=== PATIENT | male | born 1950 | race Caucasian/White ===

== ENCOUNTER → 2021-01-28 15:47 | Outpatient (CLI) | payer MEDICARE, SELFPAY ==
[2021-01-28 17:56] LABS: Absolute Lymphocyte Count 1.71 X10^3/uL (0.83-4.51); Absolute Neutrophil Count 3.9 X10^3/uL (2.0-7.7); Basophil# 0.07 X10^3/uL; Basophil% 1.1 % (0-1); Eosinophil# 0.09 X10^3/uL; Eosinophils% 1.4 % (0-5); Hematocrit 43.6 % (40-54); Hemoglobin 14.6 g/dL (13.0-16.5); Lymphocyte # 1.71 X10^3/ul (0.83-4.51); Lymphocyte % 27.1 % (19-41); Mean Corp Hgb Conc 33.5 g/dL (32-36); Mean Corpuscular Hgb 32.8 pg (27.0-32.0); Mean Platelet Vol. 10.3 fl (6.2-12.0); Monocyte% 7.9 % (0-10); NRBC Flagged by Analyzer 0 % (0-5); Neutrophil # 3.91 X10^3/uL (2.7-7.7); Neutrophil % 62.2 % (47-70); Platelet Count 226 K/mm3 (150-450); RBC Distribution Width CV 12.1 % (11.6-14.6); RBC Distribution Width SD 43.6 fl (35.1-43.9); Red Blood Count 4.45 M/mm3 (4.6-6.2); White Blood Count 6.3 K/mm3 (4.4-11.0)
[2021-01-28 18:35] LABS: ALB/GLOB Ratio 0.9 RATIO (0.9-2.4); AST(SGOT) 13 U/L (15-37); Alanine Aminotransfer ALT/SGPT 32 U/L (16-61); Albumin, Serum 3.6 g/dL (3.2-5.0); Alkaline Phosphatase 69 U/L (45-117); Anion Gap 8 (5-15); BUN 17 mg/dL (7-18); BUN/Creat Ratio 11.3 RATIO (10-20); Chloride 103 mmol/L (98-107); Creatinine, Serum 1.51 mg/dL (0.70-1.30); EST Glomerular Filtration Rate 48 mL/min (>60); Est Glom Filt Rate - Afr Amer 59 mL/min (>60); Globulin 3.9 g/dL (2.2-4.2); Glucose 118 mg/dL (74-106); Potassium 4.7 mmol/L (3.5-5.1); Protein, Total 7.5 g/dL (6.4-8.2); Sodium Level 138 mmol/L (136-145)
== END ==
PROVIDERS: PCP Family Medicine; Referring Provider Family Medicine; Visit Provider Family Medicine
DX: M79.2 Neuralgia and neuritis, unspecified (principal)
CPT/HCPCS: 36415; 80053; 82746; 84443; 85025

== ENCOUNTER 2021-06-14 15:54 | Outpatient (CLI) | payer MEDICARE, SELFPAY ==
[2021-06-14 18:23] LABS: Anion Gap 4 (5-15); BUN 15 mg/dL (7-18); BUN/Creat Ratio 11.2 RATIO (10-20); Calcium,Total 9.6 mg/dL (8.5-10.1); Chloride 106 mmol/L (98-107); Cholesterol 202 mg/dL (200); Creatinine, Serum 1.34 mg/dL (0.70-1.30); EST Glomerular Filtration Rate 56 mL/min (>60); Est Glom Filt Rate - Afr Amer 67 mL/min (>60); Glucose 113 mg/dL (74-106); High Density Lipoprotein 35 mg/dL; PSA,Total - Annual Screen 1.27 ng/mL (0.00-4.00); Potassium 4.3 mmol/L (3.5-5.1); Sodium Level 139 mmol/L (136-145); Triglycerides 254 mg/dL; Very Low Density Lipoprotein 51 mg/dL (5-40)
== END 2021-06-14 23:59 | disposition home or self-care (01) ==
LOC: MFPLAB 15:57
PROVIDERS: PCP Family Medicine; Referring Provider Family Medicine; Visit Provider Family Medicine
DX: Z12.5 Encounter for screening for malignant neoplasm of prostate (principal); Z00.00 Encounter for general adult medical examination without abnormal findings
CPT/HCPCS: 80048; 80061; 84153; G0103

== ENCOUNTER 2021-07-14 08:20 | Outpatient (CLI) | payer MEDICARE, SELFPAY ==
--- NOTE | 2021-07-14 08:27 | CT_ITS ---
STUDY: CT ABDOMEN AND PELVIS WITH CONTRAST REASON FOR EXAM: Male, 71 years old. Multiple hernias RADIATION DOSAGE (If Supplied By Facility): CTDIvol = ( 15.02 ) mGy, DLP = ( 813.74 ) mGycm TECHNIQUE: Transaxial images were obtained from the dome of the diaphragm to the symphysis pubis with oral contrast. Oral and amp;amp; IV Readi-CAT and amp;amp; 100mL Isovue-300 was administered. Sagittal and coronal images were reconstructed. Individualized dose optimization techniques were used for this CT. COMPARISON: None. FINDINGS: The visualized lung bases are unremarkable. The visualized portions of the heart are within normal limits. There is decreased attenuation of the liver consistent with steatosis. The patient is status post cholecystectomy. Normal spleen. Normal pancreas. Normal bilateral adrenal glands. There is a 1.3 cm cyst in the lower pole of the right kidney. Normal left kidney. Incidental note is made of a left retroaortic renal vein. There is a small hiatal hernia. Normal small intestine. Findings suggestive of an apple core lesion in the cecum. Correlation with endoscopy is recommended. There are multiple colonic diverticula consistent with diverticulosis. The appendix is visualized and appears normal. There is scattered atherosclerotic calcification of the abdominal aorta, without a demonstrated aneurysm. Normal inferior vena cava. Normal retroperitoneum. Normal urinary bladder. There are prostatic calcifications. Small bilateral inguinal hernias containing fat more prominent on the left side. Small inguinal hernia containing fat. There are degenerative changes of the visualized lumbar spine. Minimal loss of height of the superior endplate of the L1 vertebrae. CT/Abdomen/Pelvis WITH Contrast IMPRESSION: Fatty infiltration of the liver. Findings suggestive of an apple core lesion of the cecum. Endoscopic correlation recommended. Bilateral inguinal hernias containing fat slightly more prominent on the left side. Electronically Signed: Gagan Terry MD at 13:24 EDT ,
[2021-07-14 08:51] LABS: CREATININE FINGERSTICK 1.6 mg/dL (0.70-1.30)
== END 2021-07-14 23:59 | disposition home or self-care (01) ==
LOC: CT 08:25
PROVIDERS: PCP Family Medicine; Referring Provider Family Medicine; Visit Provider Family Medicine
DX: K43.9 Ventral hernia without obstruction or gangrene (principal); R19.09 Other intra-abdominal and pelvic swelling, mass and lump
CPT/HCPCS: 74177; Q9967

== ENCOUNTER 2021-08-08 05:23 | Day surgery (SDC) | payer BC, SELFPAY ==
[2021-08-08] VITALS (7 sets, daily range): BP systolic 119–166; BP diastolic 62–86; PULSE 73–97; RESP 14–18; TEMP 36.1–36.3; O2SAT 96–100; BMI 27.7
--- NOTE | 2021-08-08 | COLBX_PTH ---
PATIENT: PETER STEVENS LOC: EN U#:[id number] AGE/SX: 71/M ROOM: RE08/08/[address]: Dr. Mateo Steinberg MD : 1950 BED: DIS: 08/08/2021 SPEC #: [id number] RECD: 08/08/21 13:04 STATUS: ELAN CHANG #: [id number] HALI: 08/08/21 00:[address]: Mateo Steinberg DEPT: SURGICAL PATHOLOGY RECD BY: Ventura Peterson ENTERED: 08/08/21 13:05 SP TYPE: COLON BX OTHR DR: Dr. Eliza Jacobs MD Tissues: A - Ascending colon B - COLON BIOPSY C - Transverse colon D - Transverse colon E - Transverse colon F - Transverse colon Procedures: Surgery Specimen Level IV HEADER OPERATION: Colonoscopy with hot snare and cold snare polypectomy PRE-OP DIAGNOSIS: Abnormal CT of abdomen TISSUE SUBMITTED: A - Biopsy polyp proximal ascending colon, B - Biopsy polyp hepatic flexure colon, C - Biopsy polyp proximal transverse colon #1, D - Biopsy polyp proximal transverse colon #2, E - Biopsy mid transverse colon, F - Biopsy polyp mid transverse colon MICROSCOPIC DIAGNOSIS A. Polyp proximal ascending colon, biopsy: Fragments of hyperplastic polyp. B. Polyp hepatic flexure colon, biopsy: Fragments of tubular adenoma. C. Polyp, proximal transverse colon #1, biopsy: Fragments of tubular adenoma. D. Polyp, proximal transverse colon #2, biopsy: Fragments of tubular adenoma. Fragments of fecal material. E. Mid transverse colon polyp, biopsy: Fragments of tubular adenoma. F. Polyp mid transverse colon, biopsy: Fragments of tubular adenoma. SJ:rg 08/09/2021 COMMENT Case has been reviewed in consultation with Dr. Toledo who concurs with the above diagnosis. IDC:AM MICROSCOPIC DESCRIPTION Slides are reviewed. GROSS DESCRIPTION A - Received in fixative is one container labeled with the patient's name and designated biopsy polyp proximal ascending colon. The specimen consists of multiple irregular fragments of light kinney soft tissue that in aggregate measure 0.5 x 0.5 x 0.1 cm. The specimen is totally submitted in one cassette. B - Received in fixative is one container labeled with the patient's name and designated biopsy polyp hepatic flexure. The specimen consists of multiple irregular fragments of light kinney soft tissue that in aggregate measure 1 x 0.8 x 0.1 cm. The specimen is totally submitted in one cassette. C - Received in fixative is one container labeled with the patient's name and designated proximal transverse polyp #1. The specimen consists of multiple irregular fragments of kinney soft tissue mixed with fragments of fecal material that in aggregate measure 1 x 1 x 0.3 cm. The specimen is totally submitted in one cassette. D - Received in fixative is one container labeled with the patient's name and designated proximal transverse polyp #2. The specimen consists of multiple irregular fragments of light kinney soft tissue predominantly consisting of fecal material that in aggregate measure 2 x 0.5 x 0.1 cm. The specimen is totally submitted in one cassette. E - Received in fixative is one container labeled with the patient's name and designated mid transverse colon. The specimen consists of two irregular fragments of light kinney soft tissue that in aggregate measure 0.5 x 0.3 x 0.1 cm. The specimen is totally submitted in one cassette. F - Received in fixative is one container labeled with the patient's name and designated polyp mid transverse colon. The specimen consists of two pieces of kinney-pink polyp each measuring 0.5 x 0.4 x 0.3 The specimen is totally submitted in one cassette. / SJ:rg 08/08/2021 TC:1 CPT: 81344 x6
[2021-08-08] MEDS: Lactated Ringers 1,000 ML 15 ML IV (05:45)
--- NOTE | 2021-08-08 06:09 | PCM.HP.BLA ---
History and Physical Date of Admission: 08/08/21 Intake Visit Reasons: COLONOSCOPY Chief Complaint: abn CT colon, BIH Inclusion [employer] Required: No Is patient in pain?: No Allergies Penicillins Allergy (Mild, Verified 08/02/21 15:16) rash Medications NK 08/02/21 [History Confirmed 08/02/21] [facility] Medical History (Updated 08/02/21 @ 15:[address] Mateo Steinberg MD) Back pain Bilateral inguinal hernia (BIH) GERD (gastroesophageal reflux disease) Hemorrhoid Surgical History (Updated 08/02/21 @ 15:14 by Judy Anderson) History of colonoscopy History of hemorrhoidectomy History of laparoscopic cholecystectomy Family History (Updated 08/02/21 @ 15:14 by Judy Anderson) Father Heart disease Myocardial infarction Mother Heart disease Myocardial infarction Social History Smoking Status: Current every day smoker HPI HPI HPI: PETER STEVENS, is a 71 M who presents to the office today for surgical consultation regarding a colonoscopy. The patient's been having problems with abdominal pain and a suspected hernia. 15 years ago at [facility] he had a previous colonoscopy and had a benign polyps removed.'s been complaining of abdominal pain and blood per rectum. At the [facility] on July 14, [address] of the abdomen pelvis. Liver steatosis noted. Evidence of previous cholecystectomy. 1.3 cm cyst lower pole right kidney. Small hiatal hernia. Possibly an apple core lesion in the cecum. Multiple diverticula consistent with diverticulosis. Scattered calcifications of the abdominal aorta. Small bilateral inguinal hernias. Slightly more prominent on the left. It is of note that he is a chronic lifelong smoker and he continues to smoke at least a half a pack per day. The patient was referred by Dr Eliza Jacobs and a written copy of my surgical consult recommendations will return to her As of January 28, 2021 white blood cell count 6.3 with hemoglobin 14.6 and a hematocrit of 43.6 and platelet count 226,000. As of June 14, 2021 BUN was 15 and creatinine 1.34. Triglycerides were 254 and cholesterol 202 with an LDL of 116 and VLDL 51 with an HDL 35 The patient notes that he has a left greater than right inguinal hernia but he has had this for many years. He was not aware of any bowel habit change. Occasionally he has gas or inconsistent stools but there is been nothing acute. He states that his mom always had multiple polyps but they always were benign. I have evidence of a colonoscopy done by Dr. Harley Jaramillo November 21, 2002. In the ascending colon there was a tubular adenoma in the sigmoid colon a tubular adenoma. The patient describes that he may have had a more recent colonoscopy done by Dr. Donny Greenwood. We will try to obtain records. He denies myocardial infarction CVA diabetes sleep apnea or DVT. He did experience Covid-11 May 2021. Claims he had a cough for approximately a week and a half but symptoms were very mild. He has had a previous laparoscopic cholecystectomy. This was done for gallstones. He does state that he ceased his tobacco for 3 weeks prior to that procedure ROS General General: Yes fatigue; No weight change, appetite, colon cancer, breast cancer or weakness HEENT HEENT: No difficulty swallowing, eye injury, eye surgery, swollen glands or hoarseness Endo Endocrine: No thyroid disease, diabetes mellitus, thyroid cancer, Hair loss, heat intolerance or cold intolerance Musc Musculoskeletal: Yes back problems and arthritis; No rheumatoid arthritis, gout or joint pain Cardio Cardiovascular: No murmur, pacemaker, heart disease, atrial fibrillation, high blood pressure, heart attack, heart stent, palpitations, shortness of breat with exertion or chest pain Psych Psychiatric: No depression, anxiety or hearing voices Resp Respiratory: Yes shortness of breath, No sleep apnea, Yes cough, No COPD, No asthma, No emphysema and No wheezing Gastro Gastrointestinal: No abdominal pain, No nausea or vomiting, No diarrhea, No constipation, No blood in stool, Yes acid reflux, Yes hemorrhoids, Yes ulcers, No gallbladder problem and No black,tarry stools Santi Hematologic: No blood thinners, No blood disorders, No bleeding, No anemia and No blood clots Neuro Neurologic: No weakness Exam Const General: cooperative, comfortable and no acute distress Nutritional Appearance: average body habitus Orientation: alert, awake and oriented x3 HENMT Head: normal to inspection Eyes Other: Slightly erythematous periorbital Neck Neck: normal visual inspection Carotids: normal carotid upstroke Chest Other: Increased anterior posterior diameter Resp Other: Diminished respiratory excursion, clear throughout Nonproductive cough noted Cardio Rate: regular rate Rhythm: regular rhythm GI Other: Soft, nontender, well-healed laparoscopic cholecystectomy incisions, normal bowel sounds, Other: Testicles are descended, atrophic, left greater than right inguinal hernia, varicoceles on the left Musc Cervical Spine: normal cervical lordosis Skin General: no rashes or lesions noted Neuro General: patient alert, patient awake and patient oriented x3 Extrem General: no calf tenderness Psych Appearance: grossly normal Assessment and Plan Assessment and Plan (1) Abnormal CT of the abdomen: Status: Acute (2) Bilateral inguinal hernia (BIH): Status: Acute Qualifiers: Obstruction and gangrene presence: without obstruction or gangrene Recurrence: non-recurrent Qualified Code(s): K40.20 - Bilateral inguinal hernia, without obstruction or gangrene, not specified as recurrent (3) Tobacco dependence: Status: Acute Plan - Dr. Mateo Steinberg MD: I recommended the patient a colonoscopy with possible biopsy or polypectomy as indicated. He is aware of the technique, benefit, risk and alternatives. Because of his chronic tobacco use and likely component of COPD I recommend monitored anesthesia care. He is aware that the CT scan is demonstrating a finding in the ascending colon. He has a small hiatal hernia He has a left greater than right inguinal hernia with varicoceles on the left. He might be a candidate for future laparoscopic bilateral inguinal herniorrhaphy. I have asked him to try to help himself by ceasing his tobacco use now in preparation for potential surgical intervention He has had an opportunity to ask and have questions answered. We will schedule procedure at his discretion. I appreciate the opportunity of assisting with the surgical care. Copy: Dr Eliza Steinberg M.D., F.A.C.S. Coding Level of Care Code [address] of the abdomen R93.5 Bilateral inguinal hernia (BIH) K40.20 Obstruction and gangrene presence: without obstruction or gangrene Recurrence: non-recurrent Tobacco dependence F17.200 08/02/21 1532<Electronically signed by Mateo Steinberg MD>Date Mateo Steinberg MD I have re-examined the patient. There are no clinical changes since date of exam. Mateo Steinberg M.D., F.A.C.S.
--- NOTE | 2021-08-08 07:24 | OP.COLON_ITS ---
Patient Name: Monroe Orr Procedure Date: 08/08/2021 6:23 AM Date of : 1950 Age: 71 Procedure: Colonoscopy Indications: Abnormal CT of the GI tract Providers: Mateo Steinberg MD Referring MD: Eliza Jacobs Medicines: See the Anesthesia note for documentation of the administered medications Patient Profile: Last Colonoscopy: none. The patient's first colonoscopy is today. Complications: No immediate complications. Procedure: Pre-Anesthesia Assessment: - Prior to the procedure, a History and Physical was performed, and patient medications and allergies were reviewed. The patient's tolerance of previous anesthesia was also reviewed. The risks and benefits of the procedure and the sedation options and risks were discussed with the patient. All questions were answered, and informed consent was obtained. Prior Anticoagulants: The patient has taken no previous anticoagulant or antiplatelet agents. ASA Grade Assessment: III - A patient with severe systemic disease. After reviewing the risks and benefits, the patient was deemed in satisfactory condition to undergo the procedure. After I obtained informed consent, the scope was passed under direct vision. Throughout the procedure, the patient's blood pressure, pulse, and oxygen saturations were monitored continuously. The colonoscope was introduced through the anus and advanced to the cecum, identified by appendiceal orifice and ileocecal valve. The colonoscopy was performed with moderate difficulty due to multiple polyps. The patient tolerated the procedure well. The quality of the bowel preparation was good. The ileocecal valve and the appendiceal orifice were photographed. Scope In: 6:36:20 AM Scope Withdrawal Time 0 hours 34 minutes 18 seconds Scope Out: 7:13:12 AM Total Procedure Duration Time 0 hours 36 minutes 52 seconds Findings: The digital rectal exam findings include non-thrombosed internal hemorrhoids and internal hemorrhoids that prolapse with straining, but require manual replacement into the anal canal (Grade III). A 5 mm polyp was found in the proximal ascending colon. The polyp was sessile. The polyp was removed with a cold biopsy forceps. Resection and retrieval were complete. A 25 mm polyp was found in the hepatic flexure. The polyp was sessile. The polyp was removed with a saline injection-lift technique using a hot snare. The polyp was removed with a cold snare. The polyp was removed with a saline injection-lift technique using a cold snare. The polyp was removed with a piecemeal technique using a cold snare. Polyp resection was incomplete, and the resected tissue was partially retrieved. A 5 mm polyp was found in the proximal transverse colon. The polyp was sessile. The polyp was removed with a hot snare. Resection and retrieval were complete. A 4 mm polyp was found in the proximal transverse colon. The polyp was sessile. The polyp was removed with a hot snare. Resection and retrieval were complete. A 5 mm polyp was found in the mid transverse colon. The polyp was sessile. The polyp was removed with a cold biopsy forceps. Resection and retrieval were complete. A 5 mm polyp was found in the proximal descending colon. The polyp was sessile. The polyp was removed with a hot snare. Resection and retrieval were complete. Multiple diverticula were found in the sigmoid colon and descending colon. Impression: - Non-thrombosed internal hemorrhoids and internal hemorrhoids that prolapse with straining, but require manual replacement into the anal canal (Grade III) found on digital rectal exam. - One 5 mm polyp in the proximal ascending colon, removed with a cold biopsy forceps. Resected and retrieved. - One 25 mm polyp at the hepatic flexure, removed using injection-lift and a hot snare, removed with a cold snare, removed using injection-lift and a cold snare and removed piecemeal using a cold snare. Polyp resection was incomplete, and the resected tissue was partially retrieved. No heather ink was available to cris this lesion! Incompletely removed. - One 5 mm polyp in the proximal transverse colon, removed with a hot snare. Resected and retrieved. - One 4 mm polyp in the proximal transverse colon, removed with a hot snare. Resected and retrieved. - One 5 mm polyp in the mid transverse colon, removed with a cold biopsy forceps. Resected and retrieved. - One 5 mm polyp in the proximal descending colon, removed with a hot snare. Resected and retrieved. - Diverticulosis in the sigmoid colon and in the descending colon. Recommendation: - Discharge patient to home. - Resume previous diet. - Continue present medications. - Repeat colonoscopy in 3 months for surveillance based on pathology results. - Telephone my office for pathology results in 1 week. Procedure Code(s): --- Professional --- 26261, Colonoscopy, flexible; with removal of tumor(s), polyp(s), or other lesion(s) by snare technique 71935, 59, Colonoscopy, flexible; with biopsy, single or multiple 74690, Colonoscopy, flexible; with directed submucosal injection(s), any substance Diagnosis Code(s): --- Professional --- K64.2, Third degree hemorrhoids D12.2, Benign neoplasm of ascending colon D12.3, Benign neoplasm of transverse colon (hepatic flexure or splenic flexure) D12.4, Benign neoplasm of descending colon K57.30, Diverticulosis of large intestine without perforation or abscess without bleeding R93.3, Abnormal findings on diagnostic imaging of other parts of digestive tract CPT copyright 2017 [employer]. All rights reserved. The codes documented in this report are preliminary and upon pst specialist review may be revised to meet current compliance requirements. Mateo Steinberg MD 08/08/2021 7:24:20 AM This report has been signed electronically. Number of Addenda: 0 Note Initiated On: 08/08/2021 6:23 AM
--- NOTE | 2021-08-08 07:25 | OP.CCLET_ITS ---
08/08/2021 Eliza Jacobs [address] [place] [address] Re : Colonoscopy procedure for [facility] Dear Dr. Jacobs This procedure was performed on Sunday, August 08, 2021. My impressions and recommendations are as follows: Impressions : - Non-thrombosed internal hemorrhoids and internal hemorrhoids that prolapse with straining, but require manual replacement into the anal canal (Grade III) found on digital rectal exam. - One 5 mm polyp in the proximal ascending colon, removed with a cold biopsy forceps. Resected and retrieved. - One 25 mm polyp at the hepatic flexure, removed using injection-lift and a hot snare, removed with a cold snare, removed using injection-lift and a cold snare and removed piecemeal using a cold snare. Polyp resection was incomplete, and the resected tissue was partially retrieved. No heather ink was available to cris this lesion! Incompletely removed. - One 5 mm polyp in the proximal transverse colon, removed with a hot snare. Resected and retrieved. - One 4 mm polyp in the proximal transverse colon, removed with a hot snare. Resected and retrieved. - One 5 mm polyp in the mid transverse colon, removed with a cold biopsy forceps. Resected and retrieved. - One 5 mm polyp in the proximal descending colon, removed with a hot snare. Resected and retrieved. - Diverticulosis in the sigmoid colon and in the descending colon. Recommendations : - Discharge patient to home. - Resume previous diet. - Continue present medications. - Repeat colonoscopy in 3 months for surveillance based on pathology results. - Telephone my office for pathology results in 1 week. My findings are described in the full procedure note, which is enclosed. If I can be of further assistance, please feel free to contact me at Doctor phone number(s): Work: . Sincerely, Mateo Steinberg MD 08/08/2021 7:24:20 AM This report has been signed electronically.
== END 2021-08-08 23:59 | disposition home or self-care (01) ==
LOC: EN 05:31 → AC 05:32
PROVIDERS: PCP Family Medicine; Referring Provider Family Medicine; Visit Provider Surgery
PROC: 0DJD8ZZ Inspection of Lower Intestinal Tract, Via Natural or Artificial Opening Endoscopic (ICD-10-PCS; CPT 45378; principal; 2021-08-08 06:25)
DX: D12.5 Benign neoplasm of sigmoid colon (principal); D12.2 Benign neoplasm of ascending colon; K57.90 Diverticulosis of intestine, part unspecified, without perforation or abscess without bleeding; K44.9 Diaphragmatic hernia without obstruction or gangrene; K76.0 Fatty (change of) liver, not elsewhere classified; K64.2 Third degree hemorrhoids; K21.9 Gastro-esophageal reflux disease without esophagitis; M19.90 Unspecified osteoarthritis, unspecified site; F17.210 Nicotine dependence, cigarettes, uncomplicated; Z86.16 Personal history of COVID-19
CPT/HCPCS: 45385; 45380; 45381; 88305; J7120; J2405

== ENCOUNTER 2022-04-26 19:11 | Inpatient (IN) | payer BC, SELFPAY ==
[2022-04-26 19:12] VITALS: BP 142/87; PULSE 112; RESP 15; TEMP 36.5; O2SAT 100; BMI 27.1
[2022-04-26 22:09] VITALS: BP 142/89; PULSE 150; RESP 27; O2SAT 99
--- NOTE | 2022-04-26 22:25 | EX.ED.DYSGE1 ---
HPI History of Present Illness Chief Complaint: Abn Labs Narrative Narrative: 71-year-old male presenting with shortness of breath which is been present for about a month. Patient denies any chest pain. He states he had COVID at the beginning of the month and has been significantly short of breath since that time. He states that he has had issues with a bleeding hemorrhoid up until about a week ago. He states that when he would bear down to defecate it would squirt like a syringe. He is not on any blood thinners. He states it is not currently doing so when he defecates. He is not complaining of any abdominal pain. He is not had any fever, chills. The patient states that he went to see his primary care physician today in follow-up for shortness of breath and had lab work drawn and his hemoglobin is 5.9 from 18.6 in January. PFSH PFSH Medical History Arthritis Back pain Bilateral inguinal hernia (BIH) COVID GERD (gastroesophageal reflux disease) Heartburn Hemorrhoid History of stress test History of ulceration Injury of back Loss of hearing Shortness of breath on exertion Smoker Wears dentures Wears glasses Home Medications NK 08/02/21 [History Last Taken Unknown] Allergy/AdvReac Type Severity Reaction Status Date / Time Penicillins Allergy Mild rash Verified 04/26/22 19:15 Family History Father Heart disease Myocardial infarction Mother Heart disease Myocardial infarction Surgical History History of colonoscopy History of hemorrhoidectomy History of laparoscopic cholecystectomy Social History Smoking Status: Current every day smoker tobacco type: cigarettes EXAM Physical Exam Const Vital Signs: 04/26/22 19:12 04/26/22 22:09 04/26/22 22:10 Temperature 97.7 F L Temperature Source Temporal Pulse Rate 112 H 150 H Respiratory Rate 15 27 H Respiratory Effort Normal Non-Labored Respiratory Pattern Normal Blood Pressure 142/87 H 142/89 H Blood Pressure Mean 105 106 Pulse Ox 100 99 Oxygen Delivery Method Room Air Room Air MDM MDM MDM Narrative Medical decision making narrative: Patient presenting with shortness of breath. He states been ongoing for about a month. He had COVID earlier this month and is no longer having fevers or chills but he states that he is significantly short of breath over this timeframe and it seems to be worsening. He had blood work drawn today which showed he had a hemoglobin of 5.9. In January this was over 14. His LFTs are normal. Creatinine is elevated from 1.34-1.54. Given his significant tachycardia he was given 2 L of IV fluids. He was typed and crossed for 2 units. Apparently the patient had a surgery in November for a polyp removal which was essentially partial colectomy with anastomosis. He is not having abdominal pain. He does say that he had a bleeding hemorrhoid up until about a week ago. He reports that when he would defecate this would squirt blood like a syringe. This has resolved. On examination I do not see any external hemorrhoids. Does have a history of internal bleeding hemorrhoids. I spoke with Dr. Hernadez who recommended the patient be prepped overnight with GoLytely. He plans to scope him in the morning. We are going to give him a couple of doses of Protonix as a concern that this could possibly be upper GI bleed. I obtained an EKG which on my interpretation shows atrial fibrillation at 170 bpm. I spoke with Dr. Garcia regarding the patient and he recommended some volume repletion with blood and IV fluids prior to try to sort out his heart rate with medication. If after he is fluid resuscitated and received blood he still tachycardic it can be addressed with medication at that point. This is likely demand from his volume loss. I did obtain a chest x-ray and on my interpretation is no acute cardiopulmonary process. Radiology interpreted this and agrees. BNP slightly elevated at 397. High-sensitivity troponin is 7. Patient discussed with hospitalist for admission. Impression: 1 Acute blood loss anemia 2. A. fib with RVR 3. Dyspnea Lab Data Labs: Laboratory Results - last 24 hr 04/26/22 04/26/22 04/26/22 22:15 22:15 23:05 PT 17.9 H INR 1.5 Troponin I High Sens 7 B-Natriuretic Peptide Blood Type A POSITIVE Antibody Screen NEGATIVE Crossmatch See Detail 04/26/22 23:05 PT INR Troponin I High Sens B-Natriuretic Peptide 397.0 H Blood Type Antibody Screen Crossmatch Radiography Diagnostic Testing: Clinical Impression(s) from Imaging Studies Chest X-Ray 04/26/22 22:50 IMPRESSION: No acute disease. Electronically Signed: Fili Garduno MD at 23:30 EST , Discharge Plan Triage Chief Complaint: Abn Labs ED Provider: Denis Cavazos Dx/Rx/DC Orders Primary Care Provider: Eliza Jacobs
--- NOTE | 2022-04-26 22:35 | EKG12_ITS ---
Test Reason : DYSRHYTHMIA Blood Pressure : / mmHG Vent. Rate : 170 BPM Atrial Rate : 159 BPM P-R Int : 000 ms QRS Dur : 076 ms QT Int : 268 ms P-R-T Axes : 000 030 -82 degrees QTc Int : 450 ms Atrial fibrillation Low voltage QRS Nonspecific ST and T wave abnormality Abnormal ECG Confirmed by JANET CONNELL, VON ([id number]), dictionary editor DEWAYNE COSME ([id number]) on 04/28/2022 6:34:17 AM Referred By: INDRA Confirmed By:LEROY GONZALES MD
--- NOTE | 2022-04-26 22:50 | RAD_ITS ---
EXAM: XR CHEST, 1 VIEW CLINICAL INDICATION: dypsnea TECHNIQUE: Frontal view of the chest. This report was created using Graffiti report generation technology. COMPARISON: April 26, 2022 FINDINGS: LUNGS AND PLEURAL SPACES: Unremarkable. No consolidation or edema. No pneumothorax. No effusion. HEART: Unremarkable. Cardiac silhouette not enlarged. MEDIASTINUM: Central airways and mediastinal contour are unremarkable. BONES/JOINTS: Degenerative changes of the spine and acromioclavicular joints. Diffuse osteopenia. SOFT TISSUES: Unremarkable. RAD/Chest 1 View (Portable) IMPRESSION: No acute disease. Electronically Signed: Fili Garduno MD at 23:30 EST ,
[2022-04-26 23:00] LABS: International Normalized Ratio 1.5; Prothrombin Time (Protime)PT. 17.9 SECONDS (11.7-14.9)
[2022-04-26] MEDS: 0.9% Normal Saline 1,000 ML 999 ML IV (23:10)
--- NOTE | 2022-04-26 23:18 | PCM.HP.STD ---
HPI - General General Date of Admission: 04/26/22 Date of Service: 04/26/22 Chief Complaint: Dyspnea on exertion HPI Narrative PETER STEVENS, is a 71 M with a significant history of colonic polyps status post partial colectomy with anastomosis in November 2021; and hemorrhoidal bleed who presents to the emergency department with anemia. Recent reportedly outpatient labs showed hemoglobin of 5.9. Patient went to see his PCP on the same day of presentation because of dyspnea with exertion. And a blood count was ordered at presentation at PCPs office. He reported he had a COVID-19 infection in March 2022. He improved but then he began to have shortness of breath again. He reports that in March 2022 he had about 2 weeks of bleeding that he attributed to hemorrhoids. At that time of presentation he was not bleeding. [facility] Medical History Arthritis Back pain Bilateral inguinal hernia (BIH) COVID GERD (gastroesophageal reflux disease) Heartburn Hemorrhoid History of stress test History of ulceration Injury of back Loss of hearing Shortness of breath on exertion Smoker Wears dentures Wears glasses Home Medications NK 08/02/21 [History Last Taken Unknown] Allergy/AdvReac Type Severity Reaction Status Date / Time Penicillins Allergy Mild rash Verified 04/26/22 19:15 Family History Father Heart disease Myocardial infarction Mother Heart disease Myocardial infarction Surgical History History of colonoscopy History of hemorrhoidectomy History of laparoscopic cholecystectomy Social History household members: spouse number of children: 5 current occupational status: retired pets and animals: No Smoking Status: Current every day smoker tobacco type: cigarettes Tobacco: How many years used: 60 ROS ROS Narrative Pertinent positives and pertinent negatives as noted in HPI. All other systems were reviewed and are negative Vital Signs Vital Signs Vital Signs: 04/26/22 19:12 04/26/22 22:09 04/26/22 22:10 Temperature 97.7 F L Temperature Source Temporal Pulse Rate 112 H 150 H Respiratory Rate 15 27 H Respiratory Effort Normal Non-Labored Respiratory Pattern Normal Blood Pressure 142/87 H 142/89 H Blood Pressure Mean 105 106 Pulse Ox 100 99 Oxygen Delivery Method Room Air Room Air Weight Weight: 78.471 kg Body Mass Index (BMI) 27.1 Physical Exam Narrative Physical exam: General: Well-nourished, well-developed. Head: Normocephalic, atraumatic, no tenderness Eyes: Vision is grossly intact. EOMI ENT, no trauma, moist mucous membranes, no rhinorrhea Neck: Nontender, No thyromegaly. CVS: Regular rate and rhythm. S1-S2 present. No murmur, gallop or rub. Respiratory : clear to auscultation bilaterally, chest wall nontender, no wheezing Abdomen: Soft, nontender, nondistended, normal bowel sounds, no masses : Deferred Back: Nontender, no CVA tenderness, no midline spinal tenderness, deformities, step-offs Extremities: Nontender full range of motion, no trauma Skin: Normal color, no trauma, abrasions. Pale Neuro: Alert, oriented, cranial nerves II through XII grossly intact. Psychiatry: Normal mood. Normal affect. Not depressed. Not anxious. Results Lab / Micro Data Labs: Laboratory Results - last 24 hr 04/26/22 22:15: PT 17.9 H, INR 1.5 04/26/22 22:15: Blood Type A POSITIVE, Antibody Screen NEGATIVE, Crossmatch See Detail Assessment & Plan Assessment/Plan (1) ABLA (acute blood loss anemia): (2) CHF (congestive heart failure): (3) COPD with exacerbation: PLAN: Plan Acute blood loss anemia likely secondary to lower GI bleed Hemoglobin on presentation was 5.9. Review of records show that his hemoglobin on 01/28/2021 was 14.6 Admit to monitored bed on progressive care IV fluids bolus received in the emergency department; 2 units of packed red blood ordered. Trend H&H. Emergency plan doctor discussed the case with gastroenterology who stated that although it could be likely lower GI bleed Protonix should be ordered. Protonix ordered Dulcolax and GoLytely ordered. Gastroenterology consult Mili mao with R Emergency department doctor discussed case with cardiology and the consensus was that patient is probably fluid depleted from GI loss so patient should be resuscitated with fluids and blood. Patient received 2 L IV fluids at the emergency department. Intravenous of blood ordered emergency department. After volume replacement if patient is still in A. fib we will consider medication to reduce rate. Patient is not a candidate of anticoagulation at this time secondary to GI bleed. Patient converted to sinus tachycardia with amiodarone. We will start patient on Cardizem p.o. Acute CHF Unclear when reduced ejection fraction of preserved ejection fraction Upon completion of 2 L of IV fluids and 1 unit of packed red blood cells patient was reportedly in respiratory distress. BiPAP ordered. Chest x-ray was visualized and independently interpreted. I agree with radiologist interpretation of signs consistent with heart failure. Echocardiogram ordered. COPD excerbation Started on steroid outpatient. Patient wheezing. Steroids continued. DVT prophylaxis SCDs ordered. Charges/Coding Visit Charges Inpatient E&M: 48547 Init Hosp L3
[2022-04-26 23:41] LABS: Troponin-I HS 7 pg/mL (3.0-78.0)
[2022-04-26 23:44] VITALS: BP 139/100; PULSE 158; RESP 23; TEMP 36.9; O2SAT 98
[2022-04-26 23:45] VITALS: BP 162/97; PULSE 152; RESP 28; TEMP 36.9; O2SAT 98
[2022-04-26] MEDS: Bisacodyl 5 MG Tablet 20 MG PO (23:47)
[2022-04-26 23:59] VITALS: BP 131/66; PULSE 146; RESP 27; TEMP 36.9; O2SAT 99
[2022-04-27] VITALS (51 sets, daily range): BP systolic 99–178; BP diastolic 58–143; PULSE 71–163; RESP 12–41; TEMP 35.6–37.1; O2SAT 60–100; BMI 26.1
[2022-04-27] MEDS: 0.9% Normal Saline 1,000 ML 999 ML IV (00:28)
--- NOTE | 2022-04-27 01:11 | ECHOD_ITS ---
Reason For Study: AFIB Procedure This was a 2D Doppler, Color Flow transthoracic echocardiogram. Technically difficult study due to patient breathing. The study was technically difficult. Exam performed portable in ICU/CCU. Left Ventricle Normal LV size. Apical false tendon noted. Severe segmental systolic dysfunction (see wall motion). The estimated ejection fraction is 25 %. Unable to assess diastolic dysfunction. Anterio-Basal: Hypokinetic. Lateral-Basal: Hypokinetic. Basal inferoseptal: Hypokinetic. Basal anteroseptal: Hypokinetic. Mid-Anterior : Hypokinetic. Mid-Lateral : Hypokinetic. Mid-Posterior: Hypokinetic. Mid- Inferior: Hypokinetic. Mid-inferoseptal : Hypokinetic. Mid-anteroseptal : Hypokinetic. [place] : Hypokinetic. Right Ventricle Normal RV size. Normal systolic function. Atria The left atrium is mildly enlarged. Normal right atrium. No doppler evidence for ASD. Mitral Valve There is no mitral annular calcification. Normal mitral valve. Moderate (2+) eccentric mitral valve insufficiency. Tricuspid Valve Normal tricuspid valve. Mild to moderate (1-2+) eccentric tricuspid valve insufficiency. Unable to estimate RV systolic pressure due to insufficient tricuspid regurgitant envelope. Aortic Valve Trisinus/trileaflet aortic valve. Normal aortic valve. Pulmonic Valve The pulmonic valve is not well visualized. Great Vessels Normal sized aortic root. Pericardium/Pleural No pericardial effusion. MMode/2D Measurements & Calculations LVIDd: 4.7 cm IVSd: 1.2 cm Ao root diam: 3.7 cm LVIDs: 4.2 cm LVPWd: 1.3 cm FS: 10.4 % LAV(MOD-bp): 40.2 ml LVAd ap4: 21.3 cm2 SV(MOD-sp4): 10.8 ml LAV(MOD-bp) Indexed: 21.4 ml/m2 LVLd ap4: 6.4 cm LAV(MOD-sp2): 39.3 ml EDV(MOD-sp4): 58.0 ml LAV(MOD-sp4): 39.5 ml EDV(sp4-el): 59.8 ml LVAs ap4: 17.8 cm2 LVLs ap4: 5.6 cm ESV(MOD-sp4): 47.2 ml ESV(sp4-el): 48.5 ml EF(MOD-sp4): 18.6 % EF(sp4-el): 19.0 % SV(sp4-el): 11.4 ml LA A4 area: 15.6 cm2 LA dimension(2D): 3.5 cm RA A4 area: 14.5 cm2 Doppler Measurements & Calculations MV E max gabi: 132.8 cm/sec Ao V2 max: 101.7 cm/sec LV V1 max: 89.0 cm/sec Ao max P.1 mmHg LV V1 max P.2 mmHg Ao V2 mean: 72.8 cm/sec LV V1 mean P.7 mmHg Ao mean P.4 mmHg LV V1 mean: 61.8 cm/sec Ao V2 VTI: 16.4 cm LV V1 VTI: 14.7 cm AV (velocity ratio): 0.90 MR max gabi: 498.1 cm/sec PA V2 max: 68.8 cm/sec MR max P.3 mmHg PA V2 mean: 49.1 cm/sec ECHO/Echo Complete Interpretation Summary The study was technically difficult. Severe segmental systolic dysfunction (see wall motion). The estimated ejection fraction is 25 %. Apical false tendon noted. The left atrium is mildly enlarged. Moderate (2+) eccentric mitral valve insufficiency. Mild to moderate (1-2+) eccentric tricuspid valve insufficiency. Unable to estimate RV systolic pressure due to insufficient tricuspid regurgita nt envelope. Unable to assess diastolic dysfunction. Ordering Physician: Vicente Marquez Referring Physician: Eliza Jacobs M.D. Performed By: Cheryle Dickerson RCS
--- NOTE | 2022-04-27 02:15 | NURSING ---
Texted Dr Marquez regarding concerns with patients heart rate remaining elevated afib in 130's to 170's. Pt is also having rhonchi in addition to the wheezes noted on admission. Asked Dr Marquez to come assess the patient due to our concerns. Received call back stating to have respiratory place pt on bipap at setting 12/6 and he would be up to see him as soon as possible.
--- NOTE | 2022-04-27 02:30 | NURSING ---
Dr Marquez came to room to see patient. gave verbal order for amiodarone bolus and drip to start.
--- NOTE | 2022-04-27 02:32 | NURSING ---
Asked Dr Marquez if lasix would be appropriate for this patient given that he had 2 liter fluid bolus in ER and he is receiving blood. Physician states he doesn't hear any rhonchi so he will not give any lasix at this time however he will give verbal order for portable chest xray stat and solumedrol since he has a hx of copd.
--- NOTE | 2022-04-27 02:35 | NURSING ---
Pt is changed to step down status due to need for bipap and amiodarone drip to start. Charge nurse notified.
--- NOTE | 2022-04-27 02:35 | RAD_ITS ---
STUDY: X-RAY CHEST REASON FOR EXAM: Male, 71 years old. shortness of breath TECHNIQUE: Single AP portable view of the chest. COMPARISON: None. FINDINGS: The lungs are clear and expanded. There is no demonstrated pleural abnormality. Normal size heart. Normal mediastinum and brianda. There is prominence of the pulmonary hilar arteries and peripheral pulmonary arteries, consistent with congestive heart failure (CHF). Normal visualized aortic arch and descending thoracic aorta. Normal visualized thoracic spine. Normal visualized ribs, clavicles, and shoulders. There is no demonstrated abnormality of the visualized soft tissue structures of the upper abdomen. RAD/Chest 1 View (Portable) IMPRESSION: There is prominence of the pulmonary hilar arteries and peripheral pulmonary arteries, consistent with congestive heart failure (CHF). Electronically Signed: Jason London MD at 3:29 EST ,
[2022-04-27] MEDS: MethylPREDNISolone 125 MG/2 ML Vial IV (02:56)
--- NOTE | 2022-04-27 03:17 | CPS ---
pt stated he could not breathe with bipap no longer. Bipap off 3 L nasal o2 applied
[2022-04-27] MEDS: Amiodarone 360 MG in Dextrose 5% Viaflo Bag 192.8 ML 33.3 MG CONT INF (03:18)
[2022-04-27] MEDS: Furosemide 20 MG/2 ML VIAL IV ×2 (03:50→05:24)
--- NOTE | 2022-04-27 04:06 | NURSING ---
Pt converted to Sinus tachycardia. Charge nurse entered order for ekg to confirm.
--- NOTE | 2022-04-27 04:28 | EKG12_ITS ---
Test Reason : RHYTHM CHANGE Blood Pressure : / mmHG Vent. Rate : 110 BPM Atrial Rate : 110 BPM P-R Int : 140 ms QRS Dur : 092 ms QT Int : 366 ms P-R-T Axes : 067 -19 095 degrees QTc Int : 495 ms Sinus tachycardia Low voltage QRS Nonspecific ST and T wave abnormality Abnormal ECG When compared with ECG of 26-APR-2022 22:44, MANUAL COMPARISON REQUIRED, DATA IS UNCONFIRMED Confirmed by JANET CONNELL, VON ([id number]), supervising editor news reel DEWAYNE COSME ([id number]) on 04/28/2022 6:39:41 AM Referred By: DR MOONEY Confirmed By:LEROY GONZALES MD
--- NOTE | 2022-04-27 05:15 | NURSING ---
Second unit of blood completed at this time.
[2022-04-27] MEDS: 0.9% Saline Lock 10 ML Syringe IV ×2 (05:24→20:37)
--- NOTE | 2022-04-27 05:55 | NURSING ---
Dr Marquez called expressing his frustration that this patient did not receive the golytely overnight. He discussed this at length with the charge nurse and states that he has no contraindications for the prep. This nurse took prep back to room and respiratory therapy is in room at this time stating they feel he needs to go back on the bipap and that he needs abg's drawn. Sent text to Dr Marquez to have him call the floor. Returned call. Informed physician the patient is having increased trouble breathing and that he will be going back on the bipap that he had previously been refusing. Also informed he will be unable to take bowel prep at this time. Physician gave order for abg's.
--- NOTE | 2022-04-27 06:05 | NURSING ---
Rapid response called at this time due to patient having increased work of breathing. See form for information.
[2022-04-27] MEDS: LORazepam 2 MG/ML Syringe 1 MG IV (06:14)
[2022-04-27] MEDS: Furosemide 40 MG/4 ML Vial IV (06:18)
[2022-04-27 06:21] LABS: Allen Test Positive; Base Excess -13 mmol/L (-2 to +2); Bicarbonate 13.5 mmol/L (22-26); Blood Gas Specimen Type ART; FI02 35; O2 Delivery Device BiPAP; PO2 96 mmHG (75-100); SITE R Radial; SO2 97 % (95-99); Total Carbon Dioxide 15 mmol/L; pCO2 29.8 mmHg (35-45); pH 7.27 (7.35-7.45)
[2022-04-27 06:24] LABS: Hematocrit 32.5 % (40-54); Hemoglobin 9.6 g/dL (13.0-16.5)
[2022-04-27] MEDS: Morphine 2 MG/ML Syringe IV (06:29)
[2022-04-27 06:47] LABS: Magnesium 2.2 mg/dL (1.6-2.6)
--- NOTE | 2022-04-27 06:49 | NURSING ---
notified of transfer to ICU for flash pulmonary edema, medications administered and potential intubation if he does not improve. in agreement with plan
[2022-04-27] MEDS: Furosemide 500 MG in Empty Viaflex 50 mL 1 EACH CONT INF (06:52)
--- NOTE | 2022-04-27 06:53 | CPS ---
0550 RT entered pt room, pt was struggling to breathe, diaphoretic and in respiratory distress. RT called to ask for a blood gas. Ordered obtained. ABG drawn. At which time i felt pt was in need of more intense medical attention. A Rapid Response was called.
--- NOTE | 2022-04-27 06:55 | RAD_ITS ---
STUDY: X-RAY CHEST REASON FOR EXAM: Male, 71 years old. dyspnea -- portable TECHNIQUE: Single AP portable view of the chest. COMPARISON: 04/27/2019 06/23/1935 FINDINGS: Increase in the alveolar opacity in the lower right lung consistent with worsening right middle lobe pneumonia. There is no demonstrated pleural abnormality. Normal size heart. Normal mediastinum and brianda. Normal visualized pulmonary arteries. Normal visualized aortic arch and descending thoracic aorta. Normal visualized thoracic spine. Normal visualized ribs, clavicles, and shoulders. There is no demonstrated abnormality of the visualized soft tissue structures of the upper abdomen. RAD/Chest 1 View (Portable) IMPRESSION: Worsening right middle lobe pneumonia. Electronically Signed: Jose Mccauley MD at 8:41 EST ,
--- NOTE | 2022-04-27 07:09 | CPS ---
Started pt on airvo per Dr. tsai's. Expressed concern over taking pt off bipap and switching to airvo due to pt high work of breathing, and fluid overload.
[2022-04-27] MEDS: Haloperidol Lactate 5 MG/ML Vial 3 MG IV (08:31)
--- NOTE | 2022-04-27 10:19 | CASEMGMT ---
KOKI ESPOSITO DC Planning Assessment: KOKI ESPOSITO met with pt face to face at bedside for assessment. Pt resting with eyes closed with Airvo intact. Family at bedside including pt's Eliza and daughters Alice and Phuong. Pt unable to participate in assessment due to dyspnea. Family agreeable to participate. KOKI ESPOSITO introduced self, role explained and family expressed understanding. Care providers, insurance benefit, and demographics verified. Admission Dx: ABLA, CHF, Afib PCP: Dr. Jacobs Specialists: None Preferred Pharmacy: [facility] Insurance: [employer] with a prescription benefit Living Will/HPOA: None LNOK: , Eliza Living Arrangements: Pt lives in a mobile home with his and their 9yo granddaughter. Pt has been independent with all ADLs including household tasks. Transportation: Pt drives, pt's is able to drive pt if needed DME/HHC/SNF: None Plan: Per pt's , goal is to return home. Explained we would monitor pt's medical progress and therapy needs. Pt's stated if pt needed a SNF she would prefer [facility] as she works there. Will continue to monitor and assist with DC planning needs as identified. Yassine Vega RN CM
--- NOTE | 2022-04-27 11:47 | PCM.PN.HOSP ---
Subjective Subjective Follow-up on acute respiratory failure/acute COPD exacerbation/CHF exacerbation/severe anemia: Patient was seen and examined. He remains on Airvo. Heart rate is slightly improved. Denies any bleeding per rectum or melena stools, abdominal pain or chest pain or progressive shortness of breath. Objective Data Objective Data Vital Signs: Vital Signs Temp Pulse Resp BP Pulse Ox O2 Del Method O2 Flow Rate 96.3 F L 110 H 30 H 168/71 H 100 Airvo 60 04/27/22 06:45 04/27/22 11:15 04/27/22 11:15 04/27/22 07:15 04/27/22 11:15 04/27/22 08:00 04/27/22 08:00 FiO2 35 04/27/22 11:15 Oxygen Flow Rate (L/min) 60 Oxygen Delivery Method Airvo Weight: 78.9 kg Body Mass Index (BMI) 26.1 Intake & Output: Intake and Output for Last 24 Hours 04/25/22 04/26/22 04/27/22 23:59 23:59 23:59 Intake Total 110 / 110 3136.78 / 3136.78 Output Total 600 / 600 Balance 110 / 110 2536.78 / 2536.78 Lab / Micro Data Result Diagrams: 04/27/22 06:18 Labs: Laboratory Results - last 24 hr 04/26/22 22:15: PT 17.9 H, INR 1.5 04/26/22 22:15: Blood Type A POSITIVE, Antibody Screen NEGATIVE, Crossmatch See Detail 04/26/22 23:05: Troponin I High Sens 7 04/26/22 23:05: B-Natriuretic Peptide 397.0 H 04/27/22 06:18: Magnesium 2.2, TSH 1.90 04/27/22 06:18: Hgb 9.6 L, Hct 32.5 L ABG Data ABG results: ABG 04/27/22 06:15 Specimen Type ART Sample Site R Radial pH 7.27 L Bicarbonate Actual 13.5 L Total CO2 15 Base Excess -13 L O2 Saturation 97 O2 % 35 ABG pCO2 29.8 L ABG pO2 96 Jeff Test Positive O2 Delivery Device BiPAP Clinical Comments 16*8 Radiography Diagnostic Testing: Radiology Impression Chest X-Ray 04/26/22 22:50 IMPRESSION: No acute disease. Electronically Signed: Fili Garduno MD at 23:30 EST , Chest X-Ray 04/27/22 02:35 IMPRESSION: There is prominence of the pulmonary hilar arteries and peripheral pulmonary arteries, consistent with congestive heart failure (CHF). Electronically Signed: Jason London MD at 3:29 EST , Chest X-Ray 04/27/22 06:55 IMPRESSION: Worsening right middle lobe pneumonia. Electronically Signed: Jose Mccauley MD at 8:41 EST , Physical Exam Narrative Physical exam: General: Alert, oriented x3, cooperative HEENT: Atraumatic Oral: Moist Mucosa Neck: Supple Lungs: Diminished to auscultation, generalized wheezes++ Cardiovascular: HS I+II, regular, no murmurs Abdomen: Bowel Sounds Present, Soft, Non Tender Extremities: Bilateral leg edema, +1 Skin: No rashes, No breakdown Neurological: Grossly intact Psych/Mental Status: Appropriate Assessment & Plan Assessment/Plan (1) COPD with exacerbation: (2) ABLA (acute blood loss anemia): PLAN: Plan 1. Acute hypoxic respiratory failure secondary to acute COPD exacerbation/acute CHF exacerbation/probable anemia Patient remains on air Vo, Chest x-ray had shown fluid overload, probable pneumonia Continue with breathing treatments, IV steroids, encourage use of incentive spirometer. Wean off oxygen for SPO2 more than 94% Check urine Legionella and streptococcal antigen Pulmonology consult 2. Acute COPD exacerbation, patient denies any history of COPD but is a chronic smoker We will continue IV Solu-Medrol, azithromycin 3. A. fib with RVR/Hypertension, unknown EF, 2D echo is pending Continue on Cardizem, Lasix drip, cardiology consulted We will continue to monitor 4. Acute severe anemia, hemoglobin of 5.9, status post 2 units of packed RBCs, Repeat hemoglobin is 9.6, will continue to trend 5. Probable acute GI bleed, history of hemorrhoids, Continue on IV PPI twice daily 6. Nicotine dependence, advised to quit, continue on replacement 7. DVT prophylaxis SCDs on account of GI bleed Charges/Coding Visit Charges Inpatient E&M: 55917 Subs Hosp L2
--- NOTE | 2022-04-27 11:56 | CHAPLAIN ---
Type of Pastoral Visit _x__ Initial Visit ___ Follow-up Visit ___ On-call Visit ___ General Patient Visit ___ Spiritual Assessment ___ Family Conference ___ Bereavement ___ Rapid Response ___ Code Blue ___ Other (describe below) Pastoral Care Referral From _x__ Patient ___ Family ___ Nurse ___ Physician ___ Cabinet Abrasive Sandblaster ___ Cat Cracker Operator ___ Other (describe below) Sacrament/Intervention ___ Active listening ___ Anointing ___ Nondenominational ___ Bereavement ___ Communion ___ Mouna exploration ___ ___ Life review _x__ Prayer ___ Reconciliation ___ Sacrament of Sick _x__ Supportive presence ___ Wedding ___ Other (describe below) Pastoral Comments patient was sleeping with spouse and several daughters in the room with him; pt awoke by call of his name by spouse; pt welcomed presence and the prayer; pt claims he is well supported by family; offer of ongoing support given as desired
[2022-04-27] MEDS: dilTIAZem 60 MG Tablet PO ×3 (12:34→23:38)
[2022-04-27 12:39] LABS: Hematocrit 31.2 % (40-54)
--- NOTE | 2022-04-27 12:56 | EX.PCM.CONCC ---
Assessment & Plan Assessment/Plan (1) Acute respiratory failure with hypoxia: (2) ABLA (acute blood loss anemia): (3) Tobacco dependence: PLAN: Plan RECOMMENDATIONS: 1. Continue diuresis 2. Repeat chemistries to evaluate for electrolyte supplementation 3. Wean supplemental oxygen as tolerated 4. Agree with empiric steroids and bronchodilators 5. Aggressive rate control per cardiology. Consider echocardiogram IMPRESSIONS: 1. Acute hypoxic respiratory failure Exact etiology is unclear at this time. Differential diagnosis would include acute on chronic CHF, COPD exacerbation, TRALI, pneumonia and aspiration. Patient did receive 2 L of IV fluids in addition to the 2 units of blood. Patient appears to be responding to diuretic therapy and was significantly tachycardic at the onset. Patient does have a long smoking history, so presumptive diagnosis of COPD is not unreasonable. Given clinical status, reasonable to initiate Solu-Medrol, azithromycin and bronchodilators. COPD would be exacerbated by anemia. Patient's refusal to cooperate with supplemental oxygen does increase the risk of need for intubation. 2. A. fib with RVR/hypertension/reported CHF No echocardiogram is available for review. Patient is significantly tachycardic and has relatively advanced age. Clinical suspicion for an element of diastolic dysfunction. Cardiology has been consulted. Defer to them on rate control. Patient was transiently on amiodarone, but this has not been continued. Patient appears to be in sinus rhythm at this time and may have increased heart rate secondary to anxiety. Patient has been given Haldol with some improvement. Patient is on a Lasix drip. Would recheck electrolytes and renal function. 3. Acute blood loss anemia Patient is reporting acute hemorrhoidal bleeding. However, incrementation is suggesting that the initial labs may be aberrant. GI has been consulted. Likely hold off on colonoscopy given respiratory status. 4. Advanced age/nicotine dependence/anxiety/failure to comply with supportive devices Complicates care, management, recovery and prognosis. Smoking cessation would be recommended. As needed Haldol would be preferred to benzodiazepines if possible. HPI Consult Data Date of Consult: 04/27/22 HPI Narrative Reason for Consultation: Respiratory failure HPI Narrative: PETER STEVENS is a 71 M, with past medical history listed below, who presents to [facility] on 04/26/2022 secondary to progressive shortness of breath over the previous month. Patient had denied any chest pain. Patient had reported some hemorrhoidal type bleeding of approximately a week ago. Patient states that the bleeding could be arterial in nature. Patient not reported any bleeding when not defecating. Patient had not reported any abdominal pain, fever or chills. Patient gone to his PCP to follow-up for shortness of breath and lab work had shown a change from 18.6-5.9 of hemoglobin. In the ER, patient was afebrile, normotensive and saturating well on room air. Patient was significantly tachycardic at 112 bpm. Laboratory data showed an INR of 1.5 with a negative troponin and a BNP of 397. Chest x-ray was within normal limits. Outside labs must of been reviewed showing increased creatinine, so patient was given 2 L of IV fluids and typed and crossed for 2 units of blood. GI was contacted and had suggested overnight prep with GoLytely with a colonoscopy in the morning. Patient also received IV Protonix and an EKG showed A. fib with RVR with a heart rate in the 170s. Cardiology was contacted and given some recommendations. Patient was admitted to PCU for further evaluation. At approximately 6 AM this morning, patient was a subject of a rapid response. There was discussion about possible intubation secondary to hypoxia. BiPAP was initially tried and the patient refused saying that he could not be tolerated. Patient was subsequently placed on Airvo and then transferred to the intensive care unit for further evaluation. Patient had a Lasix drip placed shortly thereafter. On my initial evaluation, patient was tripoding and pulling at his Airvo. Patient had paroxysmal type coughing leading to a dusky appearance in his face. Patient did not report any production with these coughs. Patient was not able to answer many questions initially. Over the course of patient's ICU stay, respiratory status has improved. FiO2 is much improved. Patient is currently able to report that he does have a long history of tobacco abuse. Patient has not been seen by slate handler or had PFTs previously. Patient does carry diagnosis of CHF, but is unclear of the type of CHF. Patient does not use supplemental oxygen at baseline. Review of systems otherwise negative from a constitutional, HEENT, respiratory, cardiovascular, GI, genitourinary, musculoskeletal, skin, neurologic, psychiatric and hematologic system unless stated above. [facility] Medical History Arthritis Back pain Bilateral inguinal hernia (BIH) COVID GERD (gastroesophageal reflux disease) Heartburn Hemorrhoid History of stress test History of ulceration Injury of back Loss of hearing Shortness of breath on exertion Smoker Wears dentures Wears glasses Home Medications NK 08/02/21 [History Last Taken Unknown] Allergy/AdvReac Type Severity Reaction Status Date / Time Penicillins Allergy Mild rash Verified 04/26/22 19:15 Family History Father Heart disease Myocardial infarction Mother Heart disease Myocardial infarction Surgical History History of colonoscopy History of hemorrhoidectomy History of laparoscopic cholecystectomy Social History household members: spouse number of children: 5 current occupational status: retired pets and animals: No Smoking Status: Current every day smoker tobacco type: cigarettes Tobacco: How many years used: 60 ROS ROS Narrative See HPI Physical Exam Const alert Constitutional Narrative: Pulling at Airvo frequently. Paroxysmal type cough General Appearance: cooperative, well developed and in distress Positive for severe HEENT normocephalic, head/scalp atraumatic and moist oral mucous membranes Eyes PERRL and EOMs intact bilaterally Neck full ROM and no lymphadenopathy Resp normal respiratory effort and no use of accessory muscles Effort and Inspection: tachypneic, labored and actively coughing Auscultation: rales; Negative for rhonchi or wheezes Percussion: Negative for dullness Cardio regular rhythm, S1 normal heart sound, S2 normal heart sound, no murmurs, no rub and no gallops Rate: tachycardic GI normal to inspection, nondistended, normoactive bowel sounds no CVA tenderness Extremity no clubbing, cyanosis or edema Skin no rashes or lesions noted Neuro oriented x3, CN's II-XII intact bilaterally, moves all extremities and no focal motor deficits Psych Activity / Motor Behavior: restless Mood & Affect: anxious Lab / Micro Data Attestation: I reviewed the patient's lab results. Result Diagrams: 04/27/22 12:25 04/27/22 12:25 Labs: Laboratory Results - last 24 hr 04/26/22 22:15: PT 17.9 H, INR 1.5 04/26/22 22:15: Blood Type A POSITIVE, Antibody Screen NEGATIVE, Crossmatch See Detail 04/26/22 23:05: Troponin I High Sens 7 04/26/22 23:05: B-Natriuretic Peptide 397.0 H 04/27/22 06:18: Magnesium 2.2, TSH 1.90 04/27/22 06:18: Hgb 9.6 L, Hct 32.5 L 04/27/22 12:25: Hgb 10.0 L, Hct 31.2 L ABG Data ABG results: ABG 04/27/22 06:15 Specimen Type ART Sample Site R Radial pH 7.27 L Bicarbonate Actual 13.5 L Total CO2 15 Base Excess -13 L O2 Saturation 97 O2 % 35 ABG pCO2 29.8 L ABG pO2 96 Jeff Test Positive O2 Delivery Device BiPAP Clinical Comments 16*8 Attestation: I personally reviewed and interpreted this ABG as follows: (Acute metabolic acidosis with partial respiratory compensation and increased AA gradient) Radiology Impression Chest X-Ray 04/26/22 22:50 IMPRESSION: No acute disease. Electronically Signed: Fili Garduno MD at 23:30 EST , Chest X-Ray 04/27/22 02:35 IMPRESSION: There is prominence of the pulmonary hilar arteries and peripheral pulmonary arteries, consistent with congestive heart failure (CHF). Electronically Signed: Jason London MD at 3:29 EST , Chest X-Ray 04/27/22 06:55 IMPRESSION: Worsening right middle lobe pneumonia. Electronically Signed: Jose Mccauley MD at 8:41 EST ,
[2022-04-27 13:04] LABS: ALB/GLOB Ratio 1.1 RATIO (0.9-2.4); AST(SGOT) 60 U/L (15-37); Alanine Aminotransfer ALT/SGPT 70 U/L (16-61); Albumin, Serum 3.6 g/dL (3.2-5.0); Alkaline Phosphatase 80 U/L (45-117); Anion Gap 10 (5-15); BUN 25 mg/dL (7-18); BUN/Creat Ratio 13.4 RATIO (10-20); Calcium,Total 8.4 mg/dL (8.5-10.1); Chloride 112 mmol/L (98-107); Creatinine, Serum 1.86 mg/dL (0.70-1.30); EST Glomerular Filtration Rate 38 mL/min (>60); Est Glom Filt Rate - Afr Amer 46 mL/min (>60); Estimated Creatinine Clearance 33.07 ml/min; Globulin 3.4 g/dL (2.2-4.2); Glucose 214 mg/dL (74-106); Sodium Level 140 mmol/L (136-145)
--- NOTE | 2022-04-27 14:12 | PCM.CONS.C ---
Assessment & Plan Assessment/Plan (1) Atrial fibrillation: PLAN: The patient did have atrial fibrillation. Its unclear as to whether or not this is new for the patient or whether or not he has had atrial fibrillation in the past. He appeared to return to sinus rhythm/sinus tachycardia. This may be related to a combination of factors including his age, findings of underlying cardiovascular disease, his findings of acute volume overload, etc. At the moment his cardiac rhythm will be followed. He can be treated medically with respect to rate control therapy as deemed appropriate with agents such as beta-blockers and/or calcium channel antagonist taking into consideration his other cardiovascular findings and comorbidities and vital signs, etc. He is not a candidate for anticoagulation at this time secondary to concerns of gastrointestinal bleeding and acute blood loss. (2) CHF (congestive heart failure): PLAN: The patient did appear to have acute CHF/flash pulmonary edema. This may have been brought out by his volume load superimposed upon what appears to be an underlying diminished LV systolic function. At the moment he is in the ICU. He has been receiving IV diuretic therapy. Hopefully this will improve his pulmonary status. Hopefully he will not require mechanical intubation/ventilation. (3) Acute respiratory failure with hypoxia: PLAN: The patient did have acute respiratory failure with hypoxemia requiring ICU care. Again this appears to be brought out by his acute volume overload. At the present time he will continue diuretic therapy and O2 support as deemed appropriate. He is being followed by pulmonology and critical care medicine. (4) Cardiomyopathy: PLAN: The patient does have an underlying cardiomyopathy. Its unclear whether this may be tachycardic induced versus related to other underlying undiagnosed cardiovascular conditions either CAD related or non-CAD related. At the present time he will need to be considered for medical management. Ideally this would include beta-[place] therapy, afterload reducing therapy, etc. His medications may have to be altered based upon his noncardiac conditions with his acute respiratory failure and his gastrointestinal bleeding process/anemia. At the moment he may need to be stabilized with diuretic therapy from a respiratory standpoint before he is able to proceed with other medications. (5) GI bleed: PLAN: The patient appears to have a gastrointestinal bleeding as described. He does need further GI evaluation and care once stabilized. (6) ABLA (acute blood loss anemia): PLAN: The patient did receive PRBCs. His hemoglobin will need to be followed. He may need future PRBCs as well. However if he does these may need to be accompanied by diuretic therapy to avoid additional volume overload. Addt'l Comments The patient's case was discussed and reviewed with the patient. The patient's case was discussed and reviewed with the patient as well as with [facility] emergency department staff cough the [facility] staff, and Dr. Gannon of the pulmonology/critical care staff. Comment: Time spent in the patient's overall evaluation, examination, care, documentation, etc.,: 60 minutes HPI Consult Data Date of Consult: 04/27/22 HPI Narrative HPI Narrative: PETER STEVENS, is a 71 year old white male who presents for cardiovascular consultation based upon concerns of tachycardia/atrial fibrillation with rapid ventricular response and flash pulmonary edema in the setting of marked anemia thought secondary to gastrointestinal bleeding possibly secondary to hemorrhoidal bleeding. The patient was evaluated earlier this day in the ICU. At that time he was sitting up and was markedly short of breath/dyspneic wearing an O2 supplement device. From a cardiovascular standpoint he did not recall ever being diagnosed with any cardiovascular condition or undergoing any cardiovascular studies in the past. He stated to the best of his knowledge he had no medical condition other than reportedly having COVID-19 in March 2022 and had been on no medications at home. He noted that he had been experiencing for approximately 3 weeks hemorrhoidal bleeding. He stated at times it appeared that the bleeding was squirting blood from his rectum. He had been complaining of shortness of breath and dyspnea. He presented to his PCP for further evaluation. Laboratory studies were reportedly obtained. He had a hemoglobin level of 5.9. He was referred to [facility] emergency department for further evaluation. In the emergency department he was noted to have an ECG that demonstrated atrial fibrillation with RVR with low voltage QRS in limb leads with nonspecific ST and T wave changes. He was reported as being hemodynamically stable at the time. A recommendation was made that the patient be brought into the hospital, monitored, received PRBCs to assist with his oxygen carrying capacity and cardiovascular status, and undergo further GI evaluation and care. It appears he had been placed on IV amiodarone therapy for his atrial dysrhythmia. He reportedly converted to sinus rhythm. The IV amiodarone was discontinued. He was not placed on anticoagulant therapy secondary to the anemia thought secondary to gastrointestinal bleeding process. It appears in the emergency department he received 2 L of IV fluids-bolus. He was then requested to have PRBCs. After receiving the PRBCs he was reported as demonstrating acute CHF/flash pulmonary edema. He was subsequently placed in the ICU for additional evaluation and care. He was then being treated with IV diuretic therapy and O2 support. At home he states he does not recall having any chest discomfort. His main concern was shortness of breath and dyspnea. He does not recall any ongoing lower extremity peripheral pitting edema. There is no report of any near-syncope or syncope. He has been monitored. This has included cardiac enzyme. His initial cardiac enzyme was negative. His cardiac rhythm demonstrated sinus rhythm. A follow-up ECG demonstrated sinus rhythm with low voltage QRS in the limb leads and poor R wave progression and nonspecific ST and T wave changes. X-ray was performed. Upon review of the initial chest x-ray it appeared to be no acute cardiopulmonary process. Another chest x-ray was performed based upon the patient's change in clinical status. This appeared to demonstrate increased pulmonary vascularity compatible with acute CHF/pulmonary edema. [facility] Medical History Arthritis Back pain Bilateral inguinal hernia (BIH) COVID GERD (gastroesophageal reflux disease) Heartburn Hemorrhoid History of stress test History of ulceration Injury of back Loss of hearing Shortness of breath on exertion Smoker Wears dentures Wears glasses Home Medications NK 08/02/21 [History Last Taken Unknown] Allergy/AdvReac Type Severity Reaction Status Date / Time Penicillins Allergy Mild rash Verified 04/26/22 19:15 Family History Father Heart disease Myocardial infarction Mother Heart disease Myocardial infarction Surgical History History of colonoscopy History of hemorrhoidectomy History of laparoscopic cholecystectomy Social History household members: spouse number of children: 5 current occupational status: retired pets and animals: No Smoking Status: Current every day smoker tobacco type: cigarettes Tobacco: How many years used: 60 Physical Exam Const alert and oriented x3 General Appearance: other Orientation / Consciousness: awake HEENT normocephalic and head/scalp atraumatic Eyes PERRL, EOMs intact bilaterally and conjunctivae normal Neck full ROM and supple Carotids: normal carotid upstroke Resp Auscultation: rales diffuse Cardio Rate: tachycardic Rhythm: regular rhythm Heart Sounds: S1 normal and S2 normal GI normal to inspection, nondistended, normoactive bowel sounds Extremity no pedal edema Skin no rashes or lesions noted Psych mental status grossly normal Risk Stratification Risk Stratification Applicable: Yes Age >/= 65: Yes >/= 3 CAD Risk Factors (HTN, HLD, DM, family hx of CAD, or current smoker): No Aspirin Use in the Past 7 Days: No Severe Angina (>/= episodes in 24 hours): No EKG ST Changes >/= 0.5mm: No Positive Cardiac Marker: No LOLA Risk Stratification Score: 1 LOLA % Risk: 5% Risk Procedure Criteria Type of Procedure Procedure Type: Elective Elective Risks - COVID COVID Risk Discussion: The surgeon/proceduralist and patient have discussed in detail the risk of exposure to and/or potential harm posed by the COVID-19 virus with having a surgery/procedure at this time versus the risk of delaying the surgery/procedure. It is not possible to know either the risk of delaying the surgery or procedure or chance of getting an infection with perfect accuracy, but a joint decision was made between the patient and the surgeon/proceduralist to proceed at this time with the scheduled surgery/procedure as indicated on the consent form. Objective Data Vital Signs: Vital Signs Temp Pulse Resp BP Pulse Ox O2 Del Method O2 Flow Rate 96.1 F L 96 24 H 123/72 H 95 Airvo 60 04/27/22 09:00 04/27/22 14:00 04/27/22 14:00 04/27/22 14:00 04/27/22 14:00 04/27/22 14:00 04/27/22 14:00 FiO2 34 04/27/22 14:00 Oxygen Flow Rate (L/min) 60 Oxygen Delivery Method Airvo Weight: 173 lb 15.115 oz Body Mass Index (BMI) 26.1 Intake & Output: Intake and Output for Last 24 Hours 04/25/22 04/26/22 04/27/22 23:59 23:59 23:59 Intake Total 110 / 110 3136.78 / 3136.78 Output Total 2400 / 2400 Balance 110 / 110 736.78 / 736.78 Lab / Micro Data Result Diagrams: 04/27/22 12:25 04/27/22 12:25 Labs: Laboratory Results - last 24 hr 04/26/22 22:15: PT 17.9 H, INR 1.5 04/26/22 22:15: Blood Type A POSITIVE, Antibody Screen NEGATIVE, Crossmatch See Detail 04/26/22 23:05: Troponin I High Sens 7 04/26/22 23:05: B-Natriuretic Peptide 397.0 H 04/27/22 06:18: Magnesium 2.2, TSH 1.90 04/27/22 06:18: Hgb 9.6 L, Hct 32.5 L 04/27/22 12:25: Hgb 10.0 L, Hct 31.2 L 04/27/22 12:25: Sodium 140, Potassium 4.0, Chloride 112 H, Carbon Dioxide 18.0 L, Anion Gap 10, BUN 25 H, Creatinine 1.86 H, Estim Creat Clear Calc 33.07, Est GFR (MDRD) Af Amer 46 L, Est GFR (MDRD) Non-Af 38 L, BUN/Creatinine Ratio 13.4, Glucose 214 H, Calcium 8.4 L, Total Bilirubin 2.10 H, AST 60 H, ALT 70 H, Alkaline Phosphatase 80, Total Protein 7.0, Albumin 3.6, Globulin 3.4, Albumin/Globulin Ratio 1.1 Micro: Microbiology 04/27/22 12:11 Urine Catheter - [place] Streptococcus pneumoniae Antigen (M - Final 04/27/22 12:30 Nasal Secretion SARS-CoV-2 Antigen (Rapid) - Final ABG Data ABG results: ABG 04/27/22 06:15 Specimen Type ART Sample Site R Radial pH 7.27 L Bicarbonate Actual 13.5 L Total CO2 15 Base Excess -13 L O2 Saturation 97 O2 % 35 ABG pCO2 29.8 L ABG pO2 96 Jeff Test Positive O2 Delivery Device BiPAP Clinical Comments 16*8 Cardiology Labs/Tests 04/26/22 22:15: PT 17.9 H, INR 1.5 04/26/22 23:05: B-Natriuretic Peptide 397.0 H 04/27/22 06:15: pH 7.27 L, Bicarbonate Actual 13.5 L, Base Excess -13 L, O2 Saturation 97, ABG pCO2 29.8 L, ABG pO2 96, Jeff Test Positive 04/27/22 06:18: Magnesium 2.2 04/27/22 06:18: Hgb 9.6 L, Hct 32.5 L 04/27/22 12:25: Hgb 10.0 L, Hct 31.2 L 04/27/22 12:25: Sodium 140, Potassium 4.0, Chloride 112 H, Carbon Dioxide 18.0 L, Anion Gap 10, BUN 25 H, Creatinine 1.86 H, Est GFR (MDRD) Af Amer 46 L, Est GFR (MDRD) Non-Af 38 L, BUN/Creatinine Ratio 13.4, Glucose 214 H, Calcium 8.4 L, Total Bilirubin 2.10 H Rhythm: Sinus rhythm/sinus EKG: As noted above ECHO: As noted below Radiography Diagnostic Testing: Radiology Impression Chest X-Ray 04/26/22 22:50 IMPRESSION: No acute disease. Electronically Signed: Fili Garduno MD at 23:30 EST Reading Location ID and State: [address] [place] [address] Tel , Service support , Echocardiogram 04/27/22 01:11 Interpretation Summary The study was technically difficult. Severe segmental systolic dysfunction (see wall motion). The estimated ejection fraction is 25 %. Apical false tendon noted. The left atrium is mildly enlarged. Moderate (2+) eccentric mitral valve insufficiency. Mild to moderate (1-2+) eccentric tricuspid valve insufficiency. Unable to estimate RV systolic pressure due to insufficient tricuspid regurgitant envelope. Unable to assess diastolic dysfunction. Ordering Physician: Vicente Marquez Referring Physician: Eliza Jacobs M.D. Performed By: Cheryle Dickerson RCS Chest X-Ray 04/27/22 02:35 IMPRESSION: There is prominence of the pulmonary hilar arteries and peripheral pulmonary arteries, consistent with congestive heart failure (CHF). Electronically Signed: Jason London MD at 3:29 EST , Chest X-Ray 04/27/22 06:55 IMPRESSION: Worsening right middle lobe pneumonia. Electronically Signed: Jose Mccauley MD at 8:41 EST ,
[2022-04-27] MEDS: Ipratropium/Albuterol Sulfate 3 ML AMPUL.NEB INHALATION ×2 (15:52→19:10)
[2022-04-28] VITALS (28 sets, daily range): BP systolic 101–126; BP diastolic 57–88; PULSE 75–142; RESP 16–25; TEMP 36.4–36.9; O2SAT 90–100
[2022-04-28 04:28] LABS: Absolute Lymphocyte Count 0.43 X10^3/uL (0.83-4.51); Absolute Neutrophil Count 16.6 X10^3/uL (2.0-7.7); Basophil# 0.01 X10^3/uL; Basophil% 0.1 % (0-1); Eosinophil# 0.01 X10^3/uL; Eosinophils% 0.1 % (0-5); Hemoglobin 9.9 g/dL (13.0-16.5); Lymphocyte # 0.43 X10^3/ul (0.83-4.51); Lymphocyte % 2.5 % (19-41); Mean Corpuscular Hgb 29.6 pg (27.0-32.0); Mean Corpuscular Volume 89.8 fL (80-94); Mean Platelet Vol. 11.7 fl (6.2-12.0); Monocyte# 0.31 X10^3/uL; Monocyte% 1.8 % (0-10); NRBC Flagged by Analyzer 0.1 % (0-5); Neutrophil # 16.63 X10^3/uL (2.7-7.7); Neutrophil % 94.9 % (47-70); POSITIVE DIFFERENTIAL YES; Platelet Count 229 K/mm3 (150-450); RBC Distribution Width CV 14.5 % (11.6-14.6); RBC Distribution Width SD 47.7 fl (35.1-43.9); Red Blood Count 3.34 M/mm3 (4.6-6.2); White Blood Count 17.5 K/mm3 (4.4-11.0)
[2022-04-28 04:35] LABS: Differential Indicated SCAN CRITERIA MET
[2022-04-28 04:48] LABS: AST(SGOT) 49 U/L (15-37); Alanine Aminotransfer ALT/SGPT 69 U/L (16-61); Albumin, Serum 3.4 g/dL (3.2-5.0); Alkaline Phosphatase 74 U/L (45-117); Anion Gap 12 (5-15); BUN 31 mg/dL (7-18); Calcium,Total 8.3 mg/dL (8.5-10.1); Chloride 105 mmol/L (98-107); Cholesterol 111 mg/dL (200); Creatinine, Serum 1.94 mg/dL (0.70-1.30); EST Glomerular Filtration Rate 36 mL/min (>60); Est Glom Filt Rate - Afr Amer 44 mL/min (>60); Estimated Creatinine Clearance 31.71 ml/min; Globulin 3.5 g/dL (2.2-4.2); Glucose 172 mg/dL (74-106); High Density Lipoprotein 34 mg/dL; Potassium 3.2 mmol/L (3.5-5.1); Protein, Total 6.9 g/dL (6.4-8.2); Sodium Level 140 mmol/L (136-145); Triglycerides 92 mg/dL; Very Low Density Lipoprotein 18 mg/dL (5-40)
[2022-04-28] MEDS: dilTIAZem 60 MG Tablet PO (05:24)
[2022-04-28 05:54] LABS: Differential Comment SCANNED
[2022-04-28] MEDS: Ipratropium/Albuterol Sulfate 3 ML AMPUL.NEB INHALATION ×4 (06:51→19:25)
--- NOTE | 2022-04-28 07:32 | PN.CC_ITS ---
Assessment & Plan Assessment/Plan (1) Acute respiratory failure with hypoxia: (2) ABLA (acute blood loss anemia): (3) Tobacco dependence: PLAN: Plan RECOMMENDATIONS: 1. Discontinue Lasix drip. 2. Potassium supplementation as ordered 3. Transition to nasal cannula oxygen. Wean supplemental oxygen as tolerated. Encourage incentive spirometer 4. Transition to 5-day burst of steroids and continue with bronchodilators 5. Likely okay to leave the intensive care unit IMPRESSIONS: 1. Acute hypoxic respiratory failure Exact etiology is unclear at this time. Differential diagnosis would include acute on chronic CHF, COPD exacerbation, TRALI, pneumonia and aspiration. Patient did receive 2 L of IV fluids in addition to the 2 units of blood. Patient appears to be responding to diuretic therapy and was significa ntly tachycardic at the onset. Patient does have a long smoking history, so presumptive diagnosis of COPD is not unreasonable. Patient with rapid resolution following Lasix therapy. EF also found to be 25%. We will transition to a 5-day burst of steroids. Patient would benefit from an outpatient pulmonary function test for quantification clarification of lung function. Likely okay to leave the intensive care unit from my perspective 2. A. fib with RVR/hypertension/acute systolic CHF exacerbation No echocardiogram is available for review. Patient is significantly tachycardic and has relatively advanced age. Clinical suspicion for an element of diastolic dysfunction. Cardiology has been consulted. Defer to them on rate control. Patient was transiently on amiodarone, but this has not been continued. Patient appears to be in sinus rhythm at this time and heart rate appears controlled with Cardizem. 3. Acute blood loss anemia Patient is reporting acute hemorrhoidal bleeding. However, incrementation is suggesting that the initial labs may be aberrant. GI has been consulted. No further bleeding has been reported. H&H remained stable. Outpatient work-up for GI bleed likely appropriate. 4. Advanced age/nicotine dependence/anxiety/failure to comply with supportive devices Complicates care, management, recovery and prognosis. Smoking cessation would be recommended. 5. Acute kidney injury Patient has significant elevation in creatinine compared to reported baseline. We will hold Lasix drip. Defer to cardiology on initiation of p.o. Lasix. No indication for renal replacement therapy at this time. Subjective Subjective Patient did okay overnight. Patient on minimal Airvo this morning and feels subjectively much improved. Patient did have a bowel movement overnight with no bleeding reported. Patient still has a mild rattle in his chest. Objective Data Objective Data Vital Signs: Vital Signs Temp Pulse Resp BP Pulse Ox O2 Del Method O2 Flow Rate 36.6 C 80 25 H 124/60 H 90 Airvo 40 04/28/22 04:00 04/28/22 07:00 04/28/22 07:00 04/28/22 07:00 04/28/22 07:00 04/28/22 07:00 04/28/22 07:00 FiO2 38 04/28/22 07:00 Oxygen Flow Rate (L/min) 40 Oxygen Delivery Method Airvo Weight: 73.4 kg Body Mass Index (BMI) 26.1 Intake & Output: Intake and Output for Last 24 Hours 04/26/22 04/27/22 04/28/22 23:59 23:59 23:59 Intake Total 110 / 110 3246.78 / 3246.78 150 / 150 Output Total 3400 / 3800 800 / 800 Balance 110 / 110 -153.22 / -553.22 -650 / -650 Lab / Micro Data Attestation: I reviewed the patient's lab results. Result Diagrams: 04/28/22 04:10 04/28/22 04:10 Labs: Laboratory Results - last 24 hr 04/27/22 12:25: Hgb 10.0 L, Hct 31.2 L 04/27/22 12:25: Sodium 140, Potassium 4.0, Chloride 112 H, Carbon Dioxide 18.0 L , Anion Gap 10, BUN 25 H, Creatinine 1.86 H, Estim Creat Clear Calc 33.07, Est GFR (MDRD) Af Amer 46 L, Est GFR (MDRD) Non-Af 38 L, BUN/Creatinine Ratio 13.4, Glucose 214 H, Calcium 8.4 L, Total Bilirubin 2.10 H, AST 60 H, ALT 70 H, Alkaline Phosphatase 80, Total Protein 7.0, Albumin 3.6, Globulin 3.4, Albumin/Globulin Ratio 1.1 04/28/22 04:10: WBC 17.5 H, RBC 3.34 L, Hgb 9.9 L, Hct 30.0 L, MCV 89.8 D, MCH 29.6, MCHC 33.0 D, RDW Std Deviation 47.7 H, RDW Coeff of Jose 14.5, Plt Count 229, MPV 11.7, Immature Gran % (Auto) 0.600, Neut % (Auto) 94.9 H, Lymph % (Auto) 2.5 L, Archer % (Auto) 1.8, Eos % (Auto) 0.1, Baso % (Auto) 0.1, Absolute Neuts (auto) 16.6 H, Absolute Lymphs (auto) 0.43 L, Nucleated RBC % 0.1, Differential Comment SCANNED 04/28/22 04:10: Sodium 140, Potassium 3.2 L, Chloride 105, Carbon Dioxide 23.0, Anion Gap 12, BUN 31 H, Creatinine 1.94 H, Estim Creat Clear Calc 31.71, Est GFR (MDRD) Af Amer 44 L, Est GFR (MDRD) Non-Af 36 L, BUN/Creatinine Ratio 16.0, Glucose 172 H, Calcium 8.3 L, Total Bilirubin 1.60 H, AST 49 H, ALT 69 H, Alkaline Phosphatase 74, Total Protein 6.9, Albumin 3.4, Globulin 3.5, Albumin/Globulin Ratio 1.0, Triglycerides 92, Cholesterol 111, LDL Cholesterol 59, VLDL Cholesterol 18, HDL Cholesterol 34 L Micro: Microbiology 04/26/22 11:54 Mucosa - Nose Respiratory Panel (PCR) - Final 04/27/22 12:11 Urine Catheter - [place] Legionella Antigen - Final 04/27/22 12:11 Urine Catheter - [place] Streptococcus pneumoniae Antigen (M - Final 04/27/22 12:30 Nasal Secretion SARS-CoV-2 Antigen (Rapid) - Final Radiography Diagnostic Testing: Radiology Impression Echocardiogram 04/27/22 01:11 Interpretation Summary The study was technically difficult. Severe segmental systolic dysfunction (see wall motion). The estimated ejection fraction is 25 %. Apical false tendon noted. The left atrium is mildly enlarged. Moderate (2+) eccentric mitral valve insufficiency. Mild to moderate (1-2+) eccentric tricuspid valve insufficiency. Unable to estimate RV systolic pressure due to insufficient tricuspid regurgitant envelope. Unable to assess diastolic dysfunction. Ordering Physician: Vicente Marquez Referring Physician: Eliza Jacobs M.D. Performed By: Cheryle Dickerson RCS Chest X-Ray 04/27/22 06:55 IMPRESSION: Worsening right middle lobe pneumonia. Electronically Signed: Jose Mccauley MD at 8:41 EST , Physical Exam Const alert, oriented x3 and no apparent distress General Appearance: cooperative and well developed HEENT normocephalic, head/scalp atraumatic and moist oral mucous membranes Eyes PERRL and EOMs intact bilaterally Neck full ROM and no lymphadenopathy Resp normal respiratory effort and no use of accessory muscles Resp Narrative: Rales much improved compared to yesterday Auscultation: rales bilateral; Negative for rhonchi or wheezes Percussion: Negative for dullness Cardio regular rate, regular rhythm, S1 normal heart sound, S2 normal heart sound, no murmurs, no rub and no gallops GI normal to inspection, nondistended, normoactive bowel sounds no CVA tenderness Extremity no clubbing, cyanosis or edema Skin no rashes or lesions noted Neuro oriented x3, CN's II-XII intact bilaterally, moves all extremities and no focal motor deficits Psych cooperative and affect normal Charges/Coding Visit Charges Inpatient E&M: 21366 Subs Hosp L3
[2022-04-28] MEDS: Potassium Chloride Oral Tablet 20 MEQ 40 MEQ PO ×2 (07:58→17:30)
--- NOTE | 2022-04-28 09:24 | PN.CARD_ITS ---
Subjective Subjective The patient is awake and alert this morning. Since diuresis he has had significant improvement in his respiratory status. He states he feels his breathing is markedly improved. He is on O2 nasal cannula at this time. He denies any ongoing chest discomfort. He denies any history of palpitations or rapid heart rates that he is aware of. He believes he underwent some form of cardiovascular evaluation at [facility] prior to his abdominal surgery. He believes this may have included a pharmacologic stress test. Objective Data Vital Signs: Vital Signs Temp Pulse Resp BP Pulse Ox O2 Del Method O2 Flow Rate 97.9 F 94 25 H 115/62 94 Nasal Cannula 4 04/28/22 09:00 04/28/22 09:00 04/28/22 09:00 04/28/22 09:00 04/28/22 09:00 04/28/22 09:00 04/28/22 09:00 FiO2 38 04/28/22 07:00 Oxygen Flow Rate (L/min) 4 Oxygen Delivery Method Nasal Cannula Weight: 161 lb 13.109 oz Body Mass Index (BMI) 26.1 Intake & Output: Intake and Output for Last 24 Hours 04/26/22 04/27/22 04/28/22 23:59 23:59 23:59 Intake Total 110 / 110 3246.78 / 3246.78 175.32 / 175.32 Output Total 3400 / 3800 800 / 800 Balance 110 / 110 -153.22 / -553.22 -624.68 / -624.68 Lab / Micro Data Result Diagrams: 04/28/22 04:10 04/28/22 04:10 Labs: Laboratory Results - last 24 hr 04/27/22 12:25: Hgb 10.0 L, Hct 31.2 L 04/27/22 12:25: Sodium 140, Potassium 4.0, Chloride 112 H, Carbon Dioxide 18.0 L , Anion Gap 10, BUN 25 H, Creatinine 1.86 H, Estim Creat Clear Calc 33.07, Est GFR (MDRD) Af Amer 46 L, Est GFR (MDRD) Non-Af 38 L, BUN/Creatinine Ratio 13.4, Glucose 214 H, Calcium 8.4 L, Total Bilirubin 2.10 H, AST 60 H, ALT 70 H, Alkaline Phosphatase 80, Total Protein 7.0, Albumin 3.6, Globulin 3.4, Al bumin/Globulin Ratio 1.1 04/28/22 04:10: WBC 17.5 H, RBC 3.34 L, Hgb 9.9 L, Hct 30.0 L, MCV 89.8 D, MCH 29.6, MCHC 33.0 D, RDW Std Deviation 47.7 H, RDW Coeff of Jose 14.5, Plt Count 229, MPV 11.7, Immature Gran % (Auto) 0.600, Neut % (Auto) 94.9 H, Lymph % (Auto) 2.5 L, [place] % (Auto) 1.8, Eos % (Auto) 0.1, Baso % (Auto) 0.1, Absolute Neuts (auto) 16.6 H, Absolute Lymphs (auto) 0.43 L, Nucleated RBC % 0.1, Differential Comment SCANNED 04/28/22 04:10: Sodium 140, Potassium 3.2 L, Chloride 105, Carbon Dioxide 23.0, Anion Gap 12, BUN 31 H, Creatinine 1.94 H, Estim Creat Clear Calc 31.71, Est GFR (MDRD) Af Amer 44 L, Est GFR (MDRD) Non-Af 36 L, BUN/Creatinine Ratio 16.0, Glucose 172 H, Calcium 8.3 L, Total Bilirubin 1.60 H, AST 49 H, ALT 69 H, Alkaline Phosphatase 74, Total Protein 6.9, Albumin 3.4, Globulin 3.5, Albumin/Globulin Ratio 1.0, Triglycerides 92, Cholesterol 111, LDL Cholesterol 59, VLDL Cholesterol 18, HDL Cholesterol 34 L Micro: Microbiology 04/26/22 11:54 Mucosa - Nose Respiratory Panel (PCR) - Final 04/27/22 12:11 Urine Catheter - [place] Legionella Antigen - Final 04/27/22 12:11 Urine Catheter - [place] Streptococcus pneumoniae Antigen (M - Final 04/27/22 12:30 Nasal Secretion SARS-CoV-2 Antigen (Rapid) - Final Cardiology Labs/Tests 04/27/22 12:25: Hgb 10.0 L, Hct 31.2 L 04/27/22 12:25: Sodium 140, Potassium 4.0, Chloride 112 H, Carbon Dioxide 18.0 L , Anion Gap 10, BUN 25 H, Creatinine 1.86 H, Est GFR (MDRD) Af Amer 46 L, Est GFR (MDRD) Non-Af 38 L, BUN/Creatinine Ratio 13.4, Glucose 214 H, Calcium 8.4 L, Total Bilirubin 2.10 H 04/28/22 04:10: WBC 17.5 H, RBC 3.34 L, Hgb 9.9 L, Hct 30.0 L, MCV 89.8 D, MCH 29.6, MCHC 33.0 D, Plt Count 229, MPV 11.7, Immature Gran % (Auto) 0.600, Neut % (Auto) 94.9 H, Lymph % (Auto) 2.5 L, [place] % (Auto) 1.8, Eos % (Auto) 0.1, Baso % (Auto) 0.1, Absolute Neuts (auto) 16.6 H, Nucleated RBC % 0.1 04/28/22 04:10: Sodium 140, Potassium 3.2 L, Chloride 105, Carbon Dioxide 23.0, Anion Gap 12, BUN 31 H, Creatinine 1.94 H, Est GFR (MDRD) Af Amer 44 L, Est GFR (MDRD) Non-Af 36 L, BUN/Creatinine Ratio 16.0, Glucose 172 H, Calcium 8.3 L, Total Bilirubin 1.60 H, Triglycerides 92, Cholesterol 111, LDL Cholesterol 59, VLDL Cholesterol 18, HDL Cholesterol 34 L Rhythm: Sinus rhythm Radiography Diagnostic Testing: Radiology Impression Echocardiogram 04/27/22 01:11 Interpretation Summary The study was technically difficult. Severe segmental systolic dysfunction (see wall motion). The estimated ejection fraction is 25 %. Apical false tendon noted. The left atrium is mildly enlarged. Moderate (2+) eccentric mitral valve insufficiency. Mild to moderate (1-2+) eccentric tricuspid valve insufficiency. Unable to estimate RV systolic pressure due to insufficient tricuspid regurgitant envelope. Unable to assess diastolic dysfunction. Ordering Physician: Vicente Marquez Referring Physician: Eliza Jacobs M.D. Performed By: Cheryle Dickerson RCS Physical Exam Const alert, oriented x3 and no apparent distress General Appearance: other Orientation / Consciousness: awake HEENT normocephalic and head/scalp atraumatic Eyes PERRL, EOMs intact bilaterally and conjunctivae normal Neck full ROM, supple and no JVD Carotids: normal carotid upstroke Resp Auscultation: diminished lung sounds bilateral lower Cardio regular rate, regular rhythm, S1 normal heart sound and S2 normal heart sound Cardio Narrative: Somewhat distant heart tones GI normal to inspection, nondistended, normoactive bowel sounds GI Narrative: Positive midline surgical scar Extremity no pedal edema Skin no rashes or lesions noted Psych mental status grossly normal Assessment & Plan Assessment/Plan (1) Atrial fibrillation: PLAN: The patient did have atrial fibrillation. Its unclear as to whether or not this is new for the patient or whether or not he has had atrial fibrillation in the past. He appeared to return to sinus rhythm/sinus tachycardia. This may be related to a combination of factors including his age, findings of underlying cardiovascular disease, his findings of acute volume overload, etc. At the moment his cardiac rhythm will be followed. He has also undergone additional evaluation with a transthoracic echocardiogram. The results are as noted. At the present time an attempt will be made to initiate rate control therapy such as beta-[place] therapy which may benefit his cardiac rate/rhythm as well as his underlying cardiomyopathy. He is not a patient for anticoagulant therapy at this time secondary to his recent GI bleed and acute blood loss. (2) CHF (congestive heart failure): PLAN: The patient did appear to have acute CHF/flash pulmonary edema. This may have been brought out by his volume load superimposed upon what appears to be an underlying diminished LV systolic function. He has responded to diuretic therapy and has had significant improvement in his respiratory status. He appears to be breathing comfortably at this time on O2 nasal cannula. His diuretics are being placed on hold at this time. (3) Acute respiratory failure with hypoxia: PLAN: The patient did have acute respiratory failure with hypoxemia requiring ICU care. Again this appears to be brought out by his acute volume overload. He appears to improved since diuresis. He is now only on O2 nasal cannula. He is being followed by pulmonology and critical care medicine. (4) Cardiomyopathy: PLAN: The patient does have an underlying cardiomyopathy. Its unclear whether this may be tachycardic induced versus related to other underlying undiagnosed cardiovascular conditions either CAD related or non-CAD related. At the present time he will need to be considered for medical management. Ideally this would include beta-[place] therapy, afterload reducing therapy, etc. His medications may have to be altered based upon his noncardiac conditions with his acute respiratory failure and his gastrointestinal bleeding process/anemia and his renal insufficiency, etc. An attempt was made to retrieve [facility] records for any cardiovascular information may be helpful in his ongoing evaluation and care. (5) GI bleed: PLAN: The patient appears to have a gastrointestinal bleeding as described. 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 (6) ABLA (acute blood loss anemia): PLAN: The patient did receive PRBCs. His hemoglobin will need to be followed. Addt'l Comments The patient's case was discussed and reviewed with the patient and Dr. Heredia. This note was generated using a voice recognition system and there may be incorrect words, spelling or punctuation that were not noted when reviewing the office note prior to saving. Procedure Criteria Type of Procedure Procedure Type: Elective Elective Risks - COVID COVID Risk Discussion: The surgeon/proceduralist and patient have discussed in detail the risk of e xposure to and/or potential harm posed by the COVID-19 virus with having a surgery/procedure at this time versus the risk of delaying the surgery/procedure. It is not possible to know either the risk of delaying the surgery or procedure or chance of getting an infection with perfect accuracy, but a joint decision was made between the patient and the surgeon/proceduralist to proceed at this time with the scheduled surgery/procedure as indicated on the consent form.
[2022-04-28] MEDS: Carvedilol 3.125 MG TABLET PO ×2 (09:47→20:12)
[2022-04-28] MEDS: predniSONE 20 MG Tablet 40 MG PO (09:47)
[2022-04-28] MEDS: 0.9% Saline Lock 10 ML Syringe IV ×2 (09:47→23:00)
--- NOTE | 2022-04-28 11:30 | PCM.PN.HOSP ---
Subjective Subjective Follow-up on acute respiratory failure/acute COPD exacerbation/CHF exacerbation/severe anemia: Patient was seen and examined.? He is much improved, currently on 3 L of oxygen. Denies any bleeding per rectum, chest pain or dizziness. Objective Data Objective Data Vital Signs: Vital Signs Temp Pulse Resp BP Pulse Ox O2 Del Method O2 Flow Rate 97.5 F L 97 25 H 124/62 H 97 Nasal Cannula 3 04/28/22 11:09 04/28/22 11:09 04/28/22 11:09 04/28/22 11:09 04/28/22 11:09 04/28/22 11:09 04/28/22 11:09 FiO2 38 04/28/22 07:00 Oxygen Flow Rate (L/min) 3 Oxygen Delivery Method Nasal Cannula Weight: 73.4 kg Body Mass Index (BMI) 26.1 Intake & Output: Intake and Output for Last 24 Hours 04/26/22 04/27/22 04/28/22 23:59 23:59 23:59 Intake Total 110 / 110 3246.78 / 3246.78 285.32 / 285.32 Output Total 3400 / 3800 800 / 800 Balance 110 / 110 -153.22 / -553.22 -514.68 / -514.68 Lab / Micro Data Result Diagrams: 04/28/22 04:10 04/28/22 04:10 Labs: Laboratory Results - last 24 hr 04/27/22 12:25: Hgb 10.0 L, Hct 31.2 L 04/27/22 12:25: Sodium 140, Potassium 4.0, Chloride 112 H, Carbon Dioxide 18.0 L, Anion Gap 10, BUN 25 H, Creatinine 1.86 H, Estim Creat Clear Calc 33.07, Est GFR (MDRD) Af Amer 46 L, Est GFR (MDRD) Non-Af 38 L, BUN/Creatinine Ratio 13.4, Glucose 214 H, Calcium 8.4 L, Total Bilirubin 2.10 H, AST 60 H, ALT 70 H, Alkaline Phosphatase 80, Total Protein 7.0, Albumin 3.6, Globulin 3.4, Albumin/Globulin Ratio 1.1 04/28/22 04:10: WBC 17.5 H, RBC 3.34 L, Hgb 9.9 L, Hct 30.0 L, MCV 89.8 D, MCH 29.6, MCHC 33.0 D, RDW Std Deviation 47.7 H, RDW Coeff of Jose 14.5, Plt Count 229, MPV 11.7, Immature Gran % (Auto) 0.600, Neut % (Auto) 94.9 H, Lymph % (Auto) 2.5 L, [place] % (Auto) 1.8, Eos % (Auto) 0.1, Baso % (Auto) 0.1, Absolute Neuts (auto) 16.6 H, Absolute Lymphs (auto) 0.43 L, Nucleated RBC % 0.1, Differential Comment SCANNED 04/28/22 04:10: Sodium 140, Potassium 3.2 L, Chloride 105, Carbon Dioxide 23.0, Anion Gap 12, BUN 31 H, Creatinine 1.94 H, Estim Creat Clear Calc 31.71, Est GFR (MDRD) Af Amer 44 L, Est GFR (MDRD) Non-Af 36 L, BUN/Creatinine Ratio 16.0, Glucose 172 H, Calcium 8.3 L, Total Bilirubin 1.60 H, AST 49 H, ALT 69 H, Alkaline Phosphatase 74, Total Protein 6.9, Albumin 3.4, Globulin 3.5, Albumin/Globulin Ratio 1.0, Triglycerides 92, Cholesterol 111, LDL Cholesterol 59, VLDL Cholesterol 18, HDL Cholesterol 34 L Micro: Microbiology 04/26/22 11:54 Mucosa - Nose Respiratory Panel (PCR) - Final 04/27/22 12:11 Urine Catheter - [place] Legionella Antigen - Final 04/27/22 12:11 Urine Catheter - [place] Streptococcus pneumoniae Antigen (M - Final 04/27/22 12:30 Nasal Secretion SARS-CoV-2 Antigen (Rapid) - Final Radiography Diagnostic Testing: Radiology Impression Echocardiogram 04/27/22 01:11 Interpretation Summary The study was technically difficult. Severe segmental systolic dysfunction (see wall motion). The estimated ejection fraction is 25 %. Apical false tendon noted. The left atrium is mildly enlarged. Moderate (2+) eccentric mitral valve insufficiency. Mild to moderate (1-2+) eccentric tricuspid valve insufficiency. Unable to estimate RV systolic pressure due to insufficient tricuspid regurgitant envelope. Unable to assess diastolic dysfunction. Ordering Physician: Vicente Marquez Referring Physician: Eliza Jacobs M.D. Performed By: Cheryle Dickerson RCS Physical Exam Narrative Physical exam: General: Alert, oriented x3, cooperative HEENT: Atraumatic Oral: Moist Mucosa Neck: Supple Lungs: Diminished to auscultation Cardiovascular: HS I+II, regular, no murmurs Abdomen: Bowel Sounds Present, Soft, Non Tender Extremities: Bilateral leg edema, +1 Skin: No rashes, No breakdown Neurological: Grossly intact Psych/Mental Status: Appropriate Assessment & Plan Assessment/Plan (1) COPD with exacerbation: (2) ABLA (acute blood loss anemia): PLAN: Plan 1. Acute hypoxic respiratory failure secondary to acute COPD exacerbation/acute CHF exacerbation/probable anemia Patient has improved a lot and is currently on 3 L of oxygen Chest x-ray shows acute fluid overload Continue with breathing treatments, Encourage use of incentive spirometer. Wean off oxygen for SPO2 more than 94% Urine Legionella antigen is negative Pulmonology consult 2. Acute COPD exacerbation, patient denies any history of COPD but is a chronic smoker Continue on prednisone taper 3. Hypokalemia, potassium was 3.2, replace, recheck in a.m. 4. A. fib with RVR/Hypertension/severe cardiomyopathy Unclear if patient has underlining ischemic heart disease; records being requested from [facility] Cardiology following, continue cardiac 5. Acute severe anemia, remained stable, With a hemoglobin was 5.9, status post 2 units of packed RBCs, Repeat hemoglobin is 9.6, will continue to trend 6. Probable acute GI bleed, history of hemorrhoids, GI consulted, probable sigmoidoscopy tomorrow Continue on PO PPI twice daily 7. Nicotine dependence, advised to quit, continue on replacement 8. DVT prophylaxis SCDs on account of GI bleed Charges/Coding Visit Charges Inpatient E&M: 50574 [facility] Hosp L1
--- NOTE | 2022-04-28 19:13 | CON.PCM.GI_ITS ---
HPI Consult Data Date of Consult: 04/28/22 HPI Narrative Reason for Consultation: Anemia and GI bleed HPI Narrative: PETER STEVENS, is a 71-year-old male presenting with shortness of breath which is been present for about a month.? Patient denies any chest pain.? He states he had COVID at the beginning of the month and has been significantly short of breath since that time.? He states that he has had issues with a bleeding hemorrhoid up until about a week ago.? He states that when he would bear down to defecate it would squirt like a syringe.? He is not on any blood thinners.? He states it is not currently doing so when he defecates.? He is not complaining of any abdominal pain.? He is not had any fever, chills.? The patient states that he went to see his primary care physician today in follow-up for shortness of breath and had lab work drawn and his hemoglobin is 5.9 from 18.6 in January. In the ER, patient was afebrile, normotensive and saturating well on room air.? Patient was significantly tachycardic at 112 bpm.? Laboratory data showed an INR of 1.5 with a negative troponin and a BNP of 397.? Chest x-ray was within normal limits.? Outside labs must of been reviewed showing increased creatinine, so patient was given 2 L of IV fluids and typed and crossed for 2 units of blood.?? Patient also received IV Protonix and an EKG showed A. fib with RVR with a heart rate in the 170s.? Cardiology was contacted and given some recommendations.? Patient was admitted to PCU for further evaluation. At approximately 6 AM this morning, patient was a subject of a rapid response.? There was discussion about possible intubation secondary to hypoxia.? He went into flash pulmonary edema secondary to atrial fibrillation with RVR. He was treated with rate control and is currently being seen by handling tech. Over the course of patient's ICU stay, respiratory status has improved.? FiO2 is much improved.? Patient is currently able to report that he does have a long history of tobacco abuse.? Patient has not been seen by bag filler or had PFTs previously.? Patient does carry diagnosis of CHF, but is unclear of the t ype of CHF.? Patient does not use supplemental oxygen at baseline. [facility] Medical History Arthritis Back pain Bilateral inguinal hernia (BIH) COVID GERD (gastroesophageal reflux disease) Heartburn Hemorrhoid History of stress test History of ulceration Injury of back Loss of hearing Shortness of breath on exertion Smoker Wears dentures Wears glasses Home Medications NK 08/02/21 [History Last Taken Unknown] Allergy/AdvReac Type Severity Reaction Status Date / Time Penicillins Allergy Mild rash Verified 04/26/22 19:15 Family History Father Heart disease Myocardial infarction Mother Heart disease Myocardial infarction Surgical History History of colonoscopy History of hemorrhoidectomy History of laparoscopic cholecystectomy Social History household members: spouse number of children: 5 current occupational status: retired pets and animals: No Smoking Status: Current every day smoker tobacco type: cigarettes Tobacco: How many years used: 60 ROS ROS Narrative See HPI Review of Systems ROS Unobtainable: other Constitutional Constitutional: Denies fatigue, fever(s), poor appetite, weight gain or weight loss ENT HEENT: Denies mouth lesions Cardiovascular Cardiovascular: Denies abdominal bloating, abdominal edema or abdominal pain Respiratory/Chest Respiratory/Chest: Denies change in mental status, change in phlegm color, chest congestion or chest tightness Gastrointestinal Gastrointestinal: Denies belching, bloating, change in bowel habits, change in stool character, chewing difficulty, coffee ground emesis, constipation, cramping, diarrhea, dyspepsia, dysphagia, early satiety, excessive flatus, fecal incontinence, heartburn, hematemesis, hematochezia, hemorrhoids, loose stools, melena, nausea, odynophagia, rectal bleeding, tenesmus, vomiting or weight changes Genitourinary Genitourinary: Denies abdominal discomfort, burning urination or itching Musculoskeletal Musculoskeletal: Reports as per HPI; Denies muscle weakness or myalgias Integumentary Integumentary: Denies jaundice Neurologic Neurologic: Denies lack of coordination or weakness Psychiatric Psychiatric: Denies confusion, depression, memory loss, mood swings, paranoia or suicidal ideation Endocrine Endocrinology: Denies systems reviewed and no addt'l complaints, except as documented Hematologic/Lymphatic Hematologic/Lymphatic: Denies anemia, easy bleeding, easy bruising or lymphadenopathy Allergic/Immunologic Allergic/Immunologic: Denies systems reviewed and no addt'l complaints, except as documented Physical Exam Narrative Physical exam: General: Alert, oriented x3, cooperative HEENT: Atraumatic Oral: Moist Mucosa Neck: Supple Lungs: Diminished to auscultation Cardiovascular: HS I+II, regular, no murmurs Abdomen: Bowel Sounds Present, Soft, Non Tender Extremities: Bilateral leg edema, +1 Skin: No rashes, No breakdown Neurological: Grossly intact Psych/Mental Status: Appropriate Lab / Micro Data Result Diagrams: 04/28/22 04:10 04/28/22 04:10 Labs: Laboratory Results - last 24 hr 04/28/22 04:10: WBC 17.5 H, RBC 3.34 L, Hgb 9.9 L, Hct 30.0 L, MCV 89.8 D, MCH 29.6, MCHC 33.0 D, RDW Std Deviation 47.7 H, RDW Coeff of Jose 14.5, Plt Count 229, MPV 11.7, Immature Gran % (Auto) 0.600, Neut % (Auto) 94.9 H, Lymph % (Auto) 2.5 L, [place] % (Auto) 1.8, Eos % (Auto) 0.1, Baso % (Auto) 0.1, Absolute Neuts (auto) 16.6 H, Absolute Lymphs (auto) 0.43 L, Nucleated RBC % 0.1, Differential Comment SCANNED 04/28/22 04:10: Sodium 140, Potassium 3.2 L, Chloride 105, Carbon Dioxide 23.0, Anion Gap 12, BUN 31 H, Creatinine 1.94 H, Estim Creat Clear Calc 31.71, Est GFR (MDRD) Af Amer 44 L, Est GFR (MDRD) Non-Af 36 L, BUN/Creatinine Ratio 16.0, Glucose 172 H, Calcium 8.3 L, Total Bilirubin 1.60 H, AST 49 H, ALT 69 H, Alkaline Phosphatase 74, Total Protein 6.9, Albumin 3.4, Globulin 3.5, Albumin/Globulin Ratio 1.0, Triglycerides 92, Cholesterol 111, LDL Cholesterol 59, VLDL Cholesterol 18, HDL Cholesterol 34 L Micro: Microbiology 04/26/22 11:54 Mucosa - Nose Respiratory Panel (PCR) - Final Assessment & Plan Assessment/Plan (1) Anemia: PLAN: Anemia thought to be secondary to GI blood loss. Patient undergo celiac disease testing and had upper and lower endoscopy when cleared by cardiology. (2) GI bleed: PLAN: GI bleed possibly secondary to prolapsed rectum in the setting of internal hemorrhoids. He is not having any signs of bleeding at this time. I think he needs to be optimized from a cardiology standpoint prior to undergoing EGD and colonoscopy. He does concern me that he has a mild cholestatic hepatitis in the setting of GI bleed. He does have a history of steatosis. He should have an upper endoscopy to see if he needs for hypertension, gastroesophageal reflux disease, gastric antral vascular ectasia any other reason for upper GI bleed. Charges/Coding Visit Charges Inpatient E&M: 37989 Init Hosp L3
[2022-04-28] MEDS: Pantoprazole Sodium 40 MG Tablet PO (20:13)
[2022-04-28] MEDS: Metoprolol Tartrate 5 MG/5 ML Vial IV (23:01)
[2022-04-29] VITALS (25 sets, daily range): BP systolic 91–127; BP diastolic 48–97; PULSE 99–170; RESP 18–32; TEMP 36.1–37.1; O2SAT 91–100
[2022-04-29] MEDS: 0.9% Saline Lock 10 ML Syringe IV (02:24)
[2022-04-29] MEDS: Metoprolol Tartrate 5 MG/5 ML Vial IV (02:24)
[2022-04-29] MEDS: Ipratropium 0.5 MG/2.5 ML SOLUTION INHALATION ×5 (02:56→19:35)
[2022-04-29 06:11] LABS: Absolute Lymphocyte Count 0.63 X10^3/uL (0.83-4.51); Absolute Neutrophil Count 13.7 X10^3/uL (2.0-7.7); Basophil# 0.01 X10^3/uL; Basophil% 0.1 % (0-1); Hematocrit 30.5 % (40-54); Hemoglobin 9.7 g/dL (13.0-16.5); Lymphocyte # 0.63 X10^3/ul (0.83-4.51); Lymphocyte % 4.2 % (19-41); Mean Corp Hgb Conc 31.8 g/dL (32-36); Mean Corpuscular Hgb 28.9 pg (27.0-32.0); Mean Corpuscular Volume 90.8 fL (80-94); Mean Platelet Vol. 11.8 fl (6.2-12.0); Monocyte% 4.6 % (0-10); NRBC Flagged by Analyzer 0.2 % (0-5); Neutrophil # 13.71 X10^3/uL (2.7-7.7); Neutrophil % 90.6 % (47-70); Platelet Count 243 K/mm3 (150-450); RBC Distribution Width CV 14.5 % (11.6-14.6); RBC Distribution Width SD 47.2 fl (35.1-43.9); Red Blood Count 3.36 M/mm3 (4.6-6.2); White Blood Count 15.1 K/mm3 (4.4-11.0)
[2022-04-29 06:33] LABS: ALB/GLOB Ratio 1.1 RATIO (0.9-2.4); AST(SGOT) 26 U/L (15-37); Alanine Aminotransfer ALT/SGPT 61 U/L (16-61); Albumin, Serum 3.5 g/dL (3.2-5.0); Alkaline Phosphatase 67 U/L (45-117); Anion Gap 5 (5-15); BUN 49 mg/dL (7-18); BUN/Creat Ratio 26.1 RATIO (10-20); Calcium,Total 8.6 mg/dL (8.5-10.1); Chloride 107 mmol/L (98-107); Creatinine, Serum 1.88 mg/dL (0.70-1.30); EST Glomerular Filtration Rate 38 mL/min (>60); Est Glom Filt Rate - Afr Amer 45 mL/min (>60); Estimated Creatinine Clearance 32.72 ml/min; Globulin 3.3 g/dL (2.2-4.2); Glucose 180 mg/dL (74-106); Protein, Total 6.8 g/dL (6.4-8.2); Sodium Level 138 mmol/L (136-145)
--- NOTE | 2022-04-29 07:13 | PN.CC_ITS ---
Assessment & Plan Assessment/Plan (1) Acute respiratory failure with hypoxia: (2) ABLA (acute blood loss anemia): (3) Tobacco dependence: PLAN: Plan RECOMMENDATIONS: 1. Defer to cardiology on rate control 2. Await GI work-up 3. Continue to encourage incentive spirometer and ambulation as tolerated 4. Transition to 5-day burst of steroids and continue with bronchodilators 5. Outpatient work-up of COPD following discharge 6. Hemodynamically stable on room air. Will sign off from a pulmonary/critical care perspective. IMPRESSIONS: 1. Acute hypoxic respiratory failure Exact etiology is unclear at this time. Differential diagnosis would include acute on chronic CHF, COPD exacerbation, TRALI, pneumonia and a spiration. Patient did receive 2 L of IV fluids in addition to the 2 units of blood. Patient appears to be responding to diuretic therapy and was significantly tachycardic at the onset. Patient does have a long smoking history, so presumptive diagnosis of COPD is not unreasonable. Patient with r apid resolution following Lasix therapy. EF also found to be 25%. We will transition to a 5-day burst of steroids. Given current respiratory status, will sign off from a pulmonary/critical care perspective. Patient would benefit from an outpatient evaluation of COPD if agreeable. 2. A. fib with RVR/hypertension/acute systolic CHF exacerbation No echocardiogram is available for review. Patient is significantly tachycardic and has relatively advanced age. Clinical suspicion for an element of diastolic dysfunction. Cardiology has been consulted. Defer to them on rate control. Patient was transiently on amiodarone, but this has not been continued. Patient appears to be in sinus rhythm at this time and heart rate appears controlled with Cardizem. 3. Acute blood loss anemia Stable. Patient is reporting acute hemorrhoidal bleeding. However, incrementation is suggesting that the initial labs may be aberrant. GI has been consulted. No further bleeding has been reported. H&H remained stable. GI following 4. Advanced age/nicotine dependence/anxiety/failure to comply with supportive devices Complicates care, management, recovery and prognosis. Smoking cessation would be recommended. 5. Acute kidney injury Stable. Patient has significant elevation in creatinine compared to reported baseline. Defer to cardiology on initiation of p.o. Lasix. No indication for renal replacement therapy at this time. Subjective Subjective Patient has done well overnight from a respiratory standpoint. Unfortunately, patient has had recurrence of his A. fib with RVR. Patient is reporting some palpitations, but no chest pain. Patient has not had any significant cough. Patient is not reporting any obvious bleeding. Objective Data Objective Data Vital Signs: Vital Signs Temp Pulse Resp BP Pulse Ox O2 Del Method O2 Flow Rate 37.0 C 143 H 20 H 117/80 91 Room Air 2 04/29/22 06:00 04/29/22 06:00 04/29/22 06:00 04/29/22 06:00 04/29/22 06:00 04/29/22 06:00 04/28/22 14:18 FiO2 38 04/28/22 07:00 Oxygen Flow Rate (L/min) 2 Oxygen Delivery Method Room Air Weight: 72.6 kg Body Mass Index (BMI) 26.1 Intake & Output: Intake and Output for Last 24 Hours 04/27/22 04/28/22 04/29/22 23:59 23:59 23:59 Intake Total 3246.78 / 3246.78 1225.32 / 1325.32 100 / 100 Output Total 3400 / 3800 2000 / 2150 350 / 350 Balance -153.22 / -553.22 -774.68 / -824.68 -250 / -250 Lab / Micro Data Attestation: I reviewed the patient's lab results. Result Diagrams: 04/29/22 05:50 04/29/22 05:50 Labs: Laboratory Results - last 24 hr 04/29/22 05:50: WBC 15.1 H, RBC 3.36 L, Hgb 9.7 L, Hct 30.5 L, MCV 90.8, MCH 28.9, MCHC 31.8 L, RDW Std Deviation 47.2 H, RDW Coeff of Jose 14.5, Plt Count 243, MPV 11.8, Immature Gran % (Auto) 0.500, Neut % (Auto) 90.6 H, Lymph % (Auto) 4.2 L, [place] % (Auto) 4.6, Eos % (Auto) 0.0, Baso % (Auto) 0.1, Absolute Neuts (auto) 13.7 H, Absolute Lymphs (auto) 0.63 L, Nucleated RBC % 0.2 04/29/22 05:50: Sodium 138, Potassium 4.0, Chloride 107, Carbon Dioxide 26.0, Anion Gap 5, BUN 49 H, Creatinine 1.88 H, Estim Creat Clear Calc 32.72, Est GFR (MDRD) Af Amer 45 L, Est GFR (MDRD) Non-Af 38 L, BUN/Creatinine Ratio 26.1 H, Glucose 180 H, Calcium 8.6, Total Bilirubin 1.20 H, AST 26, ALT 61, Alkaline Phosphatase 67, Total Protein 6.8, Albumin 3.5, Globulin 3.3, Albumin/Globulin R atio 1.1 Micro: Microbiology 04/26/22 11:54 Mucosa - Nose Respiratory Panel (PCR) - Final 04/27/22 12:11 Urine Catheter - [place] Legionella Antigen - Final 04/27/22 12:11 Urine Catheter - [place] Streptococcus pneumoniae Antigen (M - Final 04/27/22 12:30 Nasal Secretion SARS-CoV-2 Antigen (Rapid) - Final Physical Exam Const alert, oriented x3 and no apparent distress General Appearance: cooperative and well developed HEENT normocephalic, head/scalp atraumatic and moist oral mucous membranes Eyes PERRL and EOMs intact bilaterally Neck full ROM and no lymphadenopathy Resp normal respiratory effort and no use of accessory muscles Resp Narrative: Rales much improved compared to yesterday Auscultation: Negative for rales, rhonchi or wheezes Percussion: Negative for dullness Cardio S1 normal heart sound, S2 normal heart sound, no murmurs, no rub and no gallops Rate: tachycardic Rhythm: abnormal rhythm irregularly irregular GI normal to inspection, nondistended, normoactive bowel sounds no CVA tenderness Extremity no clubbing, cyanosis or edema Skin no rashes or lesions noted Neuro oriented x3, CN's II-XII intact bilaterally, moves all extremities and no focal motor deficits Psych cooperative and affect normal Charges/Coding Visit Charges Inpatient E&M: 92879 Subs Hosp L2
[2022-04-29] MEDS: predniSONE 20 MG Tablet 40 MG PO (09:19)
[2022-04-29] MEDS: Carvedilol 3.125 MG TABLET PO ×2 (09:19→19:54)
[2022-04-29] MEDS: Pantoprazole Sodium 40 MG Tablet PO ×2 (09:19→19:54)
--- NOTE | 2022-04-29 11:41 | PN.CARD_ITS ---
Subjective Subjective Cardiac complaints. However patient has gone into A. fib with RVR. He apparently did well with IV Cardizem. He was switched to Coreg due to severe LV dysfunction. Objective Data Vital Signs: Vital Signs Temp Pulse Resp BP Pulse Ox O2 Del Method O2 Flow Rate 98.4 F 155 H 25 H 114/71 94 Room Air 2 04/29/22 09:15 04/29/22 09:15 04/29/22 09:15 04/29/22 09:15 04/29/22 09:15 04/29/22 09:28 04/28/22 14:18 FiO2 38 04/28/22 07:00 Oxygen Flow Rate (L/min) 2 Oxygen Delivery Method Room Air Weight: 160 lb 0.889 oz Body Mass Index (BMI) 26.1 Intake & Output: Intake and Output for Last 24 Hours 04/27/22 04/28/22 04/29/22 23:59 23:59 23:59 Intake Total 3246.78 / 3246.78 1225.32 / 1325.32 100 / 100 Output Total 3400 / 3800 2000 / 2150 350 / 350 Balance -153.22 / -553.22 -774.68 / -824.68 -250 / -250 Lab / Micro Data Result Diagrams: 04/29/22 05:50 04/29/22 05:50 Labs: Laboratory Results - last 24 hr 04/29/22 05:50: WBC 15.1 H, RBC 3.36 L, Hgb 9.7 L, Hct 30.5 L, MCV 90.8, MCH 28.9, MCHC 31.8 L, RDW Std Deviation 47.2 H, RDW Coeff of Jose 14.5, Plt Count 243, MPV 11.8, Immature Gran % (Auto) 0.500, Neut % (Auto) 90.6 H, Lymph % (Auto) 4.2 L, [place] % (Auto) 4.6, Eos % (Auto) 0.0, Baso % (Auto) 0.1, Absolute Neuts (auto) 13.7 H, Absolute Lymphs (auto) 0.63 L, Nucleated RBC % 0.2 04/29/22 05:50: Sodium 138, Potassium 4.0, Chloride 107, Carbon Dioxide 26.0, Anion Gap 5, BUN 49 H, Creatinine 1.88 H, Estim Creat Clear Calc 32.72, Est GFR (MDRD) Af Amer 45 L, Est GFR (MDRD) Non-Af 38 L, BUN/Creatinine Ratio 26.1 H, Glucose 180 H, Calcium 8.6, Total Bilirubin 1.20 H, AST 26, ALT 61, Alkaline Phosphatase 67, Total Protein 6.8, Albumin 3.5, Globulin 3.3, Albumin/Globulin Ratio 1.1 Cardiology Labs/Tests 04/29/22 05:50: WBC 15.1 H, RBC 3.36 L, Hgb 9.7 L, Hct 30.5 L, MCV 90.8, MCH 28.9, MCHC 31.8 L, Plt Count 243, MPV 11.8, Immature Gran % (Auto) 0.500, Neut % (Auto) 90.6 H, Lymph % (Auto) 4.2 L, [place] % (Auto) 4.6, Eos % (Auto) 0.0, Baso % (Auto) 0.1, Absolute Neuts (auto) 13.7 H, Nucleated RBC % 0.2 04/29/22 05:50: Sodium 138, Potassium 4.0, Chloride 107, Carbon Dioxide 26.0, Anion Gap 5, BUN 49 H, Creatinine 1.88 H, Est GFR (MDRD) Af Amer 45 L, Est GFR (MDRD) Non-Af 38 L, BUN/Creatinine Ratio 26.1 H, Glucose 180 H, Calcium 8.6, T otal Bilirubin 1.20 H Rhythm: EKG: ECHO: Stress Test: Cardiac Cath: PCI: CT Surgery: Holter monitor: EPS: PPM: CXR: Chest CT Scan: Physical Exam Const alert and oriented x3 HEENT normocephalic Eyes no scleral icterus Resp normal respiratory effort Cardio Cardio Narrative: Irregular rhythm Extremity no pedal edema Skin no rashes or lesions noted Psych mental status grossly normal Assessment & Plan Assessment/Plan (1) Atrial fibrillation: PLAN: Patient is currently in A. fib with RVR. We will start him on an a miodarone drip. Continue beta-[place]. If amiodarone is not enough we will switch from Coreg to metoprolol. He is not a patient for anticoagulant therapy at this time secondary to his recent GI bleed and acute blood loss. (2) CHF (congestive heart failure): PLAN: The patient did appear to have acute CHF/flash pulmonary edema. This may have been brought out by his volume load superimposed upon what appears to be an underlying diminished LV systolic function. He has responded to diuretic therapy and has had significant improvement in his respiratory status. Continue present management (3) Cardiomyopathy: PLAN: The patient does have an underlying cardiomyopathy. Its unclear whether this may be tachycardic induced versus related to other underlying undiagnosed cardiovascular conditions either CAD related or non-CAD related. At the present time he will need to be considered for medical management. Ideally this would include beta-[place] therapy, afterload reducing therapy, etc. His medications may have to be altered based upon his noncardiac conditions with his acute respiratory failure and his gastrointestinal bleeding process/anemia and his renal insufficiency, etc. An attempt was made to retrieve [facility] records for any cardiovascular information may be helpful in his ongoing evaluation and care. (4) GI bleed: PLAN: The patient appears to have a gastrointestinal bleeding as described. GI service following (5) ABLA (acute blood loss anemia): PLAN: The patient did receive PRBCs. His hemoglobin will need to be followed. Charges/Coding Visit Charges Inpatient E&M: 86980 Subs Hosp L2
[2022-04-29] MEDS: Amiodarone 360 MG in Dextrose 5% Viaflo Bag 192.8 ML 33.3 MG CONT INF (11:44)
--- NOTE | 2022-04-29 13:29 | PCM.PN.HOSP ---
Subjective Subjective Follow-up on acute respiratory failure/acute COPD exacerbation/CHF exacerbation/severe anemia: Patient was seen and examined.?Denies any chest pain or dizziness. He is off oxygen and on room air. His heart rate however has been elevated at 145. Objective Data Objective Data Vital Signs: Vital Signs Temp Pulse Resp BP Pulse Ox O2 Del Method O2 Flow Rate 98.4 F 145 H 20 H 102/67 93 Room Air 2 04/29/22 09:15 04/29/22 13:00 04/29/22 13:00 04/29/22 13:00 04/29/22 13:00 04/29/22 13:04 04/28/22 14:18 FiO2 38 04/28/22 07:00 Oxygen Flow Rate (L/min) 2 Oxygen Delivery Method Room Air Weight: 72.6 kg Body Mass Index (BMI) 26.1 Intake & Output: Intake and Output for Last 24 Hours 04/27/22 04/28/22 04/29/22 23:59 23:59 23:59 Intake Total 3246.78 / 3246.78 1225.32 / 1325.32 142.18 / 142.18 Output Total 3400 / 3800 2000 / 2150 800 / 800 Balance -153.22 / -553.22 -774.68 / -824.68 -657.82 / -657.82 Lab / Micro Data Result Diagrams: 04/29/22 05:50 04/29/22 05:50 Labs: Laboratory Results - last 24 hr 04/29/22 05:50: WBC 15.1 H, RBC 3.36 L, Hgb 9.7 L, Hct 30.5 L, MCV 90.8, MCH 28.9, MCHC 31.8 L, RDW Std Deviation 47.2 H, RDW Coeff of Jose 14.5, Plt Count 243, MPV 11.8, Immature Gran % (Auto) 0.500, Neut % (Auto) 90.6 H, Lymph % (Auto) 4.2 L, [place] % (Auto) 4.6, Eos % (Auto) 0.0, Baso % (Auto) 0.1, Absolute Neuts (auto) 13.7 H, Absolute Lymphs (auto) 0.63 L, Nucleated RBC % 0.2 04/29/22 05:50: Sodium 138, Potassium 4.0, Chloride 107, Carbon Dioxide 26.0, Anion Gap 5, BUN 49 H, Creatinine 1.88 H, Estim Creat Clear Calc 32.72, Est GFR (MDRD) Af Amer 45 L, Est GFR (MDRD) Non-Af 38 L, BUN/Creatinine Ratio 26.1 H, Glucose 180 H, Calcium 8.6, Total Bilirubin 1.20 H, AST 26, ALT 61, Alkaline Phosphatase 67, Total Protein 6.8, Albumin 3.5, Globulin 3.3, Albumin/Globulin Ratio 1.1 Micro: Microbiology 04/26/22 11:54 Mucosa - Nose Respiratory Panel (PCR) - Final 04/27/22 12:11 Urine Catheter - [place] Legionella Antigen - Final 04/27/22 12:11 Urine Catheter - [place] Streptococcus pneumoniae Antigen (M - Final 04/27/22 12:30 Nasal Secretion SARS-CoV-2 Antigen (Rapid) - Final Physical Exam Narrative Physical exam: General: Alert, oriented x3, cooperative HEENT: Atraumatic Oral: Moist Mucosa Neck: Supple Lungs: Diminished to auscultation Cardiovascular: HS I+II, regular, no murmurs Abdomen: Bowel Sounds Present, Soft, Non Tender Extremities: No Bilateral leg edema Skin: No rashes, No breakdown Neurological: Grossly intact Psych/Mental Status: Appropriate Assessment & Plan Assessment/Plan (1) COPD with exacerbation: (2) ABLA (acute blood loss anemia): PLAN: Plan 1. A. fib with RVR, heart rate is elevated, cardiology following Patient started on amiodarone drip, continue on Coreg 2. Acute hypoxic respiratory failure secondary to acute COPD exacerbation/acute CHF exacerbation/probable anemia Appears resolved, on room air Admitting chest x-ray shows acute fluid overload Urine Legionella antigen is negative Continue with breathing treatments, encourage use of incentive spirometer. Wean off oxygen for SPO2 more than 94% Pulmonology formula 3. Acute COPD exacerbation, resolved Patient is a chronic smoker Continue on prednisone taper 4. Hypokalemia, resolved 5. Hypertension/cardiomyopathy, EF 25%, patient is euvolemic Continue to monitor off Lasix 6. Acute severe anemia secondary to acute GI bleed, Admitted with hemoglobin of 5.9, status post 2 units of packed RBCs, Repeat hemoglobin is 9.7, will continue to trend 7. Probable acute GI bleed, history of hemorrhoids, GI following Continue on PO PPI twice daily 8. Nicotine dependence, advised to quit, continue on replacement 8. DVT prophylaxis SCDs on account of GI bleed Charges/Coding Multi Select Codes Visit Charges Visit Charges: 31685 Subs Hosp L1
[2022-04-29] MEDS: Amiodarone 360 MG in Dextrose 5% Viaflo Bag 192.8 ML 16.7 MG CONT INF (17:24)
[2022-04-30] VITALS (24 sets, daily range): BP systolic 91–125; BP diastolic 58–104; PULSE 112–134; RESP 16–214; TEMP 36–37.2; O2SAT 93–100
[2022-04-30 04:39] LABS: Absolute Lymphocyte Count 1.06 X10^3/uL (0.83-4.51); Absolute Neutrophil Count 6.7 X10^3/uL (2.0-7.7); Basophil# 0.01 X10^3/uL; Basophil% 0.1 % (0-1); Eosinophil# 0.01 X10^3/uL; Eosinophils% 0.1 % (0-5); Hemoglobin 9.4 g/dL (13.0-16.5); Lymphocyte # 1.06 X10^3/ul (0.83-4.51); Lymphocyte % 12.3 % (19-41); Mean Corp Hgb Conc 31.3 g/dL (32-36); Mean Corpuscular Hgb 28.7 pg (27.0-32.0); Mean Corpuscular Volume 91.5 fL (80-94); Monocyte# 0.82 X10^3/uL; Monocyte% 9.5 % (0-10); NRBC Flagged by Analyzer 0 % (0-5); Neutrophil # 6.66 X10^3/uL (2.7-7.7); Neutrophil % 77.4 % (47-70); Platelet Count 204 K/mm3 (150-450); RBC Distribution Width CV 14.2 % (11.6-14.6); RBC Distribution Width SD 46.4 fl (35.1-43.9); Red Blood Count 3.28 M/mm3 (4.6-6.2); White Blood Count 8.6 K/mm3 (4.4-11.0)
[2022-04-30 04:59] LABS: AST(SGOT) 19 U/L (15-37); Alanine Aminotransfer ALT/SGPT 52 U/L (16-61); Albumin, Serum 2.9 g/dL (3.2-5.0); Alkaline Phosphatase 58 U/L (45-117); Anion Gap 7 (5-15); BUN 48 mg/dL (7-18); BUN/Creat Ratio 29.8 RATIO (10-20); Calcium,Total 7.9 mg/dL (8.5-10.1); Chloride 108 mmol/L (98-107); Creatinine, Serum 1.61 mg/dL (0.70-1.30); EST Glomerular Filtration Rate 45 mL/min (>60); Est Glom Filt Rate - Afr Amer 54 mL/min (>60); Globulin 2.8 g/dL (2.2-4.2); Glucose 179 mg/dL (74-106); Protein, Total 5.7 g/dL (6.4-8.2); Sodium Level 138 mmol/L (136-145)
[2022-04-30] MEDS: Ipratropium 0.5 MG/2.5 ML SOLUTION INHALATION ×3 (07:03→18:56)
[2022-04-30] MEDS: Amiodarone 360 MG in Dextrose 5% Viaflo Bag 192.8 ML 16.7 MG CONT INF (07:44)
[2022-04-30] MEDS: predniSONE 20 MG Tablet 40 MG PO (07:44)
[2022-04-30] MEDS: Carvedilol 3.125 MG TABLET PO (07:45)
[2022-04-30] MEDS: Pantoprazole Sodium 40 MG Tablet PO ×2 (07:45→21:55)
--- NOTE | 2022-04-30 09:47 | PN.HOSP_ITS ---
Subjective Subjective Follow-up on acute respiratory failure/acute COPD exacerbation/CHF exacerbation/severe anemia: Patient was seen and examined.? Remains elevated. Denied fever or chills. He has able to void after [place] catheter was removed. Objective Data Objective Data Vital Signs: Vital Signs Temp Pulse Resp BP Pulse Ox O2 Del Method O2 Flow Rate 96.8 F L 130 H 24 H 118/75 98 Room Air 2 04/30/22 07:45 04/30/22 07:45 04/30/22 07:45 04/30/22 07:45 04/30/22 07:45 04/30/22 09:00 04/28/22 14:18 FiO2 38 04/28/22 07:00 Oxygen Flow Rate (L/min) 2 Oxygen Delivery Method Room Air Weight: 74.5 kg Body Mass Index (BMI) 26.1 Intake & Output: Intake and Output for Last 24 Hours 04/28/22 04/29/22 04/30/22 23:59 23:59 23:59 Intake Total 1225.32 / 1325.32 393.52 / 493.52 206.48 / 206.48 Output Total 2000 / 2150 800 / 1200 400 / 400 Balance -774.68 / -824.68 -406.48 / -706.48 -193.52 / -193.52 Lab / Micro Data Result Diagrams: 04/30/22 04:30 04/30/22 04:30 Labs: Laboratory Results - last 24 hr 04/30/22 04:30: WBC 8.6, RBC 3.28 L, Hgb 9.4 L, Hct 30.0 L, MCV 91.5, MCH 28.7, MCHC 31.3 L, RDW Std Deviation 46.4 H, RDW Coeff of Jose 14.2, Plt Count 204, MPV 12.0, Immature Gran % (Auto) 0.600, Neut % (Auto) 77.4 H, Lymph % (Auto) 12.3 L, [place] % (Auto) 9.5, Eos % (Auto) 0.1, Baso % (Auto) 0.1, Absolute Neuts (auto) 6.7, Absolute Lymphs (auto) 1.06, Nucleated RBC % 0 04/30/22 04:30: Sodium 138, Potassium 4.0, Chloride 108 H, Carbon Dioxide 23.0, Anion Gap 7, BUN 48 H, Creatinine 1.61 H, Estim Creat Clear Calc 38.20, Est GFR (MDRD) Af Amer 54 L, Est GFR (MDRD) Non-Af 45 L, BUN/Creatinine Ratio 29.8 H, Glucose 179 H, Calcium 7.9 L, Total Bilirubin 0.80, AST 19, ALT 52, Alkaline Phosphatase 58, Total Protein 5.7 L, Albumin 2.9 L, Globulin 2.8, Albumin/Glob ulin Ratio 1.0 Micro: Microbiology 04/26/22 11:54 Mucosa - Nose Respiratory Panel (PCR) - Final 04/27/22 12:11 Urine Catheter - [place] Legionella Antigen - Final 04/27/22 12:11 Urine Catheter - [place] Streptococcus pneumoniae Antigen (M - Final 04/27/22 12:30 Nasal Secretion SARS-CoV-2 Antigen (Rapid) - Final Physical Exam Narrative Physical exam: General: Alert, oriented x3, cooperative HEENT: Atraumatic Oral: Moist Mucosa Neck: Supple Lungs: Diminished to auscultation Cardiovascular: HS I+II, irregular, no murmurs Abdomen: Bowel Sounds Present, Soft, Non Tender Extremities: Bilateral leg edema, +1 Skin: No rashes, No breakdown Neurological: Grossly intact Psych/Mental Status: Appropriate Assessment & Plan Assessment/Plan (1) COPD with exacerbation: (2) ABLA (acute blood loss anemia): PLAN: Plan 71-year-old male who was referred from his primary care doctor's office with hemoglobin of 5.9. 1. A. fib with RVR, HR remains uncontrolled, patient completed amiodarone drip Discussed with cardiology, will start patient on oral amiodarone 200 mg twice daily, metoprolol 50 mg twice daily Continue to monitor heart rate 2. Acute hypoxic respiratory failure secondary to acute COPD exacerbation/acute CHF exacerbation/probable anemia Appears resolved, on room air Admitting chest x-ray shows acute fluid overload Urine Legionella antigen is negative Continue with breathing treatments, encourage use of incentive spirometer. Wean off oxygen for SPO2 more than 94% Pulmonology formula 3. Acute COPD exacerbation, resolved Patient is a chronic smoker Continue on prednisone taper 4. Hypokalemia, resolved 5. Hypertension/cardiomyopathy, EF 25%, unclear if patient has underlying ischemic cardiomyopathy, Patient is euvolemic, blood pressures have been fairly controlled Continue to monitor off Lasix 6. Acute severe anemia secondary to acute GI bleed, Admitted with hemoglobin of 5.9, status post 2 units of packed RBCs, Repeat hemoglobin is 9.4, will continue to trend 7. Probable acute GI bleed, history of hemorrhoids, GI following Continue on PO PPI twice daily 8. Nicotine dependence, advised to quit, continue on replacement 8. DVT prophylaxis SCDs on account of GI bleed Charges/Coding Visit Charges Inpatient E&M: 24535 Subs Hosp L2
[2022-04-30] MEDS: Amiodarone 200 MG Tablet PO ×2 (12:51→21:52)
[2022-04-30 13:20] LABS: Bedside Glucose 304 mg/dL (74-106)
[2022-04-30] MEDS: Metoprolol Tartrate 50 MG Tablet PO ×2 (14:20→21:54)
--- NOTE | 2022-04-30 16:33 | PN.CARD_ITS ---
Subjective Subjective Denies cardiac complaints. Heart rate is better but still in the 120s. He is off IV amiodarone and has been switched to p.o. Coreg was also switched to metoprolol tartrate 50 mg p.o. twice daily which will be switched to metoprolol succinate after dose titration. Objective Data Vital Signs: Vital Signs Temp Pulse Resp BP Pulse Ox O2 Del Method O2 Flow Rate 97.8 F 134 H 27 H 107/81 H 96 Room Air 2 04/30/22 14:00 04/30/22 14:20 04/30/22 14:00 04/30/22 14:20 04/30/22 14:00 04/30/22 14:02 04/28/22 14:18 FiO2 38 04/28/22 07:00 Oxygen Flow Rate (L/min) 2 Oxygen Delivery Method Room Air Weight: 164 lb 3.91 oz Body Mass Index (BMI) 26.1 Intake & Output: Intake and Output for Last 24 Hours 04/28/22 04/29/22 04/30/22 23:59 23:59 23:59 Intake Total 1225.32 / 1325.32 393.52 / 493.52 531.93 / 531.93 Output Total 2000 / 2150 800 / 1200 400 / 400 Balance -774.68 / -824.68 -406.48 / -706.48 131.93 / 131.93 Lab / Micro Data Result Diagrams: 04/30/22 04:30 04/30/22 04:30 Labs: Laboratory Results - last 24 hr 04/27/22 06:06: POC Glucose 304 H 04/30/22 04:30: WBC 8.6, RBC 3.28 L, Hgb 9.4 L, Hct 30.0 L, MCV 91.5, MCH 28.7, MCHC 31.3 L, RDW Std Deviation 46.4 H, RDW Coeff of Jose 14.2, Plt Count 204, MPV 12.0, Immature Gran % (Auto) 0.600, Neut % (Auto) 77.4 H, Lymph % (Auto) 12.3 L, [place] % (Auto) 9.5, Eos % (Auto) 0.1, Baso % (Auto) 0.1, Absolute Neuts (auto) 6.7, Absolute Lymphs (auto) 1.06, Nucleated RBC % 0 04/30/22 04:30: Sodium 138, Potassium 4.0, Chloride 108 H, Carbon Dioxide 23.0, Anion Gap 7, BUN 48 H, Creatinine 1.61 H, Estim Creat Clear Calc 38.20, Est GFR (MDRD) Af Amer 54 L, Est GFR (MDRD) Non-Af 45 L, BUN/Creatinine Ratio 29.8 H, Glucose 179 H, Calcium 7.9 L, Total Bilirubin 0.80, AST 19, ALT 52, Alkaline Phosphatase 58, Total Protein 5.7 L, Albumin 2.9 L, Globulin 2.8, Albumin/Globulin Ratio 1.0 Cardiology Labs/Tests 04/30/22 04:30: WBC 8.6, RBC 3.28 L, Hgb 9.4 L, Hct 30.0 L, MCV 91.5, MCH 28.7, MCHC 31.3 L, Plt Count 204, MPV 12.0, Immature Gran % (Auto) 0.600, Neut % (Auto) 77.4 H, Lymph % (Auto) 12.3 L, [place] % (Auto) 9.5, Eos % (Auto) 0.1, Baso % (Auto) 0.1, Absolute Neuts (auto) 6.7, Nucleated RBC % 0 04/30/22 04:30: Sodium 138, Potassium 4.0, Chloride 108 H, Carbon Dioxide 23.0, Anion Gap 7, BUN 48 H, Creatinine 1.61 H, Est GFR (MDRD) Af Amer 54 L, Est GFR (MDRD) Non-Af 45 L, BUN/Creatinine Ratio 29.8 H, Glucose 179 H, Calcium 7.9 L, Total Bilirubin 0.80 Rhythm: EKG: ECHO: Stress Test: Cardiac Cath: PCI: CT Surgery: Holter monitor: EPS: PPM: CXR: Chest CT Scan: Physical Exam Const alert and oriented x3 Resp normal respiratory effort Cardio Cardio Narrative: Irregular rhythm Assessment & Plan Assessment/Plan (1) Atrial fibrillation: PLAN: Patient is currently in A. fib with RVR. Agree with switching from IV amiodarone to p.o. amiodarone. Agree with metoprolol tartrate instead of Coreg and switching to metoprolol succinate after dose titration. He is not a patient for anticoagulant therapy at this time secondary to his recent GI bleed and acute blood loss. (2) CHF (congestive heart failure): PLAN: The patient did appear to have acute CHF/flash pulmonary edema. This may have been brought out by his volume load superimposed upon what appears to be an underlying diminished LV systolic function. He has responded to diuretic therapy and has had significant improvement in his respiratory status. Continue present management (3) Cardiomyopathy: PLAN: The patient does have an underlying cardiomyopathy. Its unclear whether this may be tachycardic induced versus related to other underlying undiagnosed cardiovascular conditions either CAD related or non-CAD related. At the present time he will need to be considered for medical management. Ousmane ally this would include beta-[place] therapy, afterload reducing therapy, etc. His medications may have to be altered based upon his noncardiac conditions with his acute respiratory failure and his gastrointestinal bleeding process/anemia and his renal insufficiency, etc. An attempt was made to retrieve [facility] records for any cardiovascular information may be helpful in his ongoing evaluation and care. (4) GI bleed: PLAN: The patient appears to have a gastrointestinal bleeding as described. GI service following (5) ABLA (acute blood loss anemia): PLAN: The patient did receive PRBCs. His hemoglobin will need to be followed. Charges/Coding Visit Charges Inpatient E&M: 07605 Subs Hosp L2
[2022-05-01] VITALS (22 sets, daily range): BP systolic 76–136; BP diastolic 58–85; PULSE 108–145; RESP 10–24; TEMP 36.6–37.2; O2SAT 94–98
--- NOTE | 2022-05-01 05:00 | EKG12_ITS ---
Test Reason : AM EKG Blood Pressure : / mmHG Vent. Rate : 123 BPM Atrial Rate : 119 BPM P-R Int : 000 ms QRS Dur : 082 ms QT Int : 358 ms P-R-T Axes : 000 006 -81 degrees QTc Int : 512 ms Atrial fibrillation Low voltage QRS (Limb Leads) ST & T wave abnormality, consider anterolateral ischemia Abnormal ECG Confirmed by LOVE CONNELL, RAFFY ([id number]), non linear editor DEWAYNE COSME ([id number]) on 05/03/2022 10:47:52 AM Referred By: JANET Confirmed By:RAFFY ALEMAN MD
[2022-05-01] MEDS: 0.9% Saline Lock 10 ML Syringe IV (05:32)
[2022-05-01 05:54] LABS: Absolute Lymphocyte Count 1.12 X10^3/uL (0.83-4.51); Basophil# 0.01 X10^3/uL; Basophil% 0.1 % (0-1); Eosinophil# 0.01 X10^3/uL; Eosinophils% 0.1 % (0-5); Hematocrit 30.7 % (40-54); Hemoglobin 9.4 g/dL (13.0-16.5); Lymphocyte # 1.12 X10^3/ul (0.83-4.51); Lymphocyte % 14.1 % (19-41); Mean Corp Hgb Conc 30.6 g/dL (32-36); Mean Corpuscular Hgb 28.4 pg (27.0-32.0); Mean Corpuscular Volume 92.7 fL (80-94); Mean Platelet Vol. 12.2 fl (6.2-12.0); Monocyte# 0.77 X10^3/uL; Monocyte% 9.7 % (0-10); NRBC Flagged by Analyzer 0.4 % (0-5); Neutrophil # 6.03 X10^3/uL (2.7-7.7); Neutrophil % 75.6 % (47-70); Platelet Count 189 K/mm3 (150-450); RBC Distribution Width CV 14.1 % (11.6-14.6); RBC Distribution Width SD 47.7 fl (35.1-43.9); Red Blood Count 3.31 M/mm3 (4.6-6.2)
[2022-05-01 06:17] LABS: AST(SGOT) 19 U/L (15-37); Alanine Aminotransfer ALT/SGPT 60 U/L (16-61); Alkaline Phosphatase 59 U/L (45-117); Anion Gap 6 (5-15); BUN 39 mg/dL (7-18); Calcium,Total 8.2 mg/dL (8.5-10.1); Chloride 111 mmol/L (98-107); Creatinine, Serum 1.56 mg/dL (0.70-1.30); EST Glomerular Filtration Rate 47 mL/min (>60); Est Glom Filt Rate - Afr Amer 56 mL/min (>60); Estimated Creatinine Clearance 39.43 ml/min; Glucose 150 mg/dL (74-106); Sodium Level 141 mmol/L (136-145)
[2022-05-01] MEDS: Ipratropium 0.5 MG/2.5 ML SOLUTION INHALATION ×4 (06:59→19:11)
--- NOTE | 2022-05-01 07:24 | PCM.PN.HOSP ---
Subjective Subjective Patient is a 71-year-old gentleman admitted with low hemoglobin. Hospital stay complicated by A. fib with RVR as well as congestive heart failure admitted to monitored bed where patient has since been managed Objective Data Objective Data Vital Signs: Vital Signs Temp Pulse Resp BP Pulse Ox O2 Del Method O2 Flow Rate 99.0 F 119 H 24 H 122/79 H 97 Room Air 2 05/01/22 02:00 05/01/22 07:00 05/01/22 07:00 05/01/22 07:00 05/01/22 07:00 05/01/22 07:00 04/28/22 14:18 FiO2 38 04/28/22 07:00 Oxygen Flow Rate (L/min) 2 Oxygen Delivery Method Room Air Weight: 73.8 kg Body Mass Index (BMI) 26.1 Intake & Output: Intake and Output for Last 24 Hours 04/29/22 04/30/22 05/01/22 23:59 23:59 23:59 Intake Total 393.52 / 493.52 531.93 / 531.93 Output Total 800 / 1200 400 / 400 Balance -406.48 / -706.48 131.93 / 131.93 Lab / Micro Data Result Diagrams: 05/01/22 05:40 05/01/22 05:40 Labs: Laboratory Results - last 24 hr 04/27/22 06:06: POC Glucose 304 H 05/01/22 05:40: WBC 8.0, RBC 3.31 L, Hgb 9.4 L, Hct 30.7 L, MCV 92.7, MCH 28.4, MCHC 30.6 L, RDW Std Deviation 47.7 H, RDW Coeff of Jose 14.1, Plt Count 189, MPV 12.2 H, Immature Gran % (Auto) 0.400, Neut % (Auto) 75.6 H, Lymph % (Auto) 14.1 L, [place] % (Auto) 9.7, Eos % (Auto) 0.1, Baso % (Auto) 0.1, Absolute Neuts (auto) 6.0, Absolute Lymphs (auto) 1.12, Nucleated RBC % 0.4 05/01/22 05:40: Sodium 141, Potassium 4.0, Chloride 111 H, Carbon Dioxide 24.0, Anion Gap 6, BUN 39 H, Creatinine 1.56 H, Estim Creat Clear Calc 39.43, Est GFR (MDRD) Af Amer 56 L, Est GFR (MDRD) Non-Af 47 L, BUN/Creatinine Ratio 25.0 H, Glucose 150 H, Calcium 8.2 L, Total Bilirubin 1.00, AST 19, ALT 60, Alkaline Phosphatase 59, Total Protein 6.0 L, Albumin 3.0 L, Globulin 3.0, Albumin/Globulin Ratio 1.0 Micro: Microbiology 04/26/22 11:54 Mucosa - Nose Respiratory Panel (PCR) - Final 04/27/22 12:11 Urine Catheter - [place] Legionella Antigen - Final 04/27/22 12:11 Urine Catheter - [place] Streptococcus pneumoniae Antigen (M - Final 04/27/22 12:30 Nasal Secretion SARS-CoV-2 Antigen (Rapid) - Final Physical Exam Narrative GENERAL: cooperative HEENT: Atraumatic; normocephalic EYES; Anicteric, Normal Conjunctiva NECK; supple, normal thyroid, RESPIRATORY: Diminished to auscultation CARDIOVASCULAR: Irregularly irregular tachycardic GI: soft, normoactive bowel sounds, : No Renal angle tenderness; EXTREMITIES: No edema, no clubbing, MUSCULOSKELETAL: no muscle wasting NEURO: Awake; no lateralizing signs. SKIN: No Rash PSYCH; Flat affect Assessment & Plan Assessment/Plan (1) COPD with exacerbation: (2) ABLA (acute blood loss anemia): PLAN: Plan Patient is a 71-year-old gentleman admitted with low hemoglobin. Hospital stay complicated by A. fib with RVR as well as congestive heart failure admitted to monitored bed where patient has since been managed 1. A. fib with RVR ? Patient heart rate not controlled well controlled patient was on amiodarone drip this has been switched to oral amiodarone 200 mg p.o. twice daily as well as metoprolol succinate 50 mg daily. Plan is to discuss with cardiology regarding patient uncontrolled heart rate 2. Acute hypoxia ? Secondary to combination of CHF COPD exacerbation underlying conditions treated per protocol 3. COPD with acute exacerbation ? Patient was managed with systemic steroid currently on prednisone taper, bronchodilator treatment with albuterol and DuoNeb and supplemental oxygen 4. Acute congestive heart failure with reduced ejection fraction ? Echo demonstrated EF of 25%. Patient managed with Lasix. Progress being monitored with strict input and output as well as daily weight 5. Hypokalemia ? Secondary to administration of diuretics repeat potassium ordered for a.m. 6. Severe anemia secondary to acute GI bleed possibly from hemorrhoids ? Hemoglobin on admission was 5.9 patient was transfused with 2 unit PRBC. Plans for patient to complete work-up as outpatient with colonoscopy 7. Tobacco dependence - Counseled on cessation, offered nicotine patch for tobacco cravings 8. DVT prophylaxis ? Bilateral SCDs Total time spent evaluating patient, review of diagnostic data as well as discussion with other providers involved with patient's care; 35 minutes Charges/Coding Visit Charges Inpatient E&M: 80227 Subs Hosp L2
--- NOTE | 2022-05-01 09:07 | PN.CARD_ITS ---
Subjective Subjective The patient is aware he can alert. He denies any ongoing chest discomfort or difficulty breathing. He does not seem to sense his rapid heart rate at this time. Objective Data Vital Signs: Vital Signs Temp Pulse Resp BP Pulse Ox O2 Del Method O2 Flow Rate 98 F 122 H 20 H 122/79 H 97 Room Air 2 05/01/22 07:00 05/01/22 07:00 05/01/22 07:00 05/01/22 07:00 05/01/22 07:00 05/01/22 08:00 04/28/22 14:18 FiO2 38 04/28/22 07:00 Oxygen Flow Rate (L/min) 2 Oxygen Delivery Method Room Air Weight: 162 lb 11.218 oz Body Mass Index (BMI) 26.1 Intake & Output: Intake and Output for Last 24 Hours 04/29/22 04/30/22 05/01/22 23:59 23:59 23:59 Intake Total 393.52 / 493.52 531.93 / 531.93 Output Total 800 / 1200 400 / 400 Balance -406.48 / -706.48 131.93 / 131.93 Lab / Micro Data Result Diagrams: 05/01/22 05:40 05/01/22 05:40 Labs: Laboratory Results - last 24 hr 04/27/22 06:06: POC Glucose 304 H 05/01/22 05:40: WBC 8.0, RBC 3.31 L, Hgb 9.4 L, Hct 30.7 L, MCV 92.7, MCH 28.4, MCHC 30.6 L, RDW Std Deviation 47.7 H, RDW Coeff of Jose 14.1, Plt Count 189, MPV 12.2 H, Immature Gran % (Auto) 0.400, Neut % (Auto) 75.6 H, Lymph % (Auto) 14.1 L, Iron % (Auto) 9.7, Eos % (Auto) 0.1, Baso % (Auto) 0.1, Absolute Neuts (auto) 6.0, Absolute Lymphs (auto) 1.12, Nucleated RBC % 0.4 05/01/22 05:40: Sodium 141, Potassium 4.0, Chloride 111 H, Carbon Dioxide 24.0, Anion Gap 6, BUN 39 H, Creatinine 1.56 H, Estim Creat Clear Calc 39.43, Est GFR (MDRD) Af Amer 56 L, Est GFR (MDRD) Non-Af 47 L, BUN/Creatinine Ratio 25.0 H, Glucose 150 H, Calcium 8.2 L, Total Bilirubin 1.00, AST 19, ALT 60, Alkaline Phosphatase 59, Total Protein 6.0 L, Albumin 3.0 L, Globulin 3.0, Albumin/Globulin Ratio 1.0 Cardiology Labs/Tests 05/01/22 05:40: WBC 8.0, RBC 3.31 L, Hgb 9.4 L, Hct 30.7 L, MCV 92.7, MCH 28.4, MCHC 30.6 L, Plt Count 189, MPV 12.2 H, Immature Gran % (Auto) 0.400, Neut % (Auto) 75.6 H, Lymph % (Auto) 14.1 L, Iron % (Auto) 9.7, Eos % (Auto) 0.1, Baso % (Auto) 0.1, Absolute Neuts (auto) 6.0, Nucleated RBC % 0.4 05/01/22 05:40: Sodium 141, Potassium 4.0, Chloride 111 H, Carbon Dioxide 24.0, Anion Gap 6, BUN 39 H, Creatinine 1.56 H, Est GFR (MDRD) Af Amer 56 L, Est GFR (MDRD) Non-Af 47 L, BUN/Creatinine Ratio 25.0 H, Glucose 150 H, Calcium 8.2 L, Total Bilirubin 1.00 Rhythm: Atrial fibrillation with RVR Physical Exam Const alert, oriented x3 and no apparent distress General Appearance: other Orientation / Consciousness: awake HEENT normocephalic and head/scalp atraumatic Eyes PERRL, EOMs intact bilaterally and conjunctivae normal Neck full ROM, supple and no JVD Carotids: normal carotid upstroke Resp normal respiratory effort and clear to auscultation bilaterally Cardio S1 normal heart sound and S2 normal heart sound Cardio Narrative: Somewhat distant heart tones Rhythm: abnormal rhythm irregularly irregular GI normal to inspection, nondistended, normoactive bowel sounds GI Narrative: Positive midline surgical scar Extremity no pedal edema Skin no rashes or lesions noted Psych mental status grossly normal Assessment & Plan Assessment/Plan (1) Atrial fibrillation: PLAN: The patient did have atrial fibrillation. Its unclear as to whether or not this is new for the patient or whether or not he has had atrial fibrillation in the past. He appeared to return to sinus rhythm/sinus tachycardia. He is now returned to atrial fibrillation with RVR. He believes contributing components to his rapid heart rate include potentially not having caffeine, not having nicotine, etc. He has also undergone additional evaluation with a transthoracic echocardiogram. The results are as noted. He is on rate control therapy with metoprolol tartrate at this time. His dose will be increased. Ideally, based upon concerns of an underlying cardiomyopathy, be reasonable to alter him at some point time to a succinate formulation or potentially back to carvedilol/Coreg. He is also on amiodarone at this time. This dose can be adjusted as well. In the interim it may be reasonable to attempt a dose of IV digitalis to try and assist with bringing his heart rate down while his other medication doses are adjusted. He is not a patient for anticoagulant therapy at this time secondary to his recent GI bleed and acute blood loss. (2) CHF (congestive heart failure): PLAN: The patient did appear to have acute CHF/flash pulmonary edema. This may have been brought out by his volume load superimposed upon what appears to be an underlying diminished LV systolic function. His respiratory status appears to have improved and stabilized at this time. (3) Acute respiratory failure with hypoxia: PLAN: The patient did have acute respiratory failure with hypoxemia requiring ICU care. Again this appears to be brought out by his acute volume overload. He appears to improved since diuresis. He is being followed by pulmonology and critical care medicine. (4) Cardiomyopathy: PLAN: The patient does have an underlying cardiomyopathy. Its unclear whether this may be tachycardic induced versus related to other underlying undiagnosed cardiovascular conditions either CAD related or non-CAD related. He will continue medical therapy. This does include beta-blockers. His beta- blockers may currency exchange specialist time taking into consideration his cardiac rate and rhythm. Ideally he would also be on afterload reducing agents such as KELECHI inhibitor's or ARB's or Entresto if his vital signs/blood pressure allow. He may need other agents as well such as Aldactone/spironolactone and SGLT2 inhibitors. An attempt was made to retrieve [facility] hospital records for any cardiovascular information may be helpful in his ongoing evaluation and care. The patient may eventually need additional evaluation of his underlying cardi omyopathy with respect to whether or not he has any underlying CAD contributing to this finding with either noninvasive or invasive studies as his clinical course progresses. (5) GI bleed: PLAN: The patient appears to have a gastrointestinal bleeding as described. He states he has had no further bleeding since he has been hospitalized. He states there is no immediate plans for additional evaluation at this time. (6) ABLA (acute blood loss anemia): PLAN: The patient did receive PRBCs. His hemoglobin appears to be holding at this time. Again there is concern about starting anticoagulant therapy based upon his recent GI bleed, acute blood loss, and the need for PRBCs. Addt'l Comments The patient's case was discussed and reviewed with the patient. Comment: Time spent in the patient's overall evaluation, care, documentation, decision-making process, etc.: 52 minutes. Procedure Criteria Type of Procedure Procedure Type: Elective Elective Risks - COVID COVID Risk Discussion: The surgeon/proceduralist and patient have discussed in detail the risk of exposure to and/or potential harm posed by the COVID-19 virus with having a surgery/procedure at this time versus the risk of delaying the surgery/procedure. It is not possible to know either the risk of delaying the surgery or procedure or chance of getting an infection with perfect accuracy, but a joint decision was made between the patient and the surgeon/proceduralist to proceed at this time with the scheduled surgery/procedure as indicated on the consent form.
[2022-05-01] MEDS: predniSONE 20 MG Tablet 40 MG PO (09:40)
[2022-05-01] MEDS: Amiodarone 200 MG Tablet PO ×3 (09:40→22:42)
[2022-05-01] MEDS: Pantoprazole Sodium 40 MG Tablet PO ×2 (09:41→22:42)
[2022-05-01] MEDS: Digoxin 250 MCG/ML Ampul 500 MCG IV (09:41)
[2022-05-01] MEDS: Metoprolol Tartrate 25 MG Tablet 75 MG PO (09:41)
[2022-05-01] MEDS: Metoprolol Tartrate 100 MG Tablet PO (22:47)
[2022-05-02] VITALS (11 sets, daily range): BP systolic 109–153; BP diastolic 72–90; PULSE 96–124; RESP 13–24; TEMP 36.2–37; O2SAT 97–100
[2022-05-02 03:34] LABS: Absolute Lymphocyte Count 0.81 X10^3/uL (0.83-4.51); Basophil# 0.01 X10^3/uL; Basophil% 0.1 % (0-1); Eosinophil# 0.01 X10^3/uL; Eosinophils% 0.1 % (0-5); Hematocrit 30.2 % (40-54); Hemoglobin 9.2 g/dL (13.0-16.5); Lymphocyte # 0.81 X10^3/ul (0.83-4.51); Lymphocyte % 7.5 % (19-41); Mean Corp Hgb Conc 30.5 g/dL (32-36); Mean Corpuscular Hgb 28.2 pg (27.0-32.0); Mean Corpuscular Volume 92.6 fL (80-94); Mean Platelet Vol. 11.7 fl (6.2-12.0); Monocyte# 0.98 X10^3/uL; NRBC Flagged by Analyzer 0.2 % (0-5); Neutrophil % 82.9 % (47-70); Platelet Count 184 K/mm3 (150-450); RBC Distribution Width CV 13.6 % (11.6-14.6); RBC Distribution Width SD 46.5 fl (35.1-43.9); Red Blood Count 3.26 M/mm3 (4.6-6.2); White Blood Count 10.9 K/mm3 (4.4-11.0)
[2022-05-02 03:49] LABS: Anion Gap 9 (5-15); BUN 30 mg/dL (7-18); BUN/Creat Ratio 22.9 RATIO (10-20); Chloride 111 mmol/L (98-107); Creatinine, Serum 1.31 mg/dL (0.70-1.30); EST Glomerular Filtration Rate 57 mL/min (>60); Est Glom Filt Rate - Afr Amer 69 mL/min (>60); Estimated Creatinine Clearance 46.95 ml/min; Glucose 124 mg/dL (74-106); Magnesium 2.4 mg/dL (1.6-2.6); Phosphorus 2.8 mg/dL (2.5-4.9); Sodium Level 141 mmol/L (136-145)
[2022-05-02] MEDS: Amiodarone 200 MG Tablet PO ×3 (05:53→22:10)
[2022-05-02] MEDS: Ipratropium 0.5 MG/2.5 ML SOLUTION INHALATION ×4 (07:02→19:22)
--- NOTE | 2022-05-02 07:14 | PN.HOSP_ITS ---
Subjective Subjective Patient seen overall heart rate control improving. Heart rate currently ranging between 90-1 20. Patient also admits to improvement in his shortness of breath. Patient did receive 1 dose of digoxin the day prior. Objective Data Objective Data Vital Signs: Vital Signs Temp Pulse Resp BP Pulse Ox O2 Del Method O2 Flow Rate 98.2 F 110 H 16 114/72 97 Room Air 2 05/02/22 03:09 05/02/22 07:02 05/02/22 07:02 05/02/22 03:09 05/02/22 07:02 05/02/22 07:02 04/28/22 14:18 FiO2 38 04/28/22 07:00 Oxygen Flow Rate (L/min) 2 Oxygen Delivery Method Room Air Weight: 74.8 kg Body Mass Index (BMI) 26.1 Intake & Output: Intake and Output for Last 24 Hours 04/30/22 05/01/22 05/02/22 23:59 23:59 23:59 Intake Total 531.93 / 531.93 480 / 480 Output Total 400 / 400 Balance 131.93 / 131.93 480 / 480 Lab / Micro Data Result Diagrams: 05/02/22 03:25 05/02/22 03:25 Labs: Laboratory Results - last 24 hr 05/02/22 03:25: WBC 10.9, RBC 3.26 L, Hgb 9.2 L, Hct 30.2 L, MCV 92.6, MCH 28.2, MCHC 30.5 L, RDW Std Deviation 46.5 H, RDW Coeff of Jose 13.6, Plt Count 184, MPV 11.7, Immature Gran % (Auto) 0.400, Neut % (Auto) 82.9 H, Lymph % (Auto) 7.5 L, [place] % (Auto) 9.0, Eos % (Auto) 0.1, Baso % (Auto) 0.1, Absolute Neuts (auto) 9.0 H, Absolute Lymphs (auto) 0.81 L, Nucleated RBC % 0.2 05/02/22 03:25: Sodium 141, Potassium 4.0, Chloride 111 H, Carbon Dioxide 21.0, Anion Gap 9, BUN 30 H, Creatinine 1.31 H, Estim Creat Clear Calc 46.95, Est GFR (MDRD) Af Amer 69, Est GFR (MDRD) Non-Af 57 L, BUN/Creatinine Ratio 22.9 H, Glucose 124 H, Calcium 8.0 L, Phosphorus 2.8, Magnesium 2.4 Micro: Microbiology 04/26/22 11:54 Mucosa - Nose Respiratory Panel (PCR) - Final 04/27/22 12:11 Urine Catheter - [place] Legionella Antigen - Final 04/27/22 12:11 Urine Catheter - [place] Streptococcus pneumoniae Antigen (M - Final 04/27/22 12:30 Nasal Secretion SARS-CoV-2 Antigen (Rapid) - Final Physical Exam Narrative GENERAL: cooperative HEENT: Atraumatic; normocephalic EYES; Anicteric, Normal Conjunctiva NECK; supple, normal thyroid, RESPIRATORY: Diminished to auscultation CARDIOVASCULAR: Irregularly irregular tachycardic GI: soft, normoactive bowel sounds, : No Renal angle tenderness; EXTREMITIES: No edema, no clubbing, MUSCULOSKELETAL: no muscle wasting NEURO: Awake; no lateralizing signs. SKIN: No Rash PSYCH; Flat affect Assessment & Plan Assessment/Plan (1) COPD with exacerbation: (2) ABLA (acute blood loss anemia): PLAN: Plan Patient is a 71-year-old gentleman admitted with low hemoglobin. Hospital stay complicated by A. fib with RVR as well as congestive heart failure admitted to monitored bed where patient has since been managed 1. A. fib with RVR ? Patient heart rate not controlled well controlled patient was on amiodarone drip this has been switched to oral amiodarone 200 mg p.o. twice daily as well as metoprolol succinate 50 mg daily. Plan is to discuss with cardiology regarding patient uncontrolled heart rate -05/02/2022;Patient seen overall heart rate control improving. Heart rate cu rrently ranging between 90-1 20. Patient also admits to improvement in his shortness of breath. Patient did receive 1 dose of digoxin the day prior. 2. Acute hypoxia ? Secondary to combination of CHF COPD exacerbation underlying conditions treated per protocol 3. COPD with acute exacerbation ? Patient was managed with systemic steroid currently on prednisone taper, bronchodilator treatment with albuterol and DuoNeb and supplemental oxygen 4. Acute congestive heart failure with reduced ejection fraction ? Echo demonstrated EF of 25%. Patient managed with Lasix. Progress being monitored with strict input and output as well as daily weight 5. Hypokalemia ? Secondary to administration of diuretics repeat potassium ordered for a.m. 6. Severe anemia secondary to acute GI bleed possibly from hemorrhoids ? Hemoglobin on admission was 5.9 patient was transfused with [address] for patient to complete work-up as outpatient with colonoscopy 7. Tobacco dependence - Counseled on cessation, offered nicotine patch for tobacco cravings 8. DVT prophylaxis ? Bilateral SCDs Time spent in the patient's overall evaluation,decision-making process, review of diagnostic data, adjustment of management, discussion with other providers and nursing staff involved in patient's care documentation 38min Charges/Coding Visit Charges Inpatient E&M: 97502 Subs Hosp L2
[2022-05-02] MEDS: Pantoprazole Sodium 40 MG Tablet PO ×2 (08:15→22:11)
[2022-05-02] MEDS: Metoprolol Tartrate 100 MG Tablet PO ×2 (08:16→22:11)
--- NOTE | 2022-05-02 08:43 | PN.CARD_ITS ---
Subjective Subjective The patient is awake and alert. He denies any chest discomfort, difficulty breathing, or palpitations. He states he feels good . He wants to go home. Objective Data Vital Signs: Vital Signs Temp Pulse Resp BP Pulse Ox O2 Del Method O2 Flow Rate 97.1 F L 118 H 13 141/89 H 100 Room Air 2 05/02/22 08:15 05/02/22 08:16 05/02/22 08:15 05/02/22 08:15 05/02/22 08:15 05/02/22 08:15 04/28/22 14:18 FiO2 38 04/28/22 07:00 Oxygen Flow Rate (L/min) 2 Oxygen Delivery Method Room Air Weight: 164 lb 14.492 oz Body Mass Index (BMI) 26.1 Intake & Output: Intake and Output for Last 24 Hours 04/30/22 05/01/22 05/02/22 23:59 23:59 23:59 Intake Total 531.93 / 531.93 480 / 480 Output Total 400 / 400 Balance 131.93 / 131.93 480 / 480 Lab / Micro Data Result Diagrams: 05/02/22 03:25 05/02/22 03:25 Labs: Laboratory Results - last 24 hr 05/02/22 03:25: WBC 10.9, RBC 3.26 L, Hgb 9.2 L, Hct 30.2 L, MCV 92.6, MCH 28.2, MCHC 30.5 L, RDW Std Deviation 46.5 H, RDW Coeff of Jose 13.6, Plt Count 184, MPV 11.7, Immature Gran % (Auto) 0.400, Neut % (Auto) 82.9 H, Lymph % (Auto) 7.5 L, [place] % (Auto) 9.0, Eos % (Auto) 0.1, Baso % (Auto) 0.1, Absolute Neuts (auto) 9.0 H, Absolute Lymphs (auto) 0.81 L, Nucleated RBC % 0.2 05/02/22 03:25: Sodium 141, Potassium 4.0, Chloride 111 H, Carbon Dioxide 21.0, Anion Gap 9, BUN 30 H, Creatinine 1.31 H, Estim Creat Clear Calc 46.95, Est GFR (MDRD) Af Amer 69, Est GFR (MDRD) Non-Af 57 L, BUN/Creatinine Ratio 22.9 H, Glucose 124 H, Calcium 8.0 L, Phosphorus 2.8, Magnesium 2.4 Cardiology Labs/Tests 05/02/22 03:25: WBC 10.9, RBC 3.26 L, Hgb 9.2 L, Hct 30.2 L, MCV 92.6, MCH 28.2, MCHC 30.5 L, Plt Count 184, MPV 11.7, Immature Gran % (Auto) 0.400, Neut % (Auto) 82.9 H, Lymph % (Auto) 7.5 L, [place] % (Auto) 9.0, Eos % (Auto) 0.1, Baso % (Auto) 0.1, Absolute Neuts (auto) 9.0 H, Nucleated RBC % 0.2 05/02/22 03:25: Sodium 141, Potassium 4.0, Chloride 111 H, Carbon Dioxide 21.0, Anion Gap 9, BUN 30 H, Creatinine 1.31 H, Est GFR (MDRD) Af Amer 69, Est GFR (MDRD) Non-Af 57 L, BUN/Creatinine Ratio 22.9 H, Glucose 124 H, Calcium 8.0 L, Phosphorus 2.8, Magnesium 2.4 Rhythm: Atrial fibrillation with variable ventricular response Physical Exam Const alert, oriented x3 and no apparent distress General Appearance: other Orientation / Consciousness: awake HEENT normocephalic and head/scalp atraumatic Eyes PERRL, EOMs intact bilaterally and conjunctivae normal Neck full ROM, supple and no JVD Carotids: normal carotid upstroke Resp normal respiratory effort and clear to auscultation bilaterally Cardio S1 normal heart sound and S2 normal heart sound Cardio Narrative: Somewhat distant heart tones Rhythm: abnormal rhythm irregularly irregular GI normal to inspection, nondistended, normoactive bowel sounds GI Narrative: Positive midline surgical scar Extremity no pedal edema Skin no rashes or lesions noted Psych mental status grossly normal Assessment & Plan Assessment/Plan (1) Atrial fibrillation: PLAN: The patient did have atrial fibrillation. Its unclear as to whether or not this is new for the patient or whether or not he has had atrial fibrillation in the past. He appeared to return to sinus rhythm/sinus tachycardia. He is now returned to atrial fibrillation. He has also undergone additional evaluation with a transthoracic echocardiogram. The results are as noted. His beta-[place] dose was increased. His heart rate does appear to be somewhat better controlled as he is now having ventricular rates under 100 bpm and still going at times over 100 bpm but not as fast as he was previously. He is also on amiodarone at this time. This dose will be tapered over time. He is not a patient for anticoagulant therapy at this time secondary to his rece nt GI bleed and acute blood loss. (2) CHF (congestive heart failure): PLAN: The patient did appear to have acute CHF/flash pulmonary edema. This may have been brought out by his volume load superimposed upon what appears to be an underlying diminished LV systolic function. His respiratory status appears to have improved and stabilized at this time. He has not required ongoing diuretic therapy. (3) Acute respiratory failure with hypoxia: PLAN: The patient did have acute respiratory failure with hypoxemia requiring ICU care. Again this appears to be brought out by his acute volume overload. He appears to improved since diuresis. (4) Cardiomyopathy: PLAN: The patient does have an underlying cardiomyopathy. Its unclear whether this may be tachycardic induced versus related to other underlying undiagnosed cardiovascular conditions either CAD related or non-CAD related. He will continue medical therapy. This does include beta-blockers. His beta- blockers may change management director time taking into consideration his cardiac rate and rhythm. Ideally he would also be on afterload reducing agents such as KELECHI inhibitor's or ARB's or Entresto if his vital signs/blood pressure allow. He may need other agents as well such as Aldactone/spironolactone and SGLT2 inhibitors. There are no records available under his name at [facility]. He states his spouse will be bringing information in this day regarding medical evaluation and care at a [facility]. Records can be requested from [facility] ever hospital that is an attempt to assist with continuity of care. The patient may eventually need additional evaluation of his underlying cardiomyopathy with respect to whether or not he has any underlying CAD contributing to this finding with either noninvasive or invasive studies as his clinical course progresses. (5) GI bleed: PLAN: The patient appears to have a gastrointestinal bleeding as described. He states he has had no further bleeding since he has been hospitalized. He states there is no immediate plans for additional evaluation at this time. Over time consideration will be given as to when he can initiate anticoagulant therapy. (6) ABLA (acute blood loss anemia): PLAN: The patient did receive PRBCs. His hemoglobin appears to be holding at this time. Again there is concern about starting anticoagulant therapy based upon his recent GI bleed, acute blood loss, and the need for PRBCs. Addt'l Comments The patient's case was discussed and reviewed with the patient and Dr. Warner. This note was generated using a voice recognition system and there may be incorrect words, spelling or punctuation that were not noted when reviewing the office note prior to saving. Comment: Time spent the patient's overall evaluation/care/documentation/decision-making process, etc.: 52 minutes Procedure Criteria Type of Procedure Procedure Type: Elective Elective Risks - COVID COVID Risk Discussion: The surgeon/proceduralist and patient have discussed in detail the risk of exposure to and/or potential harm posed by the COVID-19 virus with having a surgery/procedure at this time versus the risk of delaying the surgery/procedure. It is not possible to know either the risk of delaying the surgery or procedure or chance of getting an infection with perfect accuracy, but a joint decision was made between the patient and the surgeon/proceduralist to proceed at this time with the scheduled surgery/procedure as indicated on the consent form.
[2022-05-02] MEDS: Lisinopril 5 MG Tablet PO ×2 (09:56→22:11)
--- NOTE | 2022-05-02 12:42 | VDUE_ITS ---
Reason For Study: Swelling Right Proximal Left Proximal Right jugular vein is spontaneous, widely Left subclavian vein is spontaneous, widely patent, phasic, with no intraluminal patent, phasic, with no intraluminal echogenicity noted. echogenicity noted. Right subclavian vein is spontaneous, widely patent, phasic, with no intraluminal echogenicity noted. Right Lower Arm Right radial vein is compressible. Right ulnar vein is compressible. Right Arm Right axillary vein is spontaneous, patent, phasic, competent, compressible and demonstrates augmentation. Right brachial vein is compressible. Acute superficial vein thrombosis is noted in the right cephalic vein from antecube to mid forearm, basilic vein from mid bicep to prox forearm, and median cubital vein. VL/Venous Duplex US, Unilateral Interpretation Summary Acute superficial vein thrombosis identified in the right cephalic vein, basili c vein, and median cubital vein. Deep veins of the right upper extremity are patent and compressible segmentally . There is no evidence of deep vein thrombosis Ordering Physician: Jaron Warner Referring Physician: Eliza Jacobs M.D. Performed By: Sharon Singh RVT ???
[2022-05-02] MEDS: dilTIAZem CD 120 MG Capsule PO (22:17)
[2022-05-03 02:54] VITALS: BP 110/63; PULSE 63; RESP 18; TEMP 36.5; O2SAT 96
[2022-05-03] MEDS: Amiodarone 200 MG Tablet PO (06:40)
[2022-05-03 07:12] VITALS: PULSE 64; RESP 18; O2SAT 92
[2022-05-03] MEDS: Ipratropium 0.5 MG/2.5 ML SOLUTION INHALATION (07:12)
--- NOTE | 2022-05-03 07:50 | DS.PCM_ITS ---
Providers Date of Admission: 04/26/22 Date of Discharge: 05/03/22 Primary Care Physician: Dr. Eliza Jacobs MD Consultations 04/27/22 01:11 Consult: Gastroenterology Routine Consulting Provider: SatyaKerwinn Reason for Consult: hgb on admission 5.9 EMERGENT Consult: No Notified: Yes Date Notified: 04/26/22 Time Notified: 23:16 Method of Notification: Text Method of Consult:: In-Person 04/27/22 06:58 Consult: Cardiology Routine Consulting Provider: Bismark Garcia Reason for Consult: Falsh pulmonary edema EMERGENT Consult: No Notified: Yes Date Notified: 04/27/22 Time Notified: 06:59 Method of Notification: Text Method of Consult:: In-Person 04/27/22 08:58 Consult: Field Services Manager / Pulmonary Medicine Routine Consulting Provider: Pulmonary Medicine [facility] Reason for Consult: Respiratory Failure EMERGENT Consult: No Notified: Yes Date Notified: 04/27/22 Time Notified: 08:59 Method of Notification: Physician Initiated Reason For Visit: ACUTE BLOOD LOSS ANEMIA Diagnosis Discharge Diagnosis (1) Atrial fibrillation: Status: Acute Code(s): I48.91 - Unspecified atrial fibrillation (2) CHF (congestive heart failure): Status: Acute Code(s): I50.9 - Heart failure, unspecified (3) Acute respiratory failure with hypoxia: Status: Acute Code(s): J96.01 - Acute respiratory failure with hypoxia (4) Cardiomyopathy: Status: Acute Code(s): I42.9 - Cardiomyopathy, unspecified (5) GI bleed: Status: Acute Code(s): K92.2 - Gastrointestinal hemorrhage, unspecified (6) ABLA (acute blood loss anemia): Status: Acute Code(s): D62 - Acute posthemorrhagic anemia Plan Patient is a 71-year-old gentleman admitted with low hemoglobin. Hospital stay complicated by A. fib with RVR as well as congestive heart failure admitted to monitored bed where patient has since been managed 1. A. fib with RVR ? Patient heart rate not controlled well controlled patient was on amiodarone drip this has been switched to oral amiodarone 200 mg p.o. twice daily as well as metoprolol succinate 50 mg daily. Plan is to discuss with cardiology regarding patient uncontrolled heart rate -05/02/2022;Patient seen overall heart rate control improving. Heart rate currently ranging between 90-1 20. Patient also admits to improvement in his shortness of breath. Patient did receive 1 dose of digoxin the day prior. 05/03/2022; patient heart rate controlled prescription written for amiodarone Cardizem and metoprolol on discharge. Patient was not discharged on systemic anticoagulation given recent severe anemia with GI bleed 2. Acute hypoxia ? Secondary to combination of CHF COPD exacerbation underlying conditions treated per protocol 3. COPD with acute exacerbation ? Patient was managed with systemic steroid currently on prednisone taper, bronchodilator treatment with albuterol and DuoNeb and supplemental oxygen 4. Acute congestive heart failure with reduced ejection fraction ? Echo demonstrated EF of 25%. Patient managed with Lasix. Progress being monitored with strict input and output as well as daily weight 5. Hypokalemia ? Secondary to administration of diuretics repeat potassium ordered for a.m. 6. Severe anemia secondary to acute GI bleed possibly from hemorrhoids ? Hemoglobin on admission was 5.9 patient was transfused with 2 unit PRBC. Plans for patient to complete work-up as outpatient with colonoscopy 7. Tobacco dependence - Counseled on cessation, offered nicotine patch for tobacco cravings 8. DVT prophylaxis ? Bilateral SCDs 9. Acute superficial vein thrombosis identified in the right cephalic vein, basilic vein, and median cubital vein. Found on right upper venous duplex obtained as a result of swelling of the right arm. There was no evidence of DVT. Patient was therefore treated conservatively with warm compresses. Did not start patient on KELECHI no aspirin gi deshawn his anemia Time spent in the patient's overall evaluation,decision-making process, review of diagnostic data, adjustment of management, discussion with other providers and nursing staff involved in patient's care documentation 38min Medications at Discharge Home Medications amiodarone 200 mg tablet 200 mg PO UD #180 tabs 05/03/22 diltiazem HCl 120 mg capsule,extended release 24 hr 120 mg PO Q12 #60 caps 05/03/22 lisinopril 5 mg tablet 5 mg PO BID #120 tabs 05/03/22 metoprolol tartrate 100 mg tablet 100 mg PO BID #120 tabs 05/03/22 pantoprazole 40 mg tablet,delayed release 40 mg PO BID #120 tabs 05/03/22 Hospital Course Summary of Care Provided Minutes Spent on Discharge: 38 Physical Exam Narrative GENERAL: cooperative HEENT: Atraumatic; normocephalic EYES; Anicteric, Normal Conjunctiva NECK; supple, normal thyroid, RESPIRATORY: Diminished to auscultation CARDIOVASCULAR: Irregularly irregular tachycardic GI: soft, normoactive bowel sounds, : No Renal angle tenderness; EXTREMITIES: No edema, no clubbing, MUSCULOSKELETAL: no muscle wasting NEURO: Awake; no lateralizing signs. SKIN: No Rash PSYCH; Flat affect Weight / BMI Weight Weight: 74.8 kg Body Mass Index (BMI) 26.1 ABG / Lab / Microbiology Data Result Diagrams: 05/02/22 03:25 05/02/22 03:25 Microbiology: Microbiology 04/26/22 11:54 Mucosa - Nose Respiratory Panel (PCR) - Final 04/27/22 12:11 Urine Catheter - [place] Legionella Antigen - Final 04/27/22 12:11 Urine Catheter - [place] Streptococcus pneumoniae Antigen (M - Final 04/27/22 12:30 Nasal Secretion SARS-CoV-2 Antigen (Rapid) - Final Radiography Diagnostic Testing: Radiology Impression Venous Doppler Study 05/02/22 12:42 Interpretation Summary Acute superficial vein thrombosis identified in the right cephalic vein, basilic vein, and median cubital vein. Deep veins of the right upper extremity are patent and compressible segmentally. There is no evidence of deep vein thrombosis Ordering Physician: Jaron Warner Referring Physician: Eliza Jacobs M.D. Performed By: Sharon Singh RVT ??? D/C Instructions Discharge Diet: 8 Cup Fluid Restriction Discharge Activity: Return to Normal Activity Call your doctor if you observe: Fever of 101 or Higher, Shortness of breath, Fainting spells and Chest pain Meaningful Use Info Meaningful Use Diagnoses (Choose all that apply): CHF CHF KELECHI/ARB ordered at discharge?: Yes Documented LVEF (%): 25 Discharge Plan Admission Admit Date/Time: 04/26/22 23:06 Attending Provider: Jaron Warner Primary Care Provider: Eliza Jacobs Consulting Providers: Vicente Marquez ; Bismark Garcia ; Blair Hernadez ; Hugh Gannon ; Nas Saenz ; Anthony Yanes ; Edgar Hale ; Leidy Ravi SILK EXAMINER ; Connie Heredia Discharge Orders/Prescriptions Prescriptions: New metoprolol tartrate 100 mg Tablet 100 mg PO BID Qty: 120 0RF amiodarone 200 mg Tablet 200 mg PO UD Qty: 180 0RF Rx Instructions: 200 mg p.o. 3 times daily x7 days 200 mg p.o. twice daily x7 days then 200 mg daily pantoprazole 40 mg Tablet,Delayed Release (Dr/Ec) 40 mg PO BID Qty: 120 0RF lisinopril 5 mg Tablet 5 mg PO BID Qty: 120 0RF diltiazem HCl 120 mg Capsule,Extended Release 24hr 120 mg PO Q12 Qty: 60 0RF Referrals / Follow Up: Eliza Jacobs MD [Primary Care Provider] - Within 1 Week Bismark Garcia MD [Med Staff - Active Staff] - Within 2 Weeks Disposition Disposition (needs filled in before D/C Order can be placed): Home, Self Care Charges/Coding Visit Charges Inpatient E&M: 14051 Disch Hosp >30min
[2022-05-03 09:00] VITALS: BP 112/61; PULSE 65; RESP 16; TEMP 36.4; O2SAT 95
--- NOTE | 2022-05-03 09:08 | PN.CARD_ITS ---
Subjective Subjective The patient is awake and alert. He denies any ongoing chest pain, shortness of breath/dyspnea, or palpitations. He states he has had no recurrent lower GI bleeding issues Objective Data Vital Signs: Vital Signs Temp Pulse Resp BP Pulse Ox O2 Del Method O2 Flow Rate 97.7 F L 64 18 110/63 92 Room Air 2 05/03/22 02:54 05/03/22 07:12 05/03/22 07:12 05/03/22 02:54 05/03/22 07:12 05/03/22 07:12 04/28/22 14:18 FiO2 38 04/28/22 07:00 Oxygen Flow Rate (L/min) 2 Oxygen Delivery Method Room Air Weight: 164 lb 14.492 oz Body Mass Index (BMI) 26.1 Intake & Output: Intake and Output for Last 24 Hours 05/01/22 05/02/22 05/03/22 23:59 23:59 23:59 Intake Total 480 / 480 800 / 800 Balance 480 / 480 800 / 800 Lab / Micro Data Result Diagrams: 05/02/22 03:25 05/02/22 03:25 Cardiology Labs/Tests Rhythm: Sinus rhythm Radiography Diagnostic Testing: Radiology Impression Venous Doppler Study 05/02/22 12:42 Interpretation Summary Acute superficial vein thrombosis identified in the right cephalic vein, basilic vein, and median cubital vein. Deep veins of the right upper extremity are patent and compressible segmentally. There is no evidence of deep vein thrombosis Ordering Physician: Jaron Warner Referring Physician: Eliza Jacobs M.D. Performed By: Sharon Singh RVT ??? Physical Exam Const alert, oriented x3 and no apparent distress General Appearance: other Orientation / Consciousness: awake HEENT normocephalic and head/scalp atraumatic Eyes PERRL, EOMs intact bilaterally and conjunctivae normal Neck full ROM, supple and no JVD Carotids: normal carotid upstroke Resp normal respiratory effort and clear to auscultation bilaterally Cardio regular rate, regular rhythm, S1 normal heart sound and S2 normal heart sound Cardio Narrative: Somewhat distant heart tones Palpation: normal PMI GI normal to inspection, nondistended, normoactive bowel sounds GI Narrative: Positive midline surgical scar Extremity no pedal edema Skin no rashes or lesions noted Psych mental status grossly normal Assessment & Plan Assessment/Plan (1) Atrial fibrillation: PLAN: The patient did have atrial fibrillation. Its unclear as to whether or not this is new for the patient or whether or not he has had atrial fibrillation in the past. He appeared to return to sinus rhythm/sinus tachycardia. He is now returned to atrial fibrillation. He has now returned to sinus rhythm. He has also undergone additional evaluation with a transthoracic echocardiogram. The results are as noted. At the present time he will continue medical management with his beta-modesto. He will continue his amiodarone taper. He was treated transiently with oral diltiazem therapy. As he is now back in sinus rhythm this will be discontinued. He is not a patient for anticoagulant therapy at this time secondary to his recent GI bleed and acute blood loss. (2) CHF (congestive heart failure): PLAN: The patient did appear to have acute CHF/flash pulmonary edema. This may have been brought out by his volume load superimposed upon what appears to be an underlying diminished LV systolic function. His respiratory status appears to have improved and stabilized at this time. He has not required ongoing diuretic therapy. (3) Acute respiratory failure with hypoxia: PLAN: The patient did have acute respiratory failure with hypoxemia requiring ICU care. Again this appears to be brought out by his acute volume overload. He appears to improved since diuresis. (4) Cardiomyopathy: PLAN: The patient does have an underlying cardiomyopathy. Its unclear whether this may be tachycardic induced versus related to other underlying undiagnosed cardiovascular conditions either CAD related or non-CAD related. He will continue medical management. At the moment this includes his beta- modesto therapy which over time potentially can be altered to a long-acting form as well as the addition of KELECHI inhibitor therapy. [facility] records were received. Thus far it appears the only cardiology records are ECGs that demonstrated sinus rhythm. As his clinical course stabilizes his medications can be readjusted and his LV function can be reassessed with a transthoracic echocardiogram to help guide additional evaluation and care. (5) GI bleed: PLAN: The patient appears to have a gastrointestinal bleeding as described. He states he has had no further bleeding since he has been hospitalized. He states there is no immediate plans for additional evaluation at this time. Over time consideration will be given as to when he can initiate anticoagulant therapy. (6) ABLA (acute blood loss anemia): PLAN: The patient did receive PRBCs. His hemoglobin appears to be holding at this time. Again there is concern about starting anticoagulant therapy based upon his recent GI bleed, acute blood loss, and the need for PRBCs. Addt'l Comments The patient's case has been discussed and reviewed with the patient and Dr. Warner. Mind: Time spent the patient's overall evaluation, examination, review of outside medical records, documentation, and discussion with the patient and the [facility] staff: 37 minutes. Procedure Criteria Type of Procedure Procedure Type: Elective Elective Risks - COVID COVID Risk Discussion: The surgeon/proceduralist and patient have discussed in detail the risk of exposure to and/or potential harm posed by the COVID-19 virus with having a surgery/procedure at this time versus the risk of delaying the surgery/procedure. It is not possible to know either the risk of delaying the surgery or procedure or chance of getting an infection with perfect accuracy, but a joint decision was made between the patient and the surgeon/proceduralist to proceed at this time with the scheduled surgery/procedure as indicated on the consent form.
[2022-05-03 09:31] VITALS: PULSE 65
[2022-05-03] MEDS: Lisinopril 5 MG Tablet PO (09:31)
[2022-05-03] MEDS: dilTIAZem CD 120 MG Capsule PO (09:31)
[2022-05-03] MEDS: Metoprolol Tartrate 100 MG Tablet PO (09:31)
[2022-05-03] MEDS: Pantoprazole Sodium 40 MG Tablet PO (09:31)
== END 2022-05-03 10:57 | disposition home or self-care (01) | DRG 811 ==
LOC: ED 22:53 → PCU 23:20 → ICU 04-27 07:12
PROVIDERS: Internal Medicine; Admitting Provider Hospitalist; Emergency Provider Student in an Organized Health Care Education/Training Program; PCP Family Medicine; Visit Provider Internal Medicine
DX: D62 Acute posthemorrhagic anemia (principal); J96.01 Acute respiratory failure with hypoxia; I50.23 Acute on chronic systolic (congestive) heart failure; N17.9 Acute kidney failure, unspecified; I42.9 Cardiomyopathy, unspecified; I82.611 Acute embolism and thrombosis of superficial veins of right upper extremity; J44.1 Chronic obstructive pulmonary disease with (acute) exacerbation; K92.2 Gastrointestinal hemorrhage, unspecified; I48.91 Unspecified atrial fibrillation; E86.9 Volume depletion, unspecified; I11.0 Hypertensive heart disease with heart failure; K64.8 Other hemorrhoids; E87.6 Hypokalemia; K62.3 Rectal prolapse; F41.9 Anxiety disorder, unspecified; F17.210 Nicotine dependence, cigarettes, uncomplicated; Z20.822 Contact with and (suspected) exposure to COVID-19; Z86.16 Personal history of COVID-19
CPT/HCPCS: 36600; 71045; 80048; 80053; 80061; 82803; 82962; 83735; 83880; 84100; 84443; 84484; 85014; 85018; 85025; 85610; 86850; 86900; 86901; 86920; 86922; 87426; 87449; 87633; 93005; 93306; 93971; 94002; 94640; 94660; 94762; 97165; 99284; 99406; J7030; P9016; A4216; J1940

== ENCOUNTER → 2022-04-26 | Outpatient (CLI) | payer BC, SELFPAY ==
--- NOTE | 2022-04-26 15:10 | RAD_ITS ---
STUDY: X-RAY CHEST REASON FOR EXAM: Male, 71 years old. DYSPNEA ON EXERTION TECHNIQUE: XR Chest 2 Views COMPARISON: None FINDINGS: There is atherosclerotic calcification of the aortic arch with tortuosity. There are diffuse degenerative changes of the visualized thoracic spine. There is degenerative osteoarthritis of the bilateral shoulders. There is no demonstrated pleural abnormality. Normal size heart. Normal mediastinum and brianda. Normal visualized pulmonary arteries. There is no demonstrated abnormality of the visualized soft tissue structures of the upper abdomen. RAD/Chest PA and Lateral IMPRESSION: There are no acute findings. Electronically Signed: Louis Santos MD at 15:28 EST ,
[2022-04-26 17:44] LABS: Absolute Lymphocyte Count 1.26 X10^3/uL (0.83-4.51); Absolute Neutrophil Count 3.9 X10^3/uL (2.0-7.7); Basophil# 0.05 X10^3/uL; Basophil% 0.9 % (0-1); Eosinophil# 0.07 X10^3/uL; Eosinophils% 1.2 % (0-5); Hematocrit 19.3 % (40-54); Lymphocyte # 1.26 X10^3/ul (0.83-4.51); Lymphocyte % 21.8 % (19-41); Mean Corp Hgb Conc 30.6 g/dL (32-36); Mean Corpuscular Hgb 29.9 pg (27.0-32.0); Mean Platelet Vol. 11.4 fl (6.2-12.0); Monocyte% 8.6 % (0-10); NRBC Flagged by Analyzer 0.3 % (0-5); Neutrophil # 3.89 X10^3/uL (2.7-7.7); Neutrophil % 67.2 % (47-70); POSITIVE COUNT YES; Platelet Count 274 K/mm3 (150-450); RBC Distribution Width CV 13.8 % (11.6-14.6); RBC Distribution Width SD 49.1 fl (35.1-43.9); Red Blood Count 1.97 M/mm3 (4.6-6.2); White Blood Count 5.8 K/mm3 (4.4-11.0)
[2022-04-26 18:26] LABS: Differential Indicated SCAN CRITERIA MET; Hemoglobin 5.9 g/dL (13.0-16.5)
[2022-04-26 18:29] LABS: Platelet Estimate ADEQUATE (ADEQ)
[2022-04-26 18:30] LABS: Anisocytosis RARE; Hypochromasia 1+; Macrocytosis RARE; Polychromasia RARE; Red Cell Morphology N CHROM NORMAL (NORM C&C)
[2022-04-26 18:52] LABS: ALB/GLOB Ratio 1.2 RATIO (0.9-2.4); AST(SGOT) 11 U/L (15-37); Alanine Aminotransfer ALT/SGPT 25 U/L (16-61); Albumin, Serum 3.6 g/dL (3.2-5.0); Alkaline Phosphatase 68 U/L (45-117); Anion Gap 7 (5-15); BUN 20 mg/dL (7-18); Chloride 110 mmol/L (98-107); Creatinine, Serum 1.54 mg/dL (0.70-1.30); EST Glomerular Filtration Rate 47 mL/min (>60); Est Glom Filt Rate - Afr Amer 57 mL/min (>60); Globulin 2.9 g/dL (2.2-4.2); Glucose 139 mg/dL (74-106); Potassium 4.3 mmol/L (3.5-5.1); Protein, Total 6.5 g/dL (6.4-8.2); Sodium Level 140 mmol/L (136-145)
[2022-04-28 09:48] LABS: Pathologist Review Reviewed
== END | disposition home or self-care (01) ==
LOC: MTLAB 15:08
PROVIDERS: PCP Family Medicine; Referring Provider Family Medicine; Visit Provider Family Medicine
DX: R06.09 Other forms of dyspnea (principal)
CPT/HCPCS: 36415; 71046; 80053; 85025

== ENCOUNTER → 2022-05-05 | Outpatient (CLI) | payer BC, SELFPAY ==
[2022-05-05 15:19] LABS: Absolute Lymphocyte Count 0.82 X10^3/uL (0.83-4.51); Absolute Neutrophil Count 6.3 X10^3/uL (2.0-7.7); Basophil# 0.01 X10^3/uL; Basophil% 0.1 % (0-1); Eosinophil# 0.05 X10^3/uL; Eosinophils% 0.6 % (0-5); Hematocrit 29.7 % (40-54); Hemoglobin 8.7 g/dL (13.0-16.5); Lymphocyte # 0.82 X10^3/ul (0.83-4.51); Lymphocyte % 10.2 % (19-41); Mean Corp Hgb Conc 29.3 g/dL (32-36); Mean Corpuscular Volume 95.5 fL (80-94); Monocyte# 0.79 X10^3/uL; Monocyte% 9.8 % (0-10); NRBC Flagged by Analyzer 0.2 % (0-5); Neutrophil % 78.6 % (47-70); Platelet Count 220 K/mm3 (150-450); RBC Distribution Width CV 14.2 % (11.6-14.6); RBC Distribution Width SD 49.4 fl (35.1-43.9); Red Blood Count 3.11 M/mm3 (4.6-6.2)
[2022-05-05 15:39] LABS: Anion Gap 8 (5-15); BUN 27 mg/dL (7-18); BUN/Creat Ratio 17.6 RATIO (10-20); Calcium,Total 8.5 mg/dL (8.5-10.1); Chloride 111 mmol/L (98-107); Creatinine, Serum 1.53 mg/dL (0.70-1.30); EST Glomerular Filtration Rate 48 mL/min (>60); Est Glom Filt Rate - Afr Amer 58 mL/min (>60); Glucose 149 mg/dL (74-106); Potassium 4.7 mmol/L (3.5-5.1); Sodium Level 141 mmol/L (136-145)
== END | disposition home or self-care (01) ==
LOC: MTLAB 12:35
PROVIDERS: PCP Family Medicine; Referring Provider Family Medicine; Visit Provider Family Medicine
DX: D62 Acute posthemorrhagic anemia (principal)
CPT/HCPCS: 36415; 80048; 85025

== ENCOUNTER → 2022-05-09 | Outpatient (CLI) | payer BC, SELFPAY ==
[2022-05-09 10:01] LABS: Absolute Lymphocyte Count 1.25 X10^3/uL (0.83-4.51); Absolute Neutrophil Count 4.4 X10^3/uL (2.0-7.7); Basophil# 0.02 X10^3/uL; Basophil% 0.3 % (0-1); Eosinophil# 0.04 X10^3/uL; Eosinophils% 0.7 % (0-5); Hematocrit 24.8 % (40-54); Hemoglobin 7.4 g/dL (13.0-16.5); Lymphocyte # 1.25 X10^3/ul (0.83-4.51); Lymphocyte % 20.6 % (19-41); Mean Corp Hgb Conc 29.8 g/dL (32-36); Mean Corpuscular Hgb 28.1 pg (27.0-32.0); Mean Corpuscular Volume 94.3 fL (80-94); Mean Platelet Vol. 12.1 fl (6.2-12.0); Monocyte# 0.37 X10^3/uL; Monocyte% 6.1 % (0-10); NRBC Flagged by Analyzer 0 % (0-5); Neutrophil # 4.37 X10^3/uL (2.7-7.7); Neutrophil % 71.8 % (47-70); Platelet Count 253 K/mm3 (150-450); RBC Distribution Width CV 14.6 % (11.6-14.6); RBC Distribution Width SD 50.6 fl (35.1-43.9); Red Blood Count 2.63 M/mm3 (4.6-6.2); White Blood Count 6.1 K/mm3 (4.4-11.0)
== END | disposition home or self-care (01) ==
LOC: MFPLAB 08:52
PROVIDERS: PCP Family Medicine; Visit Provider Family Medicine
DX: D62 Acute posthemorrhagic anemia (principal)
CPT/HCPCS: 36415; 85025

== ENCOUNTER → 2022-05-10 | Outpatient (CLI) | payer BC, SELFPAY ==
[2022-05-10] VITALS (7 sets, daily range): BP systolic 127–151; BP diastolic 55–78; PULSE 43–54; RESP 16; TEMP 36–36.7; O2SAT 98–100; BMI 26.9
[2022-05-10] MEDS: Furosemide 20 MG/2 ML VIAL IV (11:12)
== END | disposition home or self-care (01) ==
LOC: MEDOUTP 08:18
PROVIDERS: PCP Family Medicine; Referring Provider Family Medicine; Visit Provider Family Medicine
DX: D62 Acute posthemorrhagic anemia (principal); I48.91 Unspecified atrial fibrillation; K92.2 Gastrointestinal hemorrhage, unspecified; R06.00 Dyspnea, unspecified
CPT/HCPCS: 36415; 36430; 86850; 86900; 86901; 86920; 86922; J7040; J7050; P9016; A4216; J1940

== ENCOUNTER → 2022-05-16 | Outpatient (CLI) | payer BC, SELFPAY ==
[2022-05-16 10:09] LABS: Absolute Lymphocyte Count 0.94 X10^3/uL (0.83-4.51); Absolute Neutrophil Count 3.7 X10^3/uL (2.0-7.7); Basophil# 0.07 X10^3/uL; Basophil% 1.3 % (0-1); Eosinophils% 1.9 % (0-5); Hematocrit 34.7 % (40-54); Hemoglobin 10.7 g/dL (13.0-16.5); Lymphocyte # 0.94 X10^3/ul (0.83-4.51); Lymphocyte % 17.7 % (19-41); Mean Corp Hgb Conc 30.8 g/dL (32-36); Mean Corpuscular Hgb 28.5 pg (27.0-32.0); Mean Corpuscular Volume 92.5 fL (80-94); Mean Platelet Vol. 11.1 fl (6.2-12.0); Monocyte# 0.54 X10^3/uL; Monocyte% 10.2 % (0-10); NRBC Flagged by Analyzer 0 % (0-5); Neutrophil # 3.65 X10^3/uL (2.7-7.7); Neutrophil % 68.5 % (47-70); Platelet Count 290 K/mm3 (150-450); RBC Distribution Width CV 14.2 % (11.6-14.6); RBC Distribution Width SD 47.8 fl (35.1-43.9); Red Blood Count 3.75 M/mm3 (4.6-6.2); White Blood Count 5.3 K/mm3 (4.4-11.0)
== END | disposition home or self-care (01) ==
LOC: MFPLAB 09:11
PROVIDERS: PCP Family Medicine; Referring Provider Family Medicine; Visit Provider Family Medicine
DX: D62 Acute posthemorrhagic anemia (principal)
CPT/HCPCS: 36415; 85025; 86850; 86900; 86901

== ENCOUNTER → 2022-05-23 | Outpatient (CLI) | payer BC, SELFPAY ==
[2022-05-23 18:19] LABS: Absolute Neutrophil Count 2.8 X10^3/uL (2.0-7.7); Basophil# 0.07 X10^3/uL; Basophil% 1.5 % (0-1); Eosinophil# 0.17 X10^3/uL; Eosinophils% 3.8 % (0-5); Hematocrit 40.6 % (40-54); Hemoglobin 12.1 g/dL (13.0-16.5); Lymphocyte % 22.1 % (19-41); Mean Corp Hgb Conc 29.8 g/dL (32-36); Mean Platelet Vol. 11.4 fl (6.2-12.0); Monocyte# 0.51 X10^3/uL; Monocyte% 11.3 % (0-10); NRBC Flagged by Analyzer 0 % (0-5); Neutrophil # 2.75 X10^3/uL (2.7-7.7); Neutrophil % 60.9 % (47-70); Platelet Count 329 K/mm3 (150-450); RBC Distribution Width CV 13.8 % (11.6-14.6); Red Blood Count 4.32 M/mm3 (4.6-6.2); White Blood Count 4.5 K/mm3 (4.4-11.0)
== END | disposition home or self-care (01) ==
LOC: MFPLAB 14:11
PROVIDERS: PCP Family Medicine; Referring Provider Family Medicine; Visit Provider Family Medicine
DX: D62 Acute posthemorrhagic anemia (principal)
CPT/HCPCS: 36415; 85025

== ENCOUNTER → 2022-06-13 | Outpatient (CLI) | payer BC, SELFPAY ==
[2022-06-13 10:26] LABS: Anion Gap 6 (5-15); BUN 30 mg/dL (7-18); Calcium,Total 9.7 mg/dL (8.5-10.1); Chloride 109 mmol/L (98-107); Creatinine, Serum 1.87 mg/dL (0.70-1.30); EST Glomerular Filtration Rate 38 mL/min (>60); Est Glom Filt Rate - Afr Amer 46 mL/min (>60); Glucose 138 mg/dL (74-106); Sodium Level 142 mmol/L (136-145)
== END | disposition home or self-care (01) ==
PROVIDERS: PCP Family Medicine; Referring Provider Nurse Practitioner Family; Visit Provider Nurse Practitioner Family
DX: I48.91 Unspecified atrial fibrillation (principal); I42.9 Cardiomyopathy, unspecified; R94.31 Abnormal electrocardiogram [ECG] [EKG]
CPT/HCPCS: 36415; 78452; 80048; 93017; A9500; A4216; J2785

== ENCOUNTER → 2022-07-26 | Outpatient (CLI) | payer BC, SELFPAY ==
[2022-07-26 17:53] LABS: Absolute Lymphocyte Count 2.02 X10^3/uL (0.83-4.51); Absolute Neutrophil Count 4.1 X10^3/uL (2.0-7.7); Basophil# 0.08 X10^3/uL; Basophil% 1.1 % (0-1); Eosinophil# 0.24 X10^3/uL; Eosinophils% 3.3 % (0-5); Hematocrit 40.3 % (40-54); Hemoglobin 13.3 g/dL (13.0-16.5); Lymphocyte # 2.02 X10^3/ul (0.83-4.51); Lymphocyte % 28.1 % (19-41); Mean Corpuscular Hgb 30.9 pg (27.0-32.0); Mean Corpuscular Volume 93.7 fL (80-94); Mean Platelet Vol. 11.4 fl (6.2-12.0); Monocyte# 0.75 X10^3/uL; Monocyte% 10.4 % (0-10); NRBC Flagged by Analyzer 0 % (0-5); Neutrophil # 4.07 X10^3/uL (2.7-7.7); Neutrophil % 56.7 % (47-70); Platelet Count 251 K/mm3 (150-450); RBC Distribution Width CV 17.9 % (11.6-14.6); RBC Distribution Width SD 61.7 fl (35.1-43.9); White Blood Count 7.2 K/mm3 (4.4-11.0)
== END | disposition home or self-care (01) ==
LOC: MFPLAB 15:00
PROVIDERS: PCP Family Medicine; Referring Provider Family Medicine; Visit Provider Family Medicine
DX: K62.5 Hemorrhage of anus and rectum (principal)
CPT/HCPCS: 36415; 85025

== ENCOUNTER 2022-08-14 10:27 | Day surgery (SDC) | payer BC, SELFPAY ==
[2022-08-14] VITALS (7 sets, daily range): BP systolic 105–136; BP diastolic 45–65; PULSE 48–60; RESP 16–100; TEMP 36.1–36.2; O2SAT 16–100; BMI 27.6
--- NOTE | 2022-08-14 | HEM_PTH ---
PATIENT: PETER STEVENS [place] [facility] [id number] AGE/SX: 72/M ROOM: RE08/14/[address]: Dr. Hipolito Murphy MD : 1950 BED: DIS: 08/14/2022 SPEC #: [id number] RECD: 08/14/22 13:35 STATUS: ELAN REKeith #: [id number] HALI: 08/14/22 00:[address]: Hipolito Murphy DEPT: SURGICAL PATHOLOGY RECD BY: Ventura Peterson ENTERED: 08/15/22 09:28 SP TYPE: HEMORRHOID OTHR DR: Dr. Eliza Jacobs MD Tissues: A - HEMORRHOIDS B - HEMORRHOIDS Procedures: Surgery Specimen Level III HEADER OPERATION: Hemorrhoidectomy x2 PRE-OP DIAGNOSIS: Hemorrhoids TISSUE SUBMITTED: A ? Hemorrhoid left, B ? Hemorrhoid right MICROSCOPIC DIAGNOSIS A. Left hemorrhoid, hemorrhoidectomy: Submucosal vascular ectasia and thrombosis consistent with hemorrhoid. B. Right hemorrhoid, hemorrhoidectomy: Submucosal vascular ectasia and thrombosis consistent with hemorrhoid. AM:oscar 08/16/2022 MICROSCOPIC DESCRIPTION Slides are reviewed. GROSS DESCRIPTION A - Received in fixative is one container labeled with the patient's name and designated hemorrhoid left. The specimen consists of a glistening fragment of kinney mucosa with hemorrhagic submucosal tissue measuring 2.5 x 1.0 x 0.8 cm. The specimen is bisected and totally submitted in one cassette. B - Received in fixative is one container labeled with the patient's name and designated hemorrhoid right. The specimen consists of a glistening fragment of kinney mucosa with hemorrhagic submucosal tissue measuring 2.0 x 1.1 x 1.0 cm. The specimen is bisected and totally submitted in one cassette. / AM:oscar 08/15/2022 TC:5 CPT: 81967 x2
[2022-08-14] MEDS: Lactated Ringers 1,000 ML 15 ML IV (11:02)
--- NOTE | 2022-08-14 11:38 | HP.PCM_ITS ---
History and Physical Date of Admission: 08/14/22 Intake Vital Signs ? 07/31/2308:07 Height 5 ft 7 in Weight: 177 lb 0.4 oz BMI 27.7 BP 112/68 Blood Pressure Location Lt brachial Position Sitting Respiration 18 Pulse 59 L Pulse Source Monitor Temp 97.1 F L Temp Source Temporal Pulse Oximetry (%) 99 Oxygen Delivery Method room air Intake Visit Reasons:?Hemorrhoids Chief Complaint: hemorrhoids Is patient in pain?: No Allergies Penicillins Allergy (Mild, Verified 07/31/22 09:08) rash Medications melatonin 10 mg tablet 10 mg PO QHS 05/10/22 [History Confirmed 07/31/22] metoprolol tartrate 100 mg tablet 50 mg PO BID #120 tabs 05/16/22 [Rx Confirmed 07/31/22] furosemide 40 mg tablet 40 mg PO QAM #30 tabs 05/22/22 [Rx Confirmed 07/18/22] ferrous sulfate 325 mg (65 mg iron) tablet (Feosol) 325 mg PO DAILY 05/30/22 [History Confirmed 07/31/22] nicotine 21 mg/24 hr daily transdermal patch (Nicoderm CQ) 1 patch transdermal DAILY #28 ea 05/30/22 [Rx Confirmed 07/31/22] amiodarone 200 mg tablet 200 mg PO DAILY 07/18/22 [History Confirmed 07/31/22] lisinopril 20 mg tablet See Rx Instructions PO .COMPLEX 07/31/22 [History] pantoprazole 40 mg tablet,delayed release 40 mg PO DAILY 07/31/22 [History] PFSH Medical History? Arthritis Back pain Bilateral inguinal hernia (BIH) COVID GERD (gastroesophageal reflux disease) Heartburn Hemorrhoid History of stress test History of ulceration Injury of back Loss of hearing Shortness of breath on exertion Smoker Wears dentures Wears glasses Surgical History? History of colonoscopy History of hemorrhoidectomy History of laparoscopic cholecystectomy Family History? Father Heart disease Myocardial infarctionMother Heart disease Myocardial infarction Social History?(Updated 07/31/22 @ 09:10 by Alexander Roman) household members:? spouse number of children:? 5 current occupational status:? retired pets and animals:? No Smoking Status:? Former smoker Tobacco: How many years used:? 60 how long ago did patient quit smoking:? Apr 26 [facility] HPI HPI: Patient is here due to rectal bleeding.? He is a 72-year-old male who was recent ly admitted due to the GI bleeding.? He had a colonoscopy in April and another one in June by Dr. Greenwood and the only finding was a large internal hemorrhoid.? Patient reports he has had on and off bleeding for years.? He has had a hemorrhoidectomy in his 30s.? Patient reports that the bleeding is bright red and painless. ROS General General: No weight change or fatigue HEENT HEENT: No difficulty swallowing Endo Endocrine: No thyroid disease Musc Musculoskeletal: Yes back problems and arthritis Cardio Cardiovascular: Yes heart disease, atrial fibrillation and high blood pressure Psych Psychiatric: No depression or anxiety Resp Respiratory: Yes cough Gastro Gastrointestinal: No abdominal pain, No nausea or vomiting, No constipation, Yes blood in stool, Yes acid reflux, Yes hemorrhoids, Yes ulcers, No gallbladder problem and No black,tarry stools Santi Hematologic: Yes bleeding Neuro Neurologic: Yes as per HPI Assessment and Plan Assessment and Plan (1) Hemorrhoids: ?Qualifiers: ?Hemorrhoid type:?unspecified? Qualified Code(s):?K64.9 - Unspecified hemorrhoids ?Plan: Patient has rectal bleeding of bright red blood with bowel movements.? Patient had colonoscopy this spring which revealed large internal hemorrhoids that may be the cause of the bleeding.? I discussed hemorrhoidectomy in detail with the patient.? I discussed the procedure as well as the risks including but limited to bleeding, infection, injury to sphincter, need for further surgery.? Patient understands the risks and is willing to proceed. Hipolito Murphy MD Pager: [facility] [address] [place] [address], [address] [place] [address] Office: I have examined the patient and the H&P has been reviewed. There are no clinical changes since date of exam.
[2022-08-14] MEDS: Clindamycin 900 MG/50 ML BAG 75 MG IV (11:54)
[2022-08-14] MEDS: Lubricating Jelly 60 GM Tube 30 GM (12:20)
[2022-08-14] MEDS: Dibucaine 30 GM Tube 1 APPLIC (12:38)
[2022-08-14] MEDS: Bupivacaine 0.25% 30 ML Vial (12:38)
--- NOTE | 2022-08-14 13:02 | PCM.OPRPT ---
Report of Operation Date of Procedure: 08/14/22 Pre-Operative Diagnosis: Bleeding hemorrhoids Post-Operative Diagnosis: Same Surgery/Procedure Performed:: Hemorrhoidectomy x2 internal and external Specimen's removed: Left and right hemorrhoid Description of Procedure: Patient was brought back to the op room and general anesthesia was induced. The patient was placed in prone jackknife position and the perineal area was prepped and draped in usual sterile fashion. A well-lubricated speculum was placed in the rectum and it was inspected. There appeared to be a large hemorrhoid on the left and right anterior. Each of these were excised using harmonic handpiece. The mucosa was reapproximated in each column using a running 3-0 Vicryl suture. There was good hemostasis. A Gelfoam was rolled and coated with Dibucaine cream and placed into the rectum. Next a pudendal nerve block was performed in 4 quadrants using local anesthetic. Patient was then awoken and taken to PACU in stable condition.
--- NOTE | 2022-08-14 13:05 | DCINST_ITS ---
Discharge Instructions Procedure Rectal Surgery Diet Discharge Diet: Light diet - advance as tolerated (Pain medication may cause nausea. You should typically eat light foods as you take your pain medication.) Activity Discharge Activity: Return to Normal Activity and May Not Drive (while you are taking narcotic pain medications. Do not drive, work with heavy equipment or sign legal documents for 24 hours after your surgery.) May resume sexual activity in: No Restrictions Additional Activity Instructions:: Be aware that pain medications may cause nausea. You should typically eat light foods as you take your pain medications. Pain medications may also cause constipation, if you have difficulty with this please discuss with your doctor. Dressing / Incision Call your doctor if your incision/area has: Continuous Slow Oozing, Sudden Increased Bleeding, Increased Pain/ Swelling and Increased Redness Call your doctor if you observe: Fever of 101 or Higher, Inability to urinate, Inability to have a bowel movement and Uncontrolled pain Additional Dressing/Incision Instructions:: A local anesthetic plug was placed in the anal area, try not to expel for [address] dibucaine ointment on the perianal area twice a day and as needed. Sitz baths twice daily and after bowel movements. Follow Up Care Please Follow Up With: Hipolito Murphy MD When: Please call to schedule 2 week follow up appointment. [phone] Test Results: Test results from this visit will be discussed in further detail at your follow- up appointment, if applicable. Discharge Plan Admission Attending Provider: Hipolito Murphy Primary Care Provider: Eliza Jacobs Discharge Orders/Prescriptions Prescriptions: New oxycodone 5 mg tablet 5 - 10 mg PO Q6H PRN (Reason: pain) 7 Days Qty: 40 0RF No Action ferrous sulfate [Feosol] 325 mg (65 mg iron) tablet 325 mg PO DAILY nicotine [Nicoderm CQ] 21 mg/24 hr patch 24 hour 1 patch transdermal DAILY Qty: 28 12RF amiodarone 200 mg tablet 200 mg PO DAILY lisinopril 20 mg tablet 10 mg PO QHS pantoprazole 40 mg tablet,delayed release (DR/EC) 40 mg PO DAILY melatonin 10 mg Tablet 10 mg PO QHS metoprolol tartrate 100 mg tablet 50 mg PO BID Qty: 120 0RF furosemide 40 mg tablet 40 mg PO QAM Qty: 30 12RF Referrals / Follow Up: Eliza Jacobs MD [Primary Care Provider] - Disposition Disposition (needs filled in before D/C Order can be placed): Home, Self Care
[2022-08-14] MEDS: oxyCODONE 5 MG Tablet 10 MG PO (13:57)
== END 2022-08-14 14:14 | disposition home or self-care (01) ==
LOC: SDC 10:28 → AC 10:30
PROVIDERS: PCP Family Medicine; Referring Provider Surgery; Visit Provider Surgery
PROC: (CPT 46260; principal; 2022-08-14 11:45)
DX: K64.8 Other hemorrhoids (principal); K64.4 Residual hemorrhoidal skin tags; K62.5 Hemorrhage of anus and rectum; J44.9 Chronic obstructive pulmonary disease, unspecified; I48.91 Unspecified atrial fibrillation; K21.9 Gastro-esophageal reflux disease without esophagitis; Z79.899 Other long term (current) drug therapy; Z87.891 Personal history of nicotine dependence
CPT/HCPCS: 46260; 00902; 88304; J7120; J2405

== ENCOUNTER → 2022-09-19 | Outpatient (CLI) | payer BC, SELFPAY ==
--- NOTE | 2022-06-13 08:42 | STRESSREP ---
Stress Test Report Date: 06-13-2022 Procedure: Pharmacologic stress nuclear imaging study Indications: Atrial fibrillation; cardiomyopathy Consent: Per the patient Procedure: The patient underwent pharmacologic (Regadenoson 0.4mg ) evaluation with a peak heart rate of 86 beats per minute (58%predicted maximal heart rate) and a resting blood pressure of 162/78 mmHg and a peak blood pressure of 168/74 mmHg. The baseline ECG demonstrated sinus bradycardia; poor R wave progression. The peak pharmacologic ECG demonstrated no obvious ECG changes. There were no cardiac dysrhythmias pretest, during pharmacologic infusion, or recovery. There was no complaint of chest discomfort during pharmacologic infusion or recovery. The examination was discontinued secondary to completion of protocol. Impression: 1. Pharmacologic (Regadenoson) evaluation 2. Peak pharmacologic ECG with no obvious ECG change. 3. There were no cardiac dysrhythmias pretest, during pharmacologic infusion, or recovery. 4. Nuclear images pending Myocardial perfusion imaging study: Technique: The patient was injected with 11.6 millicuries of technetium 99m Cardiolite and subsequently rest SPECT Cardiolite nuclear imaging was obtained in the horizontal long, vertical long, and short axis views. The patient underwent pharmacologic (Regadenoson) evaluation with a peak heart rate of 86 beats per minute (58% percent predicted maximal heart rate) and a resting blood pressure of 162/78 mmHg and a peak blood pressure of 168/74 mmHg. The patient was injected with 33.7 millicuries of technetium 99m Cardiolite and subsequently stress SPECT Cardiolite nuclear imaging was obtained in the horizontal long, vertical long, and short axis views. A gated Cardiolite study at peak stress was obtained. Interpretation: Rest and stress SPECT Cardiolite nuclear imaging status post realignment, normalization, and attenuation correction demonstrate a small area of diminished myocardial perfusion/tracer uptake near the apical segments without significant change between rest and stress. There is end systolic thickening and brightening. The gated Cardiolite study demonstrates myocardial thickening and inward wall motion. The reported LVEF is 65%. Impression: 1. Rest and stress SPECT Cardiolite nuclear imaging demonstrate a small area of diminished myocardial perfusion/tracer uptake near the apical segments without significant change between rest and stress appearing compatible with physiologic apical thinning with no myocardial perfusion changes considered diagnostic for associated stress-induced myocardial ischemia. 2. The gated Cardiolite study reports an LVEF of 65%. This note was generated with Dragon dictation software. It may contain incorrect words, spelling, and punctuation that were not noted in checking the note before signing.
--- NOTE | 2022-09-19 07:58 | ECHOL_ITS ---
Reason For Study: CARDIOMYOPATHY Procedure This was a limited 2D transthoracic echocardiogram. Exam performed in department. Left Ventricle Normal size and thickness. The left ventricular ejection fraction is 65 %. Right Ventricle Normal right ventricle. Atria The left and right atria are normal. Mitral Valve The mitral valve is structurally normal. No prolapse or stenosis seen. Tricuspid Valve Normal tricuspid valve. Aortic Valve Trisinus/trileaflet aortic valve. Pulmonic Valve The pulmonic valve is not well visualized. Great Vessels Normal sized aortic root. Pericardium/Pleural No pericardial effusion. MMode/2D Measurements & Calculations LVIDd: 5.1 cm IVSd: 0.93 cm Ao root diam: 3.2 cm LVIDs: 3.3 cm LVPWd: 0.93 cm RVDd: 3.1 cm FS: 36.3 % LAV(MOD-bp): 65.6 ml LVAd ap4: 31.5 cm2 LVAd ap2: 24.9 cm2 LAV(MOD-bp) Indexed: 34.6 ml/m2 LVLd ap4: 7.7 cm LVLd ap2: 7.2 cm LAV(MOD-sp2): 66.2 ml EDV(MOD-sp4): 109.6 ml EDV(MOD-sp2): 74.9 ml LAV(MOD-sp4): 66.1 ml EDV(sp4-el): 109.4 ml EDV(sp2-el): 72.9 ml LVAs ap4: 15.5 cm2 LVAs ap2: 12.7 cm2 LVLs ap4: 6.6 cm LVLs ap2: 5.6 cm ESV(MOD-sp4): 33.4 ml ESV(MOD-sp2): 26.1 ml ESV(sp4-el): 30.9 ml ESV(sp2-el): 24.2 ml EF(MOD-sp4): 69.5 % EF(MOD-sp2): 65.1 % EF(sp4-el): 71.7 % SV(MOD-sp4): 76.2 ml SV(MOD-sp2): 48.8 ml SV(sp4-el): 78.5 ml LA dimension(2D): 3.8 cm LA A4 area: 20.2 cm2 RA A4 area: 15.5 cm2 ECHO/Echo, Limited Study Interpretation Summary The left ventricular ejection fraction is 65 %. This was a limited 2D echo. No Doppler examination performed. Ordering Physician: Trever Landaverde Referring Physician: Eliza Jacobs Performed By: Shadia Ba RDCS, RVT
== END | disposition home or self-care (01) ==
PROVIDERS: PCP Family Medicine; Referring Provider Nurse Practitioner Family; Visit Provider Nurse Practitioner Family
DX: I42.9 Cardiomyopathy, unspecified (principal); I50.9 Heart failure, unspecified; I48.91 Unspecified atrial fibrillation
CPT/HCPCS: 93308

== ENCOUNTER → 2022-12-14 | Outpatient (CLI) | payer OTHER, SELFPAY ==
--- NOTE | 2022-12-14 15:32 | RAD_ITS ---
STUDY: X-RAY CHEST REASON FOR EXAM: Male, 72 years old. Productive cough. TECHNIQUE: Frontal and lateral views of the chest on 3 images. COMPARISON: Chest dated April 27, 2022. FINDINGS: Hyperinflation. Patchy opacity in the right lower lobe present on the prior study has resolved. No opacities in the lung polanco. There is no demonstrated pleural abnormality. Stable borderline cardiomegaly. Normal mediastinum and brianda. Normal visualized pulmonary arteries. Stable aortic tortuosity. Normal visualized thoracic spine. Normal visualized ribs, clavicles, and shoulders. No abnormality of the visualized soft tissue structures of the upper abdomen. RAD/Chest PA and Lateral IMPRESSION: Cardiomegaly with mild hyperinflation. Resolution of right lower lobe opacity noted on prior study. No active or acute cardiopulmonary disease. Electronically Signed: Monroe Concepcion MD at 10:23 EDT ,
== END | disposition home or self-care (01) ==
PROVIDERS: PCP Family Medicine; Referring Provider Family Medicine; Visit Provider Family Medicine
DX: R06.02 Shortness of breath (principal); R05.9 Cough, unspecified
CPT/HCPCS: 71046

== ENCOUNTER → 2022-12-22 | Outpatient (CLI) | payer OTHER, SELFPAY ==
--- NOTE | 2022-12-23 06:03 | PFT ---
INTRODUCTION: The patient is a 72-year-old male who presents for pulmonary function studies secondary to a diagnosis of shortness of breath. Respiratory therapy reported good patient effort. Bronchodilators were used during testing. INTERPRETATION: Forced expiration spirometry demonstrates the presence of a mild large airways obstructive ventilatory defect. There was no significant response to aerosolized bronchodilators. Spirograms are of good quality and plateau normally. Body plethysmography was performed and revealed lung volumes to be within normal limits. Diffusing capacity by single breath CO was reduced at 60% of predicted. IMPRESSION: Irreversible mild large airways obstructive ventilatory defect with symmetric reduction in diffusing capacity.
== END | disposition home or self-care (01) ==
PROVIDERS: PCP Family Medicine; Referring Provider Family Medicine; Visit Provider Family Medicine
DX: R06.02 Shortness of breath (principal)
CPT/HCPCS: 94060; 94726; 94729

== ENCOUNTER → 2023-01-01 | Outpatient (CLI) | payer OTHER, SELFPAY ==
[2023-01-01 15:24] LABS: ALB/GLOB Ratio 0.9 RATIO (0.9-2.4); AST(SGOT) 16 U/L (15-37); Alanine Aminotransfer ALT/SGPT 32 U/L (16-61); Albumin, Serum 3.7 g/dL (3.2-5.0); Alkaline Phosphatase 59 U/L (45-117); Anion Gap 5 (5-15); BUN 31 mg/dL (7-18); BUN/Creat Ratio 12.2 RATIO (10-20); Calcium,Total 9.3 mg/dL (8.5-10.1); Chloride 104 mmol/L (98-107); Creatinine, Serum 2.54 mg/dL (0.70-1.30); EST Glomerular Filtration Rate 26 mL/min (>60); Est Glom Filt Rate - Afr Amer 32 mL/min (>60); Globulin 3.9 g/dL (2.2-4.2); Glucose 150 mg/dL (74-106); Protein, Total 7.6 g/dL (6.4-8.2); Sodium Level 137 mmol/L (136-145); Thyroid Stim Hormone (TSH) 4.83 uIU/mL (0.358-3.74)
== END | disposition home or self-care (01) ==
LOC: LAB 14:11
PROVIDERS: PCP Family Medicine; Referring Provider Internal Medicine Cardiovascular Disease; Visit Provider Internal Medicine Cardiovascular Disease
DX: I11.0 Hypertensive heart disease with heart failure (principal); I50.9 Heart failure, unspecified; I42.9 Cardiomyopathy, unspecified; I48.0 Paroxysmal atrial fibrillation; Z86.79 Personal history of other diseases of the circulatory system
CPT/HCPCS: 36415; 80053; 84443

== ENCOUNTER → 2023-01-08 | Outpatient (CLI) | payer OTHER, SELFPAY ==
[2023-01-08 12:54] LABS: Anion Gap 9 (5-15); BUN 30 mg/dL (7-18); BUN/Creat Ratio 13.7 RATIO (10-20); Calcium,Total 9.4 mg/dL (8.5-10.1); Chloride 106 mmol/L (98-107); Creatinine, Serum 2.19 mg/dL (0.70-1.30); EST Glomerular Filtration Rate 31 mL/min (>60); Est Glom Filt Rate - Afr Amer 38 mL/min (>60); Glucose 123 mg/dL (74-106); Potassium 4.9 mmol/L (3.5-5.1); Sodium Level 139 mmol/L (136-145)
== END | disposition home or self-care (01) ==
LOC: MFPLAB 10:33
PROVIDERS: PCP Family Medicine; Visit Provider Family Medicine
DX: N18.9 Chronic kidney disease, unspecified (principal)
CPT/HCPCS: 36415; 80048

== ENCOUNTER → 2023-01-22 | Outpatient (CLI) | payer OTHER, SELFPAY ==
[2023-01-22 10:13] LABS: Anion Gap 5 (5-15); BUN 32 mg/dL (7-18); BUN/Creat Ratio 13.2 RATIO (10-20); Calcium,Total 8.8 mg/dL (8.5-10.1); Chloride 109 mmol/L (98-107); Creatinine, Serum 2.43 mg/dL (0.70-1.30); EST Glomerular Filtration Rate 28 mL/min (>60); Est Glom Filt Rate - Afr Amer 34 mL/min (>60); Glucose 181 mg/dL (74-106); Potassium 4.3 mmol/L (3.5-5.1); Sodium Level 139 mmol/L (136-145)
== END | disposition home or self-care (01) ==
LOC: MFPLAB 08:58
PROVIDERS: PCP Family Medicine; Visit Provider Family Medicine
DX: N18.9 Chronic kidney disease, unspecified (principal)
CPT/HCPCS: 36415; 80048

== ENCOUNTER → 2023-03-27 | Outpatient (CLI) | payer OTHER, SELFPAY ==
[2023-03-27 17:33] LABS: Absolute Lymphocyte Count 1.87 X10^3/uL (0.83-4.51); Absolute Neutrophil Count 2.5 X10^3/uL (2.0-7.7); Basophil# 0.08 X10^3/uL; Basophil% 1.5 % (0-1); Eosinophil# 0.28 X10^3/uL; Eosinophils% 5.3 % (0-5); Hematocrit 37.6 % (40-54); Hemoglobin 12.9 g/dL (13.0-16.5); Lymphocyte # 1.87 X10^3/ul (0.83-4.51); Lymphocyte % 35.4 % (19-41); Mean Corp Hgb Conc 34.3 g/dL (32-36); Mean Corpuscular Hgb 35.1 pg (27.0-32.0); Mean Corpuscular Volume 102.5 fL (80-94); Mean Platelet Vol. 11.6 fl (6.2-12.0); Monocyte# 0.58 X10^3/uL; NRBC Flagged by Analyzer 0 % (0-5); Neutrophil # 2.45 X10^3/uL (2.7-7.7); Neutrophil % 46.4 % (47-70); Platelet Count 224 K/mm3 (150-450); RBC Distribution Width CV 13.1 % (11.6-14.6); RBC Distribution Width SD 49.1 fl (35.1-43.9); Red Blood Count 3.67 M/mm3 (4.6-6.2); White Blood Count 5.3 K/mm3 (4.4-11.0)
[2023-03-27 18:25] LABS: Thyroid Stim Hormone (TSH) 2.27 uIU/mL (0.358-3.74)
== END | disposition home or self-care (01) ==
LOC: MFPLAB 15:14
PROVIDERS: PCP Family Medicine; Visit Provider Family Medicine
DX: E03.9 Hypothyroidism, unspecified (principal); K62.5 Hemorrhage of anus and rectum
CPT/HCPCS: 36415; 84436; 84443; 85025

== ENCOUNTER → 2023-05-22 | Outpatient (CLI) | payer OTHER, SELFPAY ==
[2023-05-22 10:55] LABS: Absolute Lymphocyte Count 2.56 X10^3/uL (0.83-4.51); Absolute Neutrophil Count 3.3 X10^3/uL (2.0-7.7); Basophil# 0.11 X10^3/uL; Basophil% 1.5 % (0-1); Eosinophil# 0.53 X10^3/uL; Eosinophils% 7.2 % (0-5); Hematocrit 39.8 % (40-54); Hemoglobin 13.4 g/dL (13.0-16.5); Lymphocyte # 2.56 X10^3/ul (0.83-4.51); Lymphocyte % 34.5 % (19-41); Mean Corp Hgb Conc 33.7 g/dL (32-36); Mean Corpuscular Hgb 33.9 pg (27.0-32.0); Mean Corpuscular Volume 100.8 fL (80-94); Mean Platelet Vol. 11.4 fl (6.2-12.0); Monocyte# 0.91 X10^3/uL; Monocyte% 12.3 % (0-10); NRBC Flagged by Analyzer 0 % (0-5); Neutrophil # 3.27 X10^3/uL (2.7-7.7); Neutrophil % 44.1 % (47-70); Platelet Count 203 K/mm3 (150-450); RBC Distribution Width CV 12.6 % (11.6-14.6); RBC Distribution Width SD 46.9 fl (35.1-43.9); Red Blood Count 3.95 M/mm3 (4.6-6.2); White Blood Count 7.4 K/mm3 (4.4-11.0)
[2023-05-22 12:35] LABS: PTHIN 69.9 pg/mL (18.4-80.1)
== END | disposition home or self-care (01) ==
LOC: LAB 09:56
PROVIDERS: PCP Family Medicine; Referring Provider Family Medicine; Visit Provider Family Medicine
DX: N18.4 Chronic kidney disease, stage 4 (severe) (principal)
CPT/HCPCS: 36415; 83970; 85025

== ENCOUNTER → 2023-05-25 | Outpatient (CLI) | payer OTHER, SELFPAY ==
--- NOTE | 2023-05-25 12:42 | US_ITS ---
STUDY: RENAL ULTRASOUND - COMPLETE REASON FOR EXAM: Male, 72 years old. CKD STAGE 4 TECHNIQUE: Ultrasound evaluation of the kidneys was performed with real-time and static chaney-scale imaging. COMPARISON: None. FINDINGS: RIGHT KIDNEY: Normal location of the right kidney, which is normal in size. The right kidney measures 8.9 cm x 5 cm x 4.1 cm. There is a normal cortex of the right kidney. The renal cortex measures 1.3 cm. There is no right renal mass or cyst. There are no right renal calculi. There is no right hydronephrosis. DISTAL RIGHT URETER: There is non-visualization of the distal right ureter. There is no demonstrated right ureterovesical junction calculus. There is a visualized right ureteral jet. LEFT KIDNEY: Normal location of the left kidney, which is normal in size. The left kidney measures 8.3 cm x 4.3 cm x 4.8 cm. There is a normal cortex of the left kidney. The renal cortex measures 1.1 cm. There is no left renal mass or cyst. There are no left renal calculi. There is no left hydronephrosis. DISTAL LEFT URETER: There is non-visualization of the distal left ureter. There is no demonstrated left ureterovesical junction calculus. There is a visualized left ureteral jet. BLADDER: The distended urinary bladder has a volume of 9 2 ml. There is a normal wall thickness of the distended urinary bladder. There is no demonstrated mass within the urinary bladder. There are no demonstrated bladder calculi. US/Kidney and Bladder IMPRESSION: Normal ultrasound of the kidneys and urinary bladder. Electronically Signed: Gagan Teryr MD at 15:43 EST ,
== END | disposition home or self-care (01) ==
PROVIDERS: PCP Family Medicine; Referring Provider Internal Medicine Nephrology; Visit Provider Internal Medicine Nephrology
DX: N18.4 Chronic kidney disease, stage 4 (severe) (principal)
CPT/HCPCS: 76770

== ENCOUNTER → 2023-06-29 | Outpatient (CLI) | payer OTHER, SELFPAY ==
[2023-06-29 12:35] LABS: BUN 24 mg/dL (7-18); BUN/Creat Ratio 10.2 RATIO (10-20); Calcium,Total 9.6 mg/dL (8.5-10.1); Chloride 107 mmol/L (98-107); Creatinine, Serum 2.36 mg/dL (0.70-1.30); EST Glomerular Filtration Rate 29 mL/min (>60); Est Glom Filt Rate - Afr Amer 35 mL/min (>60); Glucose 142 mg/dL (74-106); Phosphorus 2.2 mg/dL (2.5-4.9); Potassium 4.3 mmol/L (3.5-5.1); Sodium Level 139 mmol/L (136-145)
== END | disposition home or self-care (01) ==
LOC: LAB 11:00
PROVIDERS: PCP Family Medicine; Referring Provider Internal Medicine Nephrology; Visit Provider Internal Medicine Nephrology
DX: N18.4 Chronic kidney disease, stage 4 (severe) (principal)
CPT/HCPCS: 36415; 80069

== ENCOUNTER → 2023-10-17 | Outpatient (CLI) | payer OTHER, SELFPAY ==
[2023-10-17 10:12] LABS: Hematocrit 40.9 % (40-54); Hemoglobin 13.9 g/dL (13.0-16.5); Mean Corpuscular Hgb 33.7 pg (27.0-32.0); Mean Platelet Vol. 10.8 fl (6.2-12.0); Platelet Count 209 K/mm3 (150-450); Red Blood Count 4.13 M/mm3 (4.6-6.2); White Blood Count 5.7 K/mm3 (4.4-11.0)
[2023-10-17 10:55] LABS: Albumin, Serum 3.7 g/dL (3.2-5.0); BUN 22 mg/dL (7-18); BUN/Creat Ratio 11.5 RATIO (10-20); Calcium,Total 9.5 mg/dL (8.5-10.1); Chloride 107 mmol/L (98-107); Creatinine, Serum 1.92 mg/dL (0.70-1.30); EST Glomerular Filtration Rate 36 mL/min (>60); Est Glom Filt Rate - Afr Amer 44 mL/min (>60); Glucose 114 mg/dL (74-106); Phosphorus 2.3 mg/dL (2.5-4.9); Sodium Level 138 mmol/L (136-145)
== END | disposition home or self-care (01) ==
LOC: LAB 09:46
PROVIDERS: PCP Family Medicine; Visit Provider Internal Medicine Nephrology
DX: N18.4 Chronic kidney disease, stage 4 (severe) (principal)
CPT/HCPCS: 36415; 80069; 85027

== ENCOUNTER → 2024-01-28 | Outpatient (CLI) | payer BC, SELFPAY ==
--- NOTE | 2024-01-28 12:18 | RAD_ITS ---
INDICATION: chronic cough EXAMINATION/TECHNIQUE: X-RAY - XR Chest 2 Views COMPARISON: Prior study dated: 12/14/2022 FINDINGS: LINES/DEVICES: None. LUNGS: The lungs remain hyperinflated. No focal infiltrate is seen. No evidence of pleural effusions. MEDIASTINUM AND CARDIOVASCULAR STRUCTURES: Cardiac silhouette not enlarged. Central airways and mediastinal contour are unremarkable. BONES AND SOFT TISSUES: Unremarkable. RAD/Chest PA and Lateral IMPRESSION: No radiographic evidence of acute cardiopulmonary disease. Electronically Signed: Morris Nicole MD at 12:34 EDT ,
== END | disposition home or self-care (01) ==
PROVIDERS: PCP Family Medicine; Referring Provider Family Medicine; Visit Provider Family Medicine
DX: R05.9 Cough, unspecified (principal)
CPT/HCPCS: 71046

== ENCOUNTER → 2024-02-19 | Outpatient (CLI) | payer BC, SELFPAY ==
[2024-02-19 15:34] LABS: Hematocrit 41.3 % (40-54); Hemoglobin 14.2 g/dL (13.0-16.5); Mean Corp Hgb Conc 34.4 g/dL (32-36); Mean Corpuscular Hgb 33.9 pg (27.0-32.0); Mean Corpuscular Volume 98.6 fL (80-94); Mean Platelet Vol. 11.5 fl (6.2-12.0); Platelet Count 245 K/mm3 (150-450); RBC Distribution Width CV 12.3 % (11.6-14.6); RBC Distribution Width SD 44.4 fl (35.1-43.9); Red Blood Count 4.19 M/mm3 (4.6-6.2); White Blood Count 6.7 K/mm3 (4.4-11.0)
--- OUTSIDE RECORDS SUMMARY | 2024-02-19 19:28 | XMS RPT_ITS | CCD ---
Author Organization [facility] Care Team Providers Care Head Golf Professional Name Role Phone GuillenickKendalle Carmen (Hist) Primary Care Provider Un available DAHLIA WITT, DR. CHEEK Attending Unavailcharis JACOBS MD., DR. CENTENO Primary Care Unavailable GIANNA ALVARADO Referring Unavailable AMADA GLORIA Attending Unavailable ELIZA JACOBS Primary Care Unavailable Allergies Allergy Classification Reported Allergen(s) Allergy Type Date of Onset Reaction(s) Facility (2 sources) Penicillins; Translations: [PENICILLINS] Propensity to adverse reactions 5 [facility] Work Phone: (12 sources) petroleum products [Other] Propensity to adverse reactions 5 [facility] Work Phone: (12 sources) soaps [Other] Propensity to adverse reactions 5 [facility] Work Phone: (11 sources) Penicillins Propensity to adverse reactions 5 [facility] Work Phone: (1 source) OTHER; Translations: [OTHER] Propensity to adverse reactions (disorder) [address] [place] [address] Other [facility] Medications Completed/Discontinued Medications Medication Drug Class(es) Dates Sig (Normalized) Sig (Original) acetaminophen 500 mg oral tablet (11 sources) Start: 12-22-2021 take 500-1000 mg by mouth every six hours as needed acetaminophen (TYLENOL) 500 mg tablet Take 1-2 tablets by mouth every 6 hours as needed for pain. 0 12/22/2021 Active take 1 tablet by carmen th every six hours as needed acetaminophen (TYLENOL) 325 mg tablet Ta ke 325 mg by mouth every 6 hours as needed. 0 Active Comment on above: Take 325 mg by mouth every 6 hours as needed. Take 1-2 tablets by mouth every 6 hours as needed for pain. cyclobenzaprine hydrochloride 10 mg oral tablet (10 sources) Muscle Relaxant Start: take 1 tablet by mouth three times daily as needed for muscle spasms cyclobenzaprine 10 mg ORAL tablet Indications: Back pain Take 1 tablet by mouth three times daily as needed for Muscle Spasm. 30 tablet 1 08/12/2010 Active Comment on above: Take 1 tablet by carmen th three times daily as needed for Muscle Spasm. ibuprofen 200 mg oral tablet (1 source) Nonsteroidal Anti-inflammatory Drug Start: take 400-800 mg by mouth every eight hours as needed ibuprofen (MOTRIN) 200 mg tablet Take 2-4 tablets by mouth every 8 hours as needed for pain. 0 12/22/2021 Active Comment on above: Take 2-4 tablets by mouth every 8 hours as needed for pain. Lactase (10 sources) Start: LACTASE (LACTAID ORAL) Take by mouth once daily. Takes with milk 0 09/08/2010 Active Comment on above: Take by mouth once d aily. Takes with milk metroNIDAZOLE 500 mg oral tablet (1 source) Nitroimidazole Antimicrobial Start: metroNIDAZOLE (FLAGYL) 500 mg tablet Take 1 tablet by mouth at 9pm and take 1 tablet by mouth at 11pm the night before surgery. 2 tablet 0 12/16/2021 Active Comment on above: Take 1 tablet by carmen th at 9pm and take 1 tablet by mouth at 11pm the night before surgery. Naproxen (10 sources) Nonsteroidal Anti-inflammatory Drug Start: NAPROXEN SODIUM (ALEVE ORAL) Take by mouth as needed. 0 09/08/2010 Active Comment on above: Take by mouth as nee ded. neomycin sulfate 500 mg oral tablet (1 source) Aminoglycoside Antibacterial Start: neomycin 500 mg tablet Take 2 tablets by mouth at 9pm and take 2 tablets by mouth at 11pm the night before surgery. 4 tablet 0 12/16/2021 Active Comment on above: Take 2 tablets by mo uth at 9pm and take 2 tablets by mouth at 11pm the night before surgery. omeprazole 20 mg delayed release oral tablet (10 sources) Proton Pump Inhibitor Start: 09-13-2 007 Omeprazole Magnesium (PRILOSEC OTC) 20 mg ORAL TbEC Take one(1) tablet daily.as needed otc 0 01/03/2007 Active Comment on above: Take one(1) tablet d aily.as needed P-EPHED HCL/ACETAMINOPHEN (EXCEDRIN SINUS ORAL) (10 sources) Start: 011 P-EPHED HCL/ACETAMINOPHEN (EXCEDRIN SINUS ORAL) Take by mouth as needed. 0 09/08/2010 Active Comment on above: Take by mouth as nee ded. polyethylene glycol 3350 070857 mg / potassium chloride 2970 mg / sodium bicarbonate 6740 mg / sodium chloride 5860 mg / sodium sulfate 56683 mg powder for oral solution (10 sources) Osmotic Laxative Start: 022 peg 3350-Electrolytes (GOLYTELY) 236-22.74-6.74 -5.86 gram suspension Refer to printed prep instructions from your provider. 4000 mL 0 09/29/2021 Active Comment on above: Refer to printed pre p instructions from your provider. Problems Active Problems Problem Classification Problem Date Documented Da te Episodic/Chronic Cardiac dysrhythmias (1 source) Paroxysmal atrial fibrillation; Translations: [Paroxysmal atrial fibrillation (HCC)] Onset: 02-12-2023 Chronic Gastrointestinal hemorrhage (2 sources) Hemorrhage of anus and rectum; Translations: [Hemorrhage of anus and rectum] Onset: 05-19-2022 Episodic Malignant neoplasm without specification of site (2 sources) Malignant neoplastic disease; Translations: [Malignant (primary) neoplasm, unspecified] Onset: 12-19-2021 12-21-2021 Chronic Neoplasms of unspecified nature or uncertain behavior (8 sources) Villous adenoma of colon; Translations: [Neoplasm of uncertain behavior of colon] Onset: 12-16-2021 Episodic Osteoarthritis (12 sources) Arthropathy of joint of hand; Translations: [Primary osteoarthritis, unspecified hand] Onset: 01-03-2007 01-03-2007 Chronic Other aftercare (2 sources) 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; Translations: [[facility] current use of antiarrhythmic drug] Onset: 02-12-2023 Episodic Other and unspecified benign neoplasm (14 sources) History of polyp of colon; Translations: [Personal history of colonic polyps] Episodic Other and unspecified benign neoplasm (1 source) Adenoma of large intestine; Translations: [Benign neoplasm of transverse colon] Episodic Other circulatory disease (1 source) Personal history of other diseases of the circulatory system; Translations: [History of cardiomyopathy] Onset: 02-12-2023 Episodic Other gastrointestinal disorders (1 source) Ileostomy present; Translations: [Encounter for attention to ileostomy] Chronic Other gastrointestinal disorders (1 source) Personal history of other diseases of the digestive system; Translations: [History of GI bleed] Onset: 02-12-2023 Episodic Other nervous system disorders (2 sources) Postoperative pain ; Translations: [Other acute postprocedural pain] Onset: 12-19-2021 12-22-2021 Episodic Other nutritional; endocrine; and metabolic disorders (2 sources) Overweight; Translations: [Overweight] Onset: 12-19-2021 12-22-2021 Episodic Residual codes; unclassified (1 source) Postoperative state; Translations: [Other specified postprocedural states] Episodic Residual codes; unclassified (2 sources) Other specified personal risk factors, not elsewhere classified; Translations: [At risk for stroke] Onset: 02-12-2023 Episodic Substance-related disorders (13 sources) Tobacco user; Translations: [Nicotine dependence, unspecified, uncomplicated] Onset: 01-03-2007 01-03-2007 Chronic Past or Other Problems Problem Classification Problem Date Documented Date Episodic/Chronic Biliary tract disease (12 sources) Gallstone; Translations: [Calculus of gallbladder without cholecystitis without obstruction] Onset: 01-16-2007 01-16-2007 Episodic Hemorrhoids (12 sources) Hemorrhoids; Translations: [Unspecified hemorrhoids] Onset: 05-03-2006 05-03-2006 Episodic Results Test Name Value Interpretation Reference Range Facility [facility] 02-13-2023 CNOV Office Visit (AGCARDPOB) PETER ORR ([id number]) 1950 M U[place] Date Time Provider Department 02/13/23 2:20 PM AMADA GLORIA During your visit today, we recorded the following information about you: Pulse Respiration Blood pressure Weight 54/minute 18/minute 138/68 82.1 kg Height 1.715 m Amada Gloria MD 02/22/2023 7:25 PM Signed PRIMARY CARE PHYSICIAN: Eliza Jacobs MD ([facility]) [address] [place] [address] REFERRING PHYSICIAN: Gianna Alvarado [address] [facility] [address] [facility] [address] Patient Care Team: Eliza Jacobs as PCP - General (Family Medicine) Gianna Alvarado MD as Specialty Benefits Director (Cardiology) Donny Villagomez MD as Specialty Benefits Director (Gastroenterology) CHIEF COMPLAINT: Evaluation for arrhythmia, atrial fibrillation HISTORY OF PRESENT ILLNESS: Mr. Orr is a 72 year old male who presents today for evaluation of atrial fibrillation, referred by Dr. Alvarado of [facility]. He has very complex medical history. He is accompanied by his . He had major GI bleeding in early 2022, states he had hemoglobin in the range of 5, was hospitalized and had blood transfusions. He states the bleeding was from hemorrhoids, underwent hemorrhoidectomy 07/2022. He has not had recurrence of the GI bleeding. He developed atrial fibrillation, he thinks about the same time as the GI bleeding. He was not aware of the arrhythmia, did not have any symptoms. Evidently he had a cardiomyopathy that was considered to be possibly tachycardia mediated, and this resolved. He has been amiodarone. He has not been aware of any recurrence of the atrial fibrillation, although as stated he was asymptomatic from it in the first instance. He and his are not aware that he has worn any cardiac monitoring. He has not been treated with oral anticoagulation therapy. He is referred for consideration of atrial fibrillation catheter ablation. He denies chest pain, shortness of breath, orthopnea, palpitations, PND, syncope. I have confirmed and edited as necessary, the PFSH and ROS obtained by others. PAST MEDICAL HISTORY Diagnosis Date Allergic rhinitis, cause unspecified At risk for bleeding associated with anticoagulants At risk for stroke Cardiomyopathy, unspecified (HCC) Closed fracture of unspecified bone L1 and spider cracks to thoracic lumbar Esophageal reflux Essential hypertension Heart failure, unspecified (HCC) History of cardiomyopathy History of GI bleed Internal hemorrhoids with other complication [facility] current use of amiodarone [facility] current use of antiarrhythmic drug Other chest pain Paroxysmal atrial fibrillation (HCC) Personal history of colonic polyps Colon polyps Variants of migraine, not elsewhere classified, without mention of intractable migraine without mention of status migrainosus 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 PAST SURGICAL HISTORY Procedure Laterality Date COLONOSCOPY FLX DX W/COLLJ SPEC WHEN PFRMD 11/21/02 Colonoscopy COLONOSCOPY FLX DX W/COLLJ SPEC WHEN PFRMD 08/01/2006 Colonoscopy HEMORRHOIDECTOMY INTERNAL RUBBER BAND LIGATIONS 1986 Hemorrhoidectomy LAPS SURG CHOLECYSTECTOMY W/CHOLANGIOGRAPHY 09/30/10 normal IOC TONSILLECTOMY PRIMARY/SECONDARY Tonsillectomy SOCIAL HISTORY Social History Tobacco Use Smoking status: Former Packs/day: 1.50 Years: 60.00 Additional pack years: 0.00 Total pack years: 90.00 Types: Cigarettes Start date: 1961 Quit date: 04/26/2022 Years since quittin.8 Smokeless tobacco: Never Substance Use Topics Alcohol use: No Drug use: Yes Frequency: 2.0 times per week Types: Marijuana Comment: Smokes 2x/week for pain FAMILY HISTORY Problem Relation Age of Onset Osteoporosis Mother Heart Attack Mother 92 Diabetes Mother Heart disease Father Diabetes Father Heart Failure Father had ICD Melanoma Father 50 No Known Problems Sister No Known Problems Sister No Known Problems Sister Stroke Maternal Grandmother Prostate Cancer Maternal Grandfather Anesthesia Problems No Family History ALLERGIES: ALLERGIES Allergen Reactions Penicillins Hives Petroleum Products * Rash Soaps [Other] Rash MEDICATIONS: ipratropium bromide (ATROVENT) 42 mcg (0.06 %) nasal spray levothyroxine (SYNTHROID) 50 mcg tablet Take 50 mcg by mouth daily before breakfast. furosemide (LASIX) 40 mg tablet Take 40 mg by mouth once daily. lisinopril (ZESTRIL) 10 mg tablet Take 10 mg by mouth two times a day. melatonin 10 mg chew Take 10 mg by mouth at bedtime as needed (insomnia). METOPROLOL TARTRATE ORAL Take 100 mg by mouth twice daily. TAKE 1/2 TAB 50 MG BID pantoprazole sodium (PANTOPRAZOLE ORAL) Take 40 mg by mouth once daily. amiodarone (PACERONE) 200 mg tablet Take 100 mg by m (more content not included)... Normal [facility] Final Surgical Pathology Rep tonya 05-23-2022 Final Surgical Pathology Report . Pathology Reports Accession: Collected Date/Time: Received Date/Time: Pathologist: [id number] 05/19/2022 08:29 EST 05/22/2022 09:18 EST MD KOREY GRIFFIN Final Surgical Pathology Report DIAGNOSIS: PROXIMAL SIGMOID COLON, BIOPSY:: - TUBULAR ADENOMA COMMENT: [facility] [id number] CLINICAL INFORMATION: Procedure: COLONOSCOPY WITH POLYPECTOMY Preoperative diagnosis: ACUTE BLOOD LOSS ANEMIA, RECTAL BLEED Postoperative diagnosis: SAME SPECIMEN: A PROXIMAL SIGMOID POLYP GROSS DESCRIPTION: A. Received in formalin, labeled with the patients name, Case #[id number], and proximal sigmoid are 3 kinney tissue fragments ranging from 0.1 to 0.2 cm. TS -1 Dictated by AMADA OSCAR MICROSCOPIC DESCRIPTION: The microscopic examination is performed, except in the case of Gross Only. Electronically Signed by Pathology Report verified by [facility] KOREY GRIFFIN MD Sign out Date: 05/23/2022 08:59 Performing Lab: [facility], [address] [place] [address] [facility] CNPN Telephone (PODCCP) PETER ORR ([id number]) 1950 M Date Time Provider Department 12/30/21 MENDOZA PARRA PODCC During your visit today, we recorded the following information about you: Allergies As of Date: 12/30/2021 Noted Allergy Reaction PENICILLINS 02/28/2005 4 - Hives petroleum products [Other] 02/28/2005 2 - Rash soaps [Other] 02/28/2005 2 - Rash Date Reviewed: 12/22/2021 Reviewed by: Kip Mitchell RN - Fully Assessed Reason for Visit: Follow Up Phone Call [[phone]] Cmt: Post Discharge F/U - attempt made. No answer. Prescriptions as of 12/30/2021 - ibuprofen (MOTRIN) 200 mg tablet Take 2-4 tablets by mouth every 8 hours as needed for pain. - acetaminophen (TYLENOL) 500 mg tablet Take 1-2 tablets by mouth every 6 hours as needed for pain. Problem List As Of Date 12/30/2021 Noted Resolved PERS HX COLONIC POLYPS [Z86.010] HEMORRHOIDS NOS [K64.9] 05/03/2006 ARTHROPATHY NOS-HAND [M19.049] 01/03/2007 Tobacco use disorder [F17.200] 01/03/2007 CHOLELITHIASIS NOS [K80.20] 01/16/2007 Villous adenoma of colon [D37.4] 12/16/2021 Villous adenocarcinoma (HCC) [C80.1] 12/19/2021 Overweight [E66.3] 12/19/2021 Postoperative pain [G89.18] 12/19/2021 Hypophosphataemia [E83.39] 12/21/2021 12/22/2021 Encounter Status:Closed by MENDOZA PARRA on 12/30/21 [facility] CNDSon 12-22-2021 [facility] HNO ID: [id number] Author: Rae Thompson PA-C Service: Colorectal Author Type: Physician Supervisor Cold Rolling Type: Discharge Summary Filed: 12/22/2021 10:00 AM Note Text: Attestation signed by Lefty Allred MD, PhD at 12/23/2021 10:30 AM Attending Note Reviewed the discharge summary for this patient being cared for by the [facility] team and agree with its content and above plan of care unless otherwise indicated. Signature: Lefty Allred MD, PhD Date: December 23, 2021 Time: 10:29 AM DISCHARGE SUMMARY PATIENT NAME: Peter Orr ADMISSION DATE: 12/19/2021 DISCHARGE DATE: 12/22/2021 Attending Physician: Deep Orozco MD (cpvered by Dr. Michele) Code Status: Not on file Principal Diagnosis: Large ascending colon adenoma Principal Problem: Villous adenoma of colon POA: Yes Active Problems: Tobacco use disorder POA: Yes Overweight POA: Yes Postoperative pain POA: No Resolved Problems: Hypophosphataemia POA: No Reason for Hospitalization: Peter Orr is a 71-year-old patient presented in clinics with results of a colonoscopy. The colon polyps had been seen, but not completely removed. The patient had noticed pain in his left groin with concern for hernia and underwent a CT scan at an outside hospital that demonstrated inguinal hernias in addition to a possible apple-core lesion in the cecum. Therefore, the colonoscopy was initiated. The apple-core lesion could be ruled out. However, multiple polyps were resected and an unresectable hepatic flexure lesion was excised only piecemeal and the patient was referred for surgical procedure. The patient endorsed gas-like pressure all over the belly every 3-4 days at which time he felt like unable to pass gas, but he had bowel movements every day on the other hand. At a repeat colonoscopy with Dr. Cervantes, a 6 cm carpet like polyp traversing at least 3 folds in the distal ascending colon was seen with central depression, which was suspicious and could not be removed endoscopically. The opposite wall was tattooed. He presented for below listed operation. Operations During Hospitalization: Diagnostic laparoscopy, repositioning of incarcerated colon from inguinal hernia, laparoscopic hepatic flexure mobilization, laparoscopic-assisted right hemicolectomy with high ligation of the ileocolic vessels, and omentoplasty. Procedures During Hospitalization: No procedures performed Hospital Course: Peter Orr came to the hospital to have surgery with Deep Orozco MD. Please see operative report for full details. Afterward, the patient was transferred to a regular nursing floor. Pain was controlled with oral and IV medication per ERAS protocol and his intake and output was closely monitored. Diet was advanced as tolerated. Vallejo catheter was removed on postoperative day (POD) 1 and he voided independently. DVT prophylaxis was managed by Lovenox 40 mg daily and intermittent compression stockings. His electrolytes were monitored with daily labs and replaced as needed. Once the patient's pain was controlled with oral medication, GI soft diet was tolerated, and demonstrated appropriate bowel function, he was deemed fit for discharge. The patient is asked to please follow up with Cheryl Wilkins CNP as scheduled. Transitions of Care Critical Issues: LABS AND PROCEDURES PENDING AT DISCHARGE: Pathology Results (surgical pahtology pending) Consulting Teams During Hospitalization: nutrition, CM Treatment Team: Attending Provider: Deep Orozco MD Patient Condition @ Discharge: Stable Discharge Disposition: Home with Self Care Information Provided to Patient: Discharge instructions Diet: Low soft-fiber diet: No fresh fruits, whole grains, foods difficult to digest, or vegetables (unless they are well-cooked) Activity: No heavy lifting, pushing or pulling greater than 10 pounds including unloading the obstetrics teacher, moving wet laundry and vacuuming for 6 weeks No driving for 2 weeks. Take someone with you the first time you drive. No driving while on narcotics Stairs are allowed and walking is encouraged Wound/Surgical Site Care: Allow steri strips to fall off on their own. If they have not fallen off in 7-10 days, ok to remove in the shower. ALLERGIES Allergen Reactions Penicillins Hives Petroleum Products * Rash Soaps [Other] Rash Discharge Medications: Current Discharge Medication List START taking these medications ibuprofen (MOTRIN) 400-800 mg Take 400-800 mg by mouth every 8 hours as needed for pain. CONTINUE these medications which have CHANGED acetaminophen (TYLENOL) 500-1,000 mg Take 500-1,000 mg by mouth every 6 hours as needed for pain. STOP taking these medications neomycin 500 mg (more content not included)... Normal [facility] CRP SerPl-ncon 12-22-2021 CRP [Mass/Vol] 3.3 mg/dL High <0.9 [facility] Comment on above: Order Comment: Speci men Type: BLOOD SPECIMENOrdering Facility: [facility] Address: [address] [place], [place] [address] Performed By: #### 1 988-5 ####[facility] LABCL[facility] [id number] [place] [address] [place] CRP [Mass/Vol] 3.9 mg/dL High <0.9 [facility] Comment on above: Order Comment: Speci men Type: BLOOD SPECIMENOrdering Facility: [facility] Address: [address] [place], [place] [address] Performed By: #### 1 988-5 ####[facility] LABCL[facility] [id number] [place] [address] [place] Basic metabolic 2000 panelon 12-21-2021 Anion gap [Moles/Vol] 16 mmol/L Normal 9-18 [facility] Comment on above: Order Comment: Speci men Type: BLOOD SPECIMENOrdering Facility: [facility] Address: [address] [place] [address] Performed By: #### 2 4321-2, 1987-08, , 2776-04 ####[facility] LABIA [id number] [place] [address] [place] Calcium [Mass/Vol] 8.9 mg/dL Normal 8.5-10.2 [facility] Comment on above: Order Comment: Speci men Type: BLOOD SPECIMENOrdering Facility: [facility] Address: [address] [place], [place] [address] Performed By: #### 2 4321-2, 1987-08, , 2776-04 ####[facility] LABIA [id number] [place] [address] [place] Chloride [Moles/Vol] 104 mmol/L Normal 97-105 [facility] Comment on above: Order Comment: Speci men Type: BLOOD SPECIMENOrdering Facility: [facility] Address: [address] [place] [address] Performed By: #### 2 4320-, 1987-08, , 2776-04 ####[facility] LABIA [id number] [place] [address] [place] CO2 [Moles/Vol] 19 mmol/L Low 22-30 [facility] Comment on above: Order Comment: Speci men Type: BLOOD SPECIMENOrdering Facility: [facility] Address: [address] [place] [address] Performed By: #### 2 4320-, 1987-08, , 2776-04 ####[facility] LABIA [id number] [place] [address] [place] Creatinine [Mass/Vol] 1.18 mg/dL Normal 0.73-1.22 [facility] Comment on above: Order Comment: Speci men Type: BLOOD SPECIMENOrdering Facility: [facility] Address: [address] [place] [address] Performed By: #### 2 4320-05, 1987-08, , 2776-04 ####[facility] [id number] [place] [address] [place] ESTIMATED GLOMERULAR FILTRATION RATE 65 mL/min/1.73m??? Normal >=60 [facility] Comment on above: Order Comment: Speci men Type: BLOOD SPECIMENOrdering Facility: [facility] Address: [address] [place] [address] Result Comment: Swati mated Glomerular Filtration Rate (eGFR) is calculated using the 2020 CKD-EPI creatinine equation. This equation utilizes serum creatinine, sex, and age as parameters. The creatinine assay has traceable calibration to isotope dilution-mass spectrometry. Refer to KDIGO guidelines for clinical interpretation. In patients with unstable renal function, e.g. those with acute kidney injury, the eGFR may not accurately reflect actual GFR. Performed By: #### 2 4320-2, 1987-08, , 2776-04 ####[facility] LABCLIA [id number] [address] [address] [place] Glucose [Mass/Vol] 151 mg/dL High 74-99 [facility] Comment on above: Order Comment: Speci men Type: BLOOD SPECIMENOrdering Facility: [facility] Address: [address] [place] [id number] Result Comment: The [place] Diabetes Association (ADA) provides guidance for cutoff values for fasting glucose and random glucose. The ADA defines fasting as no caloric intake for at least 8 hours. Fasting plasma glucose results between 100 to 125 mg/dL indicate increased risk for diabetes (prediabetes). Fasting plasma glucose results greater than or equal to 126 mg/dL meet the criteria for diagnosis of diabetes. In the absence of unequivocal hyperglycemia, results should be confirmed by repeat testing. In a patient with classic symptoms of hyperglycemia or hyperglycemic crisis, random plasma glucose results greater than or equal to 200 mg/dL meet the criteria for diagnosis of diabetes. Reference: Standards of Medical Care in Diabetes 2016, [place] [employer]. Diabetes Care. 2016.39(Suppl 1). Performed By: #### 2 4321-2, 1987-08, , 2776-04 ####[facility] [id number] [place] [address] [place] Potassium [Moles/Vol] 3.7 mmol/L Normal 3.7-5.1 [facility] Comment on above: Order Comment: Speci men Type: BLOOD SPECIMENOrdering Facility: [facility] Address: [address] [place] [address] Performed By: #### 2 4321-2, 1987-08, , 2776-04 ####[facility] [id number] [address] [address] [place] Sodium [Moles/Vol] 139 mmol/L Normal 136-144 [facility] Comment on above: Order Comment: Speci men Type: BLOOD SPECIMENOrdering Facility: [facility] Address: [address] [place] [address] Performed By: #### 2 4320-2, 1987-08, , 2776- ####[facility] [id number] [place] [address] [place] Urea nitrogen [Mass/Vol] 11 mg/dL Normal 9-24 [facility] Comment on above: Order Comment: Speci men Type: BLOOD SPECIMENOrdering Facility: [facility] Address: [address] [place], [place] [address] Performed By: #### 2 4320-2, 1987-08, , 2776-04 ####[facility] [id number] [place] [address] [place] CBC W Auto Differential pane l (Bld)on 12-21-2021 Basophils (Bld) [#/Vol] 0.04 10*3/uL Normal <0.11 [facility] Comment on above: Order Comment: Speci men Type: BLOOD SPECIMENOrdering Facility: [facility] Address: [address] [place] [address] Performed By: #### 5 7021-8 ####[facility] [id number] [place] [address] [place] Basophils/100 WBC (Bld) 0.4 % Normal [facility] Comment on above: Order Comment: Speci men Type: BLOOD SPECIMENOrdering Facility: [facility] Address: [address] [place], [place] [address] Performed By: #### 5 7021-8 ####[facility] [id number] [place] [address] [place] Differential cell count method Nom (Bld) Auto Normal [facility] Comment on above: Order Comment: Speci men Type: BLOOD SPECIMENOrdering Facility: [facility] Address: [address] [place], [place] [address] Performed By: #### 5 7021-8 ####[facility] [id number] [place] [address] [place] Eosinophils (Bld) [#/Vol] 10*3/uL Normal <0.46 [facility] Comment on above: Order Comment: Speci men Type: BLOOD SPECIMENOrdering Facility: [facility] Address: [address] [place] [address] Performed By: #### 5 7021-8 ####[facility] [id number] [place] [address] [place] Eosinophils/100 WBC (Bld) 0.0 % Normal [facility] Comment on above: Order Comment: Speci men Type: BLOOD SPECIMENOrdering Facility: [facility] Address: [address] [place] [address] Performed By: #### 5 7021-8 ####[facility] [id number] [address] [place] Erythrocyte distribution width (RBC) [Ratio] 11.9 % Normal 11.5-15.0 [facility] Comment on above: Order Comment: Speci men Type: BLOOD SPECIMENOrdering Facility: [facility] Address: [address] [place], [place] [address] Performed By: #### 5 7021-8 ####[facility] [id number] [place] [address] [place] Hematocrit (Bld) [Volume fraction] 41.1 % Normal 39.0-51.0 [facility] Comment on above: Order Comment: Speci men Type: BLOOD SPECIMENOrdering Facility: [facility] Address: [address] [place], [place] [address] Performed By: #### 5 7021-8 ####[facility] [id number] [place] [address] [place] Hemoglobin (Bld) [Mass/Vol] 14.3 g/dL Normal 13.0-17.0 [facility] Comment on above: Order Comment: Speci men Type: BLOOD SPECIMENOrdering Facility: [facility] Address: [address] [place], [place] [address] Performed By: #### 5 7021-8 ####[facility] [id number] [place] [address] [place] IMMATURE GRAN % 0.4 % Normal [facility] Comment on above: Order Comment: Speci men Type: BLOOD SPECIMENOrdering Facility: [facility] Address: [address] [place], [place] [address] Performed By: #### 5 7021-8 ####[facility] [id number] [address] [place] IMMATURE GRAN ABS 0.04 k/uL Normal <0.10 [facility] Comment on above: Order Comment: Speci men Type: BLOOD SPECIMENOrdering Facility: [facility] Address: [address] [place], [place] [address] Performed By: #### 5 7021-8 ####[facility] [id number] [place] [address] [place] Lymphocytes (Bld) [#/Vol] 1.36 10*3/uL Normal 1.00-4.00 [facility] Comment on above: Order Comment: Speci men Type: BLOOD SPECIMENOrdering Facility: [facility] Address: [address] [place], [place] [address] Performed By: #### 5 7021-8 ####[facility] [id number] [address] [place] Lymphocytes/100 WBC (Bld) 13.3 % Normal [facility] Comment on above: Order Comment: Speci men Type: BLOOD SPECIMENOrdering Facility: [facility] Address: [address] [place], [place] [address] Performed By: #### 5 7021-8 ####[facility] [id number] [place] [address] [place] MCH (RBC) [Entitic mass] 32.4 pg Normal 26.0-34.0 [facility] Comment on above: Order Comment: Speci men Type: BLOOD SPECIMENOrdering Facility: [facility] Address: [address] [place], [place] [address] Performed By: #### 5 7021-8 ####[facility] [id number] [place] [address] [place] MCHC (RBC) [Mass/Vol] 34.8 g/dL Normal 30.5-36.0 [facility] Comment on above: Order Comment: Speci men Type: BLOOD SPECIMENOrdering Facility: [facility] Address: [address] [place], [place] [address] Performed By: #### 5 7021-8 ####[facility] [id number] [place] [address] [place] MCV (RBC) [Entitic vol] 93.0 fL Normal 80.0-100.0 [facility] Comment on above: Order Comment: Speci men Type: BLOOD SPECIMENOrdering Facility: [facility] Address: [address] [place], [place] [address] Performed By: #### 5 7021-8 ####[facility] [id number] [place] [address] [place] Monocytes (Bld) [#/Vol] 0.67 10*3/uL Normal <0.87 [facility] Comment on above: Order Comment: Speci men Type: BLOOD SPECIMENOrdering Facility: [facility] Address: [address] [place], [place] [address] Performed By: #### 5 7021-8 ####[facility] [id number] [place] [id number] [place] Monocytes/100 WBC (Bld) 6.6 % Normal [facility] Comment on above: Order Comment: Speci men Type: BLOOD SPECIMENOrdering Facility: [facility] Address: [address] [place], [place] [address] Performed By: #### 5 7021-8 ####[facility] [id number] [place] [address] [place] Neutrophils (Bld) [#/Vol] 8.09 10*3/uL High 1.45-7.50 [facility] Comment on above: Order Comment: Speci men Type: BLOOD SPECIMENOrdering Facility: [facility] Address: [address] [place] [address] Performed By: #### 5 7021-8 ####[facility] [id number] [place] [address] [place] Neutrophils/100 WBC (Bld) 79.3 % Normal [facility] Comment on above: Order Comment: Speci men Type: BLOOD SPECIMENOrdering Facility: [facility] Address: [address] [place], [place] [address] Performed By: #### 5 7021-8 ####[facility] [id number] [place] [address] [place] Nucleated RBC (Bld) [#/Vol] 10*3/uL Normal <0.01 [facility] Comment on above: Order Comment: Speci men Type: BLOOD SPECIMENOrdering Facility: [facility] Address: [address] [place], [place] [address] Performed By: #### 5 7021-8 ####[facility] [id number] [place] [address] [place] Nucleated RBC/100 WBC (Bld) [Ratio] 0.0 /100 WBC Normal [facility] Comment on above: Order Comment: Speci men Type: BLOOD SPECIMENOrdering Facility: [facility] Address: [address] [place], [place] [address] Performed By: #### 5 7021-8 ####[facility] [id number] [place] [address] [place] Platelet mean volume (Bld) [Entitic vol] 10.5 fL Normal 9.0-12.7 [facility] Comment on above: Order Comment: Speci men Type: BLOOD SPECIMENOrdering Facility: [facility] Address: [address] [place], [place] [address] Performed By: #### 5 7021-8 ####[facility] [id number] [place] [address] [place] Platelets (Bld) [#/Vol] 185 10*3/uL Normal 150-400 [facility] Comment on above: Order Comment: Speci men Type: BLOOD SPECIMENOrdering Facility: [facility] Address: [address] [place], [place] [address] Performed By: #### 5 7021-8 ####[facility] [id number] [place] [address] [place] RBC (Bld) [#/Vol] 4.42 10*6/uL Normal 4.20-6.00 [facility] Comment on above: Order Comment: Speci men Type: BLOOD SPECIMENOrdering Facility: [facility] Address: [address] [place] [address] Performed By: #### 5 7021-8 ####[facility] [id number] [place] [address] [place] WBC (Bld) [#/Vol] 10.20 10*3/uL Normal 3.70-11.00 [facility] Comment on above: Order Comment: Speci men Type: BLOOD SPECIMENOrdering Facility: [facility] Address: [address] [place], [place] [address] Performed By: #### 5 7021-8 ####[facility] [id number] [place] [id number] [facility] CRP SerPl-mCncon 12-21-2021 CRP [Mass/Vol] 4.2 mg/dL High <0.9 [facility] Comment on above: Order Comment: Speci men Type: BLOOD SPECIMENOrdering Facility: [facility] Address: [address] [place], [place] [address] Performed By: #### 2 4321-2, 1987-08, , 2776-04 ####[facility] [id number] [address] [facility] Magnesium SerPl-ncon 12-21 Magnesium [Mass/Vol] 1.9 mg/dL Normal 1.7-2.3 [facility] Comment on above: Order Comment: Speci men Type: BLOOD SPECIMENOrdering Facility: [facility] Address: [address] [place], [place] [address] Performed By: #### 2 432-2, 1987-08, , 2776-04 ####[facility] [id number] [place] [id number] [facility] NURSING PROGon 12-21-2021 NURSING PROG HNO ID: [id number] Author: Heavenly Christiansen RN Service: Nursing Author Type: Registered Nurse Type: Nursing Progress Note Filed: 12/21/2021 12:33 AM Note Text: Other: 0032- Paged colorectal regarding patient 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 Patient not feeling well. Nauseous- Zofran not of relief and feels flushed. Normal [facility] PT EDon 12-21-2021 PT ED HNO ID: [id number] Author: Adelaida Love DTR Service: Nutrition Therapy Author Type: Electric Sealing Machine Operator Type: Patient Education Filed: 12/21/2021 2:30 PM Note Text: NUTRITION THERAPY PATIENT EDUCATION SERVICE DATE: 12/21/2021 SERVICE TIME: 1020 TOPIC: Diet: Gastrointestinal diet LEARNING ASSESSMENT Individuals Assessed: Patient and Family Preferred Learning Method: Preferred Learning Method: Individual Instruction, Verbal Instruction, and Written Instruction Barriers to Learning: Barriers to Learning: None Evident LEARNING RESPONSE Instruction Provided to: Patient and Family member Patient / Family Response: Performs Independently and Verbalizes Understanding Method of Instruction: Individual instruction Written instruction - handouts Verbal instruction Material(s) Provided to Patient: G/L for GI Soft Diet Follow-Up Plan: Complete - No need for follow-up Patient instructed to call with any further issues Contact information given. Referral (Recommendation): MNT Billing: $ Routine Care : 16-30 minutes SIGNATURE: Adelaida Love DTR PATIENT NAME: Peter Orr DATE: December 21, 2021 TIME: 2:29 PM PAGER: Normal [facility] Phosphate SerPl-mCncon 12-21 Phosphate [Mass/Vol] 1.7 mg/dL Low 2.7-4.8 [facility] Comment on above: Order Comment: Speci men Type: BLOOD SPECIMENOrdering Facility: [facility] Address: [address] [place], [place] [address] Performed By: #### 2 4321-2, 1988-, , 2776-04 ####[facility] [id number] [place] [id number] [place] Basic metabolic 2000 panelon 12-20-2021 Anion gap [Moles/Vol] 10 mmol/L Normal 9-18 [facility] Comment on above: Order Comment: Speci men Type: BLOOD SPECIMENOrdering Facility: [facility] Address: [address] [place], [place] [address] Performed By: #### 1 988-5, 49579-3, , SRIKANTH, 2776- ####[facility] [id number] [place] [address] [place] Calcium [Mass/Vol] 8.8 mg/dL Normal 8.5-10.2 [facility] Comment on above: Order Comment: Speci men Type: BLOOD SPECIMENOrdering Facility: [facility] Address: [address] [place], [place] [address] Performed By: #### 1 988-5, 39935-8, 17472-7, SRIKANTH, 2776-1 ####[facility] [id number] [place] [address] [place] Chloride [Moles/Vol] 104 mmol/L Normal 97-105 [facility] Comment on above: Order Comment: Speci men Type: BLOOD SPECIMENOrdering Facility: [facility] Address: [address] [place] [address] Performed By: #### 1 988-5, 62630-3, , SRIKANTH, 2776-1 ####[facility] [id number] [place] [address] [place] CO2 [Moles/Vol] 23 mmol/L Normal 22-30 [facility] Comment on above: Order Comment: Speci men Type: BLOOD SPECIMENOrdering Facility: [facility] Address: [address] [place] [address] Performed By: #### 1 988-5, 33304-4, , SRIKANTH, 2776-1 ####[facility] [id number] [place] [address] [place] Creatinine [Mass/Vol] 1.29 mg/dL High 0.73-1.22 [facility] Comment on above: Order Comment: Speci men Type: BLOOD SPECIMENOrdering Facility: [facility] Address: [address] [place], [place] [address] Performed By: #### 1 988-5, 53136-0, , SRIKANTH, 2776-1 ####[facility] [id number] [place] [address] [place] ESTIMATED GLOMERULAR FILTRATION RATE 59 mL/min/1.73m??? Low >=60 [facility] Comment on above: Order Comment: Carolyne wilhelm Type: BLOOD SPECIMENOrdering Facility: [facility] Address: [address] [place] [address] Result Comment: Swati mated Glomerular Filtration Rate (eGFR) is calculated using the 2020 CKD-EPI creatinine equation. This equation utilizes serum creatinine, sex, and age as parameters. The creatinine assay has traceable calibration to isotope dilution-mass spectrometry. Refer to KDIGO guidelines for clinical interpretation. In patients with unstable renal function, e.g. those with acute kidney injury, the eGFR may not accurately reflect actual GFR. Performed By: #### 1 988-5, 86174-4, , SRIKANTH, 2776- ####[facility] [id number] [place] [id number] [place] Glucose [Mass/Vol] 121 mg/dL High 74-99 [facility] Comment on above: Order Comment: Carolyne wilhelm Type: BLOOD SPECIMENOrdering Facility: [facility] Address: [address] [place], [place] [address] [address] Result Comment: The [place] [employer] (ADA) provides guidance for cutoff values for fasting glucose and random glucose. The ADA defines fasting as no caloric intake for at least 8 hours. Fasting plasma glucose results between 100 to 125 mg/dL indicate increased risk for diabetes (prediabetes). Fasting plasma glucose results greater than or equal to 126 mg/dL meet the criteria for diagnosis of diabetes. In the absence of unequivocal hyperglycemia, results should be confirmed by repeat testing. In a patient with classic symptoms of hyperglycemia or hyperglycemic crisis, random plasma glucose results greater than or equal to 200 mg/dL meet the criteria for diagnosis of diabetes. Reference: Standards of Medical Care in Diabetes 2016, [place] [employer]. Diabetes Care. 2016.39(Suppl 1). Performed By: #### 1 988-5, 92546-2, 10608-3, SRIKANTH, 2776- ####[facility] [id number] [address] [address] [place] Potassium [Moles/Vol] 4.2 mmol/L Normal 3.7-5.1 [facility] Comment on above: Order Comment: Speci men Type: BLOOD SPECIMENOrdering Facility: [facility] Address: [address] [place] [address] Performed By: #### 1 988-5, 16523-7, 65721-5, SRIKANTH, 2777-1 ####[facility] [id number] [place] [address] [place] Sodium [Moles/Vol] 137 mmol/L Normal 136-144 [facility] Comment on above: Order Comment: Speci men Type: BLOOD SPECIMENOrdering Facility: [facility] Address: [address] [place] [address] Performed By: #### 1 988-5, 06490-9, , SRIKANTH, 2777-1 ####[facility] [id number] [place] [address] [place] Urea nitrogen [Mass/Vol] 12 mg/dL Normal 9-24 [facility] Comment on above: Order Comment: Speci men Type: BLOOD SPECIMENOrdering Facility: [facility] Address: [address] [place] [address] Performed By: #### 1 988-5, 72264-2, , SRIKANTH, 2777-1 ####[facility] [id number] [place] [address] [place] CBC W Auto Differential pane l (Bld)on 12-20-2021 Basophils (Bld) [#/Vol] 10*3/uL Normal <0.11 [facility] Comment on above: Order Comment: Speci men Type: BLOOD SPECIMENOrdering Facility: [facility] Address: [address] [place] [address] Performed By: #### 5 7021-8 ####[facility] [id number] [place] [address] [place] Basophils/100 WBC (Bld) 0.1 % Normal [facility] Comment on above: Order Comment: Speci men Type: BLOOD SPECIMENOrdering Facility: [facility] Address: [address] [place], [place] [address] Performed By: #### 5 7021-8 ####[facility] [id number] [address] [place] Differential cell count method Nom (Bld) Auto Normal [facility] Comment on above: Order Comment: Speci men Type: BLOOD SPECIMENOrdering Facility: [facility] Address: [address] [place], [place] [address] Performed By: #### 5 7021-8 ####[facility] [id number] [place] [address] [place] Eosinophils (Bld) [#/Vol] 10*3/uL Normal <0.46 [facility] Comment on above: Order Comment: Speci men Type: BLOOD SPECIMENOrdering Facility: [facility] Address: [address] [place], [place] [address] Performed By: #### 5 7021-8 ####[facility] [id number] [address] [facility] Eosinophils/100 WBC (Bld) 0.1 % Normal [facility] Comment on above: Order Comment: Speci men Type: BLOOD SPECIMENOrdering Facility: [facility] Address: [address] [place] [address] Performed By: #### 5 7021-8 ####[facility] [id number] [place] [address] [place] Erythrocyte distribution width (RBC) [Ratio] 12.1 % Normal 11.5-15.0 [facility] Comment on above: Order Comment: Speci men Type: BLOOD SPECIMENOrdering Facility: [facility] Address: [address] [place], [place] [address] Performed By: #### 5 7021-8 ####[facility] [id number] [address] [facility] Hematocrit (Bld) [Volume fraction] 37.7 % Low 39.0-51.0 [facility] Comment on above: Order Comment: Speci men Type: BLOOD SPECIMENOrdering Facility: [facility] Address: [address] [place] [address] Performed By: #### 5 7021-8 ####[facility] [id number] [address] [place] Hemoglobin (Bld) [Mass/Vol] 13.0 g/dL Normal 13.0-17.0 [facility] Comment on above: Order Comment: Speci men Type: BLOOD SPECIMENOrdering Facility: [facility] Address: [address] [place], [place] [address] Performed By: #### 5 7021-8 ####[facility] [id number] [address] IMMATURE GRAN % 0.7 % Normal [facility] Comment on above: Order Comment: Speci men Type: BLOOD SPECIMENOrdering Facility: [facility] Address: [address] [place], [place] [address] Performed By: #### 5 7021-8 ####[facility] [id number] [address] [place] IMMATURE GRAN ABS 0.06 k/uL Normal <0.10 [facility] Comment on above: Order Comment: Speci men Type: BLOOD SPECIMENOrdering Facility: [facility] Address: [address] [place] [address] Performed By: #### 5 7021-8 ####[facility] [id number] [place] [address] [facility] [place] Lymphocytes (Bld) [#/Vol] 1.57 10*3/uL Normal 1.00-4.00 [facility] Comment on above: Order Comment: Speci men Type: BLOOD SPECIMENOrdering Facility: [facility] Address: [address] [place] [address] Performed By: #### 5 7021-8 ####[facility] [id number] [place] [address] [place] Lymphocytes/100 WBC (Bld) 17.9 % Normal [facility] Comment on above: Order Comment: Speci men Type: BLOOD SPECIMENOrdering Facility: [facility] Address: [address] [place], [place] [address] Performed By: #### 5 7021-8 ####[facility] [id number] [place] [address] [place] MCH (RBC) [Entitic mass] 32.7 pg Normal 26.0-34.0 [facility] Comment on above: Order Comment: Speci men Type: BLOOD SPECIMENOrdering Facility: [facility] Address: [address] [place], [place] [address] Performed By: #### 5 7021-8 ####[facility] [id number] [place] [address] [place] MCHC (RBC) [Mass/Vol] 34.5 g/dL Normal 30.5-36.0 [facility] Comment on above: Order Comment: Speci men Type: BLOOD SPECIMENOrdering Facility: [facility] Address: [address] [place], [place] [address] Performed By: #### 5 7021-8 ####[facility] [id number] [place] [address] [place] MCV (RBC) [Entitic vol] 95.0 fL Normal 80.0-100.0 [facility] Comment on above: Order Comment: Speci men Type: BLOOD SPECIMENOrdering Facility: [facility] Address: [address] [place], [place] [address] Performed By: #### 5 7021-8 ####[facility] [id number] [place] [address] [place] Monocytes (Bld) [#/Vol] 0.68 10*3/uL Normal <0.87 [facility] Comment on above: Order Comment: Speci men Type: BLOOD SPECIMENOrdering Facility: [facility] Address: [address] [place], [place] [address] Performed By: #### 5 7021-8 ####[facility] [id number] [place] [address] [place] Monocytes/100 WBC (Bld) 7.7 % Normal [facility] Comment on above: Order Comment: Speci men Type: BLOOD SPECIMENOrdering Facility: [facility] Address: [address] [place], [place] [address] Performed By: #### 5 7021-8 ####[facility] LABCLIA [id number] [place] [address] [place] Neutrophils (Bld) [#/Vol] 6.46 10*3/uL Normal 1.45-7.50 [facility] Comment on above: Order Comment: Speci men Type: BLOOD SPECIMENOrdering Facility: [facility] Address: [address] [place], [place] [address] Performed By: #### 5 7021-8 ####[facility] LABCLIA [id number] [place] [address] [place] Neutrophils/100 WBC (Bld) 73.5 % Normal [facility] Comment on above: Order Comment: Speci men Type: BLOOD SPECIMENOrdering Facility: [facility] Address: [address] [place], [place] [address] Performed By: #### 5 7021-8 ####[facility]CL[facility] [id number] [place] [address] [place] Nucleated RBC (Bld) [#/Vol] 10*3/uL Normal <0.01 [facility] Comment on above: Order Comment: Speci men Type: BLOOD SPECIMENOrdering Facility: [facility] Address: [address] [place], [place] [address] Performed By: #### 5 7021-8 ####[facility] LABIA [id number] [place] [address] [place] Nucleated RBC/100 WBC (Bld) [Ratio] 0.0 /100 WBC Normal [facility] Comment on above: Order Comment: Speci men Type: BLOOD SPECIMENOrdering Facility: [facility] Address: [address] [place], [place] [address] Performed By: #### 5 7021-8 ####[facility] LABIA [id number] [place] [address] [place] Platelet mean volume (Bld) [Entitic vol] 11.0 fL Normal 9.0-12.7 [facility] Comment on above: Order Comment: Speci men Type: BLOOD SPECIMENOrdering Facility: [facility] Address: [address] [place], [place] [address] Performed By: #### 5 7021-8 ####[facility] LABIA [id number] [place] [address] [place] Platelets (Bld) [#/Vol] 166 10*3/uL Normal 150-400 [facility] Comment on above: Order Comment: Speci men Type: BLOOD SPECIMENOrdering Facility: [facility] Address: [address] [place], [place] [address] Performed By: #### 5 7021-8 ####[facility] LABCLIA [id number] [place] [address] [place] RBC (Bld) [#/Vol] 3.97 10*6/uL Low 4.20-6.00 [facility] Comment on above: Order Comment: Speci men Type: BLOOD SPECIMENOrdering Facility: [facility] Address: [address] [place] [address] Performed By: #### 5 7021-8 ####[facility]CLIA [id number] [place] [address] [place] [facility] WBC (Bld) [#/Vol] 8.79 10*3/uL Normal 3.70-11.00 [facility] Comment on above: Order Comment: Speci men Type: BLOOD SPECIMENOrdering Facility: [facility] Address: [address] [place] [address] Performed By: #### 5 7021-8 ####[facility]CL[facility] [id number] [address] [place] [facility] CRP [Mass/Vol] 2.6 mg/dL High <0.9 [facility] Comment on above: Order Comment: Speci men Type: BLOOD SPECIMENOrdering Facility: [facility] Address: [address] [place] [address] Performed By: #### 1 988-5, 45034-5, 23574-2, SRIKANTH, 2777-1 ####[facility] LABCLIA [id number] [place] [address] [place] ECG COMPLETEon 12-20-2021 Atrial Rate 62 BPM [facility] Calculated P [place] 69 degrees [facility] Calculated R [place] -5 degrees [facility] Calculated T [place] 55 degrees [facility] P-R Interval 146 ms [facility] QRS Duration 82 ms [facility] QT Interval 412 ms [facility] QTC Calculation (Bazett) 418 ms [facility] Ventricular Rate 62 BPM [facility] Magnesium SerPl-mCncon 12-20 Magnesium [Mass/Vol] 1.9 mg/dL Normal 1.7-2.3 [facility] Comment on above: Order Comment: Speci men Type: BLOOD SPECIMENOrdering Facility: [facility] Address: [address] [place] [address] Performed By: #### 1 988-5, 82205-5, 58272-1, SRIKANTH, 2777-1 ####[facility] LABCLIA [id number] [place] [id number] [place] Phosphate SerPl-mCncon 12-20 Phosphate [Mass/Vol] 2.8 mg/dL Normal 2.7-4.8 [facility] Comment on above: Order Comment: Speci men Type: BLOOD SPECIMENOrdering Facility: [facility] Address: [address] [place] [address] Performed By: #### 1 988-5, 88597-4, 41889-3, SRIKANTH, 2777-1 ####[facility] LABCLIA [id number] [place] [address] [place] TROPONIN Ton 12-20-2021 Troponin T.cardiac [Mass/Vol] ug/L Normal 0.000-0.029 [facility] Comment on above: Order Comment: Speci men Type: BLOOD SPECIMENOrdering Facility: [facility] Address: [address] [place] [address] Performed By: #### 1 988-5, 12623-2, 94165-3, SRIKANTH, 2777-1 ####[facility] LABIA [id number] [place] [address] [place] ANES POSTPROC EVALon 022 ANES POSTPROC EVAL HNO ID: [id number] Author: Tavo Rankin MD Service: ? Author Type: Anesthesiologist Type: Anesthesia Postprocedure Evaluation Filed: 12/20/2021 11:01 AM Note Text: POST ANESTHESIA EVALUATION NOTE : 1950 Procedure Summary Date: 12/19/21 Room / Location: [address] [facility] Anesthesia Start: 32 Anesthesia Stop: 1210 Procedure: LAPAROSCOPIC HEMICOLECTOMY WITH ANASTOMOSIS (Abdomen) Diagnosis: Villous adenoma of colon (Villous adenoma of colon [D37.4]) Surgeons: Deep Orozco MD Responsible Provider: Tavo Rankin MD Anesthesia Type: general ASA Status: 3 Anesthesia Type: general Airway Type: ETT Last Vitals Vitals Value Taken Time BP 138/66 12/20/21 1009 Temp 37.1 ?C (98.8 ?F) 12/20/21 1009 Pulse 100 12/20/21 1009 Resp 18 12/20/21 1009 SpO2 93 % 12/20/21 1009 Post Anesthesia Patient Status Patient Evaluation: PACU. PACU/ICU Patient Condition: stable. Neurological Status: aware and responsive. Pulmonary Status: breathing comfortably on supplemental oxygen Airway Control: returned to baseline unsupported. Cardiovascular Status: stable. Pain Management: clinically adequate Postoperative Hydration: acceptable. Intraoperative Events: no significant anesthesia events Post Operative Nausea/Vomiting Status: no significant post operative nausea or vomiting Anesthetic Observations: Recommendation: continue current plan of care and further care per PACU/ICU/floor team. Anesthesia Observations No Documentation SIGNATURE: Tavo Rankin MD PATIENT NAME: Peter Orr DATE: December 20, 2021 TIME: 10:53 AM CSN: [id number] Normal [facility] ANES PRE-OPon 12-19-2021 ANES PRE-OP HNO ID: [id number] Author: Yaneli Dyson MD Service: ? Author Type: Anesthesiologist Type: Anesthesia Preprocedure Evaluation Filed: 12/19/2021 7:38 AM Note Text: ANESTHESIOLOGY DAY OF SURGERY NOTE : 1950 Procedure Information Anesthesia Start Date/Time: 12/19/217[address] Procedure: LAPAROSCOPIC HEMICOLECTOMY WITH ANASTOMOSIS (Abdomen) Location: [facility] Surgeons: Deep Orozco MD Estimated body mass index is 27.16 kg/m? as calculated from the following: Height as of this encounter: 171.5 cm (5' 7.5 ). Weight as of this encounter: 79.8 kg (176 lb). Most recent hematocrit and potassium results: Hematocrit 46.7 12/16/2021 Potassium 4.7 12/16/2021 Relevant Problems CARDIO (+) Unspecified hemorrhoids without mention of complication NEURO-PSYCH (+) Personal history of colonic polyps I - PHYSICAL EVALUATION AIRWAY Patient intubated: No. Tracheostomy tube not present Mallampati: II. TM distance: >3 FB. Neck ROM: full ROM without neurological symptoms. Mouth opening: adequate. Short neck: no. Thick neck: no DENTAL Dental findings: edentulous. Additional exam findings: no II - ANESTHESIA PLAN ASA Score: 3 Anesthetic Plan: general Airway type: ETT NPO Status: adequate Monitoring plan: standard ASA. Postoperative analgesic plan: parenteral or oral opioids and multimodal analgesia. Informed Consent Anesthetic risks, benefits, alternatives, personnel and consent discussed: yes. Patient / Responsible Constitution Party agrees to proceed: yes Patient / Surrogate agrees to blood products: Yes Significant changes in the patient condition since the History and Physical, not otherwise documented in primary service progress note: no. Potential Anesthesia issues that may suggest increased risk of complications or contraindication to planned procedure: none. Vitals Value Taken Time BP 159/81 12/19/21 0649 Pulse 87 12/19/21 0649 Resp 18 12/19/21 0649 Temp 36 ?C (96.8 ?F) 12/19/21 0649 SpO2 98 % 12/19/2149 Facility-Administered Medications as of 12/19/2021 Medication Dose Route Frequency - [MAR Hold due to Transfer] lidocaine (PF) 10 mg/mL (1 %) 1-2 mg injection (XYLOCAINE) 0.1-0.2 mL INTRADERMAL PRN Or - [MAR Hold due to Transfer] lidocaine 1% 0.25 mL subcutaneous j-tip syringe (XYLOCAINE) 0.25 mL SUBCUTANEOUS PRN - [MAR Hold due to Transfer] lactated ringers iv infusion 50 mL/hr INTRAVENOUS CONTINUOUS - [COMPLETED] heparin 5,000 Units injection 5,000 Units SUBCUTANEOUS ONCE - [MAR Hold due to Transfer] ciprofloxacin iv piggyback 400 mg in D5W 200 mL (CIPRO) 400 mg INTRAVENOUS Pre-Op Once - [MAR Hold due to Transfer] metroNIDAZOLE iv piggyback 500 mg in NaCl (iso-osmotic) 100 mL (FLAGYL) 500 mg INTRAVENOUS Pre-Op Once - [COMPLETED] celecoxib 200 mg cap(s) (CeleBREX) 200 mg ORAL ONCE - [COMPLETED] acetaminophen 1,000 mg tab(s) (TYLENOL) 1,000 mg ORAL ONCE - [COMPLETED] gabapentin 300 mg tab(s) (NEURONTIN) 300 mg ORAL ONCE Outpatient Medications as of 12/19/2021 Medication Sig - peg 3350-Electrolytes (GOLYTELY) 236-22.74-6.74 -5.86 gram suspension Refer to printed prep instructions from your provider. (Patient not taking: No sig reported) - LACTASE (LACTAID ORAL) Take by mouth once daily. Takes with milk (Patient not taking: Reported on 09/16/2021 ) - NAPROXEN SODIUM (ALEVE ORAL) Take by mouth as needed. (Patient not taking: Reported on 09/16/2021 ) - acetaminophen (TYLENOL) 325 mg tablet Take 325 mg by mouth every 6 hours as needed. (Patient not taking: No sig reported) - P-EPHED HCL/ACETAMINOPHEN (EXCEDRIN SINUS ORAL) Take by mouth as needed. (Patient not taking: Reported on 09/16/2021 ) - cyclobenzaprine 10 mg ORAL tablet Take 1 tablet by mouth three times daily as needed for Muscle Spasm. (Patient not taking: Reported on 09/16/2021 ) - Omeprazole Magnesium (PRILOSEC OTC) 20 mg ORAL TbEC Take one(1) tablet daily.as needed (Patient not taking: Reported on 12/16/2021) I have interviewed and examined the patient. I have reviewed the medical record and/or the pre-anesthesia evaluation, pertinent labs, and test results. This contains updated information obtained within 48 hours of Surgery/Procedure. SIGNATURE: Yaneli Dyson MD PATIENT NAME: Peter Orr DATE: December 19, 2021 TIME: 7:37 AM CSN: [id number] [facility] BRIEF OP NOTon 12-19-2021 BRIEF OP NOT HNO ID: [id number] Author: Panfilo Morris MD Service: Colorectal Author Type: Fellow Type: Brief Op Note Filed: 12/19/2021 11:55 AM Note Text: BRIEF OPERATIVE / PROCEDURE NOTE LOG ID: [id number] Surgery/Procedure Date: 12/19/2021 Incision/Procedure Start Time: 8:25 AM Incision Close/Procedure End Time: 11:48 AM Surgeon(s)/Procedural ist(s) and Supervisor Cold Rolling(s): Surgeon(s) and Role: * Deep Orozco MD - Primary * Panfilo Morris MD - Fellow Pre-operative Diagnosis Hepatic flexure colon mass Post-operative Diagnosis: Hepatic flexure colon mass Hx cholecystectomy Left inguinal hernia with incarcerated colon Procedure(s): Diagnostic laparoscopy Hx cholecystectomy Laparoscopic right hemicolectomy with high ligation omentoplasty Findings: Incarcerated colon within wide left inguinal hernia, no evidence of strangulation. Tattoo noted in upper ascending colon, adjacent to hepatic flexure. R branch of middle colic ligated. Stapled anastomosis with omentoplasty Anesthesia: General Estimated Blood Loss: 20cc Wound Classification: 2 Drains:TLS in SQ Specimens: ID Type Source Tests Collected by Time Destination A : Right sherin colon Tissue RIGHT HEMICOLECTOMY SURGICAL PATHOLOGY Deep Orozco MD 12/19/2021 10:42 AM Complications: None Postoperative plan: Tap block in pacu Enrolled in pain study Npo for today [facility] Outpatient fu for left ing hernia repair SIGNATURE: Panfilo Morris MD PATIENT NAME: Peter Orr DATE: December 19, 2021 TIME: 11:50 AM PAGER/CONTACT #: [phone] Normal [facility] CEA SerPl-mCncon 12-19-2021 Carcinoembryonic Ag [Mass/Vol] 3.8 ng/mL High <=2.9 [facility] Comment on above: Order Comment: Speci men Type: BLOOD SPECIMENOrdering Facility: [facility] Address: [address] [place] [address] Result Comment: Carc inoembryonic antigen test is used as an aid in monitoring response to treatment or recurrence in patients with established colorectal, breast, lung, prostatic, pancreatic, and ovarian carcinomas. Clinical correlation is required. The Ronald Wilma DXI 600/800 is used. Results obtained with different assay, methods or kits cannot be used interchangeably Performed By: #### 2 039-6 ####[facility] LABCLIA [id number] [place] [address] [place] CONSULTon 12-19-2021 CONSULT HNO ID: [id number] Author: Sukh Hassan DO Service: Anesthesiology Author Type: Resident Type: Consults Filed: 12/19/2021 1:12 PM Note Text: Attestation signed by [facility]ima Martínez MD at 12/19/2021 5:09 PM Attending Note I evaluated the patient and personally participated in the thompson components. I agree with the resident's findings and plan as documented and have discussed the case and management of the patient's care with the resident. Signature: Lima Martínez MD Date: 12/19/2021 Time: 5:09 PM Anesthesia Pain Service Consult Note PATIENT NAME: Peter Orr : 1950 Consults Service Date Time: 12/19/2021 12:58 PM Service Requesting Consult: General Surgery Opinion/Advice Regarding: Consultation regarding post operative pain following laparotomy/ abdominal surgery. The surgeon requesting our opinion regarding the feasibility for a TAP block. 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 Expected pain is variable following this incision but usually it is a moderate to sever pain , sharp and stabbing. May restrict chest exercises post surgery. TAP block , is considered a relatively safe procedure with minimal complication ( rare infection or bleeding ) however, it reduce the amount of pain as well as the need for narcotics significantly and change the pattern of pain to a tolerable , pressure type of pain. Discussed the Risks , benefits and alternatives of TAP block in addition to multimodal analgesia. The patient agree to proceed. Objective APS Progress Note ROS BP 128/61 Pulse 95 Temp 36.7 ?C (98.1 ?F) Resp 17 Ht 171.5 cm (5' 7.5 ) Wt 79.8 kg (176 lb) SpO2 94% BMI 27.16 kg/m? Physical Exam Sensory/Motor Exam Intake/Output Summary (Last 24 hours) at 12/19/2021 1309 Last data filed at 12/19/2021 1200 Gross per 24 hour Intake 2200 ml Output 125 ml Net 2075 ml Lab Results: Hemoglobin 16.0 12/16/2021 Hematocrit 46.7 12/16/2021 Platelet Count 238 12/16/2021 Radiology: N/A Lines/Drains/Airways: Lines, Drains, and Airways Line Duration Peripheral 12/19/21 0649 Assessment Short Left Forearm 20 Gauge <1 day Peripheral 12/19/21 0750 Right Hand 18 Gauge <1 day Drain Duration Drain/Tube 12/19/21 Assessment Left Lower Quadrant Drain #1 <1 day Indwelling Urinary Catheter 12/19/21 0755 Coude 14 Fr <1 day Problem List *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) Past Medical History PAST MEDICAL HISTORY Diagnosis Date Allergic rhinitis, cause unspecified Closed fracture of unspecified bone L1 and spider cracks to thoracic lumbar Esophageal reflux Internal hemorrhoids with other complication Personal history of colonic polyps Colon polyps Variants of migraine, not elsewhere classified, without mention of intractable migraine without mention of status migrainosus 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 Past Surgical History PAST SURGICAL HISTORY Procedure Laterality Date COLONOSCOPY FLX DX W/COLLJ SPEC WHEN PFRMD 11/21/02 Colonoscopy COLONOSCOPY FLX DX W/COLLJ SPEC WHEN PFRMD 08/01/2006 Colonoscopy HEMORRHOIDECTOMY INTERNAL RUBBER BAND LIGATIONS 1987 Hemorrhoidectomy LAPS SURG CHOLECYSTECTOMY W/CHOLANGIOGRAPHY 09/30/10 normal IOC TONSILLECTOMY PRIMARY/SECONDARY Tonsillectomy Family History FAMILY HISTORY Problem Relation Age of Onset Heart Father Diabetes Father Alzheimer's Disease Mother Osteoporosis Mother Cancer Maternal Grandfather prostate Stroke Maternal Grandmother Anesthesia Problems No Family History Social History Social History Tobacco Use Smoking status: Every Day Packs/day: 1.50 Years: 40.00 Pack years: 60.00 Types: Cigarettes Smokeless tobacco: Never Substance Use Topics Alcohol use: No Drug use: Not Currently Frequency: 2.0 times per week Types: Marijuana Comment: Smokes 2x/week for pain Prior to Admission Medications neomycin 500 mg tablet, Take 2 tablets by mouth at 9pm and take 2 tablets by mouth at 11pm the night before surgery., Disp: 4 tablet, Rfl: 0, 12/18/2021 at 2300 metroNIDAZOLE (FLAGYL) 500 mg tablet, Take 1 tablet by mouth at 9pm and take 1 tablet by mouth at 11pm the night before s (more content not included)... Normal [facility] Comprehensive metabolic 2000 panelon 12-19-2021 Albumin [Mass/Vol] 4.3 g/dL Normal 3.9-4.9 [facility] Comment on above: Order Comment: Speci men Type: BLOOD SPECIMENOrdering Facility: [facility] Address: [address] [place] [address] Performed By: #### 2 4323-8 ####[facility] LABCLIA [id number] [place] [address] [place] ALP [Catalytic activity/Vol] 80 U/L Normal 38-113 [facility] Comment on above: Order Comment: Speci men Type: BLOOD SPECIMENOrdering Facility: [facility] Address: [address] [place] [address] Performed By: #### 2 4323-8 ####[facility] LABCLIA [id number] [place] [address] [place] ALT [Catalytic activity/Vol] 21 U/L Normal 10-54 [facility] Comment on above: Order Comment: Speci men Type: BLOOD SPECIMENOrdering Facility: [facility] Address: [address] [place] [address] Performed By: #### 2 4323-8 ####[facility] LABCLIA [id number] [place] [address] [place] Anion gap [Moles/Vol] 9 mmol/L Normal 9-18 [facility] Comment on above: Order Comment: Speci men Type: BLOOD SPECIMENOrdering Facility: [facility] Address: [address] [place] [address] Performed By: #### 2 4323-8 ####[facility] LABCLIA [id number] [place] [address] [place] AST [Catalytic activity/Vol] 15 U/L Normal 14-40 [facility] Comment on above: Order Comment: Speci men Type: BLOOD SPECIMENOrdering Facility: [facility] Address: [address] [place] [address] Performed By: #### 2 4323-8 ####[facility] LABCLIA [id number] [place] [address] [place] Bilirubin [Mass/Vol] 0.6 mg/dL Normal 0.2-1.3 [facility] Comment on above: Order Comment: Speci men Type: BLOOD SPECIMENOrdering Facility: [facility] Address: [address] [place], [place] [address] Performed By: #### 2 4323-8 ####[facility] LABCLIA [id number] [place] [address] [place] Calcium [Mass/Vol] 9.4 mg/dL Normal 8.5-10.2 [facility] Comment on above: Order Comment: Speci men Type: BLOOD SPECIMENOrdering Facility: [facility] Address: [address] [place] [address] Performed By: #### 2 4323-8 ####[facility] LABCLIA [id number] [place] [address] [place] Chloride [Moles/Vol] 106 mmol/L High 97-105 [facility] Comment on above: Order Comment: Speci men Type: BLOOD SPECIMENOrdering Facility: [facility] Address: [address] [place] [address] Performed By: #### 2 4323-8 ####[facility] LABCLIA [id number] [address] [place] CO2 [Moles/Vol] 22 mmol/L Normal 22-30 [facility] Comment on above: Order Comment: Speci men Type: BLOOD SPECIMENOrdering Facility: [facility] Address: [address] [place] [address] Performed By: #### 2 4323-8 ####[facility] LABIA [id number] [address] [place] [facility] Creatinine [Mass/Vol] 1.35 mg/dL High 0.73-1.22 [facility] Comment on above: Order Comment: Speci men Type: BLOOD SPECIMENOrdering Facility: [facility] Address: [address] [place] [address] Performed By: #### 2 4323-8 ####[facility] LABIA [id number] [address] ESTIMATED GLOMERULAR FILTRATION RATE 55 mL/min/1.73m??? Low >=60 [facility] Comment on above: Order Comment: Speci men Type: BLOOD SPECIMENOrdering Facility: [facility] Address: [address] [place] [address] Result Comment: Swati mated Glomerular Filtration Rate (eGFR) is calculated using the 2020 CKD-EPI creatinine equation. This equation utilizes serum creatinine, sex, and age as parameters. The creatinine assay has traceable calibration to isotope dilution-mass spectrometry. Refer to KDIGO guidelines for clinical interpretation. In patients with unstable renal function, e.g. those with acute kidney injury, the eGFR may not accurately reflect actual GFR. Performed By: #### 2 4323-8 ####[facility] LABCLIA [id number] [address] [id number] [address] [place] Glucose [Mass/Vol] 143 mg/dL High 74-99 [facility] Comment on above: Order Comment: Speci men Type: BLOOD SPECIMENOrdering Facility: [facility] Address: [address] [place] [address] Result Comment: The [place] Diabetes Association (ADA) provides guidance for cutoff values for fasting glucose and random glucose. The ADA defines fasting as no caloric intake for at least 8 hours. Fasting plasma glucose results between 100 to 125 mg/dL indicate increased risk for diabetes (prediabetes). Fasting plasma glucose results greater than or equal to 126 mg/dL meet the criteria for diagnosis of diabetes. In the absence of unequivocal hyperglycemia, results should be confirmed by repeat testing. In a patient with classic symptoms of hyperglycemia or hyperglycemic crisis, random plasma glucose results greater than or equal to 200 mg/dL meet the criteria for diagnosis of diabetes. Reference: Standards of Medical Care in Diabetes 2016, [place] [employer]. Diabetes Care. 2016.39(Suppl 1). Performed By: #### 2 4323-8 ####[facility] LABCLIA [id number] [place] [address] [place] Potassium [Moles/Vol] 4.3 mmol/L Normal 3.7-5.1 [facility] [facility] Comment on above: Order Comment: Speci men Type: BLOOD SPECIMENOrdering Facility: [facility] Address: [address] [place] [address] Performed By: #### 2 4323-8 ####[facility] LABCLIA [id number] [place] [address] [place] Protein [Mass/Vol] 6.9 g/dL Normal 6.3-8.0 [facility] Comment on above: Order Comment: Speci men Type: BLOOD SPECIMENOrdering Facility: [facility] Address: [address] [place] [address] Performed By: #### 2 4323-8 ####[facility] LABCLIA [id number] [place] [address] [place] Sodium [Moles/Vol] 137 mmol/L Normal 136-144 [facility] Comment on above: Order Comment: Speci men Type: BLOOD SPECIMENOrdering Facility: [facility] Address: [address] [place] [address] Performed By: #### 2 4323-8 ####[facility] LABCLIA [id number] [place] [address] [place] Urea nitrogen [Mass/Vol] 13 mg/dL Normal 9-24 [facility] Comment on above: Order Comment: Speci men Type: BLOOD SPECIMENOrdering Facility: [facility] Address: [address] [place] [address] Performed By: #### 2 4323-8 ####[facility] LABCLIA [id number] [address] [place] OPERATIVE NOon 12-19-2021 OPERATIVE NO HNO ID: [id number] Author: Deep Orozco MD Service: Colorectal Author Type: Physician Type: Operative Report Filed: 12/27/2021 8:52 AM Note Text: [facility] - Operative Report [address] [place] [address] [place] PETER ORR : 1950 AGE: 71. SEX: M PATIENT TYPE: I [facility] [place] [facility] LOCATION: [id number] ATTENDING PHYSICIAN: Deep Orozco M.D. CSN NUMBER: [id number] DATE OF SURGERY/PROCEDURE: 12/19/2021 INCISION/PROCEDURE START TIME: 08:25 a.m. INCISION CLOSE/PROCEDURE END TIME: 11:48 a.m. PREOPERATIVE DIAGNOSIS: Large ascending colon adenoma below hepatic flexure, status post cholecystectomy and obesity. POSTOPERATIVE DIAGNOSIS: Large ascending colon adenoma below hepatic flexure, status post cholecystectomy, obesity, and left inguinal hernia with incarcerated colon. SURGEON: Deep Orozco M.D. LAWN [employer] MECHANIC: Dr. Panfilo Morris. SURGERY/PROCEDURE: Diagnostic laparoscopy, repositioning of incarcerated colon from inguinal hernia, laparoscopic hepatic flexure mobilization, laparoscopic-assisted right hemicolectomy with high ligation of the ileocolic vessels, and omentoplasty. ANESTHESIA: General. OPERATIVE INDICATIONS: The 71-year-old patient presented in clinics with results of a colonoscopy. The colon polyps had been seen, but not completely removed. The patient had noticed pain in his left groin with concern for hernia and underwent a CT scan at an outside hospital that demonstrated inguinal hernias in addition to a possible apple-core lesion in the cecum. Therefore, the colonoscopy was initiated. The apple-core lesion could be ruled out. However, multiple polyps were resected and an unresectable hepatic flexure lesion was excised only piecemeal and the patient was referred for surgical procedure. The patient endorsed gas-like pressure all over the belly every 3-4 days at which time he felt like unable to pass gas, but he had bowel movements every day on the other hand. At a repeat colonoscopy with Dr. Cervantes, a 6 cm carpet like polyp traversing at least 3 folds in the distal ascending colon was seen with central depression, which was suspicious and could not be removed endoscopically. The opposite wall was tattooed. OPERATIVE FINDINGS: At diagnostic laparoscopy, initially tattoo not visualized as located posteriorly. No sign of distant metastases of any tumor. Left inguinal hernia noted with incarcerated sigmoid, which was freed up and repositioned into the abdomen. Due to history of previous cholecystectomy, dense adhesions of the gastrocolic ligament and omentum towards the previous gallbladder location below the liver. Laparoscopic mobilization of hepatic flexure and laparoscopic mobilization of the entire right colon and ileum towards the mesenteric root performed. Mini- laparotomy around and above the umbilicus. Oncologic right hemicolectomy performed with preservation of the mesocolon and high vascular tie of the ileocolic vessels and right branch of middle colic vessels. [id number] stapled ileocolic anastomosis performed, omentoplasty on top. DESCRIPTION OF PROCEDURE: The patient was under general anesthesia and placed in modified lithotomy position. The skin of his obese abdomen was disinfected and he was draped appropriately. A short midline incision was made below the umbilicus and gradually the abdominal cavity was entered. It was noted at this point already that the soft tissue was extremely weak and prone to tears. A 12 mm Owen balloon trocar was inserted and pneumoperitoneum was created. A diagnostic laparoscopy was performed then, which did not show the tattoo initially; however, there was no distant spread of any carcinoma to be seen in the abdominal cavity. The elongated sigmoid was incarcerated in a left inguinal hernia. Two regular 5 mm trocars were inserted in the left lower and left middle abdomen and one 5 mm AirSeal trocar in the right lower quadrant. Initially, the incarcerated sigmoid was removed from the left inguinal hernia and pulled out until it was completely repositioned towards the abdominal cavity. A formal inguinal hernia repair will be recommended in the near future. Now, the peritoneum below the distal ileum was incised and gradually both planes of Gerota's fascia were identified and carefully dissected from each other. The incision of the peritoneum was enlarged towards centrally below the mesenteric root. Now, a medial to lateral mobilization of the right colon behind the mesocolic plane was performed carefully and the right ureter was identified and dissected posteriorly carefully. Further mobilization occurred behind the right mesocolon with mobilization of the duodenum and pancreatic head towards posteriorly and visualization of the ascending colon, hepatic flexure, and right transverse colon from medially. Finally, the blind ending karly (more content not included)... Normal [facility] SURGICAL PATHOLOGYon 022 CASE REPORT Normal [facility] Comment on above: Order Comment: Speci men Type: TISSUE SPECIMENOrdering Facility: [facility] Address: [address] [place] [address] Result Comment: Surg [facility] Pathology Report Case: [id number] Authorizing Provider: Deep Orozco MD Collected: 12/19/2021 10:42 AM Ordering Location: [place] [address] Received: 12/19/2021 01:23 PM Pathologist: Angel Resendez MD Specimen: RIGHT HEMICOLECTOMY, Right sherin colon Performed By: #### S ####[facility] LABCLIA [id number] [place] [address] [place] CLINICAL HISTORY Normal [facility] Comment on above: Order Comment: Speci men Type: TISSUE SPECIMENOrdering Facility: [facility] Address: [address] [place], [place] [id number] Result Comment: Pre- op diagnosis: Villous adenoma of colon [D37.4] Performed By: #### S ####[facility] LABCLIA [id number] [address] DIAGNOSIS COMMENT Multiple additional deeper sections have been examined on blocks A4, A5, and A6. The patient's history of an unresectable right-sided colon polyp marked by tattoo is noted. The 3.3 cm tubular adenoma was entirely submitted for microscopic examination. This polyp was located in the ascending colon and was grossly adjacent to a tattoo site. Mucosal prolapse change and foci of extracellular mucin are seen at the base of the polyp. These changes may reflect prior attempts to sample or resect this polyp. No submucosal invasion or desmoplastic stroma is seen. Case reviewed with Dr. Aviva Harris who agrees with this interpretation. Normal [facility] Comment on above: Order Comment: Speci men Type: TISSUE SPECIMENOrdering Facility: [facility] Address: [address] [place] [address] Performed By: #### S ####[facility] LABIA [id number] [address] FINAL DIAGNOSIS Normal [facility] Comment on above: Order Comment: Speci men Type: TISSUE SPECIMENOrdering Facility: [facility] Address: [address] [place] [address] Result Comment: A. T erminal ileum, colon, and appendix, resection: -Two colonic tubular adenomas, measuring 3.3 and 0.3 cm, negative for high-grade dysplasia and carcinoma, see comment. -Background colon, appendix, and terminal ileum with no diagnostic abnormality. -Thirteen lymph nodes with no diagnostic abnormality. -The surgical resection margins are free of dysplasia. Performed By: #### S ####[facility] LABCLIA [id number] [address] FINAL PERFORMING LAB Normal [facility] Comment on above: Order Comment: Speci men Type: TISSUE SPECIMENOrdering Facility: [facility] Address: [address] [place] [address] Result Comment: Diag nostic interpretation performed at [facility], [address] [address] CLIA# [id number] Public Address Announcer: Brandon Vega M.D. Performed By: #### S ####[facility] LABCLIA [id number] [facility] [id number] [place] [address] [place] GROSS DESCRIPTION Normal [facility] Comment on above: Order Comment: Speci men Type: TISSUE SPECIMENOrdering Facility: [facility] Address: [address] [place], [place] [address] Result Comment: A. R IGHT HEMICOLECTOMY Received unfixed labeled as right sherin colon is a right hemicolectomy specimen extending from terminal ileum (4.0 cm in length x 3.0 cm in luminal circumference) with attached colon (19.0 cm in length x 10.5 cm in luminal circumference) and attached unremarkable appendix (7.0 cm in length x 0.6 cm in diameter). The proximal stapled margin is inked blue and the distal stapled margin is inked black. The serosal surface demonstrates moderate fibromembranous adhesions within the mid to distal colon with no exudate or areas of perforation appreciated. Identified within the ascending colon is a pink-kinney polypoid mass (3.3 x 2.8 x 0.6 cm) with an adjacent black tattoo area. The mass is 9.5 cm from the proximal margin, 7.5 cm from the distal margin, 15.0 cm from the mesenteric margin. Sectioning of the polypoid mass reveals superficial cut surfaces with no gross involvement of the muscularis propria appreciated. The remainder of the specimen demonstrates well-defined kinney mucosal folds with additional small sessile polyp measuring 0.3 x 0.2 x 0.2 cm appreciated, 4.0 cm from the mass, 3.0 cm from the distal margin. No additional polyps are seen. Core Composer Feeder sections including the entire mass are submitted as follows: A1 proximal and distal margins, perpendicular; A2 mesenteric margin, shaved; A3-A7 entire mass full thickness section; A8 entire sessile polyp; A9 uninvolved colonic mucosa away from the mass; A10 ileocecal valve; A11 mid cross section of the appendix with the entire appendiceal tip bisected; A12-A13 multiple intact lymph nodes in each cassette, A14-A15 additional intact lymph nodes in each cassette. TN/rw 12/19/2021 TN 12/28/2021 Gross examination performed at [facility], [address] [place] [address] CLIA# [id number] Performed By: #### S ####[facility] LABIA [id number] [address] [place] CBC panel Auto (Bld)on 12-16 Erythrocyte distribution width (RBC) [Ratio] 11.9 % Normal 11.5-15.0 [facility] Comment on above: Order Comment: Speci men Type: BLOOD SPECIMENOrdering Facility: [facility] Address: [address] [place] [address] Performed By: #### 5 8410-2 ####[facility] [id number] [address] [place] Hematocrit (Bld) [Volume fraction] 46.7 % Normal 39.0-51.0 [facility] Comment on above: Order Comment: Speci men Type: BLOOD SPECIMENOrdering Facility: [facility] Address: [address] [place] [address] Performed By: #### 5 8410-2 ####[facility] LABIA [id number] [place] [address] [place] Hemoglobin (Bld) [Mass/Vol] 16.0 g/dL Normal 13.0-17.0 [facility] Comment on above: Order Comment: Speci men Type: BLOOD SPECIMENOrdering Facility: [facility] Address: [address] [place] [address] Performed By: #### 5 8410-2 ####[facility] LABIA [id number] [place] [address] [place] MCH (RBC) [Entitic mass] 33.1 pg Normal 26.0-34.0 [facility] Comment on above: Order Comment: Speci men Type: BLOOD SPECIMENOrdering Facility: [facility] Address: [address] [place], [place] [address] Performed By: #### 5 8410-2 ####[facility] LABIA [id number] [place] [address] [place] MCHC (RBC) [Mass/Vol] 34.3 g/dL Normal 30.5-36.0 [facility] Comment on above: Order Comment: Speci men Type: BLOOD SPECIMENOrdering Facility: [facility] Address: [address] [place], [place] [address] Performed By: #### 5 8410-2 ####[facility] LABIA [id number] [place] [address] [place] MCV (RBC) [Entitic vol] 96.7 fL Normal 80.0-100.0 [facility] Comment on above: Order Comment: Speci men Type: BLOOD SPECIMENOrdering Facility: [facility] Address: [address] [place], [place] [address] Performed By: #### 5 8410-2 ####[facility] [id number] [place] [address] [place] Nucleated RBC (Bld) [#/Vol] 10*3/uL Normal <0.01 [facility] Comment on above: Order Comment: Speci men Type: BLOOD SPECIMENOrdering Facility: [facility] Address: [address] [place], [place] [address] Performed By: #### 5 8410-2 ####[facility] LABIA [id number] [place] [address] [place] Platelet mean volume (Bld) [Entitic vol] 10.7 fL Normal 9.0-12.7 [facility] Comment on above: Order Comment: Speci men Type: BLOOD SPECIMENOrdering Facility: [facility] Address: [address] [place] [address] Performed By: #### 5 8410-2 ####[facility] LABIA [id number] [place] [address] [place] Platelets (Bld) [#/Vol] 238 10*3/uL Normal 150-400 [facility] Comment on above: Order Comment: Speci men Type: BLOOD SPECIMENOrdering Facility: [facility] Address: [address] [place], [place] [address] Performed By: #### 5 8410-2 ####[facility] [id number] [address] [place] RBC (Bld) [#/Vol] 4.83 10*6/uL Normal 4.20-6.00 [facility] Comment on above: Order Comment: Speci men Type: BLOOD SPECIMENOrdering Facility: [facility] Address: [address] [place], [place] [address] Performed By: #### 5 8410-2 ####[facility] [id number] [address] [place] WBC (Bld) [#/Vol] 7.16 10*3/uL Normal 3.70-11.00 [facility] Comment on above: Order Comment: Speci men Type: BLOOD SPECIMENOrdering Facility: [facility] Address: [address] [place] [address] Performed By: #### 5 8410-2 ####[facility] [id number] [place] [address] [place] Erythrocyte distribution width (RBC) [Ratio] 11.9 % 11.5 - 15.0 % [facility] Hematocrit (Bld) [Volume fraction] 46.7 % 39.0 - 51.0 % [facility] Hemoglobin (Bld) [Mass/Vol] 16.0 g/dL 13.0 - 17.0 g/dL [facility] MCH (RBC) [Entitic mass] 33.1 pg 26.0 - 34.0 pg [facility] MCHC (RBC) [Mass/Vol] 34.3 g/dL 30.5 - 36.0 g/dL [facility] MCV (RBC) [Entitic vol] 96.7 fL 80.0 - 100.0 fL [facility] Nucleated RBC (Bld) [#/Vol] <0.01 k/uL [facility] Platelet mean volume (Bld) [Entitic vol] 10.7 fL 9.0 - 12.7 fL [facility] Platelets (Bld) [#/Vol] 238 10*3/uL 150 - 400 k/uL [facility] RBC (Bld) [#/Vol] 4.83 10*6/uL 4.20 - 6.0 0 m/uL [facility] WBC (Bld) [#/Vol] 7.16 10*3/uL 3.70 - 11. 00 k/uL [facility] CNNURSEon 12-16-2021 CNNURSE Nurse Visit (CORSMN) PETER ORR ([id number]) 1950 M Date Time Provider Department 12/16/21 9:15 AM STOMA THERAPY [facility] During your visit today, we recorded the following information about you: Daphnie Katz RN 12/16/2021 10:18 AM Signed ET/WOC Nursing Note Topic: STOMA MARKING ET Outcome: Shan @ RUQ. The stoma marking purpose and procedure was explained: yes. The patient verbalized understanding and agrees to the marking: yes. Rectus Muscle boarders are located: yes. Abdominal contour evaluation was performed in the lying position, sitting position, and standing position. The stoma marking was made according to ET/WOC Nursing Procedure #401 in the RUQ. Patient is able to see site in the following positions: lying position, sitting position, and standing position Comments: n/a PHOTOGRAPHY: A photo was taken of the patient's site marking / wound(s). Photos can be found under the chart review imaging: Get Images tab on [facility]. The purpose of the photo(s) is to optimize the patient's medical care: to allow a visual aid to identify marking sites for ostomy(ostomies), to evaluate and follow the progress of wound(s). Photo was taken of: 12/16/21 Verbal consent was obtained from patient / authorized representation. Time Increment: N/A SUSANNE Meredith RN CWOCN The [facility] nursing pager [phone] (M-F 7a-4p, Sat, Sun, Holiday 7a-3p) ET/[facility] NURSING ET OUTCOME: shan and talk for possible stoma TOPIC: OSTOMY INSTRUCTION READINESS TO LEARN COGNITIVE ABILITY: Alert and Oriented MOTIVATION TO LEARN: Eager FAMILY SUPPORT: High - Very involved in patient care INSTRUCTION PROVIDED TO: Patient and Daughter PATIENT LEARNS BEST BY: Multiple Methods FACTORS AFFECTING LEARNING: Emotional Factors: Overwhelmed PHYSICAL LIMITATIONS AFFECTING LEARNING: None LEARNING RESPONSE DIAGNOSIS: Colon Mass PROCEDURE / SURGERY: Loop ileostomy EDUCATION TOPIC/ TEACHING POINTS: Ostomy Care Stoma appearance and function, Purpose of the pouching system, Postoperative ostomy care per ET/C Nurse, Postoperative self ostomy care instruction, Discharge equipment ordering and support options, Diet, Fluid Intake, ADL'S, Work, and Clothing Adjustment METHOD OF INSTRUCTION: Written instruction - handouts Verbal instruction PATIENT / FAMILY RESPONSE: Verbalizing understanding of: Correct procedure for changing ostomy pouch FOLLOW-UP PLAN: Complete - No need for follow-up SUPPLEMENTAL MATERIAL: Pre op Ostomy Booklets and Preop Ostomy Handouts REFERRAL (RECOMMENDATION): None TIME INCREMENT: 1 hour Electronically Signed By Daphnie Katz RN CWOCN ET/[facility] Nursing Referring Provider: DEEP OROZCO [[id number]] Allergies As of Date: 12/16/2021 Noted Allergy Reaction PENICILLINS 02/28/2005 4 - Hives petroleum products [Other] 02/28/2005 2 - Rash soaps [Other] 02/28/2005 2 - Rash Date Reviewed: 12/16/2021 Reviewed by: Bibi Aguilar PA-C - Fully Assessed Primary Visit Diagnosis:Attention to ileostomy (HCC) [Z43.2] Prescriptions as of 12/16/2021 - neomycin 500 mg tablet Take 2 tablets by mouth at 9pm and take 2 tablets by mouth at 11pm the night before surgery. - metroNIDAZOLE (FLAGYL) 500 mg tablet Take 1 tablet by mouth at 9pm and take 1 tablet by mouth at 11pm the night before surgery. - peg 3350-Electrolytes (GOLYTELY) 236-22.74-6.74 -5.86 gram suspension Refer to printed prep instructions from your provider. - LACTASE (LACTAID ORAL) Take by mouth once daily. Takes with milk - NAPROXEN SODIUM (ALEVE ORAL) Take by mouth as needed. - acetaminophen (TYLENOL) 325 mg tablet Take 325 mg by mouth every 6 hours as needed. - P-EPHED HCL/ACETAMINOPHEN (EXCEDRIN SINUS ORAL) Take by mouth as needed. - cyclobenzaprine 10 mg ORAL tablet Take 1 tablet by mouth three times daily as needed for Muscle Spasm. - Omeprazole Magnesium (PRILOSEC OTC) 20 mg ORAL TbEC Take one(1) tablet daily.as needed Problem List As Of Date 12/16/2021 Noted Resolved PERS HX COLONIC POLYPS [Z86.010] HEMORRHOIDS NOS [K64.9] 05/03/2006 ARTHROPATHY NOS-HAND [M19.049] 01/03/2007 TOBACCO USE DISORDER [F17.200] 01/03/2007 CHOLELITHIASIS NOS [K80.20] 01/16/2007 Encounter Status:Closed by DAPHNIE WESLEY on 12/16/21 [facility] Tom 12-16-2021 CNOV Office Visit (ISHAN ) PETER ORR ([id number]) 1950 M Date Time Provider Department 12/16/21 9:00 AM DEEP OROZCO During your visit today, we recorded the following information about you: Weight Height 79.9 kg 1.715 m Deep Orozco MD 12/17/2021 10:31 AM Signed COLORECTAL SURGERY Follow-up December 15, 2021 Chief complaint: Pre op lap right hemicolectomy HPI: Peter Orr is a 71 year old male present preoperatively for lap right hemicolectomy scheduled 12/19/2021 Last seen in clinic 09/16/2021, referred to [facility] for an unresectable hepatic flexure polyp After further evauation in clinic he was referred to to evaluate for cecal lesion, tatooing and possible endoscopic removal of hepatic flexure lesion and if any lesion is still visible after more than four weeks Was deemed un-resectable, referred for colon resection surgery Impression: - 6 cm carpet like polyp traversing at least 3 folds in the distal ascending colon with central depression. opposite wall of the colon tattoed. - One 10 mm polyp in the cecum, removed with a cold snare. Resected and retrieved. - tubular adenoma Currently feels well. Saw stoma and was marked. Unfortunately, still smoking - increasing >1PPD. Physical Exam: Ht 171.5 cm (5' 7.5 ) Wt 79.9 kg (176 lb 3.2 oz) BMI 27.19 kg/m? General - awake, alert, no acute distress Abdominal - soft abd. CV: RRR R: clear lungs I have confirmed and edited as necessary, the PFSH and ROS obtained by others. Deep Orozco MD Assessment Medical Decision Making: Assessment AND Diagnosis: Peter Orr is a 71 year old male with unresectable sessile hepatic flexure polyp. Ongoing smoking and is overweight. Data Reviewed: Colonoscopy 10/28/2021 ([place]) Findings: The perianal and digital rectal examinations were normal. A greater than 50 mm polyp was found in the distal ascending colon. The polyp was carpet-like. opposite wall of the tattoo was successfully injected with 2 mL Spot (carbon black) for tattooing. A 10 mm polyp was found in the cecum. The polyp was sessile. The polyp was removed with a cold snare. Resection and retrieval were complete. No additional abnormalities were found on retroflexion. Impression: - 6 cm carpet like polyp traversing at least 3 folds in the distal ascending colon with central depression. opposite wall of the colon tattoed. - One 10 mm polyp in the cecum, removed with a cold snare. Resected and retrieved. Surgical pathology 10/28/2021 Final Diagnosis: A. Cecum, polyp, biopsy: Tubular adenoma I have discussed Peter Norwoodnsworth's treatment plan and/or results with pt, family. The risks, benefits and anticipated outcomes of the several proposed procedures, the risks and benefits of the alternatives to the procedure and the roles and tasks of the personnel to be involved were discussed with the patient and the patient consents to the procedure and agrees to proceed. I explained the surgical procedure and potential findings extensively using also anatomic charts and answered all related questions. Treatment plan: Lap poss open R colectomy, poss DLI Counseled importance of weight loss and smoking cessation. I have seen and evaluated the patient and discussed the case with the resident physician. I agree with the assessment and plan as documented in the resident?s note. I spent 30 minutes in the visit, with more than 50% of the total camm-wh-ppxq time of the visit in counseling / coordination of care. Deep Orozco MD CORS Risk of morbidity, mortality and/or complications of treatment plan: low Referring Provider: DEEP OROZCO [[id number]] Allergies As of Date: 12/16/2021 Noted Allergy Reaction PENICILLINS 02/28/2005 4 - Hives petroleum products [Other] 02/28/2005 2 - Rash soaps [Other] 02/28/2005 2 - Rash Date Reviewed: 12/16/2021 Reviewed by: Bibi Aguilar PA-C - Fully Assessed Reason for Visit: Preop [Other] Primary Visit Diagnosis:Adenoma of colon at hepatic flexure [D12.3] Prescriptions as of 12/17/2021 - neomycin 500 mg tablet Take 2 tablets by mouth at 9pm and take 2 tablets by mouth at 11pm the night before surgery. - metroNIDAZOLE (FLAGYL) 500 mg tablet Take 1 tablet by mouth at 9pm and take 1 tablet by mouth at 11pm the night before surgery. - peg 3350-Electrolytes (GOLYTELY) 236-22.74-6.74 -5.86 gram suspension Refer to printed prep instructions from your provider. - LACTASE (LACTAID ORAL) Take by mouth once daily. Takes with milk - NAPROXEN SODIUM (ALEVE ORAL) Take by mouth as needed. - acetaminophen (TYLENOL) 325 mg tablet Take 325 mg by mouth every 6 hours as needed. - P-EPHED HCL/ACETAMINOPHEN (EXCEDRIN SINUS ORAL) Take by mouth as needed. - cyclobenzaprine 10 mg ORAL tablet Take 1 tablet by mouth three times daily as (more content not included)... Normal [facility] CONFIRM BLOOD TYPEon 022 ABO A [facility] Rh Nom (Bld) Positive [facility] ABO A Normal [facility] Comment on above: Order Comment: Speci men Type: BLOOD SPECIMENOrdering Facility: [facility] Address: [address] [place], [place] [address] Performed By: #### C ONABO ####CC [facility] BLOOD BANKCLIA [id number] [place] [address] [place] Rh Nom (Bld) Positive Normal [facility] Comment on above: Order Comment: Speci men Type: BLOOD SPECIMENOrdering Facility: [facility] Address: [address] [place] [address] Performed By: #### C ONABO ####CC [facility] BLOOD BANKCLIA [id number] [place] [address] [place] Comprehensive metabolic 2000 panelon 12-16-2021 Estimated Glomerular Filtration Rate 51 mL/min/1.73m Low >=60 mL/min/1.73m [facility] Albumin [Mass/Vol] 4.7 g/dL 3.9 - 4.9 g/dL Cl [facility] Comment on above: Order Comment: Speci men Type: BLOOD SPECIMENOrdering Facility: [facility] Address: [address] [place] [address] Performed By: #### 2 4323-8 ####[facility] LABCLIA [id number] [place] [address] [place] ALP [Catalytic activity/Vol] 81 U/L 38 - 113 U/L [facility] Comment on above: Order Comment: Speci men Type: BLOOD SPECIMENOrdering Facility: [facility] Address: [address] [place], [place] [address] Performed By: #### 2 4323-8 ####[facility] LABCLIA [id number] [place] [address] [place] ALT [Catalytic activity/Vol] 22 U/L 10 - 54 U/L [facility] Comment on above: Order Comment: Speci men Type: BLOOD SPECIMENOrdering Facility: [facility] Address: [address] [place] [address] Performed By: #### 2 4323-8 ####[facility] LABCLIA [id number] [place] [address] [place] Anion gap [Moles/Vol] 10 mmol/L 9 - 18 mmol/L [facility] Comment on above: Order Comment: Speci men Type: BLOOD SPECIMENOrdering Facility: [facility] Address: [address] [place] [address] Performed By: #### 2 4323-8 ####[facility] LABCLIA [id number] [place] [address] [place] AST [Catalytic activity/Vol] 16 U/L 14 - 40 U/L [facility] Comment on above: Order Comment: Speci men Type: BLOOD SPECIMENOrdering Facility: [facility] Address: [address] [place], [place] [address] Performed By: #### 2 4323-8 ####[facility] LABCLIA [id number] [place] [address] [place] Bilirubin [Mass/Vol] 0.3 mg/dL 0.2 - 1 .3 mg/dL [facility] Comment on above: Order Comment: Speci men Type: BLOOD SPECIMENOrdering Facility: [facility] Address: [address] [place], [place] [address] Performed By: #### 2 4323-8 ####[facility] LABCLIA [id number] [place] [address] [place] Calcium [Mass/Vol] 10.4 mg/dL High 8.5 - 10. 2 mg/dL [facility] Comment on above: Order Comment: Speci men Type: BLOOD SPECIMENOrdering Facility: [facility] Address: [address] [place] [address] Performed By: #### 2 4323-8 ####[facility] LABCLIA [id number] [place] [address] [place] Chloride [Moles/Vol] 103 mmol/L 97 - 10 5 mmol/L [facility] Comment on above: Order Comment: Speci men Type: BLOOD SPECIMENOrdering Facility: [facility] Address: [address] [place] [address] Performed By: #### 2 4323-8 ####[facility] LABCLIA [id number] [place] [address] [place] CO2 [Moles/Vol] 28 mmol/L 22 - 30 mmol/L [facility] Comment on above: Order Comment: Speci men Type: BLOOD SPECIMENOrdering Facility: [facility] Address: [address] [place] [address] Performed By: #### 2 4323-8 ####[facility] LABCLIA [id number] [place] [address] [place] Creatinine [Mass/Vol] 1.45 mg/dL High 0.73 - 1.22 mg/dL [facility] Comment on above: Order Comment: Speci men Type: BLOOD SPECIMENOrdering Facility: [facility] Address: [address] [place] [address] Performed By: #### 2 4323-8 ####[facility] LABCLIA [id number] [place] [address] [place] ESTIMATED GLOMERULAR FILTRATION RATE 51 mL/min/1.73m??? Low >=60 [facility] Comment on above: Order Comment: Speci men Type: BLOOD SPECIMENOrdering Facility: [facility] Address: [address] [place], [place] [address] Result Comment: Swati mated Glomerular Filtration Rate (eGFR) is calculated using the 2020 CKD-EPI creatinine equation. This equation utilizes serum creatinine, sex, and age as parameters. The creatinine assay has traceable calibration to isotope dilution-mass spectrometry. Refer to KDIGO guidelines for clinical interpretation. In patients with unstable renal function, e.g. those with acute kidney injury, the eGFR may not accurately reflect actual GFR. Performed By: #### 2 4323-8 ####[facility] LABCLIA [id number] [place] [address] [place] Glucose [Mass/Vol] 97 mg/dL 74 - 99 mg/dL [facility] Comment on above: Order Comment: Carolyne wilhelm Type: BLOOD SPECIMENOrdering Facility: [facility] Address: [address] [place] [address] Result Comment: The [place] Diabetes Association (ADA) provides guidance for cutoff values for fasting glucose and random glucose. The ADA defines fasting as no caloric intake for at least 8 hours. Fasting plasma glucose results between 100 to 125 mg/dL indicate increased risk for diabetes (prediabetes). Fasting plasma glucose results greater than or equal to 126 mg/dL meet the criteria for diagnosis of diabetes. In the absence of unequivocal hyperglycemia, results should be confirmed by repeat testing. In a patient with classic symptoms of hyperglycemia or hyperglycemic crisis, random plasma glucose results greater than or equal to 200 mg/dL meet the criteria for diagnosis of diabetes. Reference: Standards of Medical Care in Diabetes 2016, [place] [employer] Association. Diabetes Care. 2016.39(Suppl 1). Performed By: #### 2 4323-8 ####[facility] LABIA [id number] [place] [address] [place] Potassium [Moles/Vol] 4.7 mmol/L 3.7 - 5.1 mmol/L [facility] Comment on above: Order Comment: Carolyne wilhelm Type: BLOOD SPECIMENOrdering Facility: [facility] Address: [address] [address] Performed By: #### 2 4323-8 ####[facility] LABCLIA [id number] [place] [address] [place] Protein [Mass/Vol] 7.5 g/dL 6.3 - 8.0 g/dL [facility] Comment on above: Order Comment: Speci men Type: BLOOD SPECIMENOrdering Facility: [facility] Address: [address] [place] [address] Performed By: #### 2 4323-8 ####[facility] LABIA [id number] [place] [address] [place] Sodium [Moles/Vol] 141 mmol/L 136 - 144 mmol/L [facility] Comment on above: Order Comment: Speci men Type: BLOOD SPECIMENOrdering Facility: [facility] Address: [address] [place] [address] Performed By: #### 2 4323-8 ####[facility] LABIA [id number] [address] STATES OF [facility] Urea nitrogen [Mass/Vol] 18 mg/dL 9 - 24 mg/dL [facility] Comment on above: Order Comment: Speci men Type: BLOOD SPECIMENOrdering Facility: [facility] Address: [address] [place] [address] Performed By: #### 2 4323-8 ####[facility] LABIA [id number] [address] [place] ECG COMPLETEon 12-16-2021 ECG COMPLETE Ventricular Rate : 6 2 BPM Atrial Rate : 62 BPM P-R Interval : 146 ms QRS Duration : 82 ms Q-T Interval : 412 ms QTC Calculation(Bazett) : 418 ms Calculated P [place] : 69 degrees Calculated R [place] : -5 degrees Calculated T [place] : 55 degrees NORMAL SINUS RHYTHM NORMAL ECG Confirmed by TERRA MAHAJAN MD ([id number]) on 12/20/2021 7:45:09 PM NAME : PETER ORR PID : [id number] : 1950 Gender : Male Race : ORD : [id number] Procedure Date : Dec 16 2021 10:41:43 Edit Date : Dec 20 2021 19:45:10 Diagnosis: NORMAL SINUS RHYTHM NORMAL ECG Confirmed by TERRA MAHAJAN MD ([id number]) on 12/20/2021 7:45:09 PM Test Reason : Location : 119 : A17 A-17 Overread By : TERRA MAHAJAN MD Edited By : TERRA MAHAJAN MD Referred By : DEEP OROZCO Acquired by : SHARON MICHELLE [facility] HISTORY PHYSICALon 2 HISTORY PHYSICAL HNO ID: [id number] Author: Bibi Aguilar PA-C Service: ? Author Type: Physician Supervisor Cold Rolling Type: HANDP Filed: 12/16/2021 10:21 AM Note Text: HISTORY AND PHYSICAL EXAMINATION SERVICE DATE: 12/16/2021 SERVICE TIME: 10:05 AM PRIMARY CARE PHYSICIAN: Russell Fuentes MD REASON FOR VISIT: Peter Orr is a 71 year old male who is scheduled for LAPAROSCOPIC HEMICOLECTOMY WITH ANASTOMOSIS at the request of Dr. Deep Orozco for consultation. My final recommendation will be communicated back to the requesting physician by way of shared medical record or letter. The patient has the following: ACTIVE PROBLEM LIST Personal History of Colonic Polyps Unspecified Hemorrhoids Without Mention of Complication Unspecified Arthropathy, Hand Tobacco Use Disorder Calculus of Gallbladder Without Mention of Cholecystitis Or Obstruction Villous Adenoma of Colon Subjective CHIEF COMPLAINT: villous adenoma of colon HPI: 71 year old male scheduled for LAPAROSCOPIC HEMICOLECTOMY WITH ANASTOMOSIS on 12/19/2021. Patient has a villous adenoma of the colon that was found on colonoscopy in July. The polyp was not able to be resected. Denies any current symptoms. Denies any fever, chills, nausea, vomiting, chest pain, abdominal pain, SOB. PAST MEDICAL HISTORY Diagnosis Date Allergic rhinitis, cause unspecified Closed fracture of unspecified bone L1 and spider cracks to thoracic lumbar Esophageal reflux Internal hemorrhoids with other complication Personal history of colonic polyps Colon polyps Variants of migraine, not elsewhere classified, without mention of intractable migraine without mention of status migrainosus 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 PAST SURGICAL HISTORY Procedure Laterality Date COLONOSCOPY FLX DX W/COLLJ SPEC WHEN PFRMD 11/21/02 Colonoscopy COLONOSCOPY FLX DX W/COLLJ SPEC WHEN PFRMD 08/01/2006 Colonoscopy HEMORRHOIDECTOMY INTERNAL [employer] LIGATIONS 1987 Hemorrhoidectomy LAPS SURG CHOLECYSTECTOMY W/CHOLANGIOGRAPHY 09/30/10 normal IOC TONSILLECTOMY PRIMARY/SECONDARY Tonsillectomy FAMILY HISTORY Problem Relation Age of Onset Heart Father Diabetes Father Alzheimer's Disease Mother Osteoporosis Mother Cancer Maternal Grandfather prostate Stroke Maternal Grandmother Anesthesia Problems No Family History SOCIAL HISTORY: Social History Tobacco Use Smoking status: Every Day Packs/day: 1.50 Years: 40.00 Pack years: 60.00 Types: Cigarettes Smokeless tobacco: Never Substance Use Topics Alcohol use: No Drug use: Not Currently Frequency: 2.0 times per week Types: Marijuana Comment: Smokes 2x/week for pain MEDICATIONS: Prior to Admission medications as of 12/16/21 1006 Medication Sig Last Dose Taking neomycin 500 mg tablet Take 2 tablets by mouth at 9pm and take 2 tablets by mouth at 11pm the night before surgery. Taking Yes metroNIDAZOLE (FLAGYL) 500 mg tablet Take 1 tablet by mouth at 9pm and take 1 tablet by mouth at 11pm the night before surgery. Taking Yes peg 3350-Electrolytes (GOLYTELY) 236-22.74-6.74 -5.86 gram suspension Refer to printed prep instructions from your provider. Patient not taking: No sig reported Not Taking LACTASE (LACTAID ORAL) Take by mouth once daily. Takes with milk Patient not taking: Reported on 09/16/2021 NAPROXEN SODIUM (ALEVE ORAL) Take by mouth as needed. Patient not taking: Reported on 09/16/2021 acetaminophen (TYLENOL) 325 mg tablet Take 325 mg by mouth every 6 hours as needed. Patient not taking: No sig reported Not Taking P-EPHED HCL/ACETAMINOPHEN (EXCEDRIN SINUS ORAL) Take by mouth as needed. Patient not taking: Reported on 09/16/2021 cyclobenzaprine 10 mg ORAL tablet Take 1 tablet by mouth three times daily as needed for Muscle Spasm. Patient not taking: Reported on 09/16/2021 Omeprazole Magnesium (PRILOSEC OTC) 20 mg ORAL TbEC Take one(1) tablet daily.as needed Patient not taking: Reported on 12/16/2021 Not Taking No medication comments found. CURRENT ALLERGIES: ALLERGIES Allergen Reactions Penicillins Hives Petroleum Products * Rash Soaps [Other] Rash COVID VACCINATION STATUS: Fully vaccinated REVIEW OF SYSTEMS: PAIN ASSESSMENT: General: No weight loss, malaise or fevers. Neuro: No history of TIA's, stroke, [employer] tumor, impaired sensorium, hemiplegia, paraplegia or quadraplegia. No neurological symptoms or problems. Respiratory: Negative for Asthma, Bronchitis, COPD, Current cough, Dyspnea, Pneumonia within 6 weeks (date), URI < 2 weeks+smoker Cardiovascular: No history of HTN requiring medication, no history of angina, CHF, PA, cardiac surgery or stents. Denies rest pain, gangrene or revascularization/amp utation for PVD. No history of cardiovascular symptoms or problems. GI: No history of GI symptoms or problems. No history of esophageal varices, recent ascites, or ETOH greater than 2 drinks per day. : No history of dysuria, frequency or i (more content not included)... Normal [facility] TYPE AND SCREEN,30 DAYon ABO A [facility] HIstorical Ab Scr Status Negative [facility] Rh Nom (Bld) Positive [facility] ABO A Normal [facility] Comment on above: Order Comment: Speci men Type: BLOOD SPECIMENOrdering Facility: [facility] Address: [address] [place] [address] Performed By: #### T SCR30 ####CC [facility] BLOOD BANKCLIA [id number] [address] HISTORICAL AB SCR STATUS Negative Normal [facility] Comment on above: Order Comment: Speci men Type: BLOOD SPECIMENOrdering Facility: [facility] Address: [address] [place] [address] Performed By: #### T SCR30 ####CC [facility] BLOOD BANKCLIA [id number] [address] Rh Nom (Bld) Positive Normal [facility] Comment on above: Order Comment: Speci men Type: BLOOD SPECIMENOrdering Facility: [facility] Address: [address] [place] [address] Performed By: #### T SCR30 ####CC MAIN BLOOD BANKCLIA [id number] [place] [id number] [facility] [place] 11-30-2021 CNPN Telephone (ISHAN) PETER ORR ([id number]) 1950 M Date Time Provider Department 11/30/21 POLINA MELÉNDEZ During your visit today, we recorded the following information about you: Polina Meléndez RN 11/30/2021 1:31 PM Signed PRIMARY CARE COORDINATION FOLLOW-UP NOTE Provider Action/FYI Follow up Patient identified by name and date of . YES Spoke to patient Summary: Patient accepts surgery date 12/19 pre op 12/16 Concerns: POC Monitoring And Evaluation Advisor plan for next outreach: No further follow up needed at this time Signature Polina Meléndez RN November 30, 2021 Allergies As of Date: 11/30/2021 Noted Allergy Reaction PENICILLINS 02/28/2005 4 - Hives petroleum products [Other] 02/28/2005 2 - Rash soaps [Other] 02/28/2005 2 - Rash Date Reviewed: 10/28/2021 Reviewed by: Bibi Diaz RN - Fully Assessed Reason for Visit: Care Coordination [3491] Prescriptions as of 11/30/2021 - peg 3350-Electrolytes (GOLYTELY) 236-22.74-6.74 -5.86 gram suspension Refer to printed prep instructions from your provider. - LACTASE (LACTAID ORAL) Take by mouth once daily. Takes with milk - NAPROXEN SODIUM (ALEVE ORAL) Take by mouth as needed. - acetaminophen (TYLENOL) 325 mg ORAL tablet Take 325 mg by mouth every 6 hours as needed. - P-EPHED HCL/ACETAMINOPHEN (EXCEDRIN SINUS ORAL) Take by mouth as needed. - cyclobenzaprine 10 mg ORAL tablet Take 1 tablet by mouth three times daily as needed for Muscle Spasm. - Omeprazole Magnesium (PRILOSEC OTC) 20 mg ORAL TbEC Take one(1) tablet daily.as needed Problem List As Of Date 11/30/2021 Noted Resolved PERS HX COLONIC POLYPS [Z86.010] HEMORRHOIDS NOS [K64.9] 05/03/2006 ARTHROPATHY NOS-HAND [M19.049] 01/03/2007 TOBACCO USE DISORDER [F17.200] 01/03/2007 CHOLELITHIASIS NOS [K80.20] 01/16/2007 Encounter Status:Closed by POLINA MELÉNDEZ on 11/30/21 [facility] [place] 11-22-2021 CNPN Telephone (CORSMN) PETER ORR ([id number]) 1950 M Date Time Provider Department 11/22/21 ALEXANDRA ROBLEDO During your visit today, we recorded the following information about you: Alexandra Robledo RN 11/22/2021 2:26 PM Signed SPECIALTY CARE COORDINATION FOLLOW-UP NOTE Calling to offer surgery. 4 hour Lap R hemicolectomy LOS 5 days Surgical date with Dr. Orozco available for Sunday12/19/21 Pre-operative date available Sunday12/16/21 w/ Ernesto and covid 12/13 with Erensto, etc. Number left for patient to call back to discuss or to accept dates. Will need: PATRICK Pt ed- yes prep EKG Labs covid Marking PACC?? Signature Alexandra Robledo RN November 22, 2021 Allergies As of Date: 11/22/2021 Noted Allergy Reaction PENICILLINS 02/28/2005 4 - Hives petroleum products [Other] 02/28/2005 2 - Rash soaps [Other] 02/28/2005 2 - Rash Date Reviewed: 10/28/2021 Reviewed by: Bibi Diaz RN - Fully Assessed Reason for Visit: Monitoring And Evaluation Advisor - Other [3602] Prescriptions as of 11/22/2021 - peg 3350-Electrolytes (GOLYTELY) 236-22.74-6.74 -5.86 gram suspension Refer to printed prep instructions from your provider. - LACTASE (LACTAID ORAL) Take by mouth once daily. Takes with milk - NAPROXEN SODIUM (ALEVE ORAL) Take by mouth as needed. - acetaminophen (TYLENOL) 325 mg ORAL tablet Take 325 mg by mouth every 6 hours as needed. - P-EPHED HCL/ACETAMINOPHEN (EXCEDRIN SINUS ORAL) Take by mouth as needed. - cyclobenzaprine 10 mg ORAL tablet Take 1 tablet by mouth three times daily as needed for Muscle Spasm. - Omeprazole Magnesium (PRILOSEC OTC) 20 mg ORAL TbEC Take one(1) tablet daily.as needed Problem List As Of Date 11/22/2021 Noted Resolved PERS HX COLONIC POLYPS [Z86.010] HEMORRHOIDS NOS [K64.9] 05/03/2006 ARTHROPATHY NOS-HAND [M19.049] 01/03/2007 TOBACCO USE DISORDER [F17.200] 01/03/2007 CHOLELITHIASIS NOS [K80.20] 01/16/2007 Encounter Status:Closed by ALEXANDRA ROBLEDO on 11/22/21 [facility] ANES POSTPROC EVALon 022 ANES POSTPROC EVAL HNO ID: [id number] Author: Yaneli Dyson MD Service: ? Author Type: Anesthesiologist Type: Anesthesia Postprocedure Evaluation Filed: 10/28/2021 6:38 PM Note Text: POST ANESTHESIA EVALUATION NOTE : 1950 Procedure Summary Date: 10/28/21 Room / Location: Gastroenterology Anesthesia Start: 1728 Anesthesia Stop: 1802 Procedure: COLONOSCOPY (THERAPEUTIC) Diagnosis: Personal history of colonic polyps Scheduled Providers: Jason Santos MD; Roge Alcaraz MD Responsible Provider: Yaneli Dyson MD Anesthesia Type: MAC ASA Status: 3 Anesthesia Type: MAC Last Vitals Vitals Value Taken Time BP 153/82 10/28/21 1830 Temp 36.4 ?C (97.5 ?F) 10/28/21 1803 HR SpO2 67 10/28/21 1830 Resp 16 10/28/21 1830 SpO2 97 % 10/28/21 1830 Post Anesthesia Patient Status Patient Evaluation: PACU. PACU/ICU Patient Condition: stable. Neurological Status: aware and responsive. Pulmonary Status: breathing comfortably on supplemental oxygen Airway Control: returned to baseline unsupported. Cardiovascular Status: stable. Pain Management: clinically adequate Postoperative Hydration: acceptable. Intraoperative Events: no significant anesthesia events Post Operative Nausea/Vomiting Status: no significant post operative nausea or vomiting Anesthetic Observations: Recommendation: continue current plan of care. Anesthesia Observations No Documentation SIGNATURE: Yaneli Dyson MD PATIENT NAME: Peter Orr DATE: October 28, 2021 TIME: 6:37 PM CSN: [id number] Normal [facility] ANES PRE-OPon 10-28-2021 ANES PRE-OP HNO ID: [id number] Author: Yaneli Dyson MD Service: ? Author Type: Anesthesiologist Type: Anesthesia Preprocedure Evaluation Filed: 10/28/2021 6:37 PM Note Text: ANESTHESIOLOGY DAY OF SURGERY NOTE : 1950 Procedure Information Anesthesia Start Date/Time: 10/28/211728 Scheduled providers: Jason Santos MD; Roge Alcaraz MD Procedure: COLONOSCOPY (THERAPEUTIC) Location: Gastroenterology Estimated body mass index is 28.19 kg/m? as calculated from the following: Height as of this encounter: 170.2 cm (5' 7 ). Weight as of this encounter: 81.6 kg (180 lb). Most recent hematocrit and potassium results: No results found for this basename: HCT,HEMATOCRIT,K,POTA SSIUM Relevant Problems CARDIO (+) Unspecified hemorrhoids without mention of complication NEURO-PSYCH (+) Personal history of colonic polyps I - PHYSICAL EVALUATION AIRWAY Patient intubated: No. Tracheostomy tube not present Mallampati: II. TM distance: >3 FB. Neck ROM: full ROM without neurological symptoms. Mouth opening: adequate. Short neck: no. Thick neck: no DENTAL Dental findings: teeth intact. Dentures, upper: complete. Dentures, lower: complete. Additional exam findings: no II - ANESTHESIA PLAN ASA Score: 3 Anesthetic Plan: MAC NPO Status: adequate Monitoring plan: standard ASA. Informed Consent Anesthetic risks, benefits, alternatives, personnel and consent discussed: yes. Patient / Responsible Constitution Party agrees to proceed: yes Patient / Surrogate agrees to blood products: blood products not planned Significant changes in the patient condition since the History and Physical, not otherwise documented in primary service progress note: no. Potential Anesthesia issues that may suggest increased risk of complications or contraindication to planned procedure: none. Vitals Value Taken Time BP 173/80 10/28/21 1538 Pulse 95 10/28/21 1538 Resp 16 10/28/21 1538 Temp 36.2 ?C (97.2 ?F) 10/28/21 1538 SpO2 98 % 10/28/21 1538 Outpatient Medications as of 10/28/2021 Medication Sig - peg 3350-Electrolytes (GOLYTELY) 236-22.74-6.74 -5.86 gram suspension Refer to printed prep instructions from your provider. - LACTASE (LACTAID ORAL) Take by mouth once daily. Takes with milk (Patient not taking: Reported on 09/16/2021 ) - NAPROXEN SODIUM (ALEVE ORAL) Take by mouth as needed. (Patient not taking: Reported on 09/16/2021 ) - acetaminophen (TYLENOL) 325 mg ORAL tablet Take 325 mg by mouth every 6 hours as needed. - P-EPHED HCL/ACETAMINOPHEN (EXCEDRIN SINUS ORAL) Take by mouth as needed. (Patient not taking: Reported on 09/16/2021 ) - cyclobenzaprine 10 mg ORAL tablet Take 1 tablet by mouth three times daily as needed for Muscle Spasm. (Patient not taking: Reported on 09/16/2021 ) - Omeprazole Magnesium (PRILOSEC OTC) 20 mg ORAL TbEC Take one(1) tablet daily.as needed (Patient not taking: Take one(1) tablet daily.asANDnbsp;ANDnb sp;needed) Facility-Administered Medications as of 10/28/2021 Medication Dose Route Frequency - NaCl 0.9% iv infusion 5-30 mL/hr INTRAVENOUS CONTINUOUS I have interviewed and examined the patient. I have reviewed the medical record and/or the pre-anesthesia evaluation, pertinent labs, and test results. This contains updated information obtained within 48 hours of Surgery/Procedure. SIGNATURE: Yaneli Dyson MD PATIENT NAME: Peter Orr DATE: October 28, 2021 TIME: 5:19 PM CSN: [id number] [facility] COLONOSCOPY (THERAPEUTIC)on 10-28-2021 [facility] Colonoscopyon 10-28-2021 Colonoscopy Q3 Patient Name: Peter Orr Procedure Date: 10/28/2021 5:25 PM Date of : 1950 Admit Type: Outpatient Age: 71 Gender: Male Note Status: Finalized Attending MD: Jason Santos MD Procedure: Colonoscopy Indications: Follow-up for history of adenomatous polyps in the colon Providers: Jason Santos MD Patient Profile: Last Colonoscopy: within the past 6 months. Referring Physician: Deep Orozco MD (Referring MD) Medicines: General Anesthesia Complications: No immediate complications. Requesting Provider: Procedure: Pre-Anesthesia Assessment: - ASA Grade Assessment: II - A patient with mild systemic disease. After I obtained informed consent, the scope was passed under direct vision. Throughout the procedure, the patient's blood pressure, pulse, and oxygen saturations were monitored continuously. The Colonoscope was introduced through the anus and advanced to the cecum, identified by appendiceal orifice and ileocecal valve. The colonoscopy was performed without difficulty. The patient tolerated the procedure well. The quality of the bowel preparation was good. The ileocecal valve, appendiceal orifice, and rectum were photographed. Moderate Sedation: MAC Findings: The perianal and digital rectal examinations were normal. A greater than 50 mm polyp was found in the distal ascending colon. The polyp was carpet-like. opposite wall of the tattoo was successfully injected with 2 mL Spot (carbon black) for tattooing. A 10 mm polyp was found in the cecum. The polyp was sessile. The polyp was removed with a cold snare. Resection and retrieval were complete. No additional abnormalities were found on retroflexion. Impression: - 6 cm carpet like polyp traversing at least 3 folds in the distal ascending colon with central depression. opposite wall of the colon tattoed. - One 10 mm polyp in the cecum, removed with a cold snare. Resected and retrieved. Estimated Blood Loss: Estimated blood loss: none. Recommendation: - Patient has a contact number available for emergencies. The signs and symptoms of potential delayed complications were discussed with the patient. Return to normal activities tomorrow. Written discharge instructions were provided to the patient. - Resume previous diet. - Continue present medications. - Await pathology results. Procedure Code(s): --- Professional --- 84506, Colonoscopy, flexible; with removal of tumor(s), polyp(s), or other lesion(s) by snare technique 09614, Colonoscopy, flexible; with directed submucosal injection(s), any substance Diagnosis Code(s): --- Professional --- K63.5, Polyp of colon Z86.010, Personal history of colonic polyps CPT copyright 2019 [employer]. All rights reserved. Attending Participation: I personally performed the entire procedure. Scope In: 5:38:36 PM Scope Out: 5:53:10 PM MD Jason Foster MD 10/28/2021 6:02:09 PM This report has been signed electronically by Jason Santos MD Number of Addenda: 0 Note Initiated On: 10/28/2021 5:25 PM [facility] NURSING PROGon 10-28-2021 NURSING PROG HNO ID: [id number] Author: Bibi Diaz RN Service: Nursing Author Type: Registered Nurse Type: Nursing Progress Note Filed: 10/28/2021 6:07 PM Note Text: AMBULATORY PATIENT EDUCATION NOTE TOPIC: GI PROCEDURES: Colonoscopy with or without biopsies based on clinical findings READINESS TO LEARN INSTRUCTION PROVIDED TO: Patient, readness to learn accessed prior to procedure COGNITIVE ABILITY: Alert and oriented PTED MOTIVATION TO LEARN: Interested FAMILY SUPPORT: High - Very involved in pt care IPATIENT LEARNS BEST BY: Individual Instruction Written Instruction - Hand-outs Verbal Instruction FACTORS AFFECTING LEARNING: None PHYSICAL LIMITATIONS AFFECTING LEARNING: None LEARNING RESPONSE METHOD OF INSTRUCTION: Individual instruction PATIENT / FAMILY RESPONSE: Verbalizes understanding of: WORSENING CONDITION-Signs and symptoms of a worsening condition that warrant a call to the physician FOLLOW-UP PLAN: Patient instructed to call with any further issues Recommend - Recommend continued instruction and follow up as directed Contact information given. SUPPLEMENTAL MATERIAL: Procedure Discharge Instructions REFERRAL (RECOMMENDATION): None Electronically Signed By: Bibi Diaz RN BSN [facility] NURSING PROG HNO ID: [id number] Author: Stephanie Guan RN Service: Nursing Author Type: Registered Nurse Type: Nursing Progress Note Filed: 10/28/2021 3:31 PM Note Text: PRE OP LEARNING ASSESSMENT PROCEDURE/SURGERY: GI PROCEDURES: Colonoscopy READINESS TO LEARN COGNITIVE ABILITY: Alert and oriented MOTIVATION TO LEARN: Eager Interested FAMILY SUPPORT: Moderate - Family present but overwhelmed PATIENT LEARNS BEST BY: Individual Instruction Verbal Instruction FACTORS AFFECTING LEARNING: None PHYSICAL LIMITATIONS AFFECTING LEARNING: None Electronically Signed By: Stephanie Guan RN In Department: GASTROENTEROLOGY [facility] SURGICAL PATHOLOGYon 022 CASE REPORT [facility] Comment on above: Order Comment: Speci men Type: TISSUE SPECIMENOrdering Facility: [facility] Address: [address] [place] [address] Result Comment: Surg [facility] Pathology Report Case: [id number] Authorizing Provider: Jason Santos MD Collected: 10/28/2021 05:50 PM Ordering Location: Gastroenterology Received: 10/28/2021 09:37 PM Pathologist: Kyler Navarro MD Specimen: CECUM POLYP, R/O Adenoma Performed By: #### S ####[facility] LABCLIA [id number] [address] FINAL DIAGNOSIS [facility] Comment on above: Order Comment: Speci men Type: TISSUE SPECIMENOrdering Facility: [facility] Address: [address] [place] [address] Result Comment: A. C ecum, polyp, biopsy: Tubular adenoma Performed By: #### S ####[facility] LABCLIA [id number] [address] OF [facility] FINAL PERFORMING LAB Normal [facility] Comment on above: Order Comment: Speci men Type: TISSUE SPECIMENOrdering Facility: [facility] Address: [address] [place] [address] Result Comment: Diag nostic interpretation performed at [facility], [address] [place] [address] CLIA# [id number] Public Address Announcer: Brandon Vega M.D. Performed By: #### S ####[facility] LABCLIA [id number] [place] [id number] [facility] GROSS DESCRIPTION A. CECUM POLYP. Normal Cl [facility] Comment on above: Order Comment: Speci men Type: TISSUE SPECIMENOrdering Facility: [facility] Address: [address] [place], [place] [address] [id number] Result Comment: Rece ived in formalin is one kinney-brown polypoid segment of tissue measuring 0.8 x 0.5 x 0.4 cm. No stalk is present. The line of resection is noted. The specimen is bisected and totally submitted in cassette A1. Also received in the same container are multiple pieces of kinney, soft tissue aggregating to 1.6 x 0.2 x 0.2 cm. Totally submitted in cassette A2. Gross examination performed at [facility], [address] [place] [address] 10/28/2021 11:22 PM Performed By: #### S ####[facility] LABCLIA [id number] [address] CNPLacy 10-27-2021 CNPN Telephone (GASTMN) PETER ORR ([id number]) 1950 M Date Time Provider Department 10/27/21 JASON SANTOS GASTMO During your visit today, we recorded the following information about you: Sree Holland 10/27/2021 9:23 AM Signed Patient's called asking questions about the bowel prep for tomorrow's procedure. They would like a call back from the nurse to discuss details of when to start the prep and ask more questions. Audra Kan LPN 10/27/2021 9:50 AM Signed Message left on listed number . My name and instructions to call back to go over instructions. I also left Q3 endoscopy number so that patient could call and speak to nursing to go over instructions. Audra Kan LPN Allergies As of Date: 10/27/2021 Noted Allergy Reaction PENICILLINS 02/28/2005 4 - Hives petroleum products [Other] 02/28/2005 2 - Rash soaps [Other] 02/28/2005 2 - Rash Date Reviewed: 11/12/2012 Reviewed by: Raeann Mccoy [facility] - Fully Assessed Reason for Visit: Patient Question [6987] Prescriptions as of 10/27/2021 - peg 3350-Electrolytes (GOLYTELY) 236-22.74-6.74 -5.86 gram suspension Refer to printed prep instructions from your provider. - LACTASE (LACTAID ORAL) Take by mouth once daily. Takes with milk - NAPROXEN SODIUM (ALEVE ORAL) Take by mouth as needed. - acetaminophen (TYLENOL) 325 mg ORAL tablet Take 325 mg by mouth every 6 hours as needed. - P-EPHED HCL/ACETAMINOPHEN (EXCEDRIN SINUS ORAL) Take by mouth as needed. - cyclobenzaprine 10 mg ORAL tablet Take 1 tablet by mouth three times daily as needed for Muscle Spasm. - Omeprazole Magnesium (PRILOSEC OTC) 20 mg ORAL TbEC Take one(1) tablet daily.as needed Problem List As Of Date 10/27/2021 Noted Resolved PERS HX COLONIC POLYPS [Z86.010] HEMORRHOIDS NOS [K64.9] 05/03/2006 ARTHROPATHY NOS-HAND [M19.049] 01/03/2007 TOBACCO USE DISORDER [F17.200] 01/03/2007 CHOLELITHIASIS NOS [K80.20] 01/16/2007 Encounter Status:Closed by AUDRA KAN on 10/27/21 [facility] [place]ilson 10-21-2021 [facility] PETER ORR ([id number]) 1950 M Date Time Provider Department 10/21/21 CHRISTINA DHALIWAL During your visit today, we recorded the following information about you: Christina Dhaliwal RN 10/21/2021 2:27 PM Signed Attempted to reach the patient at the contact number that they provided [phone] (home) . Unable to speak with patient so without identifying the patient the following information was left on their voice mail: Date of procedure, location and report time Prep instructions A message was left informing the patient/patient help desk representative they must have a responsible adult accompany them to their procedure; and remain in the endoscopy area until they are discharged. Failure to have a responsible adult accompany the patient to their procedure appointment prevents the use of sedation or anesthesia for their procedure; and can result in cancellation of the procedure NPO instructions were reviewed. Clear liquids the day before the procedure, stop all liquids 4 hours before the procedure Instructions to contact their primary care provider regarding their medications and which medications to stop in preparation for their procedure Instructions to completely read and follow the written instructions that they recieved regarding their procedure. Number to call with questions or concerns [phone] Number to call to cancel their procedure [phone] Christina Dhaliwal RN Allergies As of Date: 10/21/2021 Noted Allergy Reaction PENICILLINS 02/28/2005 4 - Hives petroleum products [Other] 02/28/2005 2 - Rash soaps [Other] 02/28/2005 2 - Rash Date Reviewed: 11/12/2012 Reviewed by: Raeann Mccoy [facility] - Fully Assessed Reason for Visit: Appointment Confirmation [[id number]] Prescriptions as of 10/21/2021 - peg 3350-Electrolytes (GOLYTELY) 236-22.74-6.74 -5.86 gram suspension Refer to printed prep instructions from your provider. - LACTASE (LACTAID ORAL) Take by mouth once daily. Takes with milk - NAPROXEN SODIUM (ALEVE ORAL) Take by mouth as needed. - acetaminophen (TYLENOL) 325 mg ORAL tablet Take 325 mg by mouth every 6 hours as needed. - P-EPHED HCL/ACETAMINOPHEN (EXCEDRIN SINUS ORAL) Take by mouth as needed. - cyclobenzaprine 10 mg ORAL tablet Take 1 tablet by mouth three times daily as needed for Muscle Spasm. - Omeprazole Magnesium (PRILOSEC OTC) 20 mg ORAL TbEC Take one(1) tablet daily.as needed Problem List As Of Date 10/21/2021 Noted Resolved PERS HX COLONIC POLYPS [Z86.010] HEMORRHOIDS NOS [K64.9] 05/03/2006 ARTHROPATHY NOS-HAND [M19.049] 01/03/2007 TOBACCO USE DISORDER [F17.200] 01/03/2007 CHOLELITHIASIS NOS [K80.20] 01/16/2007 Encounter Status:Closed by CHRISTINA DHALIWAL on 10/21/21 [facility] CNOVon 09-16-2021 CNOV Office Visit (CORSMN ) PETER ORR ([id number]) 1950 M Date Time Provider Department 09/16/21 11:00 AM DEEP OROZCO During your visit today, we recorded the following information about you: Temperature Pulse Respiration Blood pressure 98 degrees 78/minute 17/minute 164/72 Weight Height 79.8 kg 1.702 m Deep Orozco MD 09/17/2021 11:00 PM Signed COLORECTAL SURGERY New Patient Visit September 15, 2021 Chief Complaint: Un-resectable polyp History of Present Illness: Peter Norwoodnsworth is a 71 year old year old male present colon polyps seen on colonoscopy completed approx 3-4 weeks ago per patient . Patient states he has been experiencing pain in his left groin with concern for a hernia and underwent a CT scan at an outside hospital that demonstrated inguinal hernias in addition to possible applecore lesion in the cecum and was therefore sent for a colonoscopy. Images and the report does not demonstrate an apple core lesion but multiple polyps that were resected and an unresectable hepatic flexure lesion that was excised piecemeal and unable to be tattooed. He was therefore referred to [facility] for further treatment of his unresectable polyp. Patient endorses gas-like pressure all over belly every 3-4 days at which time feels like he in unable to pass gas and has experienced this phenomenon for about 3-4 years. He does have BM's every day that are generally soft and easy to pass but occasionally experiences constipation. He denies abdominal pain, rectal bleeding, or any recent changes in bowel habits. He takes tums, maalox for gas pain. He denies personal or family history PAST MEDICAL HISTORY Diagnosis Date - Allergic rhinitis, cause unspecified - Closed fracture of unspecified bone L1 and spider cracks to thoracic lumbar - Esophageal reflux - Internal hemorrhoids with other complication - Personal history of colonic polyps Colon polyps - Variants of migraine, not elsewhere classified, without mention of intractable migraine without mention of status migrainosus PAST SURGICAL HISTORY Procedure Laterality Date - COLONOSCOPY FLX DX W/COLLJ SPEC WHEN PFRMD 11/21/02 Colonoscopy - COLONOSCOPY FLX DX W/COLLJ SPEC WHEN PFRMD 08/01/2006 Colonoscopy - HEMORRHOIDECTOMY INTERNAL RUBBER BAND LIGATIONS 1986 Hemorrhoidectomy - LAPS SURG CHOLECYSTECTOMY W/CHOLANGIOGRAPHY 09/30/10 normal IOC - TONSILLECTOMY PRIMARY/SECONDARY Tonsillectomy Current Outpatient Medications Medication Sig Dispense Refill - acetaminophen (TYLENOL) 325 mg ORAL tablet Take 325 mg by mouth every 6 hours as needed. - LACTASE (LACTAID ORAL) Take by mouth once daily. Takes with milk (Patient not taking: Reported on 09/16/2021 ) - NAPROXEN SODIUM (ALEVE ORAL) Take by mouth as needed. (Patient not taking: Reported on 09/16/2021 ) - P-EPHED HCL/ACETAMINOPHEN (EXCEDRIN SINUS ORAL) Take by mouth as needed. (Patient not taking: Reported on 09/16/2021 ) - cyclobenzaprine 10 mg ORAL tablet Take 1 tablet by mouth three times daily as needed for Muscle Spasm. (Patient not taking: Reported on 09/16/2021 ) 30 tablet 1 - Omeprazole Magnesium (PRILOSEC OTC) 20 mg ORAL TbEC Take one(1) tablet daily.as needed (Patient not taking: Take one(1) tablet daily.as needed) otc 0 No current facility-administered medications for this visit. ALLERGIES Allergen Reactions - Penicillins Hives - Petroleum Products * Rash - Soaps [Other] Rash Review of Systems / PACC screen: Do you have difficulty climbing a full flight of stairs without feeling short of breath? no Do you require oxygen for your breathing or have your gone to an emergency department because of breathing problems? no Are you on dialysis or have you been told that your kidneys do not work well as they should? no Do have an implanted cardiac device (pacemaker, defibrillator etc.) that has not been checked in the last 6 months? no Have you had an organ transplant? no Have you been told that you had excessive bleeding during surgical procedures or do you take blood thinning medications other than aspirin? no Have you ever had a heart attack, heart stents/surgery, valve problems, or other heart problems? no Have you had a stroke, seizures, or unexplained loss of consciousness? no Do you have a neurologic condition like Parkinson's disease or multiple sclerosis? no Have you or a blood relative had a life-threatening reaction to anesthesia? no Do you have cirrhosis of the liver or other liver disease? no Have you had a blood clot within the past year? no Do you take insulin or other injections for diabetes? no Do you have sleep apnea or have you been told you may have sleep apnea? no Do you have other implanted devices (deep brain stimulator, spinal cord stimulator, etc.)? no Physical Exam: BP 164/72 Pulse 78 Temp 36.7 ?C (98 ?F) (more content not included)... [facility] HISTORY PHYSICALon 2 HISTORY PHYSICAL HNO ID: [id number] Author: Deep Orozco MD Service: ? Author Type: Physician Type: HANDP Filed: 09/17/2021 11:00 PM Note Text: COLORECTAL SURGERY New Patient Visit September 15, 2021 Chief Complaint: Un-resectable polyp History of Present Illness: Peter Orr is a 71 year old year old male present colon polyps seen on colonoscopy completed approx 3-4 weeks ago per patient . Patient states he has been experiencing pain in his left groin with concern for a hernia and underwent a CT scan at an outside hospital that demonstrated inguinal hernias in addition to possible applecore lesion in the cecum and was therefore sent for a colonoscopy. Images and the report does not demonstrate an apple core lesion but multiple polyps that were resected and an unresectable hepatic flexure lesion that was excised piecemeal and unable to be tattooed. He was therefore referred to [facility] for further treatment of his unresectable polyp. Patient endorses gas-like pressure all over belly every 3-4 days at which time feels like he in unable to pass gas and has experienced this phenomenon for about 3-4 years. He does have BM's every day that are generally soft and easy to pass but occasionally experiences constipation. He denies abdominal pain, rectal bleeding, or any recent changes in bowel habits. He takes tums, maalox for gas pain. He denies personal or family history PAST MEDICAL HISTORY Diagnosis Date - Allergic rhinitis, cause unspecified - Closed fracture of unspecified bone L1 and spider cracks to thoracic lumbar - Esophageal reflux - Internal hemorrhoids with other complication - Personal history of colonic polyps Colon polyps - Variants of migraine, not elsewhere classified, without mention of intractable migraine without mention of status migrainosus PAST SURGICAL HISTORY Procedure Laterality Date - COLONOSCOPY FLX DX W/COLLJ SPEC WHEN PFRMD 11/21/02 Colonoscopy - COLONOSCOPY FLX DX W/COLLJ SPEC WHEN PFRMD 08/01/2006 Colonoscopy - HEMORRHOIDECTOMY INTERNAL RUBBER BAND LIGATIONS 1986 Hemorrhoidectomy - LAPS SURG CHOLECYSTECTOMY W/CHOLANGIOGRAPHY 09/30/10 normal IOC - TONSILLECTOMY PRIMARY/SECONDARY Tonsillectomy Current Outpatient Medications Medication Sig Dispense Refill - acetaminophen (TYLENOL) 325 mg ORAL tablet Take 325 mg by mouth every 6 hours as needed. - LACTASE (LACTAID ORAL) Take by mouth once daily. Takes with milk (Patient not taking: Reported on 09/16/2021 ) - NAPROXEN SODIUM (ALEVE ORAL) Take by mouth as needed. (Patient not taking: Reported on 09/16/2021 ) - P-EPHED HCL/ACETAMINOPHEN (EXCEDRIN SINUS ORAL) Take by mouth as needed. (Patient not taking: Reported on 09/16/2021 ) - cyclobenzaprine 10 mg ORAL tablet Take 1 tablet by mouth three times daily as needed for Muscle Spasm. (Patient not taking: Reported on 09/16/2021 ) 30 tablet 1 - Omeprazole Magnesium (PRILOSEC OTC) 20 mg ORAL TbEC Take one(1) tablet daily.as needed (Patient not taking: Take one(1) tablet daily.as needed) otc 0 No current facility-administered medications for this visit. ALLERGIES Allergen Reactions - Penicillins Hives - Petroleum Products * Rash - Soaps [Other] Rash Review of Systems / PACC screen: Do you have difficulty climbing a full flight of stairs without feeling short of breath? no Do you require oxygen for your breathing or have your gone to an emergency department because of breathing problems? no Are you on dialysis or have you been told that your kidneys do not work well as they should? no Do have an implanted cardiac device (pacemaker, defibrillator etc.) that has not been checked in the last 6 months? no Have you had an organ transplant? no Have you been told that you had excessive bleeding during surgical procedures or do you take blood thinning medications other than aspirin? no Have you ever had a heart attack, heart stents/surgery, valve problems, or other heart problems? no Have you had a stroke, seizures, or unexplained loss of consciousness? no Do you have a neurologic condition like Parkinson's disease or multiple sclerosis? no Have you or a blood relative had a life-threatening reaction to anesthesia? no Do you have cirrhosis of the liver or other liver disease? no Have you had a blood clot within the past year? no Do you take insulin or other injections for diabetes? no Do you have sleep apnea or have you been told you may have sleep apnea? no Do you have other implanted devices (deep brain stimulator, spinal cord stimulator, etc.)? no Physical Exam: BP 164/72 Pulse 78 Temp 36.7 ?C (98 ?F) Resp 17 Ht 170.2 cm (5' 7.01 ) Wt 79.8 kg (176 lb) SpO2 98% BMI 27.56 kg/m? General Appearance: Well appearing, alert, in no acute distress, well-hydrated, well nourished. Lungs: Lungs clear to auscultation. No wheezing, rhonchi, rales. Unlabored on room air Heart: RRR without murmur, gallop, or (more content not included)... [facility] Vital Signs Date Time Vital Sign Value Performing Clinician Darwin reyes 12-16-2021 09:54-0400 Body height 171.5 cm Pac 4 Work Phone: [facility] 12-16-2021 09:54-0400 Body temperature 96.91 [degF] Pac 4 Work Phone: [facility] 12-16-2021 09:54-0400 Body weight 80.11 kg Pac 4 Work Phone: [facility] 12-16-2021 09:54-0400 Diastolic blood pressure 75 mm[Hg] Pacc 4 Work Phone: [facility] 12-16-2021 09:54-0400 Heart rate 74 /min Pacc 4 Work Phone: [facility] 12-16-2021 09:54-0400 SaO2% (BldA) [Mass fraction] 98 % Pacc 4 Work Phone: [facility] 12-16-2021 09:54-0400 Systolic blood pressure 143 mm[Hg] Pacc 4 Work Phone: [facility] 12-16-2021 08:46-0400 Body height 171.5 cm Deep Orozco MD Work Phone: [facility] 12-16-2021 08:46-0400 Body weight 79.92 kg Deep Orozco MD Work Phone: [facility] [facility] 10-28-2021 18:30-0400 Diastolic blood pressure 82 mm[Hg] Jason Santos MD Work Phone: [facility] 10-28-2021 18:30-0400 Heart rate 67 /min Jason Santos MD Work Phone: [facility] 10-28-2021 18:30-0400 Respiratory rate 16 /min Jason Santos MD Work Phone: [facility] 10-28-2021 18:30-0400 SaO2% (BldA) [Mass fraction] 97 % Jason Santos MD Work Phone: [facility] 10-28-2021 18:30-0400 Systolic blood pressure 153 mm[Hg] Jason Santos MD Work Phone: [facility] 10-28-2021 18:03-0400 Body temperature 97.5 [degF] Jason Santos MD Work Phone: [facility] 10-28-2021 15:38-0400 Body height 170.2 cm Jason Santos MD Work Phone: [facility] 10-28-2021 15:38-0400 Body weight 81.65 kg Jason Santos MD Work Phone: [facility] Encounters Encounter Date Encounter Type Care Provider Facility Start: 02-13-2023 End: 02-13-2023 ambulatory GIANNA CHRISTIANO Facility:[facility] Start: 05-19-2022 End: 05-19-[address] DONNY VILLAGOMEZ MD. Facility:B Start: 01-17-2022 End: 01-17-2022 ambulatory Cheryl Wilkins ACCOUNT MANAGER TRAINEE.BULKER Work Phone: Colorectal Surgery Comment on above: Postoperative state (Primary Dx) Start: 01-17-2022 End: 01-17-2022 Telemedicine consultation with patient Cheryl Wilkins APRN.BULKER Work Phone: [facility] Start: 12-16-2021 End: 12-16-2021 Admission to establishment Pacc Main 4 Work Phone: [facility] Start: 12-16-2021 End: 12-16-2021 Preprocedural examination done Pac Main 4 Work Phone: Pre Anesthesia Start: 12-16-2021 End: 12-16-2021 Nursing evaluation of patient and report [facility] Work Phone: Colorectal Surgery Comment on above: Attention to ileosto my (HCC) (Primary Dx) Pre-op evaluation (P rimary Dx); Villous adenoma of colon; Tobacco use disorder Start: 12-16-2021 End: 12-16-2021 Patient encounter procedure Deep Orozco MD Work Phone: Colorectal Surgery Comment on above: Adenoma of colon at hepatic flexure (Primary Dx) Start: 11-30-2021 Telephone encounter Polina Meléndez RN Colorectal Surgery Comment on above: Care Coordination Start: 11-25-2021 ambulatory Deep pickard MD Work Phone: Colorectal Surgery Start: 11-22-2021 Telephone encounter Alexandra Mckinney Colorectal Surgery Comment on above: Monitoring And Evaluation Advisor - O ther Start: 11-15-2021 End: 11-15-2021 ambulatory Deep Orozco MD Work Phone: Colorectal Surgery Comment on above: Villous adenoma of r ight colon (Primary Dx) Start: 11-15-2021 End: 11-15-2021 Telemedicine consultation with patient Deep Orozco MD Work Phone: [facility] Start: 10-28-2021 End: 10-28-2021 Subsequent hospital visit by physician Jason Santos MD Work Phone: Gastroenterology Comment on above: Personal history of colonic polyps [Z86.010] Start: 10-27-2021 Telephone encounter Jason kidd MD Work Phone: Gastroenterology Comment on above: Patient Question Start: 10-21-2021 Telephone encounter Christina Dhaliwal RNcook camp Comment on above: Appointment Confirma tion Start: 09-29-2021 Telephone encounter Jason kidd MD Work Phone: Gastroenterology Comment on above: Orders Procedures Date Procedure Procedure Detail Performing Clinician Start: 12-16-2021 Antibody screen Deep Orozco MD Work Phone: Start: 12-16-2021 Antibody screen Comment on above: Order Comment: Speci men Type: BLOOD SPECIMENOrdering Facility: [facility] Address: [address] [place] [address] Performed By: #### T [id number] ####CC [facility] BLOOD BANKCLIA [id number] [place] [address] [place] Start: 10-28-2021 Colonoscopy flx dx w /collj spec when pfrmd Deep Orozco MD Work Phone: Start: 10-28-2021 Colonoscopy Jason kidd MD Work Phone: Start: 11-12-2012 Colonoscopy Jason kidd MD Work Phone: Plan of Treatment Date Care Activity Detail Author Start: 10-28-2026 Colonoscopy COLONOSCOPY [facility] Start: 10-28-2026 COLORECTAL CANCER SCREENING COLORECTAL CANCER SCREENING [facility] Start: 12-20-2024 DIABETES SCREEN DIABETES SCREEN [facility] Start: 12-16-2024 DIABETES SCREEN DIABETES SCREEN [facility] Start: 12-22-2021 Influenza vaccination C [facility] Start: 04-23-2021 ADVANCE DIRECTIVE DISCUSSION ADVANCE DIRECTIVE DISCUSSION [facility] Start: 04-23-2021 DEPRESSION ASSESSMENT DEPRESSION ASS ESSMENT [facility] Start: 12-29-2020 COVID-19 VACCINE (3 - Booster for Moderna series) COVID-19 VACCINE (3 - Booster for Moderna series) [facility] Start: 09-23-2020 COVID-19 VACCINE (3 - Booster for Moderna series) COVID-19 VACCINE (3 - Booster for Moderna series) [facility] Start: 11-12-2017 Colonoscopy COLONOSCOPY [facility] Start: 11-12-2017 COLORECTAL CANCER SCREENING COLORECTAL CANCER SCREENING [facility] Start: 11-12-2017 LIPID SCREEN LIPID SCREEN [facility] Start: 09-08-2013 DIABETES SCREEN DIABETES SCREEN [facility] Start: 1998 Influenza vaccination LUNG CANCER [facility] Start: 1998 SHINGRIX VACCINE (1 of 2) SHINGRIX VACCINE (1 of 2) [facility] Start: 05-25-1997 Urine microalbumin profile DTAP,TDAP,TD (1 - Tdap) [facility] Start: 1993 COLOGUARD (FIT-DNA) COLOGUARD (FIT-D NA) [facility] Start: [address] COLONOGRAPHY [facility] Start: 1993 FECAL OCCULT BLOOD FECAL OCCULT BLOO D [facility] Start: 1993 SIGMOIDOSCOPY SIGMOIDOSCOPY [facility] Start: 1966 HEPATITIS C SCREENING HEPATITIS C [facility] Start: 1960 Adult depression screening assessment DEPRESSION SCREENING [facility] Start: 1954 PNEUMOCOCCAL: 65+ (1 - PCV) PNEUMOCOCCAL: 65+ (1 - PCV) [facility] Start: 1953 COVID-19 VACCINE (#1) COVID-19 VACCI NE (#1) [facility] Start: 01-13-1949 COVID-19 VACCINE (#1) COVID-19 VACCI NE (#1) [facility] Start: 1948 ABDOMINAL AORTIC ANEURYSM SCREENING ABDOMINAL AORTIC ANEURYSM SCREENING [facility] End: 09-29-2022 Colonoscopy COLONOSCOPY (THERAPEUTIC) Endoscopy Routine Personal history of colonic polyps 1 Occurrences starting 09/29/2021 until 09/29/2022 [facility] Work Phone: Comment on above: 1 Occurrences starti ng 09/29/2021 until 09/29/2022 End: 10-28-2021 Colonoscopy COLONOSCOPY (THERAPEUTIC) Endoscopy Routine Personal history of colonic polyps 1 Occurrences starting 10/28/2021 until 10/28/2021 [facility] Work Phone: Comment on above: 1 Occurrences starti ng 10/28/2021 until 10/28/2021 H&P for surgery H&P FOR SURGERY Procedures Routine Villous adenoma of colon Ordered: 11/25/2021 [facility] Work Phone: Comment on above: Ordered: 11/25/2021 REFER FOR ADMIT INTERVIEW REFER FOR ADMIT INTERVIEW Procedures Routine Villous adenoma of colon Ordered: 11/25/2021 [facility] Work Phone: Comment on above: Ordered: 11/25/2021 SURGICAL PATHOLOGY [facility] Work Phone: Comment on above: Release Upon Orderin g for 1 Occurrences starting 10/28/2021, [address] [facility] Immunizations Immunization Date Immunization Notes Care Provider Shalonda le 07-29-2020 COVID-19 vaccine, fu ll dose (MODERNA) [facility] Work Phone: [facility] 07-01-2020 COVID-19 vaccine, fu ll dose (MODERNA) [facility] Work Phone: [facility] 05-24-1997 tetanus and diphther ia toxoids, adsorbed, preservative free, for adult use (2 Lf of tetanus toxoid and 2 Lf of diphtheria toxoid) Jason Santos MD Work Phone: [facility] Work Phone: Payers Date Payer Category Payer Private Health Insurance [id number] 2022 Unknown [id number] 2020 Unknown [employer] PPO [id number] 2020-Present [phone] [address] [place] [address] PPO [id number] 2020 Unknown [employer] ACCE SS PPO [id number] 2020-Present [phone] [address] [place] [address] PPO [id number] 1948 Unknown [id number] Social History Date Type Detail Facility Start: 09-16-2021 End: 12-16-2021 Tobacco smoking status NHIS Smokes tobacco daily [facility] History of tobacco use Cigarette Smoker C [facility] History of tobacco use Snuff User [facility] Start: 09-16-2021 End: 12-16-2021 Alcohol intake Current non-drinker of alcohol (finding) [facility] Start: 1950 Sex Assigned At Not on file C [facility] Start: 10-18-2021 End: 12-20-2021 Exposure to SARS-CoV-2 (event) Not sure [facility] Start: 09-16-2021 End: 12-16-2021 Cigarettes smoked current (pack per day) - Reported 1 [facility] Start: 09-16-2021 Tobacco use and exposure User of smokeless tobacco [facility] Start: 11-15-2021 End: 11-25-2021 Exposure to SARS-CoV-2 (event) Unable to assess [facility] Start: 12-16-2021 Tobacco use and exposure Smoke less tobacco non-user [facility] Start: 12-20-2021 History SDOH Financial 5 [facility] Start: 12-20-2021 History SDOH Food Worry 1 [facility] Start: 12-20-2021 History SDOH Transport Med 2 [facility] Clinical Notes 09-29-2021 to 02-13-2023 Cheryl Wilkins APRN.BULKER - 01/17/2022 8:30 AM EDT Note Date & Type Note Facility 02-13-2023 Note HNO ID: [id number] Author: Amada Gloria MD Service: ? Author Type: Physician Type: Progress Notes Filed: 02/22/2023 7:25 PM Note Text: PRIMARY CARE PHYSICIAN: Eliza Jacobs MD ([facility]) [address] [place] [address] REFERRING PHYSICIAN: Gianna Alvarado [address] [facility] [address] [facility] [id number] Patient Care Team: Eliza Jacobs as PCP - General (Family Medicine) Christiano, MD Gianna as Specialty Benefits Director (Cardiology) Donny Villagomez MD as Specialty Benefits Director (Gastroenterology) CHIEF COMPLAINT: Evaluation for arrhythmia, atrial fibrillation HISTORY OF PRESENT ILLNESS: Mr. Orr is a 72 year old male who presents today for evaluation of atrial fibrillation, referred by Dr. Alvarado of [facility]. He has very complex medical history. He is accompanied by his . He had major GI bleeding in early 2022, states he had hemoglobin in the range of 5, was hospitalized and had blood transfusions. He states the bleeding was from hemorrhoids, underwent hemorrhoidectomy 07/2022. He has not had recurrence of the GI bleeding. He developed atrial fibrillation, he thinks about the same time as the GI bleeding. He was not aware of the arrhythmia, did not have any symptoms. Evidently he had a cardiomyopathy that was considered to be possibly tachycardia mediated, and this resolved. He has been amiodarone. He has not been aware of any recurrence of the atrial fibrillation, although as stated he was asymptomatic from it in the first instance. He and his are not aware that he has worn any cardiac monitoring. He has not been treated with oral anticoagulation therapy. He is referred for consideration of atrial fibrillation catheter ablation. He denies chest pain, shortness of breath, orthopnea, palpitations, PND, syncope. I have confirmed and edited as necessary, the PFSH and ROS obtained by others. PAST MEDICAL HISTORY Diagnosis Date Allergic rhinitis, cause unspecified At risk for bleeding associated with anticoagulants At risk for stroke Cardiomyopathy, unspecified (HCC) Closed fracture of unspecified bone L1 and spider cracks to thoracic lumbar Esophageal reflux Essential hypertension Heart failure, unspecified (HCC) History of cardiomyopathy History of GI bleed Internal hemorrhoids with other complication long term acute care registered nurse current use of amiodarone [facility] current use of antiarrhythmic drug Other chest pain Paroxysmal atrial fibrillation (HCC) Personal history of colonic polyps Colon polyps Variants of migraine, not elsewhere classified, without mention of intractable migraine without mention of status migrainosus 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 PAST SURGICAL HISTORY Procedure Laterality Date COLONOSCOPY FLX DX W/COLLJ SPEC WHEN PFRMD 11/21/02 Colonoscopy COLONOSCOPY FLX DX W/COLLJ SPEC WHEN PFRMD 08/01/2006 Colonoscopy HEMORRHOIDECTOMY INTERNAL RUBBER BAND LIGATIONS 1986 Hemorrhoidectomy LAPS SURG CHOLECYSTECTOMY W/CHOLANGIOGRAPHY 09/30/10 normal IOC TONSILLECTOMY PRIMARY/SECONDARY Tonsillectomy SOCIAL HISTORY Social History Tobacco Use Smoking status: Former Packs/day: 1.50 Years: 60.00 Additional pack years: 0.00 Total pack years: 90.00 Types: Cigarettes Start date: 1963 Quit date: 04/26/2022 Years since quittin.8 Smokeless tobacco: Never Substance Use Topics Alcohol use: No Drug use: Yes Frequency: 2.0 times per week Types: Marijuana Comment: Smokes 2x/week for pain FAMILY HISTORY Problem Relation Age of Onset Osteoporosis Mother Heart Attack Mother 92 Diabetes Mother Heart disease Father Diabetes Father Heart Failure Father had ICD Melanoma Father 50 No Known Problems Sister No Known Problems Sister No Known Problems Sister Stroke Maternal Grandmother Prostate Cancer Maternal Grandfather Anesthesia Problems No Family History ALLERGIES: ALLERGIES Allergen Reactions Penicillins Hives Petroleum Products * Rash Soaps [Other] Rash MEDICATIONS: ipratropium bromide (ATROVENT) 42 mcg (0.06 %) nasal spray levothyroxine (SYNTHROID) 50 mcg tablet Take 50 mcg by mouth daily before breakfast. furosemide (LASIX) 40 mg tablet Take 40 mg by mouth once daily. lisinopril (ZESTRIL) 10 mg tablet Take 10 mg by mouth two times a day. melatonin 10 mg chew Take 10 mg by mouth at bedtime as needed (insomnia). METOPROLOL TARTRATE ORAL Take 100 mg by mouth twice daily. TAKE 1/2 TAB 50 MG BID pantoprazole sodium (PANTOPRAZOLE ORAL) Take 40 mg by mouth once daily. amiodarone (PACERONE) 200 mg tablet Take 100 mg by mouth once daily. aspirin, enteric coated (ASPIRIN, ENTERIC COATED) 81 mg EC tablet Take 81 mg by mouth once daily. vitamin B complex (B COMPLEX 1 ORAL) Take by mouth once daily. ibuprofen (MOTRIN) 200 mg tablet Take 2-4 tablets by mouth every 8 hours as needed for pain. acetaminophen (TYLENOL) 50 (more content not included)... [facility] 01-17-2022 History of Present illness Narrative COLORECTAL SURGERY Post-Op virtual Visit Peter Orr returns for a post-operative visit after undergoing surgery, on 12/19/2021. SURGEON: Deep Orozco M.D. SURGERY/PROCEDURE: Diagnostic laparoscopy, repositioning of incarcerated colon from inguinal hernia, laparoscopic hepatic flexure mobilization, laparoscopic-assisted right hemicolectomy with high ligation of the ileocolic vessels, and omentoplasty. OPERATIVE INDICATIONS: The 71-year-old patient presented in clinics with results of a colonoscopy. The colon polyps had been seen, but not completely removed. The patient had noticed pain in his left groin with concern for hernia and underwent a CT scan at an outside hospital that demonstrated inguinal hernias in addition to a possible apple-core lesion in the cecum. Therefore, the colonoscopy was initiated. The apple-core lesion could be ruled out. However, multiple polyps were resected and an unresectable hepatic flexure lesion was excised only piecemeal and the patient was referred for surgical procedure. The patient endorsed gas-like pressure all over the belly every 3-4 days at which time he felt like unable to pass gas, but he had bowel movements every day on the other hand. At a repeat colonoscopy with Dr. Cervantes, a 6 cm carpet like polyp traversing at least 3 folds in the distal ascending colon was seen with central depression, which was suspicious and could not be removed endoscopically. The opposite wall was tattooed. OPERATIVE FINDINGS: At diagnostic laparoscopy, initially tattoo not visualized as located posteriorly. No sign of distant metastases of any tumor. Left inguinal hernia noted with incarcerated sigmoid, which was freed up and repositioned into the abdomen. Due to history of previous cholecystectomy, dense adhesions of the gastrocolic ligament and omentum towards the previous gallbladder location below the liver. Laparoscopic mobilization of hepatic flexure and laparoscopic mobilization of the entire right colon and ileum towards the mesenteric root performed. Mini- laparotomy around and above the umbilicus. Oncologic right hemicolectomy performed with preservation of the mesocolon and high vascular tie of the ileocolic vessels and right branch of middle colic vessels. Awzj-py-rfri stapled ileocolic anastomosis performed, omentoplasty on top. His post-operative period was uncomplicated. He is tolerating diet with an improving appetite, stable weight, and energy level is improving . He has no specific complaints, except soreness up and down where they cut him. Everyday feels a lot better. BMs: 6-7 times per day and is liquid and sometimes is solid stool. Bowel stoppers: none. Before surgery, he was going a few times per day but has hernia that pinches things. Current diet: GI soft. N/V none. F/C none. Incision/wound is no drainage. Path FINAL DIAGNOSIS A. Terminal ileum, colon, and appendix, resection: -Two colonic tubular adenomas, measuring 3.3 and 0.3 cm, negative for high-grade dysplasia and carcinoma, see comment. -Background colon, appendix, and terminal ileum with no diagnostic abnormality. -Thirteen lymph nodes with no diagnostic abnormality. -The surgical resection margins are free of dysplasia. Diagnosis Comment Multiple additional deeper sections have been examined on blocks A4, A5, and A6. The patient's history of an unresectable right-sided colon polyp marked by tattoo is noted. The 3.3 cm tubular adenoma was entirely submitted for microscopic examination. This polyp was located in the ascending colon and was grossly adjacent to a tattoo site. Mucosal prolapse change and foci of extracellular mucin are seen at the base of the polyp. These changes may reflect prior attempts to sample or resect this polyp. No submucosal invasion or desmoplastic stroma is seen. Case reviewed with Dr. Aviva Harris who agrees with this interpretation. Current Outpatient Medications Medication Sig Dispense Refill ibuprofen (MOTRIN) 200 mg tablet Take 2-4 tablets by mouth every 8 hours as needed for pain. acetaminophen (TYLENOL) 500 mg tablet Take 1-2 tablets by mouth every 6 hours as needed for pain. No current facility-administered medications for this visit. ALLERGIES Allergen Reactions Penicillins Hives Petroleum Products * Rash Soaps [Other] Rash There were no vitals taken for this visit. On camera, pt appears healthy is with him Incision is healed Assessment Assessment: Appetite: Eating and drinking well BMs: as expected after surgery, doesn't sound like c diff but will let us know if no improvement Incision/wound: WNL Overall doing well Fiber+gas-x/probiotic Plan: OK to slowly begin to advance diet, one food at a time, advised to keep diary to track response to adding new foods Ok to lift up to 15lbs, advised to wait at least 2-4 weeks before very heavy/strenuous lifting and core work- we discussed hernia risk Colonoscopy in 1 year, sooner as clinically indicated F/u CORS PRN Cheryl Wilkins APRN.CYNTHIA documented in this encounter [facility] 12-22-2021 Note HNO ID: [id number] Author: Amy Terrell RN Service: Care Management Author Type: Registered Nurse Type: Care Mgt Progress Note Filed: 12/22/2021 12:25 PM Note Text: CARE MANAGEMENT DISCHARGE NOTE SERVICE DATE: 12/22/2021 SERVICE TIME: 12:24 PM LOS: 3 days Admission Date: 12/19/2021 DISCHARGE ARRANGEMENT (list agency and phone number) Discharge Arrangement: Home with Self Care CAREGIVER ASSESSMENT: Caregiver is ready, willing and able to meet the patient's needs as recommended by the inter-professional team:: No Caregiver needed Patient's transition needs and plan for meeting these needs: Home HANDOFF COMMUNICATION: Handoff to: Primary Care Physician Primary Care Physician Name/Phone: Eliza Jacobs MD TRANSPORTATION ARRANGEMENTS: Transportation Arrangements: Car ADDITIONAL CONTACT RESOURCES: na Per medical team patient is ready for discharge. Discharge instructions provided by floor nursing staff. Pt is aware and in agreement with the discharge plan. Family will provide DC transport. Patient is ready for discharge from . SIGNATURE: Amy Terrell RN PATIENT NAME: Peter Orr DATE: December 22, 2021 TIME: 12:22 PM PAGER/CONTACT #: [phone] [facility] 12-22-2021 Note HNO ID: [id number] Author: Panfilo Morris MD Service: Colorectal Author Type: Fellow Type: Progress Notes Filed: 12/22/2021 7:03 AM Note Text: COLORECTAL SURGERY PROGRESS NOTE PATIENT ID: Peter Orr Admit Date: 12/19/2021 Interval events/Subjective: No nauseaafter oliceridine dc Tolerating full liquids started yest OOB Feeling well, no pain EXAM: GEN: Resting in bed, no acute distress N: AO4 PULM: no e/o increased WOB ABD: Soft, nondistended, appropriately tender, no peritonitis, incisions CDI. PAYAM SS : vallejo out EXT: warm and well perfused, no edema DATA: BP 142/69 Pulse 90 Temp 37 ?C (98.6 ?F) (Oral) Resp 16 Ht 171.5 cm (5' 7.5 ) Wt 80.1 kg (176 lb 9.4 oz) SpO2 98% BMI 27.25 kg/m? Date 12/21/21699 - 12/22/21 0659 12/22/21 07 - 12/23/21 0659 Shift 6072-9784 6725-6388 0628-3308 24 Hour Total 7351-4213 0252-3359 6127-3106 24 Hour Total INTAKE IV 320 280 600 Volume (mL) (lactated ringers iv infusion) 320 280 600 Shift Total 320 280 600 OUTPUT Urine 125 300 425 Void (ml) 125 300 425 Urine Not Saved. 1 x 2 x 3 x Tubes 5 5 Drain/Tube Output (Drain/Tube 12/19/21 Assessment Left Lower Quadrant Drain #1) 5 5 Shift Total 125 305 430 Weight (kg) 80.1 80.1 80.1 80.1 80.1 80.1 80.1 80.1 Recent Labs 12/22/217 12/21/21221512/20/21220512/20/2119 WBC -- -- 10.20 8.79 HB -- -- 14.3 13.0 HCT -- -- 41.1 37.7* PLT -- -- 185 166 NA -- -- 139 137 K -- -- 3.7 4.2 CHLOR -- -- 104 104 CO2 -- -- 19* 23 CREAT -- -- 1.18 1.29* P -- -- 1.7* 2.8 BUN -- -- 11 12 GLUC -- -- 151* 121* MG -- -- 1.9 1.9 CA -- -- 8.9 8.8 CRP 3.3* 3.9* 4.2* 2.6* A/P: 71 year old male with unresectable hepatic flexure colon mass/polyp now 3 Days Post-Op lap R colectomy. CEA 3.8 Doing well #postop #nausea - resolved - GIS today - sqh - payam drain dc #pain control Oliceridine trial - appreciate pain team mgmt and recs #nicotine dependence - patches and gum PRN ordered. #obesity - counseled for weight loss #Left inguinal hernia - outpatient follow up with hernia team Dispo Home today Problem List Noted Noted By Resolved Resolved By Villous adenocarcinoma (HCC) 12/19/2021 Panfilo Morris MD No Overweight 12/19/2021 Rae Thompson PA-C No Postoperative pain 12/19/2021 Rae Thompson PA-C No 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 Bibi Aguilar PA-C No Calculus of gallbladder without mention of cholecystitis or obstruction 01/16/2007 Korey Cardona MD No Unspecified arthropathy, hand 01/03/2007 Russell Morales (Hist) Alfredo No Tobacco use disorder 01/03/2007 Russell Morales (Hist) Alfredo No Unspecified hemorrhoids without mention of complication 05/03/2006 Russell Morales (James) Alfredo No Personal history of colonic polyps Russell Morales (James) Alfredo No Overview Addendum 05/03/2006 12:00 AM by Russell Fuentes Colon polyps *A review of daily goals, interventions, and plan of care with the multidisciplinary team and patient has been conducted. The patient?s concerns have been addressed and he/she agrees to proceed with today?s plan of care Panfilo Morris MD [facility] 12-21-2021 History of Past i llness Narrative Problem Noted Date Resolved Date Hypophosphataemia 12/21/2021 12/22/2021 documented as of this encounter (statuses as of 01/15/2022) [facility]08-31-2022 History of Past illness Narrative* Problem Noted Date Resolved Date Hypophosphataemia 12/21/2021 12/22/2021 documented as of this encounter (statuses as of 01/17/2022) [facility]08-31-2022 NoteHNO ID: [id number] Author: Panfilo Morris MD Service: Colorectal Author Type: Fellow Type: Progress Notes Filed: 12/21/2021 3:32 PM Note Text: COLORECTAL SURGERY PROGRESS NOTE PATIENT ID: Peter Orr Admit Date: 12/19/2021 Interval events/Subjective: Tolerating clears, but had some nausea and small emesis. Pain controlled w oliceridine CUSHION MAKER but thinks this may be contributing to nasuea Having BM No sob or chest pain OOB EXAM: GEN: Resting in bed, no acute distress N: AO4 PULM: no e/o increased WOB ABD: Soft, nondistended, appropriately tender, no peritonitis, incisions CDI. PAYAM SS : vallejo out EXT: warm and well perfused, no edema DATA: BP 147/56 Pulse 82 Temp 36.5 ?C (97.7 ?F) (Oral) Resp 20 Ht 171.5 cm (5' 7.5 ) Wt 80.1 kg (176 lb 9.4 oz) SpO2 96% BMI 27.25 kg/m? Date 12/20/21 07 - 12/21/21 0659 12/21/21 07 - 12/22/21 0659 Shift 1898-9027 0947-5314 9414-4428 24 Hour Total 3714-9113 4541-9980 9597-4386 24 Hour Total INTAKE Shift Total OUTPUT Urine 257 416 5854 Void (ml) 600 600 Output ( Indwelling Urinary Catheter 12/19/21 0755 Coude 14 Fr) 400 400 Tubes 15 15 Drain/Tube Output (Drain/Tube 12/19/21 Assessment Left Lower Quadrant Drain #1) 15 15 # of BMs Number of BMs 2 x 2 x Shift Total 343 377 4903 Weight (kg) 80.1 80.1 80.1 80.1 80.1 80.1 80.1 80.1 Recent Labs 12/20/21 2206 12/20/21 0619 12/19/21 0633 WBC 10.20 8.79 -- HB 14.3 13.0 -- HCT 41.1 37.7* -- PLT 185 166 -- NA 139 137 137 K 3.7 4.2 4.3 CHLOR 104 104 106* CO2 19* 23 22 CREAT 1.18 1.29* 1.35* P 1.7* 2.8 -- BUN 11 12 13 GLUC 151* 121* 143* TPROT -- -- 6.9 ALB -- -- 4.3 MG 1.9 1.9 -- CA 8.9 8.8 9.4 ALKPHOS -- -- 80 TBILI -- -- 0.6 AST -- -- 15 ALT -- -- 21 CRP 4.2* 2.6* -- A/P: 71 year old male with unresectable hepatic flexure colon mass/polyp now 2 Days Post-Op lap R colectomy. 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 Panfilo Morris MD No Overweight 12/19/2021 Rae Thompson PA-C No Postoperative pain 12/19/2021 Rae Thompson PA-C No 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 Bibi Aguilar PA-C No Calculus of gallbladder without mention of cholecystitis or obstruction 01/16/2007 Korey Cardona MD No Unspecified arthropathy, hand 01/03/2007 Russell Morales (James) Alfredo No Tobacco use disorder 01/03/2007 Russell Morales (James) Alfredo No Unspecified hemorrhoids without mention of complication 05/03/2006 Russell Kong) Alfredo No Personal history of colonic polyps Russell Morales (James) Alfredo No Overview Addendum 05/03/2006 12:00 AM by Russell Fuentes Colon polyps *A review of daily goals, interventions, and plan of care with the multidisciplinary team and patient has been conducted. The patient?s concerns have been addressed and he/she agrees to proceed with today?s plan of care Panfilo Peckuong, [facility]08-31-2022 NoteHNO ID: [id number] Author: Sharon Hayward MD Service: General Surgery Author Type: Resident Type: Plan of Care Filed: 12/21/2021 4:55 AM Note Text: GENERAL SURGERY PLAN OF CARE NOTE Peter Bellamy Dominga [phone] Paged for patient requesting CUSHION MAKER to be discontinued d/t nausea and subjectively not feeling well. Went to bedside to evaluate the patient. He stated that he feels flushed and he thinks the CUSHION MAKER is contributing to nausea, which is only partially relieved by Zofran. Denies vomiting and significant abdominal pain, stating he does not feel he needs the CUSHION MAKER to manage his current pain level. Abd soft, nondistended, nontender. Dressings c/d/i. PAYAM SS. -Gave 5mg IV compazine x1 for nausea Sharon Hayward MD General Surgery [facility] NoteHNO ID: [id number] Author: Amy Terrell RN Service: Care Management Author Type: Registered Nurse Type: Care Mgt Initial Assessment Filed: 12/20/2021 12:32 PM Note Text: CARE MANAGEMENT: ASSESSMENT AND DISCHARGE PLAN SERVICE DATE: December 20, 2021 SERVICE TIME: 12:28 PM PRIMARY CARE PHYSICIAN: Russell Fuentes MD Phone: None Primary Contact: Extended Emergency Contact Information Primary Emergency Contact: ELIZA ORR Address: [address] [place] [address] [address] [place] Relation: Spouse ADMISSION STATUS: Inpatient Insurance Provider: [employer] PPO NEEDS PRIOR TO DISCHARGE Needs Prior to Discharge: None POTENTIAL TRANSITION PLANS Home Based on clinical judgement, Care Management will address the following needs: Medical Patient's perception of need for this admission: Admit for Surgery ADVANCE DIRECTIVES Current Advance Directive: None Plate Inspector Attempted to Assist with AD Completion: Yes Action: Education Provided MS/BEHAVIOR Baseline Mental Status Prior to this Illness what was the patient's Baseline Mental Status?: Alert AND Oriented Prior to this illness, has anyone described the patient having any of the following behaviors?: Not Applicable Relationship of the informant to the patient:: Self;Spouse Name of Informant: : Eliza Orr, Spouse READMISSION Last Discharge Date: N/A Is this Within the Past 30 days? 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 Patient alert and oriented and engaged with questioning. Plan to discharge once medically stable, Family supportive. Questions and concerns addressed. Pt denies any new questions or concerns at this time. Pt reports being independent at home, and denies the need for assistance. Pt uses assistive equipment. CM will continue to follow and update. Spouse confirm that she will provide DC Discharge transport Family will provide transportation home. SIGNATURE: Amy Terrell RN PATIENT NAME: Peter Orr DATE: December 20, 2021 TIME: 12:28 PM CONTACT #: [phone] Note HNO ID: [id number] Author: Panfilo Morris MD Service: Colorectal Author Type: Fellow Type: Progress Notes Filed: 12/20/2021 7:36 AM Note Text: COLORECTAL SURGERY PROGRESS NOTE PATIENT ID: Peter Orr Admit Date: 12/19/2021 Interval events/Subjective: Feels well No sob or chest pain Hungry No gas yet Pain controlled w oliceridine CUSHION MAKER Not oob EXAM: GEN: Resting in bed, no acute distress N: AO4 PULM: no e/o increased WOB ABD: Soft, nondistended, appropriately tender, no peritonitis, incisions CDI. PAYAM SS : vallejo in place EXT: warm and well perfused, no edema DATA: BP 124/62 Pulse 76 Temp 36.3 ?C (97.3 ?F) (Oral) Resp 18 Ht 171.5 cm (5' 7.5 ) Wt 79.8 kg (176 lb) SpO2 98% BMI 27.16 kg/m? Date 12/19/21 0700 - 12/20/21 0659 12/20/21 0700 - 12/21/21 0659 Shift 1962-0536 1054-3844 1951-2880 24 Hour Total 1657-8123 0357-4614 1072-8189 24 Hour Total INTAKE IV 2360 611 2971 Volume (mL) (ciprofloxacin iv piggyback 400 mg in D5W 200 mL (CIPRO)) 200 200 Volume (mL) (lactated ringers iv infusion) 1200 1200 Volume (mL) (lactated ringers iv infusion) 800 800 Volume (mL) (lactated ringers iv infusion) 160 160 Volume (mL) (lactated ringers iv infusion) 611 611 Shift Total 2360 611 2971 OUTPUT Urine 225 4405 944 7680 OR Urine Output 105 105 Output ( Indwelling Urinary Catheter 12/19/21 0755 Coude 14 Fr) 120 6772 924 5397 Tubes 5 15 20 Drain/Tube Output (Drain/Tube 12/19/21 Assessment Left Lower Quadrant Drain #1) 5 15 20 Blood 20 20 Estimated Blood loss 20 20 Shift Total 250 5601 553 7715 Weight (kg) 79.8 79.8 79.8 79.8 79.8 79.8 79.8 79.8 Recent Labs 12/20/21 0619 12/19/21 0633 WBC 8.79 -- HB 13.0 -- HCT 37.7* -- PLT 166 -- NA 137 137 K 4.2 4.3 CHLOR 104 106* CO2 23 22 CREAT 1.29* 1.35* P 2.8 -- BUN 12 13 GLUC 121* 143* TPROT -- 6.9 ALB -- 4.3 MG 1.9 -- CA 8.8 9.4 ALKPHOS -- 80 TBILI -- 0.6 AST -- 15 ALT -- 21 CRP 2.6* -- A/P: 71 year old male with unresectable hepatic flexure colon mass/polyp now 1 Day Post-Op lap R colectomy. CEA 3.8 Doing well #postop - cont clears till bowel func - dc vallejo - follow up void - sqh - payam drain before dc #pain control Oliceridine trial - appreciate pain team mgmt and recs #nicotine dependence - patches and gum PRN ordered. #obesity - counseled for weight loss Problem List Noted Noted By Resolved Resolved By Villous adenocarcinoma (HCC) 12/19/2021 Panfilo Morris MD No Overweight 12/19/2021 Rae Thompson PA-C No Postoperative pain 12/19/2021 Rae Thompson PA-C No 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 Bibi Aguilar PA-C No Calculus of gallbladder without mention of cholecystitis or obstruction 01/16/2007 Korey Cardona MD No Unspecified arthropathy, hand 01/03/2007 Russell Carmen (Hist) Alfredo No Tobacco use disorder 01/03/2007 Russell C (Hist) Alfredo No Unspecified hemorrhoids without mention of complication 05/03/2006 Russell C (Hist) Alfredo No Personal history of colonic polyps Russell C (Hist) Alfredo No Overview Addendum 05/03/2006 12:00 AM by Russell Fuentes Colon polyps *A review of daily goals, interventions, and plan of care with the multidisciplinary team and patient has been conducted. The patient?s concerns have been addressed and he/she agrees to proceed with today?s plan of care Panfilo Morris [facility]08-29-2022 NoteHNO ID: [id number] Author: Sukh Hassan DO Service: ? Author Type: Resident Type: Anesthesia Procedure Notes Filed: 12/19/2021 1:15 PM Note Text: Attestation signed by Lima Martínez MD at 12/19/2021 5:09 PM I was present throughout the entire procedure Patient tolerated procedure without any complications. Lima Martínez MD [facility] Staff Pager: [phone] ANESTHESIOLOGY PROCEDURE NOTE Peripheral Nerve Block General Information Procedure Start Time/Medication Administration: 12/19/2021 12:55 PM Procedure End time: 12/19/2021 1:07 PM Patient location during procedure: PACU Timeout Performed Pre-procedure: timeout performed Consent Obtained: Yes Patient identity confirmed: arm band and patient Reason for block: post-op pain management/at surgeon's request Staffing Anesthesiologist: Lima Martínez MD Resident: Sukh Hassan DO Performed by: anesthesiologist and resident Preparation Sterility Preparation: hand hygiene performed prior to procedure, sterile gloves, drapes, and procedure tray, surgical cap used, mask used, sterile drape used during line insertion, skin prep agent completely dried prior to procedure Sterility Technique Not Completely Performed Due to Extreme Emergency: No Site Prep: Chloraprep Pre-Procedure Neuro Exam Sensory: intact Motor: intact Procedure Details Patient Position: supine Block Type Trunk: TAP block Approach: anterior Laterality: bilateral Injection Technique: single-shot Ultrasound Guided: Yes Image in Chart: yesNo Local Infiltration: Yes Needle Needle Type: Tuohy and echogenic Needle Gauge: 21 G Needle Length: 10 cm Needle Localization: ultrasound and anatomical landmarks Assessment Injection assessment: negative aspiration, no paresthesia on injection, incremental injection and local visualized surrounding nerve on ultrasound Post-Procedure Neuro Exam Expected Regional Anesthesia: Yes Medications Administered bupivacaine (PF) 0.25 % (2.5 mg/mL) injection (SENSORCAINE MPF) - peripheral nerve block 60 mL - 12/19/2021 1:05:00 PM bupivacaine liposome (PF) 1.3 % (13.3 mg/mL) injection (EXPAREL) - INFILTRATION 266 mg - 12/19/2021 1:05:00 PM Comments Patient is confirmed by two identifiers, the Risks, benefits and alternatives of the regional anesthesia procedure were explained and confirmed with the patient who agrees to proceed. Standard ASA monitors wee applied according to the procedure protocol. Vital signs were stable throughout the procedure, and the patient was communicating. No pain on injection and the procedure was well tolerated. The post- procedure diagnosis is the same as pre- procedure. No significant findings. No Complications unless noted above. No specimen collected. Minimal or no blood loss Discharge/transfer criteria are met upon discharge. SIGNATURE: Sukh Hassan DO PATIENT NAME: Peter Orr DATE: December 19, 2021 TIME: 1:13 PM CSN: [id number]08-29-2022 NoteHNO ID: [id number] Author: KEISHA Evangelista Service: ? Author Type: Student Type: Anesthesia Procedure Notes Filed: 12/19/2021 8:26 AM Note Text: ANESTHESIOLOGY PROCEDURE NOTE Airway General Information Procedure Start Time/Medication Administration: 12/19/2021 7:43 AM Patient location during procedure: OR Timeout Performed Pre-procedure: timeout performed Consent Obtained: Yes Patient identity confirmed: arm band and patient Staffing SRNA: KEISHA Evangelista Performed by: KEISHA Indications and Patient Condition Indications for airway management: anesthesia and airway protection Preoxygenated: yes anesthesia circuit Patient position: sniffing Method: asleep Cricoid Pressure: Yes Difficult Mask: Yes (No teeth, Meneds present) Airway Accessory: oral airway Final Airway Details Final airway type: endotracheal airway Final Endotracheal Airway: ETT Cuffed: yes Successful intubation technique: direct laryngoscopy Endotracheal tube insertion site: oral Blade: To Blade size: #4 ETT size (mm): 7.5 Measured from: lips Measurement (cm): 23 Placement verified by: capnometry Cormack-Lehane Classification: grade IIb - view of arytenoids or posterior of glottis only Number of attempts at approach: 1 Airway not difficult SIGNATURE: KEISHA Evangelista PATIENT NAME: Peter Orr DATE: December 19, 2021 TIME: 8:23 AM CSN: [id number] [facility] Hospital08-29-2022 NoteHNO ID: [id number] Author: KEISHA Evangelista Service: ? Author Type: Student Type: Anesthesia Procedure Notes Filed: 12/19/2021 8:16 AM Note Text: ANESTHESIOLOGY PROCEDURE NOTE PIV General Information Procedure Start Time/Medication Administration: 12/19/2021 7:50 AM Patient Location: OR Staffing SRNA: KEISHA Evangelista Performed by: KEISHA Preparation Sterility Preparation: hand hygiene performed prior to procedure, skin prep agent completely dried prior to procedure Site Prep: alcohol Procedure Details Indication: need for IV access Needle Size/Type: 18 gauge angiocath Orientation: Right Location: Hand Imaging Guidance Used: No SIGNATURE: KEISHA Evangelista PATIENT NAME: Peter Orr DATE: December 19, 2021 TIME: 8:16 AM CSN: [id number] [facility] Hospital08-26-2022 NoteHNO ID: [id number] Author: Daphnie Katz RN Service: ? Author Type: Registered Nurse Type: Progress Notes Filed: 12/16/2021 10:18 AM Note Text: ET/WOC Nursing Note Topic: STOMA MARKING ET Outcome: Shan @ RUQ. The stoma marking purpose and procedure was explained: yes. The patient verbalized understanding and agrees to the marking: yes. Rectus Muscle boarders are located: yes. Abdominal contour evaluation was performed in the lying position, sitting position, and standing position. The stoma marking was made according to ET/[facility] Nursing Procedure #401 in the RUQ. Patient is able to see site in the following positions: lying position, sitting position, and standing position Comments: n/a PHOTOGRAPHY: A photo was taken of the patient's site marking / wound(s). Photos can be found under the chart review imaging: Get Images tab on [facility]. The purpose of the photo(s) is to optimize the patient's medical care: to allow a visual aid to identify marking sites for ostomy(ostomies), to evaluate and follow the progress of wound(s). Photo was taken of: 12/16/21 Verbal consent was obtained from patient / authorized representation. Time Increment: N/A HÉCTOR MeredithN RN CWOCN The [facility] nursing pager [phone] (-F 7a-4p, Sat, Sun, Holiday 7a-3p) ET/[facility] NURSING ET OUTCOME: shan and talk for possible stoma TOPIC: OSTOMY INSTRUCTION READINESS TO LEARN COGNITIVE ABILITY: Alert and Oriented MOTIVATION TO LEARN: Eager FAMILY SUPPORT: High - Very involved in patient care INSTRUCTION PROVIDED TO: Patient and Daughter PATIENT LEARNS BEST BY: Multiple Methods FACTORS AFFECTING LEARNING: Emotional Factors: Overwhelmed PHYSICAL LIMITATIONS AFFECTING LEARNING: None LEARNING RESPONSE DIAGNOSIS: Colon Mass PROCEDURE / SURGERY: Loop ileostomy EDUCATION TOPIC/ TEACHING POINTS: Ostomy Care Stoma appearance and function, Purpose of the pouching system, Postoperative ostomy care per ET/WOC Nurse, Postoperative self ostomy care instruction, Discharge equipment ordering and support options, Diet, Fluid Intake, ADL'S, Work, and Clothing Adjustment METHOD OF INSTRUCTION: Written instruction - handouts Verbal instruction PATIENT / FAMILY RESPONSE: Verbalizing understanding of: Correct procedure for changing ostomy pouch FOLLOW-UP PLAN: Complete - No need for follow-up SUPPLEMENTAL MATERIAL: Pre op Ostomy Booklets and Preop Ostomy Handouts REFERRAL (RECOMMENDATION): None TIME INCREMENT: 1 hour Electronically Signed By Daphnie Katz RN CWOCN ET/WOC NursingLima [facility] Hospital08-26-2022 NoteHNO ID: [id number] Author: Deep Orozco MD Service: ? Author Type: Physician Type: Progress Notes Filed: 12/17/2021 10:31 AM Note Text: COLORECTAL SURGERY Follow-up December 15, 2021 Chief complaint: Pre op lap right hemicolectomy HPI: Peter Orr is a 71 year old male present preoperatively for lap right hemicolectomy scheduled 12/19/2021 Last seen in clinic 09/16/2021, referred to [facility] for an unresectable hepatic flexure polyp After further evauation in clinic he was referred to to evaluate for cecal lesion, tatooing and possible endoscopic removal of hepatic flexure lesion and if any lesion is still visible after more than four weeks Was deemed un-resectable, referred for colon resection surgery Impression: - 6 cm carpet like polyp traversing at least 3 folds in the distal ascending colon with central depression. opposite wall of the colon tattoed. - One 10 mm polyp in the cecum, removed with a cold snare. Resected and retrieved. - tubular adenoma Currently feels well. Saw stoma and was marked. Unfortunately, still smoking - increasing >1PPD. Physical Exam: Ht 171.5 cm (5' 7.5 ) Wt 79.9 kg (176 lb 3.2 oz) BMI 27.19 kg/m? General - awake, alert, no acute distress Abdominal - soft abd. CV: RRR R: clear lungs I have confirmed and edited as necessary, the PFSH and ROS obtained by others. Deep Orozco MD Assessment Medical Decision Making: Assessment AND Diagnosis: Peter Orr is a 71 year old male with unresectable sessile hepatic flexure polyp. Ongoing smoking and is overweight. Data Reviewed: Colonoscopy 10/28/2021 ([facility]) Findings: The perianal and digital rectal examinations were normal. A greater than 50 mm polyp was found in the distal ascending colon. The polyp was carpet-like. opposite wall of the tattoo was successfully injected with 2 mL Spot (carbon black) for tattooing. A 10 mm polyp was found in the cecum. The polyp was sessile. The polyp was removed with a cold snare. Resection and retrieval were complete. No additional abnormalities were found on retroflexion. Impression: - 6 cm carpet like polyp traversing at least 3 folds in the distal ascending colon with central depression. opposite wall of the colon tattoed. - One 10 mm polyp in the cecum, removed with a cold snare. Resected and retrieved. Surgical pathology 10/28/2021 Final Diagnosis: A. Cecum, polyp, biopsy: Tubular adenoma I have discussed Peter Orr's treatment plan and/or results with pt, family. The risks, benefits and anticipated outcomes of the several proposed procedures, the risks and benefits of the alternatives to the procedure and the roles and tasks of the personnel to be involved were discussed with the patient and the patient consents to the procedure and agrees to proceed. I explained the surgical procedure and potential findings extensively using also anatomic charts and answered all related questions. Treatment plan: Lap poss open R colectomy, poss DLI Counseled importance of weight loss and smoking cessation. I have seen and evaluated the patient and discussed the case with the resident physician. I agree with the assessment and plan as documented in the resident?s note. I spent 30 minutes in the visit, with more than 50% of the total [id number] time of the visit in counseling / coordination of care. Deep Orozco MD C[facility] Risk of morbidity, mortality and/or complications of treatment plan: low [facility]08-26-2022 Instructions* Patient Instructions* Bibi Aguilar PA-C - 12/16/2021 10:10 AM EDT PATIENT PREOPERATIVE INSTRUCTIONS Deep Orozco MD has scheduled you for your procedure at this surgery center: [facility] Scheduling Office: [phone] --[address] [place] [address]. Please read below carefully for your personalized instructions. Dietary Restrictions: - Follow bowel prep instructions: clear liquids need to be stopped 2 hours prior to schedule arrival at facility Medications: Unless instructed differently below, stay on all of your medications until your surgery. Approved medications to take the morning of surgery with a sip of water: None If you take any medications for erectile dysfunction-Cialis (Tadalafil), Levitra, Staxyn (Vardenafil) Viagra (Sildenenafil please do not take these for 48 hours before surgery. If you start any new medications after today's visit, please contact the surgeon's office. Blood Thinning Medications: - Stop NSAIDS (Ibuprofen, Advil, Aleve, Motrin, Celebrex, Mobic, etc.) 7 days before surgery, as directed by your surgeon. - Stop Aspirin 7 days before surgery, as directed by your surgeon. - Stop Vitamin E, ALL multi-vitamins, herbals and dietary supplements 7 days before surgery. - You may take Tylenol (Acetaminophen) or any of your pain medications that do not contain aspirin or NSAIDS as needed. Important Reminders: - Candy, mints, and tobacco products are NOT permitted the morning of surgery. - Hearing aids, dentures and glasses may be worn the morning of surgery. - NO jewelry, body piercings, makeup, hairpins or contacts are to be worn the day of surgery. If you develop symptoms such as a fever, cold, or flu, or have other changes to your health within TWO DAYS of scheduled surgery or the morning of surgery, please contact the surgery center above. Personal Belongings: -Please have photo ID and insurance cards. -If you do not have a copy of advance directives on file with us, please bring a copy with you on the day of surgery. - Leave ALL valuables and money at home or with family members. Arrival Time for Surgery: - To obtain your arrival time for surgery, call your physician's office the day before your surgery. - If your surgery is scheduled for Sunday, call the Sunday before. Your surgeon s dry plasterer helper will tell you what time to call the office. - If you have not reached the departmental dry plasterer helper by 5 P.M., call [phone] after 5 P.M. the day before your surgery. Please be aware that emergency situations arise, which may delay or change your surgical time. If this happens, we will notify you as soon as possible and regret any inconvenience. If you already have an Advance Directive, please fax a copy to [phone] or email to for it to be added to your chart. If you do not have an Advance Directive, you can find the appropriate form and more information at [email or web address]. We recommend that youcomplete the Advance Directive form found on the website and bring it with you the day of your surgery. It can be witnessed and scanned into your chart that day. Bibi Aguilar PA-C documented in this encounterSelect [facility]-26-[facility] History and physical note * Bibi Aguilar PA-C - 12/16/2021 10:00 AM EDT HISTORY AND PHYSICAL EXAMINATION SERVICE DATE: 12/16/2021 SERVICE TIME: 10:05 AM PRIMARY CARE PHYSICIAN: Russell Fuentes MD REASON FOR VISIT: Peter Orr is a 71 year old male who is scheduled for LAPAROSCOPIC HEMICOLECTOMY WITH ANASTOMOSIS at the request of Dr. Deep Orozco for consultation. My final recommendation will be communicated back to the requesting physician by way of shared medical record or letter. The patient has the following: ACTIVE PROBLEM LIST Personal History of Colonic Polyps Unspecified Hemorrhoids Without Mention of Complication Unspecified Arthropathy, Hand Tobacco Use Disorder Calculus of Gallbladder Without Mention of Cholecystitis Or Obstruction Villous Adenoma of Colon Subjective CHIEF COMPLAINT: villous adenoma of colon HPI: 71 year old male scheduled for LAPAROSCOPIC HEMICOLECTOMY WITH ANASTOMOSIS on 12/19/2021. Patient has a villous adenoma of the colon that was found on colonoscopy in July. The polyp was not ableto be resected. Denies any current symptoms. Denies any fever, chills, nausea, vomiting, chest pain, abdominal pain, SOB. PAST MEDICAL HISTORY Diagnosis Date Allergic rhinitis, cause unspecified Closed fracture of unspecified bone L1 and spider cracks to thoracic lumbar Esophageal reflux Internal hemorrhoids with other complication Personal history of colonic polyps Colon polyps Variants of migraine, not elsewhere classified, without mention of intractable migraine without mention of status migrainosus 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 PAST SURGICAL HISTORY Procedure Laterality Date COLONOSCOPY FLX DX W/COLLJ SPEC WHEN PFRMD 11/21/02 Colonoscopy COLONOSCOPY FLX DX W/COLLJ SPEC WHEN PFRMD 08/01/2006 Colonoscopy HEMORRHOIDECTOMY INTERNAL [employer]ER [employer] LIGATIONS 1986 Hemorrhoidectomy LAPS SURG CHOLECYSTECTOMY W/CHOLANGIOGRAPHY 09/30/10 normal IOC TONSILLECTOMY PRIMARY/SECONDARY <AGE 10 Tonsillectomy FAMILY HISTORY Problem Relation Age of Onset Heart Father Diabetes Father Alzheimer's Disease Mother Osteoporosis Mother Cancer Maternal Grandfather prostate Stroke Maternal Grandmother Anesthesia Problems No Family History SOCIAL HISTORY: Social History Tobacco Use Smoking status: Every Day Packs/day: 1.50 Years: 40.00 Pack years: 60.00 Types: Cigarettes Smokeless tobacco: Never Substance Use Topics Alcohol use: No Drug use: Not Currently Frequency: 2.0 times per week Types: Marijuana Comment: Smokes 2x/week for pain MEDICATIONS: Prior to Admission medications as of 12/16/21 1006 Medication Sig Last Dose Taking neomycin 500 mg tablet Take 2 tablets by mouth at 9pm and take 2 tablets by mouth at 11pm the nightbefore surgery. Taking Yes metroNIDAZOLE (FLAGYL) 500 mg tablet Take 1 tablet by mouth at 9pm and take 1 tablet by mouth at 11pm the night before surgery. Taking Yes peg 3350-Electrolytes (GOLYTELY) 236-22.74-6.74 -5.86 gram suspension Refer to printed prep instructions from your provider. Patient not taking: No sig reported Not Taking LACTASE (LACTAID ORAL) Take by mouth once daily. Takes with milk Patient not taking: Reported on 09/16/2021 NAPROXEN SODIUM (ALEVE ORAL) Take by mouth as needed. Patient not taking: Reported on 09/16/2021 acetaminophen (TYLENOL) 325 mg tablet Take 325 mg by mouth every 6 hours as needed. Patient not taking: No sig reported Not Taking P-EPHED HCL/ACETAMINOPHEN (EXCEDRIN SINUS ORAL) Take by mouth as needed. Patient not taking: Reported on 09/16/2021 cyclobenzaprine 10 mg ORAL tablet Take 1 tablet by mouth three times daily as needed for Muscle Spasm. Patient not taking: Reported on 09/16/2021 Omeprazole Magnesium (PRILOSEC OTC) 20 mg ORAL TbEC Take one(1) tablet daily.as needed Patient not taking: Reported on 12/16/2021 Not Taking No medication comments found. CURRENT ALLERGIES: ALLERGIES Allergen Reactions Penicillins Hives Petroleum Products * Rash Soaps [Other] Rash COVID VACCINATION STATUS: Fully vaccinated REVIEW OF SYSTEMS: PAIN ASSESSMENT: General: No weight loss, malaise or fevers. Neuro: No history of TIA's, stroke, [employer] tumor, impaired sensorium, hemiplegia, paraplegia or quadraplegia. No neurological symptoms or problems. Respiratory: Negative for Asthma, Bronchitis, COPD, Current cough, Dyspnea, Pneumonia within 6 weeks (date), URI < 2 weeks+smoker Cardiovascular: No history of HTN requiring medication, no history of angina, CHF, PA, cardiac surgery or stents. Denies rest pain, gangrene or revascularization/amputation for PVD. No history of cardiovascular symptoms or problems. GI: No history of GI symptoms or problems. No history of esophageal varices, recent ascites, or ETOH greater than 2 drinks per day. : No history of dysuria, frequency or incontinence,, stones or chronic kidney disease Endocrine: No history of diabetes. Has not taken steroids within the past 30 days. No history of endocrinological symptoms or problems. Hematology: No history of bleeding or clotting disorder. Pt is not taking anti- coagulation or platelet medications. No history of hematological symptoms or problems. Oncology: No history of CA metastasis, chemo within 30 days, or radiotherapy within 90 days. Has not lost 10% of body wt in 6 months. No history of oncological symptoms or problems. Psych: No history of psychiatric symptoms or problems. Musculoskeletal: Joint pain Skin: Negative for lesions, rash and itching. Objective PHYSICAL EXAM: VITALS: BP 143/75 Pulse 74 Temp (Src) 96.9 (Temporal) Ht 5' 7.5 (1.72m) Wt 176 lb 9.6 oz (80.1kg) SpO2 98% BMI 27.24 kg/(m^2). General: Alert and oriented, No acute distress Skin: Normal color, no rash, no lesions. HEENT: EOM, pupils equal, round and reactive., No carotid bruits Cardiovascular: Normal S1 & S2, no rubs, murmurs or gallops. No JVD. Pulse regular. Lungs: Normal breath sounds, no wheezes or crackles. Extremities: No deformity, no edema or tenderness, no joint swelling or clubbing. Neurological: Normal cognition and motor skills. Gait normal. No weakness or sensory deficit. Pulses: Radial pulses normal +2. Diagnostic tests reviewed for today's visit: Lab Value Units Date High Low HB No results within date range. HCT No results within date range. WBC No results within date range. PLT No results within date range. NA No results within date range. K No results within date range. GLUC No results within date range. BUN No results within date range. CREAT No results within date range. PTSEC No results within date range. INR No results within date range. APTT No results within date range. ALT No results within date range. AST No results within date range. TBILI No results within date range. TSH No results within date range. Lab Value Units Date High Low HCGQT No results within date range. UHCG No results within date range. HCG, BODY* No results within date range. Lab Value Units Date High Low ABORHD No results within date range. ABSCREEN No results within date range. No results found for: HBA1C Labs pending EKG 12/16/21 pending Assessment/Plan Villous adenoma of colon -Scheduled for surgery TOBACCO USE DISORDER -current everyday smoker -1.5 ppd x 40 years METS: Climb a flight of stairs or walk up a hill (5.50 METs) Patient denies any chest pain or undue shortness of breath with the above physical activity. ASA Class: 3 ANESTHESIA FINDINGS: Intubation History: No history of difficult intubation Significant Anesthesia Considerations: None Airway Exam: General: Normal appearance Mallampati Score is CLASS IV ULBT: Class II - Lower incisors can bite the upper lip below the josiah line Neck: Normal appearance and function, Distance from hyoid to mentum during neck extension is at least 3 finger breaths Mouth: Normal tongue size and Mouth opening greater than 2 finger breaths Dentition: Upper denture and Lower denture Airway History: No abnormal airway history Sleep Apnea Probability Snores loudly: No Tired, fatigued or sleepy in daytime: Yes Stops breathing or choking/gasping during sleep: No High blood pressure: No Sleep Apnea Probability Score 12/09/2021 Sleep Apnea Screen V2 57 (Recommend sleep study) PLAN Pt optimally prepared for surgery, pending day of surgery review of LABS and EKG. This patient was evaluated in [facility] the day before surgery. CONSULTS: Patient does not require consults for optimization at this time. The Following Tests/Procedures Have Been Initiated: CBC, CMP, T&S, CON, and EKG per surgical service. Planned Anesthetic: General Instructions Given to Patient: Instructions located in the after visit summary. Patient given verbal and written preop instructions and voices comprehension and compliance. SIGNATURE: Bibi Aguilar PA-C PATIENT NAME: Peter Orr DATE: December 16, 2021 TIME: 10:19 AM documented in this encounterSelect [facility] [place]08-26-2022 History of Present illness Narrative* Daphnie Katz RN - 12/16/2021 9:43 AM EDT Images from the original note were not included. ET/[facility] Nursing Note Topic: STOMA MARKING ET Outcome: Shan @ RUQ. The stoma marking purpose and procedure was explained: yes. The patient verbalized understanding and agrees to the marking: yes. Rectus Muscle boarders are located: yes. Abdominal contour evaluation was performed in the lying position, sitting position, and standing position. The stoma marking was made according to ET/[facility] Nursing Procedure #401 in the RUQ. Patient is able to see site in the following positions: lying position, sitting position, and standing position Comments: n/a PHOTOGRAPHY: A photo was taken of the patient's site marking / wound(s). Photos can be found under the chart review imaging: Get Images tab on [facility]. The purpose of the photo(s) is to optimize the patient's medical care: to allow a visual aid to identify marking sites for ostomy(ostomies), to evaluate and follow the progress of wound(s). Photo was taken of: 12/16/21 Verbal consent was obtained from patient / authorized representation. Time Increment: N/A HÉCTOR MeredithN RN CWOCN The [facility] nursing pager [phone] (M-F 7a-4p, Sat, Sun, Holiday 7a-3p) ET/[facility] NURSING ET OUTCOME: shan and talk for possible stoma TOPIC: OSTOMY INSTRUCTION READINESS TO LEARN COGNITIVE ABILITY: Alert and Oriented MOTIVATION TO LEARN: Eager FAMILY SUPPORT: High - Very involved in patient care INSTRUCTION PROVIDED TO: Patient and Daughter PATIENT LEARNS BEST BY: Multiple Methods FACTORS AFFECTING LEARNING: Emotional Factors: Overwhelmed PHYSICAL LIMITATIONS AFFECTING LEARNING: None LEARNING RESPONSE DIAGNOSIS: Colon Mass PROCEDURE / SURGERY: Loop ileostomy EDUCATION TOPIC/ TEACHING POINTS: Ostomy Care Stoma appearance and function, Purpose of the pouching system, Postoperative ostomy care per ET/[facility] Nurse, Postoperative self ostomy care instruction, Discharge equipmentordering and support options, Diet, Fluid Intake, ADL'S, Work, and Clothing Adjustment METHOD OF INSTRUCTION: Written instruction - handouts Verbal instruction PATIENT / FAMILY RESPONSE: Verbalizing understanding of: Correct procedure for changing ostomy pouch FOLLOW-UP PLAN: Complete - No need for follow-up SUPPLEMENTAL MATERIAL: Pre op Ostomy Booklets and Preop Ostomy Handouts REFERRAL (RECOMMENDATION): None TIME INCREMENT: 1 hour Electronically Signed By Daphnie Katz RN CWOCN ET/[facility] Nursing documented in this encounterSelect Medical [facility]ty [facility] [place]08-26-2022 History of Present illness Narrative* Deep Orozco MD - 12/16/2021 9:00 AM EDT COLORECTAL SURGERY Follow-up December 15, 2021 Chief complaint: Pre op lap right hemicolectomy HPI: Peter Orr is a 71 year old male present preoperatively for lap right hemicolectomy scheduled 12/19/2021 Last seen in clinic 09/16/2021, referred to [facility] for an unresectable hepatic flexure polyp After further evauation in clinic he was referred to to evaluate for cecal lesion, tatooing and possible endoscopic removal of hepatic flexure lesion and if any lesion is still visible after more than four weeks Was deemed un-resectable, referred for colon resection surgery Impression: - 6 cm carpet like polyp traversing at least 3 folds in the distal ascending colon with central depression. opposite wall of the colon tattoed. - One 10 mm polyp in the cecum, removed with a cold snare. Resected and retrieved. - tubular adenoma Currently feels well. Saw stoma and was marked. Unfortunately, still smoking - increasing >1PPD. Physical Exam: Ht 171.5 cm (5' 7.5 ) Wt 79.9 kg (176 lb 3.2 oz) BMI 27.19 kg/m General - awake, alert, no acute distress Abdominal - soft abd. CV: RRR R: clear lungs I have confirmed and edited as necessary, the PFSH and ROS obtained by others. Deep Orozco MD Assessment Medical Decision Making: Assessment & Diagnosis: Peter Orr is a 71 year old male with unresectable sessile hepatic flexure polyp. Ongoing smoking and is overweight. Data Reviewed: Colonoscopy 10/28/2021 ([facility]) Findings: The perianal and digital rectal examinations were normal. A greater than 50 mm polyp was found in the distal ascending colon. The polyp was carpet-like. opposite wall of the tattoo was successfully injected with 2 mL Spot (carbon black) for tattooing. A 10 mm polyp was found in the cecum. The polyp was sessile. The polyp was removed with a cold snare. Resection and retrieval were complete. No additional abnormalities were found on retroflexion. Impression: - 6 cm carpet like polyp traversing at least 3 folds in the distal ascending colon with central depression. opposite wall of the colon tattoed. - One 10 mm polyp in the cecum, removed with a cold snare. Resected and retrieved. Surgical pathology 10/28/2021 Final Diagnosis: A. Cecum, polyp, biopsy: Tubular adenoma I have discussed Peter Orr's treatment plan and/or results with pt, family. The risks, benefits and anticipated outcomes of the several proposed procedures, the risks and benefits of the alternatives to the procedure and the roles and tasks of the personnel to be involved were discussed with the patient and the patient consents to the procedure and agrees to proceed. I explained the surgical procedure and potential findings extensively using also anatomic charts and answered all related questions. Treatment plan: Lap poss open R colectomy, poss DLI Counseled importance of weight loss and smoking cessation. I have seen and evaluated the patient and discussed the case with the resident physician. I agree with the assessment and plan as documented in the resident s note. I spent 30 minutes in the visit, with more than 50% of the total [id number] time of the visit in counseling / coordination of care. Deep Orozco MD CORS Risk of morbidity, mortality and/or complications of treatment plan: low documented in this encounterSelect Medical [facility]ty [facility] [place]08-10-2022 Miscellaneous Notes* Telephone Encounter - Polina Meléndez RN - 11/30/2021 12:27 PM EDT PRIMARY CARE COORDINATION FOLLOW-UP NOTE Provider Action/FYI Follow up Patient identified by name and date of . YES Spoke to patient Summary: Patient accepts surgery date 12/19 pre op 12/16 Concerns: POC Monitoring And Evaluation Advisor plan for next outreach: No further follow up needed at this time Signature Polina Meléndez RN November 30, 2021 documented in this encounterSelect Medical [facility] [place]08-02-2022 Miscellaneous Notes* Telephone Encounter - Alexandra Robledo RN - 11/22/2021 2:21 PM EDT SPECIALTY CARE COORDINATION FOLLOW-UP NOTE Calling to offer surgery. 4 hour Lap R hemicolectomy LOS 5 days Surgical date with Dr. Orozco available for Sunday12/19/21 Pre-operative date available Sunday12/16/21 w/ Ernesto and covid 12/13 with Ernesto, etc. Number left for patient to call back to discuss or to accept dates. Will need: CORS Pt ed- yes prep EKG Labs covid Marking PACC?? Signature Alexandra Robledo RN November 22, 2021 documented in this encounterSelect Medical [facility]ty [facility] [place]07-26-2022 NoteHNO ID: [id number] Author: Deep Orozco MD Service: ? Author Type: Physician Type: Progress Notes Filed: 11/20/2021 5:02 PM Note Text: COLORECTAL SURGERY VIRTUAL VISIT FOLLOW UP I had a virtual visit with Mr. Orr today for follow up of surgical discussion. UPDATED HISTORY: Peter Orr is a 71 year old male present follow up Last seen in clinic 09/16/2021, referred to [facility] for an unresectable hepatic flexure polyp After further evauation in clinic he was referred to to evaluate for cecal lesion, tatooing and possible endoscopic removal of hepatic flexure lesion and if any lesion is still visible after more than four weeks Was un-resectable, patient will need colon resection surgery PHYSICAL FINDINGS OF NOTE: General ? Normal, healthy, cooperative, in no acute distress Able to interact verbally by video conference Pulmonary ? respiratory effort normal Abdominal ? Not performed Motor ? patient seen sitting with Normal appearing strength and coordination Medical Decision Making: Assessment Assessment AND Diagnosis: Peter Orr is a 71 year old male with unresectable cecal polyp. Discussed with patient and that he will require a right hemicolectomy. We will plan to do this laparoscopically. The operation, risks, benefits and alternatives were discussed. We additionally reviewed the expected post-operative course and recovery. Data Reviewed: Colonoscopy 10/28/2021 ([facility]) Findings: The perianal and digital rectal examinations were normal. A greater than 50 mm polyp was found in the distal ascending colon. The polyp was carpet-like. opposite wall of the tattoo was successfully injected with 2 mL Spot (carbon black) for tattooing. A 10 mm polyp was found in the cecum. The polyp was sessile. The polyp was removed with a cold snare. Resection and retrieval were complete. No additional abnormalities were found on retroflexion. Impression: - 6 cm carpet like polyp traversing at least 3 folds in the distal ascending colon with central depression. opposite wall of the colon tattoed. - One 10 mm polyp in the cecum, removed with a cold snare. Resected and retrieved. Surgical pathology 10/28/2021 Final Diagnosis: A. Cecum, polyp, biopsy: Tubular adenoma - I have discussed Peter Orr's treatment plan and/or results with patient and his . Treatment plan: - Schedule in person pre-op visit - Plan for laparoscopic right hemicolectomy I have seen and evaluated the patient and discussed the case with the resident physician. I agree with the assessment and plan as documented in the resident?s note. Deep Orozco MD CORS Risk of morbidity, mortality and/or complications of treatment plan: moderate I spent a total of 30 minutes on the date of the service which included preparing to see the patient, [id number] patient care, completing clinical documentation and obtaining and/or reviewing separately obtained history.[facility]07-26-2022 History of Present illness Narrative* Deep Orozco MD - 11/15/2021 5:15 PM EDT COLORECTAL SURGERY VIRTUAL VISIT FOLLOW UP I had a virtual visit with Mr. Orr today for follow up of surgical discussion. UPDATED HISTORY: Peter Orr is a 71 year old male present follow up Last seen in clinic 09/16/2021, referred to [facility] for an unresectable hepatic flexure polyp After further evauation in clinic he was referred to to evaluate for cecal lesion, tatooing and possible endoscopic removal of hepatic flexure lesion and if any lesion is still visible after more than four weeks Was un-resectable, patient will need colon resection surgery PHYSICAL FINDINGS OF NOTE: General Normal, healthy, cooperative, in no acute distress Able to interact verbally by video conference Pulmonary respiratory effort normal Abdominal Not performed Motor patient seen sitting with Normal appearing strength and coordination Medical Decision Making: Assessment Assessment & Diagnosis: Peter Orr is a 71 year old male with unresectable cecal polyp. Discussed with patient and that he will require a right hemicolectomy. We will plan to do thislaparoscopically. The operation, risks, benefits and alternatives were discussed. We additionally reviewed the expected post-operative course and recovery. Data Reviewed: Colonoscopy 10/28/2021 ([facility]) Findings: The perianal and digital rectal examinations were normal. A greater than 50 mm polyp was found in the distal ascending colon. The polyp was carpet-like. opposite wall of the tattoo was successfully injected with 2 mL Spot (carbon black) for tattooing. A 10 mm polyp was found in the cecum. The polyp was sessile. The polyp was removed with a cold snare. Resection and retrieval were complete. No additional abnormalities were found on retroflexion. Impression: - 6 cm carpet like polyp traversing at least 3 folds in the distal ascending colon with central depression. opposite wall of the colon tattoed. - One 10 mm polyp in the cecum, removed with a cold snare. Resected and retrieved. Surgical pathology 10/28/2021 Final Diagnosis: A. Cecum, polyp, biopsy: Tubular adenoma I have discussed Peter Orr's treatment plan and/or results with patient and his . Treatment plan: - Schedule in person pre-op visit - Plan for laparoscopic right hemicolectomy I have seen and evaluated the patient and discussed the case with the resident physician. I agree with the assessment and plan as documented in the resident s note. Deep Orozco MD [facility] Risk of morbidity, mortality and/or complications of treatment plan: moderate I spent a total of 30 minutes on the date of the service which included preparing to see the patient, [id number] patient care, completing clinical documentation and obtaining and/or reviewing separately obtained history. documented in this encounterSelect Medical [facility] [place]-2022 Nurse Note* Bibi Diaz RN - 10/28/2021 6:03 PM EDT AMBULATORY PATIENT EDUCATION NOTE TOPIC: GI PROCEDURES: Colonoscopy with or without biopsies based on clinical findings READINESS TO LEARN INSTRUCTION PROVIDED TO: Patient, readness to learn accessed prior to procedure COGNITIVE ABILITY: Alert and oriented PTED MOTIVATION TO LEARN: Interested FAMILY SUPPORT: High - Very involved in pt care IPATIENT LEARNS BEST BY: Individual Instruction Written Instruction - Hand-outs Verbal Instruction FACTORS AFFECTING LEARNING: None PHYSICAL LIMITATIONS AFFECTING LEARNING: None LEARNING RESPONSE METHOD OF INSTRUCTION: Individual instruction PATIENT / FAMILY RESPONSE: Verbalizes understanding of: WORSENING CONDITION- Signs and symptoms of aworsening condition that warrant a call to the physician FOLLOW-UP PLAN: Patient instructed to call with any further issues Recommend - Recommend continued instruction and follow up as directed Contact information given. SUPPLEMENTAL MATERIAL: Procedure Discharge Instructions REFERRAL (RECOMMENDATION): None * Stephanie Guan RN - 10/28/2021 3:31 PM EDT PRE OP LEARNING ASSESSMENT PROCEDURE/SURGERY: GI PROCEDURES: Colonoscopy READINESS TO LEARN COGNITIVE ABILITY: Alert and oriented MOTIVATION TO LEARN: Eager Interested FAMILY SUPPORT: Moderate - Family present but overwhelmed PATIENT LEARNS BEST BY: Individual Instruction Verbal Instruction FACTORS AFFECTING LEARNING: None PHYSICAL LIMITATIONS AFFECTING LEARNING: None Electronically Signed By: Stephanie Guan RN In Department: GASTROENTEROLOGY documented in this encounterSelect Medical Specialty [facility] [place]07-07-2022 Miscellaneous Notes* Telephone Encounter - Audra Kan LPN - 10/27/2021 9:47 AM EDT Message left on listed number . My name and instructions to call back to go over instructions. I also left Q3 endoscopy number so that patient could call and speak to nursing to go overinstructions. Audra Kan LPN * Telephone Encounter - Sree Holland - 10/27/2021 9:21 AM EDT Patient's called asking questions about the bowel prep for tomorrow's procedure. They would like a call back from the nurse to discuss details of when to start the prep and ask more questions. [facility] Miscellaneous Notes* Telephone Encounter - Christina Dhaliwal RN - 10/21/2021 2:24 PM EDT Attempted to reach the patient at the contact number that they provided [phone] (home) . Unable to speak with patient so without identifying the patient the following information was left on their voice mail: Date of procedure, location and report time Prep instructions A message was left informing the patient/patient help desk representative they must have a responsible adult accompany them to their procedure; and remain in the endoscopy area until they are discharged. Failure to have a responsible adult accompany the patient to their procedure appointment prevents the useof sedation or anesthesia for their procedure; and can result in cancellation of the procedure NPO instructions were reviewed. Clear liquids the day before the procedure, stop all liquids 4 hours before the procedure Instructions to contact their primary care provider regarding their medications and which medications to stop in preparation for their procedure Instructions to completely read and follow the written instructions that they recieved regarding their procedure. Number to call with questions or concerns [phone] Number to call to cancel their procedure [phone] Christina Dhaliwal RN documented in this [facility] Miscellaneous Notes* Telephone Encounter - Audra Kan LPN - 09/29/2021 1:58 PM EDT Orders placed for colonoscopy. Routed Q3 PSS pool Audra Kan LPN * Telephone Encounter - Stephanie Ignacio - 09/29/2021 10:[address] colonoscopy order Pt per HS Treatment plan: referral to GI for repeat colonoscopy to evaluate for cecal lesion, tatooing and possible endoscopic removal of hepatic flexure lesion if any lesion is still visible after more than four weeks Per Deep Orozco MD/HS Thank you Stephanie GironChristos) Reconciling Clerk II DDSI documented in this encounter[facility] Instructions* Patient Instructions* Audra Kan LPN - 09/29/2021 1:56 PM EDT Images from the original note were not included. Bowel Preparation Instructions for: Golytely, Nulytely, Trilyte or Colyte (polyethylene glycol 3350and electrolytes) IF YOU DO NOT FOLLOW THESE DIRECTIONS, YOUR COLONOSCOPY WILL BE CANCELLED. Thompson Instructions: Your bowel must be empty so that your doctor can clearly view your colon. Follow all of the instructions in this handout EXACTLY as they are written. Do NOT eat any solid food the ENTIRE day before your colonoscopy. Drink only clear liquids. Buy your bowel preparation at least 5 days before your colonoscopy. TRANSPORTATION on the Day of Your Exam A responsible person MUST be present with you at Check In prior to your colonoscopy and REMAIN in the endoscopy area until you are discharged. You are NOT ALLOWED to drive, take a taxi or bus, or leave the Endoscopy Center ALONE. If you do not have a responsible car driver (family member or friend) with you to take you home, your exam cannot be done with sedation and will be cancelled. Please bring a list of all of your current medications, including any Over-the Counter medications with you. Medications If you take insulin, diabetic medications or blood thinners such as Coumadin (warfarin), Plavix (clopidogrel), Ticlid (ticlopidine hydrochloride), Agrylin (anagrelide), Xarelto (Rivaroxaban), Pradaxa(Dabigatran), Eliquis (Apixaban), and Effient (Prasugrel). You MUST call the doctors who orders those medicines for instructions on altering the dosage before your colonoscopy. All other medications should be taken the day of the exam with a sip of water including ASPIRIN. Five (5) Days Before Your Colonoscopy Do NOT take medicines that stop diarrhea - such as Imodium, Kaopectate, or Pepto Bismol. Do NOT take fiber supplements - such as Metamucil, Citrucel, or Perdiem. Do NOT take products that contain iron - such as multi-vitamins (the label lists what is in the products). Do NOT take Vitamin E. Buy the prescription bowel preparation solution at your local pharmacy or drugstore pharmacy. 03/2019 Bowel Preparation Instructions for: Golytely, Nulytely, Trilyte or Colyte (polyethylene glycol 3350and electrolytes) Three (3) Days Before Your Colonoscopy Do NOT eat high-fiber foods - such as popcorn, beans, seeds (flax, sunflower, quinoa), multigrain bread, nuts, salad/vegetables, or fresh and dried fruit. One (1) Day Before Your Colonoscopy Only drink clear liquids the ENTIRE DAY before your colonoscopy. Do NOT eat any solid foods. Drink at least 8 ounces of clear liquids every hour after waking up. The clear liquids you can drink include: Clear Liquid (NO RED LIQUIDS) DO NOT DRINK Gatorade, Pedialyte or Powerade Clear broth or bouillon Coffee or tea (no milk or non-dairy creamer) Carbonated and non-carbonated soft drinks Faustino-Aid or other fruit flavored drinks Strained fruit juices (no pulp) Jell-O, popsicles, hard candy Water Alcohol Milk or non-dairy creamers Noodles or vegetables in soup Juice with pulp Liquid you cannot see through The bowel preparation solution will be consumed in two parts. Mix the solution the evening before your colonoscopy and refrigerate before drinking. You may add the flavor pack that came with the bowel preparation. Do NOT add ice, sugar or any other flavorings to the solution. Part 1 At 6:00 PM - Evening before your colonoscopy Drink an 8-oz glass of bowel preparation every 10 minutes for a total of 8 glasses. You may continue to drink clear liquids until midnight. Part 2 On the day of your colonoscopy you may drink clear liquids up to (three) 3 hours before your procedure. 4 1/2 hours before your colonoscopy Drink an 8-oz glass of bowel preparation every 10 minutes for a total of 8 glasses. Fifteen (15) minutes later, drink an 8-oz glass of clear liquids every 15 minutes for a total of 2 glasses. You may continue to drink clear liquids up to (three) 3 hours before your exam. 2 03/2019 documented in [facility]* Diagnosis Personal history of colonic polyps- Primary documented in this encounter [facility]* Diagnosis Personal history of colonic polyps documented in this encounter [facility]* Diagnosis Villous adenoma of right colon- Primary Neoplasm of uncertain behavior of stomach, intestines, and rectum documented in this encounter [facility]* Diagnosis Attention to ileostomy (HCC)- Primary Attention to ileostomy Villous adenoma of colon Benign neoplasm of colon documented in this encounter [facility] note* Diagnosis Pre-op evaluation- Primary Preoperative examination, unspecified Villous adenoma of colon Benign neoplasm of colon Tobacco use disorder Villous adenoma of colon Benign neoplasm of colon documented in this encounter [facility]* Diagnosis Adenoma of colon at hepatic flexure- Primary Villous adenoma of colon Benign neoplasm of colon documented in this encounter [facility]* Diagnosis Villous adenoma of colon- Primary Benign neoplasm of colon Postoperative state- Primary Other postprocedural status documented [facility] this [facility]* Diagnosis Postoperative state- Primary Other postprocedural status documented in this encounter [facility] for referral (narrative)* Outpatient Procedure (Routine) - Pending Review Specialty Diagnoses / Procedures Referred By Gretel moffett Referred To Contact [facility] Diagnoses Personal history of colonic polyps Procedures COLONOSCOPY (THERAPEUTIC) COLSC FLX W/REMOVAL LESION BY HOT BX FORCEPS Jason Santos MD [address] [place] [address] [address] Referral ID Status Reason Start Date Expiration Date Visits Requested Visits Authorized [id number] Pending Review Auto-Generat ed Referral 09/29/2021 09/29/2022 1 1 [facility] for referral (narrative)* Outpatient Procedure (Routine) - Closed Specialty Diagnoses / Procedures Referred By Gretel moffett Referred To Contact [facility] Diagnoses Personal history of colonic polyps Procedures COLONOSCOPY (THERAPEUTIC) COLSC FLX W/REMOVAL LESION BY HOT BX FORCEPS Jason Santos MD [address] [place] [address] [address] Referral ID Status Reason Start Date Expiration Date V isits Requested Visits Authorized [id number] Closed Auto-Generate d Referral 09/29/2021 09/29/2022 1 1 [facility] for referral (narrative)* Outpatient Procedure (Routine) - Closed Specialty Diagnoses / Procedures Referred By Gretel moffett Referred To Contact [facility] Diagnoses Villous adenoma of colon Procedures ECG COMPLETE ECG ROUTINE ECG W/LEAST 12 LDS W/I&R Deep Orozco MD [address] [place] [address] [address] Referral ID Status Reason Start Date Expiration Date V isits Requested Visits Authorized [id number] Closed Auto-Generate d Referral 11/25/2021 11/25/2022 1 1 [facility] for visit Narrative* Outpatient Procedure (Routine) - Closed Specialty Diagnoses / Procedures Referred By Contsharri t Referred To Contact [facility] Diagnoses Personal history of colonic polyps Procedures COLONOSCOPY (THERAPEUTIC) COLSC FLX W/REMOVAL LESION BY HOT BX FORCEPS Jason Santos MD [address] [place] [address] [facility] [place] [address] [place] [address] Referral ID Status Reason Start Date Expiration Date V isits Requested Visits Authorized [id number] Closed Auto-Generate d Referral 09/29/2021 09/29/2022 1 1 [facility] Advance Directives No Advanced Directives Records FoundDocuments on File Type Date Recorded 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 Advance Directive(s) 10/12/2021 3:37 PM Documents on File Type Date Recorded 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 Advance Directive(s) 10/12/2021 3:37 PM Medications Administered Section Inactive Administered Medications - up to 3 most recent administrations Medication Order MAR Action Action Date Dose Rate Site NaCl 0.9% iv infusion 5-30 mL/hr, INTRAVENOUS, CONTINUOUS, Starting on 10/28/21 at 1600, Until 10/29/21 at 0412, Preprocedure New Bag/Syringe/Bottle 10/28/2021 4:00 PM EDT 5 mL/hr 5 mL/hr Summary Purpose Family History No Family History Records FoundNo Family History Records FoundNo Family History Records Found Additional Source Comments Source Comments (unrecognize d section and content) In the event this informatio n is protected by the Federal Confidentiality of Alcohol and Drug Abuse Patient Records regulations: The Federal rules restrict any use of the information to criminally investigate or prosecute any alcohol or drug abuse patient.[facility]on[facility] the event this information is protected by the Federal Confidentiality of Alcohol and Drug Abuse Patient Records regulations: The Federal rules restrict any use of the information to criminally investigate or prosecute any alcohol or drug abuse patient.[facility]onIn the event this information is protected by the Federal Confidentiality of Alcohol and Drug Abuse Patient Records regulations: The Federal rules restrict any use of the information to criminally investigate or prosecute any alcohol or drug abuse patient.[facility]on[facility] the event this information is protected by the Federal Confidentiality of Alcohol and Drug Abuse Patient Records regulations: The Federal rules restrict any use of the information to criminally investigate or prosecute any alcohol or drug abuse patient.[facility]onIn the event this information is protected by the Federal Confidentiality of Alcohol and Drug Abuse Patient Records regulations: The Federal rules restrict any use of the information to criminally investigate or prosecute any alcohol or drug abuse patient.[facility]onIn the event this information is protected by the Federal Confidentiality of Alcohol and Drug Abuse Patient Records regulations: The Federal rules restrict any use of the information to criminally investigate or prosecute any alcohol or drug abuse patient.[facility]onIn the event this information is protected by the Federal Confidentiality of Alcohol and Drug Abuse Patient Records regulations: The Federal rules restrict any use of the information to criminally investigate or prosecute any alcohol or drug abuse patient.[facility]on[facility] the event this information is protected by the Federal Confidentiality of Alcohol and Drug Abuse Patient Records regulations: The Federal rules restrict any use of the information to criminally investigate or prosecute any alcohol or drug abuse patient.[facility]onIn the event this information is protected by the Federal Confidentiality of Alcohol and Drug Abuse Patient Records regulations: The Federal rules restrict any use of the information to criminally investigate or prosecute any alcohol or drug abuse patient.[facility]onIn the event this information is protected by the Federal Confidentiality of Alcohol and Drug Abuse Patient Records regulations: The Federal rules restrict any use of the information to criminally investigate or prosecute any alcohol or drug abuse patient.[facility]onIn the event this information is protected by the Federal Confidentiality of Alcohol and Drug Abuse Patient Records regulations: The Federal rules restrict any use of the information to criminally investigate or prosecute any alcohol or drug abuse patient.[facility]onIn the event this information is protected by the Federal Confidentiality of Alcohol and Drug Abuse Patient Records regulations: The Federal rules restrict any use of the information to criminally investigate or prosecute any alcohol or drug abuse patient.[facility] Reason for Visit (unrecogniz ed section and content) Reason Comments Orders Reason Comments Appointment Confirmation Reason Comments Patient Question Reason Comments Established Patient Reason Comments Monitoring And Evaluation Advisor - Other Reason Comments Care Coordination Reason Comments Pre-Op Visit Reason Comments Preop Reason Comments Post Op Care Teams (unrecognized sec tion and content) Head Golf Professional Relationship Specialty Start Date End Date Russell Fuentes (Hist) NO FORWARDING ADDRESS PCP - General 09/04/02 Head Golf Professional Relationship Specialty Start Date End Date Angerman, Russell C (Hist) NO FORWARDING ADDRESS PCP - General 09/04/02 Head Golf Professional Relationship Specialty Start Date End Date Russell Fuentes C (Hist) NO FORWARDING ADDRESS PCP - General 09/04/02 Head Golf Professional Relationship Specialty Start Date End Date Russell Fuentes C (Hist) NO FORWARDING ADDRESS PCP - General 09/04/02 Head Golf Professional Relationship Specialty Start Date End Date Russell Fuentes C (Hist) NO FORWARDING ADDRESS PCP - General 09/04/02 Head Golf Professional Relationship Specialty Start Date End Date Russell Fuentes C (Hist) NO FORWARDING ADDRESS PCP - General 09/04/02 Head Golf Professional Relationship Specialty Start Date End Date Russell Fuentes C (Hist) NO FORWARDING ADDRESS PCP - General 09/04/02 Head Golf Professional Relationship Specialty Start Date End Date Russell Fuentes C (Hist) NO FORWARDING ADDRESS PCP - General 09/04/02 Head Golf Professional Relationship Specialty Start Date End Date Russell Fuentes C (Hist) NO FORWARDING ADDRESS PCP - General 09/04/02 Head Golf Professional Relationship Specialty Start Date End Date Russell Fuentes (Hist) NO FORWARDING ADDRESS PCP - General 09/04/02 Head Golf Professional Relationship Specialty Start Date End Date Russell Fuentes (Hist) NO FORWARDING ADDRESS PCP - General 09/04/02 (unrecognized sect ion and content) No Status Records FoundNo Status Records FoundNo Status Records Found INFORMATION SOURCE (unrecogn ized section and content) DATE CREATED AUTHOR 12/31/2021 [facility] DATE CREATED AUTHOR AUTHOR'S ORGANIZ ATION 05/23/2022 [facility] ([place]) DATE CREATED AUTHOR AUTHOR'S ORGANIZ ATION 02/24/2023 [facility] FOR RECORDS PERTAINING TO PATIENTS WHO ARE OR HAVE BEEN ENROLLED IN A CHEMICAL DEPENDENCY/SUBSTANCEABUSE PROGRAM, SOME INFORMATION MAY BE OMITTED. This clinical summary was aggregated from multiple sources. Caution should be exercised in using it in the provision of clinical care. This summary normalizes information from multiple sources, and as a consequence, information in this document may materially change the coding, format and clinical context of patient data. In addition, data may be omitted in some cases. CLINICAL DECISIONS SHOULD BE BASED ON THE PRIMARY CLINICAL RECORDS. [facility]. provides no warranty or guarantee of the accuracy or completeness of information in this document.
== END | disposition home or self-care (01) ==
LOC: LAB 14:11
PROVIDERS: PCP Family Medicine; Referring Provider Internal Medicine Cardiovascular Disease; Visit Provider Internal Medicine Cardiovascular Disease
DX: D64.9 Anemia, unspecified (principal); I48.91 Unspecified atrial fibrillation; I10 Essential (primary) hypertension; R06.09 Other forms of dyspnea
CPT/HCPCS: 36415; 85027

== ENCOUNTER → 2024-03-14 | Outpatient (CLI) | payer BC, SELFPAY ==
--- NOTE | 2024-03-14 16:00 | RAD_ITS ---
EXAM: XR CHEST, 2 VIEWS CLINICAL INDICATION: CHROIC OBSTRUCTIVE PULMONARY DISEASE TECHNIQUE: Frontal and lateral views of the chest. COMPARISON: 12/14/2022. FINDINGS: LUNGS AND PLEURAL SPACES: Unremarkable. No consolidation or edema. No pneumothorax. No effusion. HEART: Unremarkable. Cardiac silhouette not enlarged. MEDIASTINUM: Central airways and mediastinal contour are unremarkable. BONES/JOINTS: Unremarkable. No acute fracture. SOFT TISSUES: Unremarkable. RAD/Chest PA and Lateral IMPRESSION: No radiographic evidence of acute cardiopulmonary disease. Electronically Signed: Onur Tripp MD at 22:13 EST ,
[2024-03-14 16:31] LABS: Absolute Lymphocyte Count 1.72 X10^3/uL (0.83-4.51); Absolute Neutrophil Count 4.4 X10^3/uL (2.0-7.7); Basophil# 0.05 X10^3/uL; Basophil% 0.7 % (0-1); Eosinophil# 0.09 X10^3/uL; Eosinophils% 1.2 % (0-5); Hematocrit 42.3 % (40-54); Hemoglobin 14.1 g/dL (13.0-16.5); Lymphocyte # 1.72 X10^3/ul (0.83-4.51); Lymphocyte % 23.7 % (19-41); Mean Corp Hgb Conc 33.3 g/dL (32-36); Mean Corpuscular Hgb 32.3 pg (27.0-32.0); Mean Platelet Vol. 11.2 fl (6.2-12.0); Monocyte# 0.98 X10^3/uL; Monocyte% 13.5 % (0-10); NRBC Flagged by Analyzer 0 % (0-5); Neutrophil # 4.42 X10^3/uL (2.7-7.7); Neutrophil % 60.8 % (47-70); Platelet Count 190 K/mm3 (150-450); RBC Distribution Width CV 12.1 % (11.6-14.6); RBC Distribution Width SD 43.3 fl (35.1-43.9); Red Blood Count 4.36 M/mm3 (4.6-6.2); White Blood Count 7.3 K/mm3 (4.4-11.0)
[2024-03-14 17:06] LABS: BNP,B-Type NATRIURETIC PEPTIDE 65.8 pg/mL (0-100)
[2024-03-14 17:11] LABS: ALB/GLOB Ratio 1.1 RATIO (0.9-2.4); AST(SGOT) 11 U/L (15-37); Alanine Aminotransfer ALT/SGPT 18 U/L (16-61); Albumin, Serum 3.9 g/dL (3.2-5.0); Alkaline Phosphatase 109 U/L (45-117); Anion Gap 5 (5-15); BUN 18 mg/dL (7-18); BUN/Creat Ratio 10.7 RATIO (10-20); Calcium,Total 9.5 mg/dL (8.5-10.1); Chloride 108 mmol/L (98-107); Creatinine, Serum 1.69 mg/dL (0.70-1.30); EST Glomerular Filtration Rate 42 mL/min (>60); Est Glom Filt Rate - Afr Amer 51 mL/min (>60); Globulin 3.6 g/dL (2.2-4.2); Glucose 145 mg/dL (74-106); Protein, Total 7.5 g/dL (6.4-8.2); Sodium Level 137 mmol/L (136-145)
== END | disposition home or self-care (01) ==
PROVIDERS: PCP Family Medicine; Referring Provider Family Medicine; Visit Provider Family Medicine
DX: I50.9 Heart failure, unspecified (principal); J44.9 Chronic obstructive pulmonary disease, unspecified
CPT/HCPCS: 71046; 80053; 83880; 85025

== ENCOUNTER → 2024-07-07 | Outpatient (CLI) | payer BC, SELFPAY ==
[2024-07-07 18:03] LABS: Absolute Lymphocyte Count 1.69 X10^3/uL (0.83-4.51); Absolute Neutrophil Count 2.7 X10^3/uL (2.0-7.7); Basophil% 1.9 % (0-1); Eosinophil# 0.36 X10^3/uL; Eosinophils% 6.7 % (0-5); Hemoglobin 14.3 g/dL (13.0-16.5); Lymphocyte # 1.69 X10^3/ul (0.83-4.51); Lymphocyte % 31.5 % (19-41); Mean Corp Hgb Conc 34.9 g/dL (32-36); Mean Corpuscular Hgb 32.9 pg (27.0-32.0); Mean Corpuscular Volume 94.5 fL (80-94); Mean Platelet Vol. 11.7 fl (6.2-12.0); Monocyte% 9.3 % (0-10); NRBC Flagged by Analyzer 0 % (0-5); Neutrophil # 2.71 X10^3/uL (2.7-7.7); Neutrophil % 50.4 % (47-70); Platelet Count 196 K/mm3 (150-450); RBC Distribution Width CV 12.3 % (11.6-14.6); RBC Distribution Width SD 43.3 fl (35.1-43.9); Red Blood Count 4.34 M/mm3 (4.6-6.2); White Blood Count 5.4 K/mm3 (4.4-11.0)
[2024-07-07 18:20] LABS: ALB/GLOB Ratio 1.6 RATIO (0.9-2.4); AST(SGOT) 18 U/L (<=37); Alanine Aminotransfer ALT/SGPT 18 U/L (<=46); Albumin, Serum 4.4 g/dL (3.4-4.8); Alkaline Phosphatase 72 U/L (40-129); Anion Gap 12 (5-15); BUN 14 mg/dL (4-19); Calcium,Total 9.6 mg/dL (7.6-11.0); Carbon Dioxide 23.2 mmol/L (21.0-32.0); Chloride 103 mmol/L (98-108); Creatinine, Serum 1.73 mg/dL (0.70-1.20); EST Glomerular Filtration Rate 41 (>60); Globulin 2.7 g/dL (2.2-4.2); Glucose 170 mg/dL (70-99); PSA,Total - Annual Screen 1.04 ng/mL (0.02-4.00); Potassium 3.9 mmol/L (3.3-5.1); Protein, Total 7.1 g/dL (5.9-8.4); Sodium Level 139 mmol/L (133-145); T4 Total, Thyroxin 7.2 ug/dL (4.5-12.1); Total Bilirubin 0.37 mg/dL (0.00-1.30)
[2024-07-08 19:00] LABS: Hemoglobin A1c 6.5 % (<=5.6)
== END | disposition home or self-care (01) ==
LOC: MFPLAB 13:47
PROVIDERS: PCP Family Medicine; Referring Provider Family Medicine; Visit Provider Family Medicine
DX: Z12.5 Encounter for screening for malignant neoplasm of prostate (principal); I50.9 Heart failure, unspecified; I48.91 Unspecified atrial fibrillation; E03.9 Hypothyroidism, unspecified; Z13.1 Encounter for screening for diabetes mellitus
CPT/HCPCS: 36415; 80053; 83036; 84153; 84436; 84443; 85025; G0103

== ENCOUNTER → 2024-10-16 | Outpatient (CLI) | payer BC, SELFPAY ==
--- NOTE | 2024-10-16 06:22 | ECHOD_ITS ---
Reason For Study Reason For Study: CHF Procedure This was a 2D Doppler, Color Flow transthoracic echocardiogram. Exam performed in department. Left Ventricle Normal size and thickness. The LV ejection fraction is 60 %. Unable to assess diastolic function based on available data. Right Ventricle Normal right ventricle. Atria The left and right atria are normal. Mitral Valve Trivial mitral valve insufficiency. Tricuspid Valve Normal tricuspid valve. Aortic Valve Trisinus/trileaflet aortic valve. Trivial aortic valve insufficiency. Pulmonic Valve Trivial pulmonic valve insufficiency. Great Vessels Normal sized aortic root. Pericardium/Pleural No pericardial effusion. MMode/2D Measurements & Calculations LVIDd: 4.6 cm IVSd: 0.86 cm Ao root diam: 3.3 cm LVIDs: 3.1 cm LVPWd: 0.96 cm FS: 31.7 % LAV(MOD-bp): 53.3 ml LVAd ap4: 16.6 cm2 SV(MOD-sp4): 20.6 ml LAV(MOD-bp) Indexed: 27.3 ml/m2 LVLd ap4: 6.4 cm SI(MOD-sp4): 10.6 ml/m2 LAV(MOD-sp2): 37.9 ml EDV(MOD-sp4): 37.3 ml LAV(MOD-sp4): 52.5 ml EDV(sp4-el): 36.7 ml LVAs ap4: 9.7 cm2 LVLs ap4: 5.1 cm ESV(MOD-sp4): 16.6 ml ESV(sp4-el): 15.8 ml EF(MOD-sp4): 55.4 % EF(sp4-el): 57.0 % SV(sp4-el): 20.9 ml LA A4 area: 20.3 cm2 LA dimension(2D): 3.2 cm RA A4 area: 9.2 cm2 Doppler Measurements & Calculations MV E max gabi: 95.3 cm/sec Ao V2 max: 83.6 cm/sec LV V1 max: 73.6 cm/sec Ao max P.8 mmHg LV V1 max P.2 mmHg Ao V2 mean: 57.0 cm/sec LV V1 mean P.1 mmHg Ao mean P.5 mmHg LV V1 mean: 48.9 cm/sec Ao V2 VTI: 23.6 cm LV V1 VTI: 19.3 cm AV (velocity ratio): 0.82 PA V2 max: 65.7 cm/sec PA V2 mean: 50.6 cm/sec ECHO/Echo Complete Interpretation Summary The LV ejection fraction is 60 %. Ordering Physician: Gianna Regalado Referring Physician: Gianna Regalado Performed By: Cheryle Dickerson RCS
--- OUTSIDE RECORDS SUMMARY | 2024-10-16 06:34 | XMS RPT_ITS | CCD ---
Author Organization [facility] Care Team Providers Care Machine Rug Cleaner Name Role Phone Russell Fuentes Carmen (Hist) Primary Care Provider Un available Dr. Eliza Jacobs Primary Care Provider Dr. Denis Cavazos Emergency Provider [phone] Dr. Vicente Marquez Admit Provider Dr. Vicente Marquez Attending Provider Dr. Vicente Marquez Other Provider Dr. Bismark Garcia Attending Provider Dr. Bismark Garcia Other Provider Dr. Connie Heredia Attending Provider Dr. Connie Heredia Other Provider Dr. Blair Hernadez Other Provider Dr. Hugh Gannon Other Provider Dr. Nas Saenz Other Provider Dr. Anthony Yanes Other Provider Dr. Edgar Hale Other Provider Unavailab Shah ELECTRONIC COMMUNICATIONS TECHNICIAN, ELECTRONIC COMMUNICATIONS TECHNICIAN-C Leidy Other Provider Dr. Hugh Gannon Attending Provider Dr. Blair Hernadez Attending Provider Dr. Charlene Lorenzo Attending Provider Dr. Jaron Warner Attending Provider Unavailable Dr. Jaron Warner Other Provider Unavailable Dr. Randy Castro Attending Provider Dr. Vicente Marquez Referring Provider Dr. Eliza Jacobs Referring Provider [phone] DAHLIA WITT, DR. CHEEK Attending Unavaila nati JACOBS MD., DR. CENTENO Primary Care Unavailable Roof ELECTRONIC COMMUNICATIONS TECHNICIAN, ELECTRONIC COMMUNICATIONS TECHNICIAN-C Trever Cho Attending Provider Dr. Jaron Warner Referring Provider Unavailable Roof ELECTRONIC COMMUNICATIONS TECHNICIAN, ELECTRONIC COMMUNICATIONS TECHNICIAN-C Trever Cho Other Provider Dr. Eliza Jacobs Primary Care Provider Dr. Denis Cavazos Emergency Provider Dr. Vicente Marquez Admit Provider Dr. Vicente Marquez Attending Provider Dr. Vicente Marquez Other Provider Dr. Bismark Garcia Attending Provider Dr. Bismark Garcia Other Provider Dr. Connie Heredia Attending Provider Dr. Connie Heredia Other Provider Dr. Blair Hernadez Other Provider Dr. Hugh Gannon Other Provider Dr. Nas Saenz Other Provider Dr. Anthony Yanes Other Provider Dr. Edgar Hale Other Provider Unavailab Shah ELECTRONIC COMMUNICATIONS TECHNICIAN, ELECTRONIC COMMUNICATIONS TECHNICIAN-C Leidy Other Provider Dr. Vicente Marquez Referring Provider Dr. Hugh Gannon Attending Provider Dr. Blair Hernadez Attending Provider Dr. Charlene Lorenzo Attending Provider Dr. Jaron Warner Attending Provider Unavailable Dr. Jaron Warner Other Provider Unavailable Dr. Randy Castro Attending Provider Dr. Jaron Warner Referring Provider Unavailable Dr. Eliza Jacobs Referring Provider Roof ELECTRONIC COMMUNICATIONS TECHNICIAN, ELECTRONIC COMMUNICATIONS TECHNICIAN-C Trever Cho Attending Provider Roof ELECTRONIC COMMUNICATIONS TECHNICIAN, ELECTRONIC COMMUNICATIONS TECHNICIAN-C Trever Cho Other Provider Dr. Bismark Garcia Referring Provider Dr. Hipolito Murphy Attending Provider Dr. Hipolito Murphy Referring Provider Dr. Hipolito Murphy Other Provider Dr. Eliza Jacobs Primary Care Provider Dr. Gianna Alvarado Attending Provider Roof ELECTRONIC COMMUNICATIONS TECHNICIAN, ELECTRONIC COMMUNICATIONS TECHNICIAN-C Trever H Referring Provider Roof ELECTRONIC COMMUNICATIONS TECHNICIAN, ELECTRONIC COMMUNICATIONS TECHNICIAN-C Trever Cho Attending Provider MD Yasmany Omalley Referring Provider MD Yasmany Omalley Other Provider Dr. Nas Saenz Attending Provider Dr. Eliza Jacobs Referring Provider GIANNA ALVARADO Referring Unavailable AMADA GLORIA Attending Unavailable ELIZA JACOBS Primary Care Unavailable Dr. Eliza Jacobs Primary Care Provider MD Yasmany Omalley Referring Provider MD Yasmany Omalley Other Provider Dr. Nas Saenz Attending Provider Dr. Eliza Jacobs Referring Provider Dr. Gianna Alvarado Attending Provider Dr. Eliza Jacobs MD Primary Care Provider Dr. Eliza Jacobs MD Attending Provider Dr. Eliza Jacobs MD Referring Provider Eliza Jacobs Primary Care Unavailable Tye MAHER, Phuong Attending Unavailable Phuong Gamble NP Referring Unavailable Eliza Jacobs Primary Care Unavailable Jolliff, Eliza S Referring Unavailable Fabricio, Gianna Attending Unavailable Jolliff, Eliza S Referring Unavailable Jolliff, Eliza S Primary Care Unavailable Fabricio, Gianna Attending Unavailable Trever Steven Attending Unavailable Trever Steven Referring Unavailable Jolliff, Eliza S Primary Care Unavailable Jolliff, Eliza S Attending Unavailable Jolliff, Eliza S Referring Unavailable Jolliff, Eliza S Primary Care Unavailable Jolliff, Eliza S Primary Care Unavailable Fabricio, Gianna Attending Unavailable Fabricio, Gianna Referring Unavailable Jolliff, Eliza S Primary Care Unavailable Nisha Cruz Attending Unavailable Jolliff, Eliza S Primary Care Unavailable Fabricio, Gianna Referring Unavailable Fabricio, Gianna Attending Unavailable Jolliff, Eliza S Primary Care Unavailable Jolliff, Eliza S Attending Unavailable Jolliff, Eliza S Referring Unavailable Nisha Cruz Attending Unavailable Jolliff, Eliza S Primary Care Unavailable Jolliff, Eliza S Primary Care Unavailable Fabricio, Gianna Attending Unavailable Fabricio, Gianna Referring Unavailable Allergies Allergy Classification Reported Allergen(s) Allergy Type Date of Onset Reaction(s) Facility (2 sources) Penicillins; Translations: [PENICILLINS] Propensity to adverse reactions 5 [facility] Work Phone: (12 sources) petroleum products [Other] Propensity to adverse reactions 5 [facility] Work Phone: (12 sources) soaps [Other] Propensity to adverse reactions 5 [facility] Work Phone: (11 sources) Penicillins Propensity to adverse reactions 5 [facility] Work Phone: (19 sources) Penicillins Allergy to substance 3 [facility] (1 source) OTHER; Translations: [OTHER] Propensity to adverse reactions (disorder) [address] [place] [address] Repository (1 source) Penicillins Drug allergy (disorder) 5 [facility] Repository Medications Current Medications Medication Drug Class(es) Dates Sig (Normalized) Sig (Original) amLODIPine 5 mg oral tablet (1 source) Dihydropyridine Calcium Channel Shady Start: 07-17-2023 take 1 tablet by mouth once daily Amlodipine 5 mg tablet Active 5 mg PO DAILY July 17, 2023 12:00am apixaban 5 mg oral tablet (1 source) Factor Xa Inhibitor Start: 02-19-2024 take 1 tablet by mouth twice daily Apixaban 5 mg tablet Active 5 mg PO TWICE A DAY February 19, 2024 12:00am furosemide 40 mg oral tablet (20 sources) Loop Diuretic Start: 05-22-2022 End: 07-17-2023 take 1 tablet by mouth once Furosemide 40 mg tablet Active 40 mg PO every Sunday, Sunday, and Monday July 17, 2023 12:00am metoprolol tartrate 100 mg oral tablet (20 sources) beta-Adrenergic Shady Start: 05-16-2022 Metoprolol Tartrate 100 mg tablet Active 50 mg PO TWICE A DAY 120 May 16, 2022 6:06pm Start: 05-16-2022 take 50 mg by mouth twice rudy y Metoprolol Tartrate Active 50 MG PO TWICE A DAY 120 May 16, 2022 6:06pm Start: 05-03-2022 End: 05-16-2022 take 1 tablet by mouth twice daily Metoprolol Tartrate 100 mg Tablet Discontinued 100 mg PO TWICE A DAY 120 May 03, 2022 1:00am May 16, 2022 6:06pm pantoprazole 40 mg delayed release oral tablet (20 sources) Proton Pump Inhibitor Start: 07-31-2022 take 1 tablet by mouth once daily Pantoprazole 40 mg tablet,delayed release (DR/EC) Active 40 mg PO DAILY July 31, 2022 9:13am Start: 05-03-2022 End: 07-31-2022 take 1 tablet by mouth twice daily Pantoprazole 40 mg Tablet,Delayed Release (Dr/Ec) Discontinued 40 mg PO TWICE A DAY 120 May 03, 2022 1:00am July 31, 2022 9:13am Vitamin B Complex (5 sources) Start: 01-01-2023 take 1 tablet by carmen th once daily Vitamin B Complex Active 1 TABLET PO DAILY December 31, 2022 11:00pm Start: 01-01-2023 take 1 tablet by carmen th once daily Vitamin B Complex Active 1 TABLET PO DAILY January 01, 2023 12:00am Completed/Discontinued Medications Medication Drug Class(es) Dates Sig [...] every 6 hours as needed for pain. amiodarone hydrochloride 200 mg oral tablet (20 sources) Antiarrhythmic Start: 01-02-2023 End: 07-17-2023 Amiodarone 200 mg tablet Discontinued 100 mg PO DAILY January 02, 2023 2:42pm July 17, 2023 12:14pm Start: 01-02-2023 take 100 mg by mouth once rudy y Amiodarone Active 100 MG PO DAILY January 02, 2023 2:42pm Start: 07-18-2022 End: 01-02-2023 take 1 tablet by mouth once daily Amiodarone 200 mg tablet Discontinued 200 mg PO DAILY September 28, 2022 2:37pm January 02, 2023 2:44pm Start: 05-03-2022 End: 07-18-2022 take 1 tablet by mouth three times daily, then take 1 tablet by mouth once daily Amiodarone 200 mg tablet Discontinued 200 mg PO ONCE July 18, 2022 1:08pm July 18, 2022 1:35pm 200 mg p.o. 3 times daily x7 days 200 mg p.o. twice daily x7 days then 200 mg daily aspirin 81 mg delayed release oral tablet (6 sources) Platelet Aggregation Inhibitor, Nonsteroidal Anti-inflammatory Drug Start: 01-01-2023 End: 02-19-2024 Aspirin (Adult Low Dose Aspirin) 81 mg tablet,delayed release (DR/EC) Discontinued 81 mg PO DAILY January 01, 2023 12:00am February 19, 2024 4:20pm cyclobenzaprine hydrochloride 10 mg oral tablet (10 sources) Muscle Relaxant Start: 08-12-2010 take 1 tablet by mouth three times daily as needed for muscle spasms cyclobenzaprine 10 mg ORAL tablet Indications: Back pain Take 1 tablet by mouth three times daily as needed for Muscle Spasm. 30 tablet 1 08/12/2010 Active Comment on above: Take 1 tablet by carmen three times daily as needed for Muscle Spasm. ferrous sulfate 325 mg oral tablet (12 sources) Start: 05-30-2022 End: 01-01-2023 take 1 tablet by mouth once daily Ferrous Sulfate (Feosol) 325 mg (65 mg iron) tablet Discontinued 325 mg PO DAILY May 30, 2022 1:00am January 01, 2023 1:38pm ibuprofen 200 mg oral tablet (1 source) Nonsteroidal Anti-inflammatory Drug Start: 12-22-2021 take 400-800 mg by mouth every eight hours as needed ibuprofen (MOTRIN) 200 mg tablet Take 2-4 tablets by mouth every 8 hours as needed for pain. 0 12/22/2021 Active Comment on above: Take 2-4 tablets by mouth every 8 hours as needed for pain. Lactase (10 sources) Start: 09-08-2010 LACTASE (LACTAID ORAL) Take by mouth once daily. Takes with milk 0 09/08/2010 Active Comment on above: Take by mouth once d aily. Takes with milk lisinopril 10 mg oral tablet (20 sources) Angiotensin Converting Enzyme Inhibitor Start: 07-17-2023 End: 02-19-2024 take 1 tablet by mouth twice daily Lisinopril 10 mg tablet Discontinued 10 mg PO TWICE A DAY 180 August 20, 2023 8:50am February 19, 2024 1:45pm Start: 07-31-2022 End: 07-17-2023 take 10 mg by mouth twice daily Lisinopril 20 mg table t Discontinued 10 mg PO TWICE A DAY September 05, 2022 2:44pm July 17, 2023 11:52am Start: 07-31-2022 End: 09-05-2022 take 10 mg by mouth twice daily Lisinopril Active 10 M G PO TWICE A DAY September 05, 2022 2:44pm Start: 07-31-2022 take 10 mg by mouth at bedtime Lisinopril Active 10 MG PO AT BEDTIME July 31, 2022 9:08am Start: 07-18-2022 End: 07-31-2022 take 1 tablet by mouth twice daily Lisinopril 20 mg tablet Discontinued 20 mg PO TWICE A DAY 180 July 18, 2022 1:35pm July 31, 2022 9:09am Start: 05-30-2022 End: 07-18-2022 take 1 tablet by mouth twice daily Lisinopril 10 mg tablet Discontinued 10 mg PO TWICE A DAY 60 May 30, 2022 3:05pm July 18, 2022 1:35pm Start: 05-03-2022 End: 05-30-2022 take 1 tablet by mouth twice daily Lisinopril 5 mg Tablet Discontinued 5 mg PO TWICE A DAY 120 May 03, 2022 1:00am May 30, 2022 3:05pm melatonin 10 mg oral tablet (17 sources) Start: 05-10-2022 End: 02-19-2024 take 1 tablet by mouth at bedtime Melatonin 10 mg Tablet Discontinued 10 mg PO AT BEDTIME May 10, 2022 1:00am February 19, 2024 1:45pm metroNIDAZOLE 500 mg oral tablet (1 source) Nitroimidazole Antimicrobial Start: 12-16-2021 metroNIDAZOLE (FLAGYL) 500 mg tablet Take 1 tablet by mouth at 9pm and take 1 tablet by mouth at 11pm the night before surgery. 2 tablet 0 12/16/2021 Active Comment on above: Take 1 tablet by carmen th at 9pm and take 1 tablet by mouth at 11pm the night before surgery. Naproxen (10 sources) Nonsteroidal Anti-inflammatory Drug Start: 09-08-2010 NAPROXEN SODIUM (ALEVE ORAL) Take by mouth as needed. 0 09/08/2010 Active Comment on above: Take by mouth as nee ded. neomycin sulfate 500 mg oral tablet (1 source) Aminoglycoside Antibacterial Start: 12-16-2021 neomycin 500 mg tablet Take 2 tablets by mouth at 9pm and take 2 tablets by mouth at 11pm the night before surgery. 4 tablet 0 12/16/2021 Active Comment on above: Take 2 tablets by mo uth at 9pm and take 2 tablets by mouth at 11pm the night before surgery. 24 hr nicotine 0.875 mg/hr transdermal system (20 sources) Cholinergic Nicotinic Agonist Start: 05-03-2022 End: 02-19-2024 apply 1 dose transdermal route every twenty-four hours Nicotine (Nicoderm Cq) 21 mg/24 hr patch 24 hour Discontinued 1 NMA TD DAILY May 30, 2022 3:00pm February 19, 2024 1:45pm Start: 05-03-2022 End: 05-30-2022 apply 1 dose transdermal route once daily, then apply 1 dose transdermal route every twenty-four hours Nicotine (Nicoderm Cq) 21 mg/24 hr patch 24 hour Active 1 PATCH TD DAILY May 30, 2022 3:00pm omeprazole 20 mg delayed release oral tablet (10 sources) Proton Pump Inhibitor Start: 01-03-2007 Omeprazole Magnesium (PRILOSEC OTC) 20 mg ORAL TbEC Take one(1) tablet daily.as needed otc 0 01/03/2007 Active Comment on above: Take one(1) tablet d aily.as needed oxyCODONE hydrochloride 5 mg oral tablet (9 sources) Opioid Agonist Start: 08-14-2022 End: 01-01-2023 take 5-10 mg by mouth every six hours as needed for pain Oxycodone 5 mg tablet Discontinued 5 - 10 mg PO EVERY 6 HOURS as needed for pain 40 August 14, 2022 January 01, 2023 1:39pm P-EPHED HCL/ACETAMINOPHEN (EXCEDRIN SINUS ORAL) (10 sources) Start: 09-08-2010 P-EPHED HCL/ACETAMINOPHEN (EXCEDRIN SINUS ORAL) Take by mouth as needed. 0 09/08/2010 Active Comment on above: Take by mouth as nee ded. polyethylene glycol 3350 [id number] mg / potassium chloride 2970 mg / sodium bicarbonate 6740 mg / sodium chloride 5860 mg / sodium sulfate 59607 mg powder for oral solution (10 sources) Osmotic Laxative Start: 09-29-2021 peg 3350-Electrolytes (GOLYTELY) 236-22.74-6.74 -5.86 gram suspension Refer to printed prep instructions from your provider. 4000 mL 0 09/29/2021 Active Comment on above: Refer to printed pre p instructions from your provider. tamsulosin hydrochloride 0.4 mg oral capsule (8 sources) alpha-Adrenergic Shady Start: 08-15-2022 End: 08-20-2022 take 2 capsules by mouth once daily Tamsulosin (Flomax) 0.4 mg capsule Discontinued 0.8 mg PO DAILY 10 August 15, 2022 12:00am August 19, 2022 12:00am August 20, 2022 12:04am Vitamin B Complex tablet (1 source) Start: 01-01-2023 End: 02-19-2024 Vitamin B Complex tablet Discontinued 1 {tbl} PO DAILY January 01, 2023 12:00am February 19, 2024 1:45pm Problems Active Problems Problem Classification Problem Date Documented Da te Episodic/Chronic Abdominal hernia (19 sources) Bilateral inguinal hernia; Translations: [Bilateral inguinal hernia, without obstruction or gangrene, not specified as recurrent] 08-02-2021 Episodic Acute posthemorrhagic anemia (20 sources) Acute posthemorrhagic anemia; Translations: [Acute posthemorrhagic anemia] Episodic Cardiac dysrhythmias (20 sources) Atrial fibrillation; Translations: [Unspecified atrial fibrillation] Onset: 3 Chronic Chronic kidney disease (2 sources) Chronic kidney disease, stage 4 (severe); Translations: [Chronic kidney disease, stage 4 (severe)] Onset: 4 Chronic Chronic obstructive pulmonary disease and bronchiectasis (20 sources) Acute exacerbation of chronic obstructive airways disease; Translations: [Chronic obstructive pulmonary disease with (acute) exacerbation] Onset: 5 Chronic Congestive heart failure; nonhypertensive (20 sources) Congestive heart failure; Translations: [Heart failure, unspecified] Onset: 4 Chronic Deficiency and other anemia (18 sources) Anemia; Translations: [Anemia, unspecified] 04-27-2022 Episodic Esophageal disorders (19 sources) Gastroesophageal reflux disease; Translations: [Gastro-esophageal reflux disease without esophagitis] 08-02-2021 Chronic Comment on above: ON MED Essential hypertension (9 sources) Hypertensive disorder; Translations: [Essential (primary) hypertension] Onset: 5 01-01-2023 Chronic Gastrointestinal hemorrhage (20 sources) Gastrointestinal hemorrhage; Translations: [Gastrointestinal hemorrhage, unspecified] Onset: 3 Episodic Heart valve disorders (2 sources) Mitral valve regurgitation; Translations: [Nonrheumatic mitral (valve) insufficiency] Onset: 5 07-17-2023 Chronic Hemorrhoids (20 sources) Hemorrhoids; Translations: [Unspecified hemorrhoids] Onset: 7 05-03-2006 Episodic Malignant neoplasm without specification of site (2 sources) Malignant neoplastic disease; Translations: [Malignant (primary) neoplasm, unspecified] Onset: 2 12-21-2021 Chronic Neoplasms of unspecified nature or uncertain behavior (8 sources) Villous adenoma of colon; Translations: [Neoplasm of uncertain behavior of colon] Onset: 2 Episodic Nonspecific chest pain (9 sources) Atypical chest pain; Translations: [Other chest pain] Onset: 5 01-01-2023 Episodic Osteoarthritis (20 sources) Arthropathy of joint of hand; Translations: [Primary osteoarthritis, unspecified hand] Onset: 7 01-03-2007 Chronic Other aftercare (2 sources) Other bed bug exterminator (current) drug therapy; Translations: [termite technician current use of antiarrhythmic drug] Onset: 3 Episodic Other and unspecified benign neoplasm (14 sources) History of polyp of colon; Translations: [Personal history of colonic polyps] Episodic Other and unspecified benign neoplasm (1 source) Adenoma of large intestine; Translations: [Benign neoplasm of transverse colon] Episodic Other circulatory disease (6 sources) History of cardiomyopathy; Translations: [Personal history of other diseases of the circulatory system] 01-01-2023 Episodic Other circulatory disease (5 sources) Personal history of other diseases of the circulatory system; Translations: [Personal history of other diseases of circulatory system] Onset: 3 01-01-2023 Episodic Other gastrointestinal disorders (1 source) Ileostomy present; Translations: [Encounter for attention to ileostomy] Chronic Other gastrointestinal disorders (1 source) Personal history of other diseases of the digestive system; Translations: [History of GI bleed] Onset: 3 Episodic Other lower respiratory disease (1 source) Dyspnea on exertion; Translations: [Other forms of dyspnea] 08-24-2023 Episodic Other lower respiratory disease (1 source) Other forms of dyspnea; Translations: [Other forms of dyspnea] Onset: 5 Episodic Other nervous system disorders (2 sources) Postoperative pain ; Translations: [Other acute postprocedural pain] Onset: 2 12-22-2021 Episodic Other nutritional; endocrine; and metabolic disorders (2 sources) Overweight; Translations: [Overweight] Onset: 2 12-22-2021 Episodic Other screening for suspected conditions (not mental disorders or infectious disease) (20 sources) CT of abdomen abnormal; Translations: [Abnormal findings on diagnostic imaging of other abdominal regions, including retroperitoneum] Onset: 5 08-02-2021 Episodic Christelle-; endo-; and myocarditis; cardiomyopathy (except that caused by tuberculosis or sexually transmitted disease) (20 sources) Cardiomyopathy; Translations: [Cardiomyopathy, unspecified] Onset: 5 Chronic Residual codes; unclassified (1 source) Postoperative state; Translations: [Other specified postprocedural states] Episodic Residual codes; unclassified (2 sources) Other specified personal risk factors, not elsewhere classified; Translations: [At risk for stroke] Onset: 3 Episodic Respiratory failure; insufficiency; arrest (adult) (20 sources) Acute respiratory failure; Translations: [Acute respiratory failure with hypoxia] Episodic Spondylosis; intervertebral disc disorders; other back problems (19 sources) Backache; Translations: [Dorsalgia, unspecified] 08-05-2021 Episodic Comment on above: CHRONIC Substance-related disorders (20 sources) Tobacco user; Translations: [Nicotine dependence, unspecified, uncomplicated] Onset: 7 01-03-2007 Chronic Unclassified (1 source) Cough, unspecified; Translations: [Cough, unspecified] Onset: 4 Past or Other Problems Problem Classification Problem Date Documented Date Episodic/Chronic Biliary tract disease (12 sources) Gallstone; Translations: [Calculus of gallbladder without cholecystitis without obstruction] Onset: 01-16-2007 01-16-2007 Episodic Deficiency and other anemia (11 sources) Anemia, unspecified; Translations: [Anemia, unspecified] Onset: 03-11-2024 Episodic Results Test Name Value Interpretation Reference Range Facility Cardiology Visit Reporton Cardiology Visit Report [facility] [address] [place], [place] [id number] OFFICE VISIT Date of Service: 08/06/24 MR#: [id number] Acct: [id number] Name: PETER ORR Rep #: [id number] 14 : 1950 Provider: Dr. Gianna Alvarado MD Age/Sex: 74/M Location: [facility] [place] Status: Signed HPI HPI History of Present Illness Details: This gentleman with history of nonischemic cardiomyopathy, his EF having since recovered, paroxysmal atrial fibrillation, COPD and hypertension is here for follow-up visit. Rare chest pain. Improved since starting on amlodipine. Shortness of breath with activity stable. No orthopnea. No PND. No ankle edema. Intake Vital Signs 02/19/24 08:39 08/06/24 08:46 Height 5 ft 7 in 5 ft 7 in Weight: 184 lb BMI 28.8 BP 143/78 H Blood Pressure Location Lt brachial Position Sitting Respiration 18 Pulse 66 Pulse Source NIBP Intake Visit Reasons: 6 M FU Occupational Therapy Department Chair Required: No Accompanied by: Is patient in pain?: No Allergies Penicillins Allergy (Mild, Verified 08/06/24 13:37) rash Medications ???Medication ???Instructions ???Recorded ???Confirmed ???Type metoprolol tartrate 100 mg tablet 50 mg (1/2 x 100 mg) PO BID #120 05/16/22 08/06/24 Rx tabs pantoprazole 40 mg tablet,delayed 40 mg PO DAILY 07/31/22 08/06/24 History release furosemide 40 mg tablet 40 mg PO QMWF 07/17/23 08/06/24 Hi story apixaban 5 mg tablet 5 mg PO BID #180 tabs 02/19/24 Rx amlodipine 5 mg tablet 5 mg PO DAILY #30 tabs 07/25/24 Rx Ejection fraction %: 65 Have you fallen in the past year?: No PFSH Medical History ABLA (acute blood loss anemia) Abnormal CT of the abdomen Acute respiratory failure with hypoxia Anemia Anemia Arthritis Atrial fibrillation Atypical chest pain Back pain Back pain Bilateral inguinal hernia (BIH) Bleeding hemorrhoids Cardiology follow-up encounter Cardiomyopathy CHF (congestive heart failure) COPD (chronic obstructive pulmonary disease) COPD with exacerbation COVID Easy bruising Elevated serum creatinine Former smoker GERD (gastroesophageal reflux disease) Hemorrhoid History of atrial fibrillation History of cardiomyopathy History of diverticulitis History of echocardiogram History of edema History of GI bleed History of pain when walking History of stress test History of stress test History of ulceration Hypertension Injury of back Loss of hearing Osteoarthritis Paroxysmal atrial fibrillation Psoriasis Shortness of breath on exertion Smoker Syncope Tobacco dependence Wears dentures Wears glasses Surgical History History of colonoscopy History of hemorrhoidectomy History of laparoscopic cholecystectomy Hx of abdominal surgery Family History Father Heart disease Myocardial infarction Mother Heart disease Myocardial infarction Social History household members: spouse number of children: 5 current occupational status: retired pets and animals: No Smoking Status: Former smoker Tobacco: How many years used: 60 how long ago did patient quit smoking: Apr 26 ROS Const Const: Positive for fatigue and weakness; Negative for headache(s) or weight gain ENT ENT: Positive for balance problems; Negative for headache(s), dizziness or Nosebleed/epistaxis Cardio Chest Pain: Yes (aches) Frequency: weekly Character: dull Location: left chest Palpitations: No Edema: None Muscle aches with walking: None Resp Respiratory: Positive for SOB with activity; Negative for SOB at rest or SOB orthopnea SOB lying down GI GI: Positive for heartburn and bloating; Negative nausea or vomiting Musc Musc: Positive for muscle aches/ myalgia and balance problems; Negative for muscle weakness or joint pain Neuro Neuro: Positive for weakness; Negative for dizziness, lightheadedness, near syncope, syncope or headache(s) Endo Endo: Positive for fatigue Cardiology Exam Const Appearance: comfortable and no acute distress Nutritional Appearance: well nourished Neck Neck: no JVD Carotids: Negative bruit Chest Auscultation: Bilateral: Diminished Lung Sounds Cardio Rate: regular rate Rhythm: regular rhythm Heart sounds: S1 normal and S2 normal Neuro General: patient alert, patient awake and patient oriented x3 Extremities Lower Extremity Edema: None: Bilateral Supplemental Info Supplemental Information Echocardiogram 09/19/2022: Interpretation Summary The left ventricular ejection fraction is 65 %. This was a limited 2D echo. No Doppler exam (more content not included)... Normal [facility] Hemoglobin A1con 07-08-2024 HbA1c (Bld) [Mass fraction] 6.5 % Normal <=5.6 [facility] Comment on above: Order Comment: Order Date: 07/08/24Order Info: 4548-4 - A1C*ADD ON PER NURSE FROM BLOOD ON 07/07/24* Performed By: #### L 501.9910, L500.4050, L501.9520, L100.0100, L501.9310 #### [facility] [address] [place], [address] Absolute neutrophil countOrd ered By: Eliza Jacobs on 07-07-2024 Neutrophils (Bld) [#/Vol] 2.7 10*3/uL 2.0-7.7 [facility] Anion gap in Serum or Plasma Ordered By: Eliza Jacobs on 07-07-2024 Anion gap [Moles/Vol] 12 mmol/L 5-15 [facility] BUN/creatinine ratioOrdered By: Eliza Jacobs on 07-07-2024 Urea nitrogen/Creatinine [Mass ratio] 8.0 mg/mg Low 10-20 [facility] Basophil percentageOrdered B y: Eliza Jacobs on 07-07-2024 Basophils/100 WBC (Bld) 1.9 % High 0-1 [facility] Bilirubin, totalOrdered By: Eliza Jacobs on 07-07-2024 Bilirubin [Mass/Vol] 0.37 mg/dL 0.00-1.30 [facility] CBC W/Diff, Automatedon 06-21 Absolute Lymph 1.69 X10 3/uL Normal 0.83-4.51 [facility] Comment on above: Performed By: #### L 501.9910, L500.4050, L501.9520, L100.0100, L501.9310 #### [facility] [address] [place], [address] Absolute Neut 2.7 X10 3/uL Normal 2.0-7.7 [facility] Comment on above: Performed By: #### L 501.9910, L500.4050, L501.9520, L100.0100, L501.9310 #### [facility] [address] [place], [address] Basophils/100 WBC (Bld) 1.9 % High 0-1 [facility] Comment on above: Performed By: #### L 501.9910, L500.4050, L501.9520, L100.0100, L501.9310 #### [facility] [address] [place], [address] Eosinophils/100 WBC (Bld) 6.7 % High 0-5 [facility] Comment on above: Performed By: #### L 501.9910, L500.4050, L501.9520, L100.0100, L501.9310 #### [facility] [address] [place], [address] Erythrocyte distribution width (RBC) [Ratio] 12.3 % Normal 11.6-14.6 [facility] Comment on above: Performed By: #### L 501.9910, L500.4050, L501.9520, L100.0100, L501.9310 #### [facility] [address] [place], [address] Hematocrit (Bld) [Volume fraction] 41.0 % Normal 40-54 [facility] Comment on above: Performed By: #### L 501.9910, L500.4050, L501.9520, L100.0100, L501.9310 #### [facility] [address] [place], [address] Hemoglobin (Bld) [Mass/Vol] 14.3 g/dL Normal 13.0-16.5 [facility] Comment on above: Performed By: #### L 501.9910, L500.4050, L501.9520, L100.0100, L501.9310 #### [facility] [address] [place], [address] IG% 0.200 Normal 0.0-0.9 [facility] Comment on above: Result Comment: IG% - Immature Granulocytes (promyelocytes, myelocytes and metamyelocytes) > 1% indicates that a LEFT SHIFT is Present. Performed By: #### L 501.9910, L500.4050, L501.9520, L100.0100, L501.9310 #### [facility] [address] [place], [address] Lymphocytes/100 WBC (Bld) 31.5 % Normal 19-41 [facility] Comment on above: Performed By: #### L 501.9910, L500.4050, L501.9520, L100.0100, L501.9310 #### [facility] [address] [place], [address] MCH (RBC) [Entitic mass] 32.9 pg High 27.0-32.0 [facility] Comment on above: Performed By: #### L 501.9910, L500.4050, L501.9520, L100.0100, L501.9310 #### [facility] [address] [place], [address] MCHC (RBC) [Mass/Vol] 34.9 g/dL Normal 32-36 [facility] Comment on above: Performed By: #### L 501.9910, L500.4050, L501.9520, L100.0100, L501.9310 #### [facility] [address] [place], [address] MCV (RBC) [Entitic vol] 94.5 fL High 80-94 [facility] Comment on above: Performed By: #### L 501.9910, L500.4050, L501.9520, L100.0100, L501.9310 #### [facility] [address] [place], [address] Monocytes/100 WBC (Bld) 9.3 % Normal 0-10 [facility] Comment on above: Performed By: #### L 501.9910, L500.4050, L501.9520, L100.0100, L501.9310 #### [facility] [address] [place], [address] Neutrophils/100 WBC (Bld) 50.4 % Normal 47-70 [facility] Comment on above: Performed By: #### L 501.9910, L500.4050, L501.9520, L100.0100, L501.9310 #### [facility] [address] [place], [address] Nucleated RBC (Bld) [#/Vol] 0 10*3/uL Normal 0-5 [facility] Comment on above: Performed By: #### L 501.9910, L500.4050, L501.9520, L100.0100, L501.9310 #### [facility] [address] [place], [address] Platelet mean volume (Bld) [Entitic vol] 11.7 fL Normal 6.2-12.0 [facility] Comment on above: Performed By: #### L 501.9910, L500.4050, L501.9520, L100.0100, L501.9310 #### [facility] [address] [place], [address] Platelets (Bld) [#/Vol] 196 10*3/uL Normal 150-450 [facility] Comment on above: Performed By: #### L 501.9910, L500.4050, L501.9520, L100.0100, L501.9310 #### [facility] [address] [place], [address] RBC (Bld) [#/Vol] 4.34 10*6/uL Low 4.6-6.2 [facility] Comment on above: Performed By: #### L 501.9910, L500.4050, L501.9520, L100.0100, L501.9310 #### [facility] [address] [place], [address] RDW SD 43.3 fl Normal 35.1-43.9 [facility] Comment on above: Performed By: #### L 501.9910, L500.4050, L501.9520, L100.0100, L501.9310 #### [facility] [address] [place], [address] WBC (Bld) [#/Vol] 5.4 10*3/uL Normal 4.4-11.0 [facility] Comment on above: Performed By: #### L 501.9910, L500.4050, L501.9520, L100.0100, L501.9310 #### [facility] [address] [place], [address] Carbon dioxide, total [Moles /volume] in Central venous bloodOrdered By: Eliza Jacobs on 07-07-2024 CO2 [Moles/Vol] 23.2 mmol/L 21.0-32.0 [facility] Chloride assayOrdered By: Geoffrey Jacobs on 07-07-2024 Chloride [Moles/Vol] 103 mmol/L 98-108 [facility] Comprehensive Metabolic Prof ilon 07-07-2024 Albumin [Mass/Vol] 4.4 g/dL Normal 3.4-4.8 [facility] Comment on above: Performed By: #### L 501.9910, L500.4050, L501.9520, L100.0100, L501.9310 #### [facility] [address] [place], [address] Albumin/Globulin [Mass ratio] 1.6 {ratio} Normal 0.9-2.4 [facility] Comment on above: Performed By: #### L 501.9910, L500.4050, L501.9520, L100.0100, L501.9310 #### [facility] [address] [place], [address] ALK PHOS 72 U/L Normal 40-129 [facility] Comment on above: Performed By: #### L 501.9910, L500.4050, L501.9520, L100.0100, L501.9310 #### [facility] [address] [place], [address] ALT [Catalytic activity/Vol] 18 U/L Normal <=46 [facility] Comment on above: Performed By: #### L 501.9910, L500.4050, L501.9520, L100.0100, L501.9310 #### [facility] [address] [place], [address] AST [Catalytic activity/Vol] 18 U/L Normal <=37 [facility] Comment on above: Performed By: #### L 501.9910, L500.4050, L501.9520, L100.0100, L501.9310 #### [facility] [address] [place], [address] Bilirubin [Mass/Vol] 0.37 mg/dL Normal 0.00-1.30 [facility] Comment on above: Performed By: #### L 501.9910, L500.4050, L501.9520, L100.0100, L501.9310 #### [facility] [address] [place], [address] BUN/CRE 8.0 RATIO Low 10-20 [facility] Comment on above: Performed By: #### L 501.9910, L500.4050, L501.9520, L100.0100, L501.9310 #### [facility] [address] [place], [address] Calcium [Mass/Vol] 9.6 mg/dL Normal 7.6-11.0 [facility] Comment on above: Performed By: #### L 501.9910, L500.4050, L501.9520, L100.0100, L501.9310 #### [facility] [address] [place], [address] Chloride [Moles/Vol] 103 mmol/L Normal 98-108 [facility] Comment on above: Performed By: #### L 501.9910, L500.4050, L501.9520, L100.0100, L501.9310 #### [facility] [address] [place], [address] CO2 [Moles/Vol] 23.2 mmol/L Normal 21.0-32.0 [facility] Comment on above: Performed By: #### L 501.9910, L500.4050, L501.9520, L100.0100, L501.9310 #### [facility] [address] [place], [address] Creatinine [Mass/Vol] 1.73 mg/dL High 0.70-1.20 [facility] Comment on above: Performed By: #### L 501.9910, L500.4050, L501.9520, L100.0100, L501.9310 #### [facility] [address] [place], [address] GAP 12 Normal 5-15 [facility] Comment on above: Performed By: #### L 501.9910, L500.4050, L501.9520, L100.0100, L501.9310 #### [facility] [address] [place], [address] GFR/1.73 sq M.predicted among non-blacks MDRD (S/P/Bld) [Vol rate/Area] 41 mL/min/{1.73_m2} Low >60 [facility] Comment on above: Result Comment: mL/m in/1.73m2 CKD-EPI Creatinine Equation (2020) Performed By: #### L 501.9910, L500.4050, L501.9520, L100.0100, L501.9310 #### [facility] [address] [place], [address] Globulin (S) [Mass/Vol] 2.7 g/dL Normal 2.2-4.2 [facility] Comment on above: Performed By: #### L 501.9910, L500.4050, L501.9520, L100.0100, L501.9310 #### [facility] [address] [place], [address] Glucose [Mass/Vol] 170 mg/dL High 70-99 [facility] Comment on above: Performed By: #### L 501.9910, L500.4050, L501.9520, L100.0100, L501.9310 #### [facility] [address] [place], [address] Potassium [Moles/Vol] 3.9 mmol/L Normal 3.3-5.1 [facility] Comment on above: Performed By: #### L 501.9910, L500.4050, L501.9520, L100.0100, L501.9310 #### [facility] [address] [place], [address] Sodium [Moles/Vol] 139 mmol/L Normal 133-145 [facility] Comment on above: Performed By: #### L 501.9910, L500.4050, L501.9520, L100.0100, L501.9310 #### [facility] [address] [place], [address] T PROT 7.1 g/dL Normal 5.9-8.4 [facility] Comment on above: Performed By: #### L 501.9910, L500.4050, L501.9520, L100.0100, L501.9310 #### [facility] [address] [place], [address] Urea nitrogen [Mass/Vol] 14 mg/dL Normal 4-19 [facility] Comment on above: Performed By: #### L 501.9910, L500.4050, L501.9520, L100.0100, L501.9310 #### [facility] [address] [place], [address] Eosinophil percentageOrdered By: Eliza Jacobs on 07-07-2024 Eosinophils/100 WBC (Bld) 6.7 % High 0-5 [facility] Erythrocyte distribution wid th ratioOrdered By: Eliza Jacobs on 07-07-2024 Erythrocyte distribution width (RBC) [Ratio] 12.3 % 11.6-14.6 [facility] Erythrocyte distribution wid th standard deviationOrdered By: Eliza Jacobs on 07-07-2024 Erythrocyte distribution width (RBC) [Entitic vol] 43.3 fL 35.1-43.9 [facility] GFR/1.73 sq M.predicted mayda g non-blacks MDRD (S/P/Bld) [Vol rate/Area]Ordered By: Eliza Jacobs on 07-07-2024 Estimated GFR (MDRD) Non-Af Amer 41 Low >60 [facility] Comment on above: mL/min/1.73m2 CKD-EP I Creatinine Equation (2020) Hematocrit Auto (Bld) [Volum e fraction]Ordered By: Eliza Jacobs on 07-07-2024 Hematocrit (Bld) [Volume fraction] 41.0 % 40-54 [facility] Hemoglobin A1c percentageOrd ered By: Eliza Jacobs on 07-07-2024 HbA1c (Bld) [Mass fraction] 6.5 % >5.7 [facility] Hemoglobin measurementOrdere d By: Eliza Jacobs on 07-07-2024 Hemoglobin (Bld) [Mass/Vol] 14.3 g/dL 13.0-16.5 [facility] Immature granulocytes/100 WB C Auto (Bld)Ordered By: Eliza Jacobs on 07-07-2024 Immature granulocytes/100 WBC (Bld) 0.200 % 0.0-0.9 [facility] Comment on above: IG% - Immature Granu locytes (promyelocytes, myelocytes and metamyelocytes) > 1% indicates that a LEFT SHIFT is Present. Laboratory - Chemistry and C hemistry - challengeOrdered By: Eliza Jacobs on 07-07-2024 AST [Catalytic activity/Vol] 18 U/L <38 [facility] Lymphocytes Auto (Unsp spec) [#/Vol]Ordered By: Eliza Jacobs on 07-07-2024 Lymphocytes (Bld) [#/Vol] 1.69 10*3/uL 0.83-4.5 1 [facility] Lymphocytes/100 WBC Auto (Un sp spec)Ordered By: Eliza Jacobs on 07-07-2024 Lymphocytes/100 WBC (Bld) 31.5 % 19-41 [facility] MCV (mean corpuscular volume ) determinationOrdered By: Eliza Jacobs on 07-07-2024 MCV (RBC) [Entitic vol] 94.5 fL High 80-94 [facility] Mean corpuscular hemoglobin (MCH) determinationOrdered By: Eliza Jacobs on 07-07-2024 MCH (RBC) [Entitic mass] 32.9 pg High 27.0-32.0 [facility] Mean corpuscular hemoglobin concentration (MCHC) determinationOrdered By: Eliza Jacobs on 07-07-2024 MCHC (RBC) [Mass/Vol] 34.9 g/dL 32-36 [facility] Mean platelet volume determi nationOrdered By: Eliza Jacobs on 07-07-2024 Platelet mean volume (Bld) [Entitic vol] 11.7 fL 6.2-12.0 [facility] Monocyte percentageOrdered B y: Eliza Jacobs on 07-07-2024 Monocytes/100 WBC (Bld) 9.3 % 0-10 [facility] Neutrophil percentageOrdered By: Eliza Jacobs on 07-07-2024 Neutrophils/100 WBC (Bld) 50.4 % 47-70 [facility] Nucleated red blood cell per centageOrdered By: Eliza Jacobs on 07-07-2024 Nucleated RBC/100 WBC (Bld) [Ratio] 0 % 0-5 [facility] PSA, total screeningOrdered By: Eliza Jacobs on 07-07-2024 Prostate Specific Antigen Screen 1.04 ng/mL 0.02-4.00 [facility] Comment on above: This test was perfor med using the [employer] tPSA method. Measured values of a patient sample can vary depending on the testing procedure used. PSA values determined on patient samples by different testing procedures cannot be used interchangeably. If there is a change in PSA assays while monitoring therapy, sequential testing should be performed to confirm baseline values. PSA,Total - Annual Screenon 07-07-2024 PSA,TOT SCREEN 1.04 ng/mL Normal 0.02-4.00 [facility] Comment on above: Result Comment: This test was performed using the [employer] tPSA method. Measured values of a patient??sample can vary depending on the testing procedure used. PSA values determined on patient samples by different testing procedures cannot be used interchangeably. If there is a change in PSA assays while monitoring therapy, sequential testing should be performed to confirm baseline values. Performed By: #### L 501.9910, L500.4050, L501.9520, L100.0100, L501.9310 #### [facility] [address] [place], [address] Platelet countOrdered By: Geoffrey Jacobs on 07-07-2024 Platelets (Bld) [#/Vol] 196 10*3/uL 150-450 [facility] Potassium (Unsp spec) [Mass/ Vol]Ordered By: Eliza Jacobs on 07-07-2024 Potassium [Moles/Vol] 3.9 mmol/L 3.3-5.1 [facility] RBC Auto (Bld) [#/Vol]Ordere d By: Eliza Jacobs on 07-07-2024 RBC (Bld) [#/Vol] 4.34 10*6/uL Low 4.6-6.2 [facility] Serum creatinine measurement (mass/volume)Ordered By: Eliza Jacobs on 07-07-2024 Creatinine [Mass/Vol] 1.73 mg/dL High 0.70-1.20 [facility] Serum globulin measurementOr dered By: Eliza Jacobs on 07-07-2024 Globulin (S) [Mass/Vol] 2.7 g/dL 2.2-4.2 [facility] Serum glucose measurement (m ass/volume)Ordered By: Eliza Jacobs on 07-07-2024 Glucose [Mass/Vol] 170 mg/dL High 70-99 [facility] Serum or plasma alanine dial otransferase (ALT) measurementOrdered By: Eliza Jacobs on 07-07-2024 ALT [Catalytic activity/Vol] 18 U/L <47 [facility] Serum or plasma albumin keena urement (mass/volume)Ordered By: Eliza Jacobs on 07-07-2024 Albumin [Mass/Vol] 4.4 g/dL 3.4-4.8 [facility] Serum or plasma albumin/glob ulin mass ratioOrdered By: Eliza Jacobs on 07-07-2024 Albumin/Globulin [Mass ratio] 1.6 {ratio} 0.9-2.4 [facility] Serum or plasma alkaline jase sphatase measurementOrdered By: Eliza Jacobs on 07-07-2024 ALP [Catalytic activity/Vol] 72 U/L 40-129 [facility] Serum or plasma calcium keena urement (mass/volume)Ordered By: Eliza Jacobs on 07-07-2024 Calcium [Mass/Vol] 9.6 mg/dL 7.6-11.0 [facility] Serum or plasma urea nitroge n measurement (mass/volume)Ordered By: Eliza Jacobs on 07-07-2024 Urea nitrogen [Mass/Vol] 14 mg/dL 4-19 [facility] Sodium levelOrdered By: Eliza Jacobs on 07-07-2024 Sodium [Moles/Vol] 139 mmol/L 133-145 [facility] T4 Total, Thyroxinon 025 T4 [Mass/Vol] 7.2 ug/dL Normal 4.5-12.1 [facility] Comment on above: Performed By: #### L 501.9910, L500.4050, L501.9520, L100.0100, L501.9310 #### [facility] [address] [place], [place], [id number] TSH DL <= 0.005 mIU/L QnOrde red By: Eliza Jacobs on 07-07-2024 Thyroid Stimulating Hormone (TSH) 2.520 uIU/mL 0.300-4.200 [facility] Thyroid Stim Hormone (TSH)on 07-07-2024 TSH 2.520 uIU/mL Normal 0.300-4.200 [facility] Comment on above: Performed By: #### L 501.9910, L500.4050, L501.9520, L100.0100, L501.9310 #### [facility] [address] [place], [place], [id number] ThyroxineOrdered By: Eliza summers on 07-07-2024 T4 [Mass/Vol] 7.2 ug/dL 4.5-12.1 [facility] Total proteinOrdered By: Eliza Jacobs on 07-07-2024 Protein [Mass/Vol] 7.1 g/dL 5.9-8.4 [facility] White blood cell (WBC) count Ordered By: Eliza Jacobs on 07-07-2024 WBC (Bld) [#/Vol] 5.4 10*3/uL 4.4-11.0 [facility] BNP,B-Type NATRIURETIC PEPTI Lila 03-14-2024 Natriuretic peptide B (Bld) [Mass/Vol] 65.8 pg/mL Normal 0-100 [facility] Comment on above: Performed By: #### L 501.9910, L500.4050, L501.9520, L100.0100, L501.9310 #### [facility] [address] [place], [place], [id number] CBC W/Diff, Automatedon 11-2 Absolute Lymph 1.72 X10 3/uL Normal 0.83-4.51 [facility] Comment on above: Order Comment: Order Date: 03/14/24Order Info: 0184-1 - CBCD Performed By: #### L 501.9910, L500.4050, L501.9520, L100.0100, L501.9310 #### [facility] [address] [place], [address] Absolute Neut 4.4 X10 3/uL Normal 2.0-7.7 [facility] Comment on above: Order Comment: Order Date: 03/14/24Order Info: 018-1 - CBCD Performed By: #### L 501.9910, L500.4050, L501.9520, L100.0100, L501.9310 #### [facility] [address] [place], [address] Basophils/100 WBC (Bld) 0.7 % Normal 0-1 [facility] Comment on above: Order Comment: Order Date: 03/14/24Order Info: 018-1 - CBCD Performed By: #### L 501.9910, L500.4050, L501.9520, L100.0100, L501.9310 #### [facility] [address] [place], [address] Eosinophils/100 WBC (Bld) 1.2 % Normal 0-5 [facility] Comment on above: Order Comment: Order Date: 03/14/24Order Info: 018- - CBCD Performed By: #### L 501.9910, L500.4050, L501.9520, L100.0100, L501.9310 #### [facility] [address] [place], [address] Erythrocyte distribution width (RBC) [Ratio] 12.1 % Normal 11.6-14.6 [facility] Comment on above: Order Comment: Order Date: 03/14/24Order Info: 0184-1 - CBCD Performed By: #### L 501.9910, L500.4050, L501.9520, L100.0100, L501.9310 #### [facility] [address] [place], [address] Hematocrit (Bld) [Volume fraction] 42.3 % Normal 40-54 [facility] Comment on above: Order Comment: Order Date: 03/14/24Order Info: 0184-1 - CBCD Performed By: #### L 501.9910, L500.4050, L501.9520, L100.0100, L501.9310 #### [facility] [address] [place], [address] Hemoglobin (Bld) [Mass/Vol] 14.1 g/dL Normal 13.0-16.5 [facility] Comment on above: Order Comment: Order Date: 03/14/24Order Info: 018- - CBCD Performed By: #### L 501.9910, L500.4050, L501.9520, L100.0100, L501.9310 #### [facility] [address] [place], [address] IG% 0.100 Normal 0.0-0.9 [facility] Comment on above: Order Comment: Order Date: 03/14/24Order Info: 018- - CBCD Result Comment: IG% - Immature Granulocytes (promyelocytes, myelocytes and metamyelocytes) > 1% indicates that a LEFT SHIFT is Present. Performed By: #### L 501.9910, L500.4050, L501.9520, L100.0100, L501.9310 #### [facility] [address] [place], [address] Lymphocytes/100 WBC (Bld) 23.7 % Normal 19-41 [facility] Comment on above: Order Comment: Order Date: 03/14/24Order Info: 018- - CBCD Performed By: #### L 501.9910, L500.4050, L501.9520, L100.0100, L501.9310 #### [facility] [address] [place], [address] MCH (RBC) [Entitic mass] 32.3 pg High 27.0-32.0 [facility] Comment on above: Order Comment: Order Date: 03/14/24Order Info: 018- - CBCD Performed By: #### L 501.9910, L500.4050, L501.9520, L100.0100, L501.9310 #### [facility] [address] [place], [address] MCHC (RBC) [Mass/Vol] 33.3 g/dL Normal 32-36 [facility] Comment on above: Order Comment: Order Date: 03/14/24Order Info: 0184-1 - CBCD Performed By: #### L 501.9910, L500.4050, L501.9520, L100.0100, L501.9310 #### [facility] [address] [place], [address] MCV (RBC) [Entitic vol] 97.0 fL High 80-94 [facility] Comment on above: Order Comment: Order Date: 03/14/24Order Info: 018- - CBCD Performed By: #### L 501.9910, L500.4050, L501.9520, L100.0100, L501.9310 #### [facility] [address] [place], [address] Monocytes/100 WBC (Bld) 13.5 % High 0-10 [facility] Comment on above: Order Comment: Order Date: 03/14/24Order Info: 018- - CBCD Performed By: #### L 501.9910, L500.4050, L501.9520, L100.0100, L501.9310 #### [facility] [address] [place], [address] Neutrophils/100 WBC (Bld) 60.8 % Normal 47-70 [facility] Comment on above: Order Comment: Order Date: 03/14/24Order Info: 0184-1 - CBCD Performed By: #### L 501.9910, L500.4050, L501.9520, L100.0100, L501.9310 #### [facility] [address] [place], [address] Nucleated RBC (Bld) [#/Vol] 0 10*3/uL Normal 0-5 [facility] Comment on above: Order Comment: Order Date: 03/14/24Order Info: 0184-1 - CBCD Performed By: #### L 501.9910, L500.4050, L501.9520, L100.0100, L501.9310 #### [facility] [address] [place], [address] Platelet mean volume (Bld) [Entitic vol] 11.2 fL Normal 6.2-12.0 [facility] Comment on above: Order Comment: Order Date: 03/14/24Order Info: 0184-1 - CBCD Performed By: #### L 501.9910, L500.4050, L501.9520, L100.0100, L501.9310 #### [facility] [address] [place], [address] Platelets (Bld) [#/Vol] 190 10*3/uL Normal 150-450 [facility] Comment on above: Order Comment: Order Date: 03/14/24Order Info: 018-1 - CBCD Performed By: #### L 501.9910, L500.4050, L501.9520, L100.0100, L501.9310 #### [facility] [address] [place], [address] RBC (Bld) [#/Vol] 4.36 10*6/uL Low 4.6-6.2 [facility] Comment on above: Order Comment: Order Date: 03/14/24Order Info: 0184-1 - CBCD Performed By: #### L 501.9910, L500.4050, L501.9520, L100.0100, L501.9310 #### [facility] [address] [place], [address] RDW SD 43.3 fl Normal 35.1-43.9 [facility] Comment on above: Order Comment: Order Date: 03/14/24Order Info: 0184-1 - CBCD Performed By: #### L 501.9910, L500.4050, L501.9520, L100.0100, L501.9310 #### [facility] [address] [place], [address] WBC (Bld) [#/Vol] 7.3 10*3/uL Normal 4.4-11.0 [facility] Comment on above: Order Comment: Order Date: 03/14/24Order Info: 0184-1 - CBCD Performed By: #### L 501.9910, L500.4050, L501.9520, L100.0100, L501.9310 #### [facility] [address] [place], [address] Chest PA and Lateralon 03-14 Chest PA and Lateral [facility] Services [address] [place] [address] Chest PA and Lateral MR#: [id number] Acct: [id number] Name: PETER ORR Rep #: [id number] : 1950 M 73 From: Onur Garg PCP: Dr. Eliza Jacobs MD Status: REG CLI Study: Chest PA and Lateral Date of Exam: 03/14/24 Exam# [id number] Ordering Dr: Trever Steven MD [id number] EXAM: XR CHEST, 2 VIEWS CLINICAL INDICATION: CHROIC OBSTRUCTIVE PULMONARY DISEASE TECHNIQUE: Frontal and lateral views of the chest. COMPARISON: 12/14/2022. FINDINGS: LUNGS AND PLEURAL SPACES: Unremarkable. No consolidation or edema. No pneumothorax. No effusion. HEART: Unremarkable. Cardiac silhouette not enlarged. MEDIASTINUM: Central airways and mediastinal contour are unremarkable. BONES/JOINTS: Unremarkable. No acute fracture. SOFT TISSUES: Unremarkable. RAD/Chest PA and Lateral IMPRESSION: No radiographic evidence of acute cardiopulmonary disease. Electronically Signed: Onur Tripp MD at 22:13 EST , CC: Dr. Eliza Jacobs MD; Dr. Trever Steven MD Supervisor Cytogenetic Laboratory: Signed Normal [facility] Comprehensive Metabolic Prof ilon 03-14-2024 Albumin [Mass/Vol] 3.9 g/dL Normal 3.2-5.0 [facility] Comment on above: Order Comment: Order Date: 03/14/24Order Info: 0786-1 - CMP Performed By: #### L 501.9910, L500.4050, L501.9520, L100.0100, L501.9310 #### [facility] [address] [place], [address] Albumin/Globulin [Mass ratio] 1.1 {ratio} Normal 0.9-2.4 [facility] Comment on above: Order Comment: Order Date: 03/14/24Order Info: 0786-1 - CMP Performed By: #### L 501.9910, L500.4050, L501.9520, L100.0100, L501.9310 #### [facility] [address] [place], [address] ALK P 109 U/L Normal 45-117 [facility] Comment on above: Order Comment: Order Date: 03/14/24Order Info: 0786-1 - CMP Performed By: #### L 501.9910, L500.4050, L501.9520, L100.0100, L501.9310 #### [facility] [address] [place], [address] ALT [Catalytic activity/Vol] 18 U/L Normal 16-61 [facility] Comment on above: Order Comment: Order Date: 03/14/24Order Info: 0786-1 - CMP Performed By: #### L 501.9910, L500.4050, L501.9520, L100.0100, L501.9310 #### [facility] [address] [place], [address] AST [Catalytic activity/Vol] 11 U/L Low 15-37 [facility] Comment on above: Order Comment: Order Date: 03/14/24Order Info: 0786-1 - CMP Performed By: #### L 501.9910, L500.4050, L501.9520, L100.0100, L501.9310 #### [facility] [address] [place], [address] Bilirubin [Mass/Vol] 0.70 mg/dL Normal 0.20-1.00 [facility] Comment on above: Order Comment: Order Date: 03/14/24Order Info: 0786-1 - CMP Result Comment: For patients on eltrombopag therapy, use of Dimension [place] TBIL is not recommended. Performed By: #### L 501.9910, L500.4050, L501.9520, L100.0100, L501.9310 #### [facility] [address] [place], [address] BUN/CRE 10.7 RATIO Normal 10-20 [facility] Comment on above: Order Comment: Order Date: 03/14/24Order Info: 0786-1 - CMP Performed By: #### L 501.9910, L500.4050, L501.9520, L100.0100, L501.9310 #### [facility] [address] [place], [address] CA,Total 9.5 mg/dL Normal 8.5-10.1 [facility] Comment on above: Order Comment: Order Date: 03/14/24Order Info: 0786-1 - CMP Performed By: #### L 501.9910, L500.4050, L501.9520, L100.0100, L501.9310 #### [facility] [address] [place], [address] Chloride [Moles/Vol] 108 mmol/L High 98-107 [facility] Comment on above: Order Comment: Order Date: 03/14/24Order Info: 0786-1 - CMP Performed By: #### L 501.9910, L500.4050, L501.9520, L100.0100, L501.9310 #### [facility] [address] [place], [address] CO2 [Moles/Vol] 24.0 mmol/L Normal 21.0-32.0 [facility] Comment on above: Order Comment: Order Date: 03/14/24Order Info: 0786- - CMP Performed By: #### L 501.9910, L500.4050, L501.9520, L100.0100, L501.9310 #### [facility] [address] [place], [address] Creatinine [Mass/Vol] 1.69 mg/dL High 0.70-1.30 [facility] Comment on above: Order Comment: Order Date: 03/14/24Order Info: 0786-1 - CMP Result Comment: The validity of the calculated GFR GFRAA in patients over 70 years has not been determined. Clinical correlation is essential. Performed By: #### L 501.9910, L500.4050, L501.9520, L100.0100, L501.9310 #### [facility] [address] [place], [address] EST GFR - AA 51 mL/min Low >60 [facility] Comment on above: Order Comment: Order Date: 03/14/24Order Info: 0786-1 - CMP Result Comment: Afri can Danish GFR Calc Performed By: #### L 501.9910, L500.4050, L501.9520, L100.0100, L501.9310 #### [facility] [address] [place], [address] GAP 5 Normal 5-15 [facility] Comment on above: Order Comment: Order Date: 03/14/24Order Info: 0786-1 - CMP Performed By: #### L 501.9910, L500.4050, L501.9520, L100.0100, L501.9310 #### [facility] [address] [place], [address] GFR/1.73 sq M.predicted among non-blacks MDRD (S/P/Bld) [Vol rate/Area] 42 mL/min/{1.73_m2} Low >60 [facility] Comment on above: Order Comment: Order Date: 03/14/24Order Info: 0786-1 - CMP Result Comment: Non- GFR Calc Performed By: #### L 501.9910, L500.4050, L501.9520, L100.0100, L501.9310 #### [facility] [address] [place], [address] Globulin (S) [Mass/Vol] 3.6 g/dL Normal 2.2-4.2 [facility] Comment on above: Order Comment: Order Date: 03/14/24Order Info: 0786-1 - CMP Performed By: #### L 501.9910, L500.4050, L501.9520, L100.0100, L501.9310 #### [facility] [address] [place], [address] Glucose [Mass/Vol] 145 mg/dL High 74-106 [facility] Comment on above: Order Comment: Order Date: 03/14/24Order Info: 0786-1 - CMP Result Comment: Fast ing Glucose result greater than or equal to 126 mg/dL suggests DIABETES MELLITUS per A.D.A. criteria. Performed By: #### L 501.9910, L500.4050, L501.9520, L100.0100, L501.9310 #### [facility] [address] [place], [address] Potassium [Moles/Vol] 4.0 mmol/L Normal 3.5-5.1 [facility] Comment on above: Order Comment: Order Date: 03/14/24Order Info: 0786-1 - CMP Performed By: #### L 501.9910, L500.4050, L501.9520, L100.0100, L501.9310 #### [facility] [address] [place], [address] Sodium [Moles/Vol] 137 mmol/L Normal 136-145 [facility] Comment on above: Order Comment: Order Date: 03/14/24Order Info: 0786-1 - CMP Performed By: #### L 501.9910, L500.4050, L501.9520, L100.0100, L501.9310 #### [facility] [address] [place], [address] T PROT 7.5 g/dL Normal 6.4-8.2 [facility] Comment on above: Order Comment: Order Date: 03/14/24Order Info: 0786-1 - CMP Performed By: #### L 501.9910, L500.4050, L501.9520, L100.0100, L501.9310 #### [facility] [address] [place], [address] Urea nitrogen [Mass/Vol] 18 mg/dL Normal 7-18 [facility] Comment on above: Order Comment: Order Date: 03/14/24Order Info: 0786-1 - CMP Performed By: #### L 501.9910, L500.4050, L501.9520, L100.0100, L501.9310 #### [facility] [address] [place], [address] CBC-Complete Blood Cnt No Di ffon 02-19-2024 Erythrocyte distribution width (RBC) [Ratio] 12.3 % Normal 11.6-14.6 [facility] Comment on above: Performed By: #### L 100.0500 #### [facility] [address] [place], [address] Hematocrit (Bld) [Volume fraction] 41.3 % Normal 40-54 [facility] Comment on above: Performed By: #### L 100.0500 #### [facility] [address] [place], [address] Hemoglobin (Bld) [Mass/Vol] 14.2 g/dL Normal 13.0-16.5 [facility] Comment on above: Performed By: #### L 100.0500 #### [facility] [address] [place], [address] MCH (RBC) [Entitic mass] 33.9 pg High 27.0-32.0 [facility] Comment on above: Performed By: #### L 100.0500 #### [facility] [address] [place], [address] MCHC (RBC) [Mass/Vol] 34.4 g/dL Normal 32-36 [facility] Comment on above: Performed By: #### L 100.0500 #### [facility] [address] [place], [address] MCV (RBC) [Entitic vol] 98.6 fL High 80-94 [facility] Comment on above: Performed By: #### L 100.0500 #### [facility] [address] [place], [address] Platelet mean volume (Bld) [Entitic vol] 11.5 fL Normal 6.2-12.0 [facility] Comment on above: Performed By: #### L 100.0500 #### [facility] [address] [place], [address] Platelets (Bld) [#/Vol] 245 10*3/uL Normal 150-450 [facility] Comment on above: Performed By: #### L 100.0500 #### [facility] [address] [place], [address] RBC (Bld) [#/Vol] 4.19 10*6/uL Low 4.6-6.2 [facility] Comment on above: Performed By: #### L 100.0500 #### [facility] [address] [place], [address] RDW SD 44.4 fl High 35.1-43.9 [facility] Comment on above: Performed By: #### L 100.0500 #### [facility] [address] [place], [address] WBC (Bld) [#/Vol] 6.7 10*3/uL Normal 4.4-11.0 [facility] Comment on above: Performed By: #### L 100.0500 #### [facility] [address] [place], [address] Cardiology Visit Reporton Cardiology Visit Report [facility] [address] [place] [address] OFFICE VISIT Date of Service: 02/19/24 MR#: [id number] Acct: [id number] Name: PETER ORR Rep #: [id number] : 1950 Provider: Dr. Gianna Alvarado MD Age/Sex: 73/M Location: [facility] Status: Signed HPI [facility] History of Present Illness Details: This gentleman is here for follow-up visit. He saw electrophysiology at [place]. They have stopped his amiodarone. Recommended anticoagulation unless there was a contraindication. Patient denies any episodes of palpitations. Denies any chest pains. No shortness of breath. Denies orthopnea or PND. No ankle edema. Denies any history of CVA or TIA. No falls. Since his surgery for prolapsed rectum along with internal hemorrhoids, he has not had any bleeding episodes. Denies any melena. 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 Required: No Accompanied by: Is patient in pain?: No Allergies Penicillins Allergy (Mild, Verified 02/19/24 13:45) rash Medications ???Medication ???Instructions ???Recorded ???Confirmed ???Type metoprolol tartrate 100 mg tablet 50 mg (1/2 x 100 mg) PO BID #120 05/16/22 02/19/24 Rx tabs pantoprazole 40 mg tablet,delayed 40 mg PO DAILY 07/31/22 02/19/24 History release aspirin 81 mg tablet,delayed 81 mg PO DAILY 01/01/23 02/19/24 History release (Adult Low Dose Aspirin) amlodipine 5 mg tablet 5 mg PO DAILY #30 tabs 07/17/23 02/19/24 Rx furosemide 40 mg tablet 40 mg PO QMWF 07/17/23 02/19/24 History Ejection fraction %: 65 Have you fallen in the past year?: No PFSH Medical History ABLA (acute blood loss anemia) Abnormal CT of the abdomen Acute respiratory failure with hypoxia Anemia Anemia Arthritis Atrial fibrillation Atypical chest pain Back pain Back pain Bilateral inguinal hernia (BIH) Bleeding hemorrhoids Cardiology follow-up encounter Cardiomyopathy CHF (congestive heart failure) COPD (chronic obstructive pulmonary disease) COPD with exacerbation COVID Easy bruising Elevated serum creatinine Former smoker GERD (gastroesophageal reflux disease) Hemorrhoid History of atrial fibrillation History of cardiomyopathy History of diverticulitis History of echocardiogram History of edema History of GI bleed History of pain when walking History of stress test History of stress test History of ulceration Hypertension Injury of back Loss of hearing Osteoarthritis Paroxysmal atrial fibrillation Psoriasis Shortness of breath on exertion Smoker Syncope Tobacco dependence Wears dentures Wears glasses Surgical History History of colonoscopy History of hemorrhoidectomy History of laparoscopic cholecystectomy Hx of abdominal surgery Family History Father Heart disease Myocardial infarction Mother Heart disease Myocardial infarction Social History household members: spouse number of children: 5 current occupational status: retired pets and animals: No Smoking Status: Former smoker Tobacco: How many years used: 60 how long ago did patient quit smoking: Apr 26 ROS Const Const: Positive for headache(s) (off and on); Negative for fatigue, weakness or weight gain ENT ENT: Positive for headache(s) (off and on); Negative for dizziness, Nosebleed/epistaxis or balance problems Cardio Chest Pain: Yes Frequency: weekly (1-2wks) Character: other (ache) Location: left chest Duration: minutes (30 sec to 1 min) Palpitations: No Edema: None Muscle aches with walking: None Resp Respiratory: Positive for SOB with activity (when going uphill); Negative for SOB at rest or SOB orthopnea SOB lying down GI GI: Positive for heartburn; Negative nausea or vomiting Musc Musc: Positive for muscle aches/ myalgia (generalized; focal per episode); Negative for muscle weakness, joint pain or balance problems Neuro Neuro: Positive for headache(s) (off and on); Negative for dizziness, lightheadedness, near syncope, syncope or weakness Endo Endo: Negative for fatigue Cardiology Exam Const Appearance: comfortable and no acute distress Nutritional Appearance: well nourished Neck Neck: no JVD Carotids: Negative bruit Chest Auscultation: Bilateral: Diminished Lung Sounds Cardio Rate: regular rate Rhythm: regular rhythm Heart sounds: S1 normal and (more content not included)... Normal [facility] Chest PA and Lateralon 01-27 Chest PA and Lateral [facility] [address] [place] [address] Chest PA and Lateral MR#: [id number] Acct: [id number] Name: PETER ORR Rep #: [id number] : 1950 M 73 From: Morris Garg PCP: Dr. Eliza Jacobs MD Status: REG CLI Study: Chest PA and Lateral Date of Exam: 01/28/24 Exam# [id number] Ordering Dr: Eliza Jacobs MD [id number] INDICATION: chronic cough EXAMINATION/TECHNIQU E: X-RAY - XR Chest 2 Views COMPARISON: Prior study dated: 12/14/2022 ____ FINDINGS: LINES/DEVICES: None. LUNGS: The lungs remain hyperinflated. No focal infiltrate is seen. No evidence of pleural effusions. MEDIASTINUM AND CARDIOVASCULAR STRUCTURES: Cardiac silhouette not enlarged. Central airways and mediastinal contour are unremarkable. BONES AND SOFT TISSUES: Unremarkable. RAD/Chest PA and Lateral IMPRESSION: No radiographic evidence of acute cardiopulmonary disease. Electronically Signed: Morris Nicole MD at 12:34 EDT , CC: Dr. Eliza Jacobs MD Supervisor Cytogenetic Laboratory: Signed Normal [facility] CBC-Complete Blood Cnt No Di ffon 10-17-2023 Erythrocyte distribution width (RBC) [Ratio] 12.0 % Normal 11.6-14.6 [facility] Comment on above: Performed By: #### L 501.9910, L500.4050, L501.9520, L100.0100, L501.9310 #### [facility] [address] [place], [address] Hematocrit (Bld) [Volume fraction] 40.9 % Normal 40-54 [facility] Comment on above: Performed By: #### L 501.9910, L500.4050, L501.9520, L100.0100, L501.9310 #### [facility] [address] [place], [address] Hemoglobin (Bld) [Mass/Vol] 13.9 g/dL Normal 13.0-16.5 [facility] Comment on above: Performed By: #### L 501.9910, L500.4050, L501.9520, L100.0100, L501.9310 #### [facility] [address] [place], [address] MCH (RBC) [Entitic mass] 33.7 pg High 27.0-32.0 [facility] Comment on above: Performed By: #### L 501.9910, L500.4050, L501.9520, L100.0100, L501.9310 #### [facility] [address] [place], [address] MCHC (RBC) [Mass/Vol] 34.0 g/dL Normal 32-36 [facility] Comment on above: Performed By: #### L 501.9910, L500.4050, L501.9520, L100.0100, L501.9310 #### [facility] [address] [place], [address] MCV (RBC) [Entitic vol] 99.0 fL High 80-94 [facility] Comment on above: Performed By: #### L 501.9910, L500.4050, L501.9520, L100.0100, L501.9310 #### [facility] [address] [place], [address] Platelet mean volume (Bld) [Entitic vol] 10.8 fL Normal 6.2-12.0 [facility] Comment on above: Performed By: #### L 501.9910, L500.4050, L501.9520, L100.0100, L501.9310 #### [facility] [address] [place], [address] Platelets (Bld) [#/Vol] 209 10*3/uL Normal 150-450 [facility] Comment on above: Performed By: #### L 501.9910, L500.4050, L501.9520, L100.0100, L501.9310 #### [facility] [address] [place], [address] RBC (Bld) [#/Vol] 4.13 10*6/uL Low 4.6-6.2 [facility] Comment on above: Performed By: #### L 501.9910, L500.4050, L501.9520, L100.0100, L501.9310 #### [facility] [address] [place], [address] RDW SD 44.0 fl High 35.1-43.9 [facility] Comment on above: Performed By: #### L 501.9910, L500.4050, L501.9520, L100.0100, L501.9310 #### [facility] [address] [place], [address] WBC (Bld) [#/Vol] 5.7 10*3/uL Normal 4.4-11.0 [facility] Comment on above: Performed By: #### L 501.9910, L500.4050, L501.9520, L100.0100, L501.9310 #### [facility] [address] [place], [address] Renal Profileon 10-17-2023 Albumin [Mass/Vol] 3.7 g/dL Normal 3.2-5.0 [facility] Comment on above: Performed By: #### L 501.9910, L500.4050, L501.9520, L100.0100, L501.9310 #### [facility] [address] [place], [address] BUN/CRE 11.5 RATIO Normal 10-20 [facility] Comment on above: Performed By: #### L 501.9910, L500.4050, L501.9520, L100.0100, L501.9310 #### [facility] [address] [place], [address] CA,Total 9.5 mg/dL Normal 8.5-10.1 [facility] Comment on above: Performed By: #### L 501.9910, L500.4050, L501.9520, L100.0100, L501.9310 #### [facility] [address] [place], [address] Chloride [Moles/Vol] 107 mmol/L Normal 98-107 [facility] Comment on above: Performed By: #### L 501.9910, L500.4050, L501.9520, L100.0100, L501.9310 #### [facility] [address] [place], [address] CO2 [Moles/Vol] 26.0 mmol/L Normal 21.0-32.0 [facility] Comment on above: Performed By: #### L 501.9910, L500.4050, L501.9520, L100.0100, L501.9310 #### [facility] [address] [place], [address] Creatinine [Mass/Vol] 1.92 mg/dL High 0.70-1.30 [facility] Comment on above: Result Comment: The validity of the calculated GFR GFRAA in patients over 70 years has not been determined. Clinical correlation is essential. Performed By: #### L 501.9910, L500.4050, L501.9520, L100.0100, L501.9310 #### [facility] [address] [place], [address] EST GFR - AA 44 mL/min Low >60 [facility] Comment on above: Result Comment: Afri can Danish GFR Calc Performed By: #### L 501.9910, L500.4050, L501.9520, L100.0100, L501.9310 #### [facility] [address] [place], [address] GFR/1.73 sq M.predicted among non-blacks MDRD (S/P/Bld) [Vol rate/Area] 36 mL/min/{1.73_m2} Low >60 [facility] Comment on above: Result Comment: Non- GFR Calc Performed By: #### L 501.9910, L500.4050, L501.9520, L100.0100, L501.9310 #### [facility] [address] [place], [address] Glucose [Mass/Vol] 114 mg/dL High 74-106 [facility] Comment on above: Result Comment: Fast ing Glucose result from 100 to 125 mg/dL suggests IMPAIRED HOMEOSTASIS per A.D.A. criteria. Performed By: #### L 501.9910, L500.4050, L501.9520, L100.0100, L501.9310 #### [facility] [address] [place], [address] Phosphate [Mass/Vol] 2.3 mg/dL Low 2.5-4.9 [facility] Comment on above: Performed By: #### L 501.9910, L500.4050, L501.9520, L100.0100, L501.9310 #### [facility] [address] [place], [address] Potassium [Moles/Vol] 5.0 mmol/L Normal 3.5-5.1 [facility] Comment on above: Result Comment: Mode rate Hemolysis, Result may be falsely increased. Performed By: #### L 501.9910, L500.4050, L501.9520, L100.0100, L501.9310 #### [facility] [address] [place], [address] Sodium [Moles/Vol] 138 mmol/L Normal 136-145 [facility] Comment on above: Performed By: #### L 501.9910, L500.4050, L501.9520, L100.0100, L501.9310 #### [facility] [address] [place], [address] Urea nitrogen [Mass/Vol] 22 mg/dL High 7-18 [facility] Comment on above: Performed By: #### L 501.9910, L500.4050, L501.9520, L100.0100, L501.9310 #### [facility] [address] [place], [address] Basophil percentageOrdered B y: Nisha Cruz on 06-29-2023 Basophil percentage 2.2 mg/dL 2.5-4.9 [facility] Chloride [Moles/Vol] 107 mmol/L 98-107 [facility] Glucose [Mass/Vol] 142 mg/dL 74-106 [facility] Comment on above: Fasting Glucose resu lt greater than or equal to 126 mg/dL suggests DIABETES MELLITUS per A.D.A. criteria. Potassium [Moles/Vol] 4.3 mmol/L 3.5-5.1 [facility] Sodium [Moles/Vol] 139 mmol/L 136-145 [facility] - Chemistry and C hemistry - challengeOrdered By: Nisha Cruz on 06-29-2023 CO2 [Moles/Vol] 29.0 mmol/L 21.0-32.0 [facility] Urea nitrogen/Creatinine [Mass ratio] 10.2 mg/mg 10-20 [facility] No Panel InformationOrdered By: Nisha Cruz on 06-29-2023 Estimated GFR (MDRD) Amer 35 mL/min >60 [facility] Comment on above: GFR Calc Estimated GFR (MDRD) Non-Af Amer 29 mL/min >60 [facility] Comment on above: Non- GFR Calc Serum or plasma calcium keena urement (mass/volume)Ordered By: Nisha Cruz on 06-29-2023 Calcium [Mass/Vol] 9.6 mg/dL 8.5-10.1 [facility] Serum or plasma creatinine m easurement (mass/volume)Ordered By: Nisha Cruz on 06-29-2023 Creatinine [Mass/Vol] 2.36 mg/dL 0.70-1.30 [facility] Comment on above: The validity of the calculated GFR & GFRAA in patients over 70 years has not been determined. Clinical correlation is essential. Serum or plasma urea nitroge n measurement (mass/volume)Ordered By: Nisha Cruz on 06-29-2023 Urea nitrogen [Mass/Vol] 24 mg/dL 7-18 [facility] Thin prep Papanicolaou smear with manual screeningOrdered By: Nisha Cruz on 06-29-2023 Thin prep Papanicolaou smear with manual screening 4.0 g/dL 3.2-5.0 [facility] Absolute lymphocyte countOrd ered By: Eliza Jacobs on 05-22-2023 Lymphocytes Auto (Unsp spec) [#/Vol] 2.56 10*3/uL 0.83-4.51 [facility] Automated lymphocyte count a s percentage of total leukocytesOrdered By: Eliza Jacobs on 05-22-2023 Lymphocytes/100 WBC Auto (Unsp spec) 34.5 % 19-41 [facility] Basophil percentageOrdered B y: Eliza Jacobs on 05-22-2023 Basophils/100 WBC (Bld) 1.5 % 0-1 [facility] Eosinophils/100 WBC (Bld) 7.2 % 0-5 [facility] Hemoglobin (Bld) [Mass/Vol] 13.4 g/dL 13.0-16.5 [facility] Monocytes/100 WBC (Bld) 12.3 % 0-10 [facility] Neutrophils (Bld) [#/Vol] 3.3 10*3/uL 2.0-7.7 [facility] Neutrophils/100 WBC (Bld) 44.1 % 47-70 [facility] WBC (Bld) [#/Vol] 7.4 10*3/uL 4.4-11.0 [facility] Determination of erythrocyte mean corpuscular volume (MCV)Ordered By: Eliza Jacobs on 05-22-2023 MCV (RBC) [Entitic vol] 100.8 fL 80-94 [facility] Erythrocyte distribution wid th ratioOrdered By: Eliza Jacobs on 05-22-2023 Erythrocyte distribution width (RBC) [Ratio] 12.6 % 11.6-14.6 [facility] Erythrocyte distribution wid th standard deviationOrdered By: Eliza Jacobs on 05-22-2023 Erythrocyte distribution width (RBC) [Entitic vol] 46.9 fL 35.1-43.9 [facility] Hematocrit Auto (Bld) [Volum e fraction]Ordered By: Eliza Jacobs on 05-22-2023 Hematocrit (Bld) [Volume fraction] 39.8 % 40-54 [facility] Immature granulocytes/100 WB C Auto (Bld)Ordered By: Eliza Jacobs on 05-22-2023 Immature granulocytes/100 WBC (Bld) 0.400 % 0.0-0.9 [facility] Comment on above: IG% - Immature Granu locytes (promyelocytes, myelocytes and metamyelocytes) > 1% indicates that a LEFT SHIFT is Present. Intact parathyroid hormone ( iPTH) measurementOrdered By: Eliza Jacobs on 05-22-2023 Parathyrin.intact (Tissue fine needle aspirate) [Mass/Vol] 69.9 pg/mL 18.4-80.1 [facility] Laboratory - Hematology and Cell countsOrdered By: Eliza Jacobs on 05-22-2023 MCH (RBC) [Entitic mass] 33.9 pg 27.0-32.0 [facility] MCHC (RBC) [Mass/Vol] 33.7 g/dL 32-36 [facility] Nucleated RBC/100 WBC (Bld) [Ratio] 0 % 0-5 [facility] Platelets (Bld) [#/Vol] 203 10*3/uL 150-450 [facility] Platelet mean volume [place] (Bld) [Entitic vol]Ordered By: Eliza Jacobs on 05-22-2023 Platelet mean volume (Bld) [Entitic vol] 11.4 fL 6.2-12.0 [facility] RBC Auto (Bld) [#/Vol]Ordere d By: Eliza Jacobs on 05-22-2023 RBC (Bld) [#/Vol] 3.95 10*6/uL 4.6-6.2 [facility] Absolute lymphocyte countOrd ered By: Eliza Jacobs on 03-27-2023 Lymphocytes Auto (Unsp spec) [#/Vol] 1.87 10*3/uL 0.83-4.51 [facility] Basophil percentageOrdered B y: Eliza Jacobs on 03-27-2023 Basophils/100 WBC (Bld) 1.5 % 0-1 [facility] Eosinophils/100 WBC (Bld) 5.3 % 0-5 [facility] Neutrophils (Bld) [#/Vol] 2.5 10*3/uL 2.0-7.7 [facility] Neutrophils/100 WBC (Bld) 46.4 % 47-70 [facility] WBC (Bld) [#/Vol] 5.3 10*3/uL 4.4-11.0 [facility] Blood erythrocytes count (nu mber/volume)Ordered By: Eliza Jacobs on 03-27-2023 RBC (Bld) [#/Vol] 3.67 10*6/uL 4.6-6.2 [facility] Blood hemoglobin measurement (mass/volume)Ordered By: Eliza Jacobs on 03-27-2023 Hemoglobin (Bld) [Mass/Vol] 12.9 g/dL 13.0-16.5 [facility] Blood lymphocytes/100 leukoc ytesOrdered By: Eliza Jacobs on 03-27-2023 Lymphocytes/100 WBC (Bld) 35.4 % 19-41 [facility] Blood monocytes/100 leukocyt esOrdered By: Eliza Jacobs on 03-27-2023 Monocytes/100 WBC (Bld) 11.0 % 0-10 [facility] Blood platelet mean volumeOr dered By: Eliza Jacobs on 03-27-2023 Platelet mean volume (Bld) [Entitic vol] 11.6 fL 6.2-12.0 [facility] Determination of erythrocyte mean corpuscular volume (MCV)Ordered By: Eliza Jacobs on 03-27-2023 MCV (RBC) [Entitic vol] 102.5 fL 80-94 [facility] Hematocrit Auto (Bld) [Volum e fraction]Ordered By: Eliza Jacobs on 03-27-2023 Hematocrit (Bld) [Volume fraction] 37.6 % 40-54 [facility] Laboratory - Chemistry and C hemistry - challengeOrdered By: Eliza Jacobs on 03-27-2023 T4 [Mass/Vol] 10.0 ug/dL 4.5-12.1 [facility] - Hematology and Cell countsOrdered By: Eliza Jacobs on 03-27-2023 Erythrocyte distribution width (RBC) [Entitic vol] 49.1 fL 35.1-43.9 [facility] Erythrocyte distribution width (RBC) [Ratio] 13.1 % 11.6-14.6 [facility] Immature granulocytes/100 WBC (Bld) 0.400 % 0.0-0.9 [facility] Comment on above: IG% - Immature Granu locytes (promyelocytes, myelocytes and metamyelocytes) > 1% indicates that a LEFT SHIFT is Present. MCH (RBC) [Entitic mass] 35.1 pg 27.0-32.0 [facility] Nucleated RBC/100 WBC (Bld) [Ratio] 0 % 0-5 [facility] MCHC Auto (RBC) [Mass/Vol]Or dered By: Eliza Jacobs on 03-27-2023 MCHC (RBC) [Mass/Vol] 34.3 g/dL 32-36 [facility] No Panel InformationOrdered By: Eliza Jacobs on 03-27-2023 Thyroid Stimulating Hormone (TSH) 2.27 uIU/mL 0.358-3.74 [facility] Platelets bldOrdered By: Eliza Jacobs on 03-27-2023 Platelets (Bld) [#/Vol] 224 10*3/uL 150-450 [facility] CNOVon 02-13-2023 CNOV Office Visit (AGCARDPOB) PETER ORR ([id number]) 1950 M UPA Date Time Provider Department 02/13/23 2:20 PM AMADA GLORIA AGCARDPOB During your visit today, we recorded the following information about you: Pulse Respiration Blood pressure Weight 54/minute 18/minute 138/68 82.1 kg Height 1.715 m Amada Gloria MD 02/22/2023 7:25 PM Signed PRIMARY CARE PHYSICIAN: Eliza Jacobs MD ([facility]) [address] [facility] [address] [place] [address] REFERRING PHYSICIAN: Gianna Alvarado [address] [facility] [address] [facility] [id number] Patient Care Team: Eliza Jacobs as PCP - General (Family Medicine) Gianna Alvarado MD as Specialty Dough Puncher (Cardiology) Donny Villagomez MD as Specialty Dough Puncher (Gastroenterology) CHIEF COMPLAINT: Evaluation for arrhythmia, atrial fibrillation HISTORY OF PRESENT ILLNESS: Mr. Orr is a 72 year old male who presents today for evaluation of atrial fibrillation, referred by Dr. Alvarado of [facility]. 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 Normal [facility] Basophil percentageOrdered B y: Eliza Jacobs on 01-22-2023 Chloride [Moles/Vol] 109 mmol/L 98-107 [facility] Glucose [Mass/Vol] 181 mg/dL 74-106 [facility] Comment on above: Fasting Glucose resu lt greater than or equal to 126 mg/dL suggests DIABETES MELLITUS per A.D.A. criteria. Potassium [Moles/Vol] 4.3 mmol/L 3.5-5.1 [facility] Sodium [Moles/Vol] 139 mmol/L 136-145 [facility] Laboratory - Chemistry and C hemistry - challengeOrdered By: Eliza Jacobs on 01-22-2023 CO2 [Moles/Vol] 25.0 mmol/L 21.0-32.0 [facility] Urea nitrogen/Creatinine [Mass ratio] 13.2 mg/mg 10-20 [facility] No Panel InformationOrdered By: Eliza Jacobs on 01-22-2023 Estimated GFR (MDRD) Amer 34 mL/min >60 [facility] Comment on above: GFR Calc Estimated GFR (MDRD) Non-Af Amer 28 mL/min >60 [facility] Comment on above: Non- GFR Calc Serum or plasma calcium keena urement (mass/volume)Ordered By: Eliza Jacobs on 01-22-2023 Calcium [Mass/Vol] 8.8 mg/dL 8.5-10.1 [facility] Serum or plasma creatinine m easurement (mass/volume)Ordered By: Eliza Jcaobs on 01-22-2023 Creatinine [Mass/Vol] 2.43 mg/dL 0.70-1.30 [facility] Comment on above: The validity of the calculated GFR & GFRAA in patients over 70 years has not been determined. Clinical correlation is essential. Serum or plasma urea nitroge n measurement (mass/volume)Ordered By: Eliza Jacobs on 01-22-2023 Urea nitrogen [Mass/Vol] 32 mg/dL 7-18 [facility] Thin prep Papanicolaou smear with manual screeningOrdered By: Eliza Jacobs on 01-22-2023 Thin prep Papanicolaou smear with manual screening 5 5-15 [facility] Basophil percentageOrdered B y: Eliza Jacobs on 01-08-2023 Chloride [Moles/Vol] 106 mmol/L 98-107 [facility] Glucose [Mass/Vol] 123 mg/dL 74-106 [facility] Comment on above: Fasting Glucose resu lt from 100 to 125 mg/dL suggests IMPAIRED HOMEOSTASIS per A.D.A. criteria. Potassium [Moles/Vol] 4.9 mmol/L 3.5-5.1 [facility] Sodium [Moles/Vol] 139 mmol/L 136-145 [facility] Laboratory - Chemistry and C hemistry - challengeOrdered By: Eliza Jacobs on 01-08-2023 CO2 [Moles/Vol] 24.0 mmol/L 21.0-32.0 [facility] Urea nitrogen/Creatinine [Mass ratio] 13.7 mg/mg 10-20 [facility] No Panel InformationOrdered By: Eliza Jacobs on 01-08-2023 Estimated GFR (MDRD) Amer 38 mL/min >60 [facility] Comment on above: GFR Calc Estimated GFR (MDRD) Non-Af Amer 31 mL/min >60 [facility] Comment on above: Non- GFR Calc Serum or plasma calcium keena urement (mass/volume)Ordered By: Eliza Jacobs on 01-08-2023 Calcium [Mass/Vol] 9.4 mg/dL 8.5-10.1 [facility] Serum or plasma creatinine m easurement (mass/volume)Ordered By: Eliza Jacobs on 01-08-2023 Creatinine [Mass/Vol] 2.19 mg/dL 0.70-1.30 [facility] Comment on above: The validity of the calculated GFR & GFRAA in patients over 70 years has not been determined. Clinical correlation is essential. Serum or plasma urea nitroge n measurement (mass/volume)Ordered By: Eliza Jacobs on 01-08-2023 Urea nitrogen [Mass/Vol] 30 mg/dL -18 [facility] Thin prep Papanicolaou smear with manual screeningOrdered By: Eliza Jacobs on 01-08-2023 Thin prep Papanicolaou smear with manual screening 9 5-15 [facility] Basophil percentageOrdered B y: Gianna Alvarado on 01-01-2023 Bilirubin [Mass/Vol] 0.30 mg/dL 0.20-1.00 [facility] Comment on above: For patients on eltr ombopag therapy, use of Dimension [place] TBIL is not recommended. Chloride [Moles/Vol] 104 mmol/L 98-107 [facility] Glucose [Mass/Vol] 150 mg/dL 74-106 [facility] Comment on above: Fasting Glucose resu lt greater than or equal to 126 mg/dL suggests DIABETES MELLITUS per A.D.A. criteria. Potassium [Moles/Vol] 5.0 mmol/L 3.5-5.1 [facility] Protein [Mass/Vol] 7.6 g/dL 6.4-8.2 [facility] Sodium [Moles/Vol] 137 mmol/L 136-145 [facility] - Chemistry and C hemistry - challengeOrdered By: Gianna Alvarado on 01-01-2023 ALP [Catalytic activity/Vol] 59 U/L 45-117 [facility] ALT [Catalytic activity/Vol] 32 U/L 16-61 [facility] CO2 [Moles/Vol] 28.0 mmol/L 21.0-32.0 [facility] Globulin (S) [Mass/Vol] 3.9 g/dL 2.2-4.2 [facility] Urea nitrogen/Creatinine [Mass ratio] 12.2 mg/mg 10-20 [facility] No Panel InformationOrdered By: Gianna Alvarado on 01-01-2023 Estimated GFR (MDRD) Amer 32 mL/min >60 [facility] Comment on above: GFR Calc Estimated GFR (MDRD) Non-Af Amer 26 mL/min >60 [facility] Comment on above: Non- GFR Calc Thyroid Stimulating Hormone (TSH) 4.83 uIU/mL 0.358-3.74 [facility] Serum or plasma albumin keena urement (mass/volume)Ordered By: Gianna Alvarado on 01-01-2023 Albumin [Mass/Vol] 3.7 g/dL 3.2-5.0 [facility] Serum or plasma albumin/glob ulin mass ratioOrdered By: Giannabritany Alvarado on 01-01-2023 Albumin/Globulin [Mass ratio] 0.9 {ratio} 0.9-2.4 [facility] Serum or plasma calcium keena urement (mass/volume)Ordered By: Gianna Alvarado on 01-01-2023 Calcium [Mass/Vol] 9.3 mg/dL 8.5-10.1 [facility] Serum or plasma creatinine m easurement (mass/volume)Ordered By: Gianna Alvarado on 01-01-2023 Creatinine [Mass/Vol] 2.54 mg/dL 0.70-1.30 [facility] Comment on above: The validity of the calculated GFR & GFRAA in patients over 70 years has not been determined. Clinical correlation is essential. Serum or plasma urea nitroge n measurement (mass/volume)Ordered By: Gianna Alvarado on 01-01-2023 Urea nitrogen [Mass/Vol] 31 mg/dL 7-18 [facility] Thin prep Papanicolaou smear with manual screeningOrdered By: Giannabritany Alvarado on 01-01-2023 Thin prep Papanicolaou smear with manual screening 16 U/L 15-37 [facility] Thin prep Papanicolaou smear with manual screening 5 5-15 [facility] Absolute lymphocyte countOrd ered By: Dr. Jacobs on 07-26-2022 Lymphocytes Auto (Unsp spec) [#/Vol] 2.02 10*3/uL 0.83-4.51 [facility] Basophil percentageOrdered B y: Dr. Jacobs on 07-26-2022 Basophils/100 WBC (Bld) 1.1 % 0-1 [facility] Eosinophils/100 WBC (Bld) 3.3 % 0-5 [facility] Neutrophils (Bld) [#/Vol] 4.1 10*3/uL 2.0-7.7 [facility] Neutrophils/100 WBC (Bld) 56.7 % 47-70 [facility] WBC (Bld) [#/Vol] 7.2 10*3/uL 4.4-11.0 [facility] Blood erythrocytes count (nu mber/volume)Ordered By: Dr. Jacobs on 07-26-2022 RBC (Bld) [#/Vol] 4.30 10*6/uL 4.6-6.2 [facility] Blood hemoglobin measurement (mass/volume)Ordered By: Dr. Jacobs on 07-26-2022 Hemoglobin (Bld) [Mass/Vol] 13.3 g/dL 13.0-16.5 [facility] Blood lymphocytes/100 leukoc ytesOrdered By: Dr. Jacobs on 07-26-2022 Lymphocytes/100 WBC (Bld) 28.1 % 19-41 [facility] Blood monocytes/100 leukocyt esOrdered By: Dr. Jacobs on 07-26-2022 Monocytes/100 WBC (Bld) 10.4 % 0-10 [facility] Blood platelet mean volumeOr dered By: Dr. Jacobs on 07-26-2022 Platelet mean volume (Bld) [Entitic vol] 11.4 fL 6.2-12.0 [facility] Determination of erythrocyte mean corpuscular volume (MCV)Ordered By: Dr. Jacobs on 07-26-2022 MCV (RBC) [Entitic vol] 93.7 fL 80-94 [facility] Hematocrit Auto (Bld) [Volum e fraction]Ordered By: Dr. Jacobs on 07-26-2022 Hematocrit (Bld) [Volume fraction] 40.3 % 40-54 [facility] - Hematology and Cell countsOrdered By: Dr. Jacobs on 07-26-2022 Erythrocyte distribution width (RBC) [Entitic vol] 61.7 fL 35.1-43.9 [facility] Erythrocyte distribution width (RBC) [Ratio] 17.9 % 11.6-14.6 [facility] Immature granulocytes/100 WBC (Bld) 0.400 % 0.0-0.9 [facility] Comment on above: IG% - Immature Granu locytes (promyelocytes, myelocytes and metamyelocytes) > 1% indicates that a LEFT SHIFT is Present. MCH (RBC) [Entitic mass] 30.9 pg 27.0-32.0 [facility] Nucleated RBC/100 WBC (Bld) [Ratio] 0 % 0-5 [facility] MCHC Auto (RBC) [Mass/Vol]Or dered By: Dr. Jacobs on 07-26-2022 MCHC (RBC) [Mass/Vol] 33.0 g/dL 32-36 [facility] Platelets bldOrdered By: Dr. Jacobs on 07-26-2022 Platelets (Bld) [#/Vol] 251 10*3/uL 150-450 [facility] Basophil percentageOrdered B y: Trever Landaverde on 06-13-2022 Chloride [Moles/Vol] 109 mmol/L 98-107 [facility] Glucose [Mass/Vol] 138 mg/dL 74-106 [facility] Comment on above: Fasting Glucose resu lt greater than or equal to 126 mg/dL suggests DIABETES MELLITUS per A.D.A. criteria. Potassium [Moles/Vol] 5.0 mmol/L 3.5-5.1 [facility] Sodium [Moles/Vol] 142 mmol/L 136-145 [facility] - Chemistry and C hemistry - challengeOrdered By: Trever Landaverde on 06-13-2022 CO2 [Moles/Vol] 27.0 mmol/L 21.0-32.0 [facility] Urea nitrogen/Creatinine [Mass ratio] 16.0 mg/mg 10-20 [facility] No Panel InformationOrdered By: Trever Landaverde on 06-13-2022 Estimated GFR (MDRD) Amer 46 mL/min >60 [facility] Comment on above: GFR Calc Estimated GFR (MDRD) Non-Af Amer 38 mL/min >60 [facility] Comment on above: Non- GFR Calc Serum or plasma calcium keena urement (mass/volume)Ordered By: Trever Landaverde on 06-13-2022 Calcium [Mass/Vol] 9.7 mg/dL 8.5-10.1 [facility] Serum or plasma creatinine m easurement (mass/volume)Ordered By: Trever Landaverde on 06-13-2022 Creatinine [Mass/Vol] 1.87 mg/dL 0.70-1.30 [facility] Comment on above: The validity of the calculated GFR & GFRAA in patients over 70 years has not been determined. Clinical correlation is essential. Serum or plasma urea nitroge n measurement (mass/volume)Ordered By: Trever Landaverde on 06-13-2022 Urea nitrogen [Mass/Vol] 30 mg/dL 7-18 [facility] Thin prep Papanicolaou smear with manual screeningOrdered By: Trever Landaverde on 06-13-2022 Thin prep Papanicolaou smear with manual screening 6 5-15 [facility] Absolute lymphocyte countOrd ered By: Dr. Jacobs on 05-23-2022 Lymphocytes Auto (Unsp spec) [#/Vol] 1.00 10*3/uL 0.83-4.51 [facility] Basophil percentageOrdered B y: Dr. Jacobs on 05-23-2022 Basophils/100 WBC (Bld) 1.5 % 0-1 [facility] Eosinophils/100 WBC (Bld) 3.8 % 0-5 [facility] Neutrophils (Bld) [#/Vol] 2.8 10*3/uL 2.0-7.7 [facility] Neutrophils/100 WBC (Bld) 60.9 % 47-70 [facility] WBC (Bld) [#/Vol] 4.5 10*3/uL 4.4-11.0 [facility] Blood erythrocytes count (nu mber/volume)Ordered By: Dr. Jacobs on 05-23-2022 RBC (Bld) [#/Vol] 4.32 10*6/uL 4.6-6.2 [facility] Blood hemoglobin measurement (mass/volume)Ordered By: Dr. Jacobs on 05-23-2022 Hemoglobin (Bld) [Mass/Vol] 12.1 g/dL 13.0-16.5 [facility] Blood lymphocytes/100 leukoc ytesOrdered By: Dr. Jacobs on 05-23-2022 Lymphocytes/100 WBC (Bld) 22.1 % 19-41 [facility] Blood monocytes/100 leukocyt esOrdered By: Dr. Jacobs on 05-23-2022 Monocytes/100 WBC (Bld) 11.3 % 0-10 [facility] Blood platelet mean volumeOr dered By: Dr. Jacobs on 05-23-2022 Platelet mean volume (Bld) [Entitic vol] 11.4 fL 6.2-12.0 [facility] Determination of erythrocyte mean corpuscular volume (MCV)Ordered By: Dr. Jacobs on 05-23-2022 MCV (RBC) [Entitic vol] 94.0 fL 80-94 [facility] Final Surgical Pathology Rep tonya 05-23-2022 Final Surgical Pathology Report . Pathology Reports Accession: Collected Date/Time: Received Date/Time: Pathologist: [id number] 05/19/2022 08:29 EST 05/22/2022 09:18 EST MD KOREY GRIFFIN Final Surgical Pathology Report DIAGNOSIS: PROXIMAL SIGMOID COLON, BIOPSY:: - TUBULAR ADENOMA COMMENT: [facility] [id number] CLINICAL INFORMATION: Procedure: COLONOSCOPY WITH POLYPECTOMY Preoperative [...] Electronically Signed by Pathology Report verified by [facility] KOREY GRIFFIN MD Sign out Date: 05/23/2022 08:59 Performing Lab: [facility], [address] [place] [address] Pathology Dept Normal [facility] ([place] Hematocrit Auto (Bld) [Volum e fraction]Ordered By: Dr. Jacobs on 05-23-2022 Hematocrit (Bld) [Volume fraction] 40.6 % 40-54 [facility] - Hematology and Cell countsOrdered By: Dr. Jacobs on 05-23-2022 Erythrocyte distribution width (RBC) [Entitic vol] 47.0 fL 35.1-43.9 [facility] Erythrocyte distribution width (RBC) [Ratio] 13.8 % 11.6-14.6 [facility] Immature granulocytes/100 WBC (Bld) 0.400 % 0.0-0.9 [facility] Comment on above: IG% - Immature Granu locytes (promyelocytes, myelocytes and metamyelocytes) > 1% indicates that a LEFT SHIFT is Present. MCH (RBC) [Entitic mass] 28.0 pg 27.0-32.0 [facility] Nucleated RBC/100 WBC (Bld) [Ratio] 0 % 0-5 [facility] MCHC Auto (RBC) [Mass/Vol]Or dered By: Dr. Jacobs on 05-23-2022 MCHC (RBC) [Mass/Vol] 29.8 g/dL 32-36 [facility] Platelets bldOrdered By: Dr. Jacobs on 05-23-2022 Platelets (Bld) [#/Vol] 329 10*3/uL 150-450 [facility] Absolute lymphocyte countOrd ered By: Dr. Jacobs on 05-16-2022 Lymphocytes Auto (Unsp spec) [#/Vol] 0.94 10*3/uL 0.83-4.51 [facility] Basophil percentageOrdered B y: Dr. Jacobs on 05-16-2022 Basophils/100 WBC (Bld) 1.3 % 0-1 [facility] Eosinophils/100 WBC (Bld) 1.9 % 0-5 [facility] Neutrophils (Bld) [#/Vol] 3.7 10*3/uL 2.0-7.7 [facility] Neutrophils/100 WBC (Bld) 68.5 % 47-70 [facility] WBC (Bld) [#/Vol] 5.3 10*3/uL 4.4-11.0 [facility] Blood erythrocytes count (nu mber/volume)Ordered By: Dr. Jacobs on 05-16-2022 RBC (Bld) [#/Vol] 3.75 10*6/uL 4.6-6.2 [facility] Blood hemoglobin measurement (mass/volume)Ordered By: Dr. Jacobs on 05-16-2022 Hemoglobin (Bld) [Mass/Vol] 10.7 g/dL 13.0-16.5 [facility] Blood lymphocytes/100 leukoc ytesOrdered By: Dr. Jacobs on 05-16-2022 Lymphocytes/100 WBC (Bld) 17.7 % 19-41 [facility] Blood monocytes/100 leukocyt esOrdered By: Dr. Jacobs on 05-16-2022 Monocytes/100 WBC (Bld) 10.2 % 0-10 [facility] Blood platelet mean volumeOr dered By: Dr. Jacobs on 05-16-2022 Platelet mean volume (Bld) [Entitic vol] 11.1 fL 6.2-12.0 [facility] Determination of erythrocyte mean corpuscular volume (MCV)Ordered By: Dr. Jacobs on 05-16-2022 MCV (RBC) [Entitic vol] 92.5 fL 80-94 [facility] Hematocrit Auto (Bld) [Volum e fraction]Ordered By: Dr. Jacobs on 05-16-2022 Hematocrit (Bld) [Volume fraction] 34.7 % 40-54 [facility] - Hematology and Cell countsOrdered By: Dr. Jacobs on 05-16-2022 Erythrocyte distribution width (RBC) [Entitic vol] 47.8 fL 35.1-43.9 [facility] Erythrocyte distribution width (RBC) [Ratio] 14.2 % 11.6-14.6 [facility] Immature granulocytes/100 WBC (Bld) 0.400 % 0.0-0.9 [facility] Comment on above: IG% - Immature Granu locytes (promyelocytes, myelocytes and metamyelocytes) > 1% indicates that a LEFT SHIFT is Present. MCH (RBC) [Entitic mass] 28.5 pg 27.0-32.0 [facility] Nucleated RBC/100 WBC (Bld) [Ratio] 0 % 0-5 [facility] MCHC Auto (RBC) [Mass/Vol]Or dered By: Dr. Jacobs on 05-16-2022 MCHC (RBC) [Mass/Vol] 30.8 g/dL 32-36 [facility] Platelets bldOrdered By: Dr. Jacobs on 05-16-2022 Platelets (Bld) [#/Vol] 290 10*3/uL 150-450 [facility] Absolute lymphocyte countOrd ered By: Dr. Jacobs on 05-09-2022 Lymphocytes Auto (Unsp spec) [#/Vol] 1.25 10*3/uL 0.83-4.51 [facility] Basophil percentageOrdered B y: Dr. Jacobs on 05-09-2022 Basophils/100 WBC (Bld) 0.3 % 0-1 [facility] Eosinophils/100 WBC (Bld) 0.7 % 0-5 [facility] Neutrophils (Bld) [#/Vol] 4.4 10*3/uL 2.0-7.7 [facility] Neutrophils/100 WBC (Bld) 71.8 % 47-70 [facility] WBC (Bld) [#/Vol] 6.1 10*3/uL 4.4-11.0 [facility] Blood erythrocytes count (nu mber/volume)Ordered By: Dr. Jacobs on 05-09-2022 RBC (Bld) [#/Vol] 2.63 10*6/uL 4.6-6.2 [facility] Blood hemoglobin measurement (mass/volume)Ordered By: Dr. Jacobs on 05-09-2022 Hemoglobin (Bld) [Mass/Vol] 7.4 g/dL 13.0-16.5 [facility] Blood lymphocytes/100 leukoc ytesOrdered By: Dr. Jacobs on 05-09-2022 Lymphocytes/100 WBC (Bld) 20.6 % 19-41 [facility] Blood monocytes/100 leukocyt esOrdered By: Dr. Jacobs on 05-09-2022 Monocytes/100 WBC (Bld) 6.1 % 0-10 [facility] Blood platelet mean volumeOr dered By: Dr. Jacobs on 05-09-2022 Platelet mean volume (Bld) [Entitic vol] 12.1 fL 6.2-12.0 [facility] Determination of erythrocyte mean corpuscular volume (MCV)Ordered By: Dr. Jacobs on 05-09-2022 MCV (RBC) [Entitic vol] 94.3 fL 80-94 [facility] Hematocrit Auto (Bld) [Volum e fraction]Ordered By: Dr. Jacobs on 05-09-2022 Hematocrit (Bld) [Volume fraction] 24.8 % 40-54 [facility] Laboratory - Hematology and Cell countsOrdered By: Dr. Jacobs on 05-09-2022 Erythrocyte distribution width (RBC) [Entitic vol] 50.6 fL 35.1-43.9 [facility] Erythrocyte distribution width (RBC) [Ratio] 14.6 % 11.6-14.6 [facility] Immature granulocytes/100 WBC (Bld) 0.500 % 0.0-0.9 [facility] Comment on above: IG% - Immature Granu locytes (promyelocytes, myelocytes and metamyelocytes) > 1% indicates that a LEFT SHIFT is Present. MCH (RBC) [Entitic mass] 28.1 pg 27.0-32.0 [facility] Nucleated RBC/100 WBC (Bld) [Ratio] 0 % 0-5 [facility] MCHC Auto (RBC) [Mass/Vol]Or dered By: Dr. Jacobs on 05-09-2022 MCHC (RBC) [Mass/Vol] 29.8 g/dL 32-36 [facility] Platelets bldOrdered By: Dr. Jacobs on 05-09-2022 Platelets (Bld) [#/Vol] 253 10*3/uL 150-450 [facility] Absolute lymphocyte countOrd ered By: Dr. Jacobs on 05-05-2022 Lymphocytes Auto (Unsp spec) [#/Vol] 0.82 10*3/uL 0.83-4.51 [facility] Basophil percentageOrdered B y: Dr. Jacobs on 05-05-2022 Basophils/100 WBC (Bld) 0.1 % 0-1 [facility] Chloride [Moles/Vol] 111 mmol/L 98-107 [facility] Eosinophils/100 WBC (Bld) 0.6 % 0-5 [facility] Glucose [Mass/Vol] 149 mg/dL 74-106 [facility] Comment on above: Fasting Glucose resu lt greater than or equal to 126 mg/dL suggests DIABETES MELLITUS per A.D.A. criteria. Neutrophils (Bld) [#/Vol] 6.3 10*3/uL 2.0-7.7 [facility] Neutrophils/100 WBC (Bld) 78.6 % 47-70 [facility] Potassium [Moles/Vol] 4.7 mmol/L 3.5-5.1 [facility] Sodium [Moles/Vol] 141 mmol/L 136-145 [facility] WBC (Bld) [#/Vol] 8.0 10*3/uL 4.4-11.0 [facility] Blood erythrocytes count (nu mber/volume)Ordered By: Dr. Jacobs on 05-05-2022 RBC (Bld) [#/Vol] 3.11 10*6/uL 4.6-6.2 [facility] Blood hemoglobin measurement (mass/volume)Ordered By: Dr. Jacobs on 05-05-2022 Hemoglobin (Bld) [Mass/Vol] 8.7 g/dL 13.0-16.5 [facility] Blood lymphocytes/100 leukoc ytesOrdered By: Dr. Jacobs on 05-05-2022 Lymphocytes/100 WBC (Bld) 10.2 % 19-41 [facility] Blood monocytes/100 leukocyt esOrdered By: Dr. Jacobs on 05-05-2022 Monocytes/100 WBC (Bld) 9.8 % 0-10 [facility] Blood platelet mean volumeOr dered By: Dr. Jacobs on 05-05-2022 Platelet mean volume (Bld) [Entitic vol] 13.0 fL 6.2-12.0 [facility] Determination of erythrocyte mean corpuscular volume (MCV)Ordered By: Dr. Jacobs on 05-05-2022 MCV (RBC) [Entitic vol] 95.5 fL 80-94 [facility] Hematocrit Auto (Bld) [Volum e fraction]Ordered By: Dr. Jacobs on 05-05-2022 Hematocrit (Bld) [Volume fraction] 29.7 % 40-54 [facility] - Chemistry and C hemistry - challengeOrdered By: Dr. Jacobs on 05-05-2022 CO2 [Moles/Vol] 22.0 mmol/L 21.0-32.0 [facility] Urea nitrogen/Creatinine [Mass ratio] 17.6 mg/mg 10-20 [facility] - Hematology and Cell countsOrdered By: Dr. Jacobs on 05-05-2022 Erythrocyte distribution width (RBC) [Entitic vol] 49.4 fL 35.1-43.9 [facility] Erythrocyte distribution width (RBC) [Ratio] 14.2 % 11.6-14.6 [facility] Immature granulocytes/100 WBC (Bld) 0.700 % 0.0-0.9 [facility] Comment on above: IG% - Immature Granu locytes (promyelocytes, myelocytes and metamyelocytes) > 1% indicates that a LEFT SHIFT is Present. MCH (RBC) [Entitic mass] 28.0 pg 27.0-32.0 [facility] Nucleated RBC/100 WBC (Bld) [Ratio] 0.2 % 0-5 [facility] MCHC Auto (RBC) [Mass/Vol]Or dered By: Dr. Jacobs on 05-05-2022 MCHC (RBC) [Mass/Vol] 29.3 g/dL 32-36 [facility] No Panel InformationOrdered By: Dr. Jacobs on 05-05-2022 Estimated GFR (MDRD) Amer 58 mL/min >60 [facility] Comment on above: GFR Calc Estimated GFR (MDRD) Non-Af Amer 48 mL/min >60 [facility] Comment on above: Non- GFR Calc Platelets bldOrdered By: Dr. Jacobs on 05-05-2022 Platelets (Bld) [#/Vol] 220 10*3/uL 150-450 [facility] Serum or plasma calcium keena urement (mass/volume)Ordered By: Dr. Jacobs on 05-05-2022 Calcium [Mass/Vol] 8.5 mg/dL 8.5-10.1 [facility] Serum or plasma creatinine m easurement (mass/volume)Ordered By: Dr. Jacobs on 05-05-2022 Creatinine [Mass/Vol] 1.53 mg/dL 0.70-1.30 [facility] Comment on above: The validity of the calculated GFR & GFRAA in patients over 70 years has not been determined. Clinical correlation is essential. Serum or plasma urea nitroge n measurement (mass/volume)Ordered By: Dr. Jacobs on 05-05-2022 Urea nitrogen [Mass/Vol] 27 mg/dL 7-18 [facility] Thin prep Papanicolaou smear with manual screeningOrdered By: Dr. Jacobs on 05-05-2022 Thin prep Papanicolaou smear with manual screening 8 5-15 [facility] Absolute lymphocyte countOrd ered By: Dr. Warner on 05-02-2022 Lymphocytes Auto (Unsp spec) [#/Vol] 0.81 10*3/uL 0.83-4.51 [facility] Basophil percentageOrdered B y: Dr. Warner on 05-02-2022 Basophil percentage 2.8 mg/dL 2.5-4.9 [facility] Basophils/100 WBC (Bld) 0.1 % 0-1 [facility] Chloride [Moles/Vol] 111 mmol/L 98-107 [facility] Eosinophils/100 WBC (Bld) 0.1 % 0-5 [facility] Glucose [Mass/Vol] 124 mg/dL 74-106 [facility] Comment on above: Fasting Glucose resu lt from 100 to 125 mg/dL suggests IMPAIRED HOMEOSTASIS per A.D.A. criteria. Neutrophils (Bld) [#/Vol] 9.0 10*3/uL 2.0-7.7 [facility] Neutrophils/100 WBC (Bld) 82.9 % 47-70 [facility] Potassium [Moles/Vol] 4.0 mmol/L 3.5-5.1 [facility] Sodium [Moles/Vol] 141 mmol/L 136-145 [facility] WBC (Bld) [#/Vol] 10.9 10*3/uL 4.4-11.0 [facility] Blood erythrocytes count (nu mber/volume)Ordered By: Dr. Warner on 05-02-2022 RBC (Bld) [#/Vol] 3.26 10*6/uL 4.6-6.2 [facility] Blood hemoglobin measurement (mass/volume)Ordered By: Dr. Warner on 05-02-2022 Hemoglobin (Bld) [Mass/Vol] 9.2 g/dL 13.0-16.5 [facility] Blood lymphocytes/100 leukoc ytesOrdered By: Dr. Warner on 05-02-2022 Lymphocytes/100 WBC (Bld) 7.5 % 19-41 [facility] Blood monocytes/100 leukocyt esOrdered By: Dr. Warner on 05-02-2022 Monocytes/100 WBC (Bld) 9.0 % 0-10 [facility] Blood platelet mean volumeOr dered By: Dr. Warner on 01-10-2023 Platelet mean volume (Bld) [Entitic vol] 11.7 fL 6.2-12.0 [facility] Determination of erythrocyte mean corpuscular volume (MCV)Ordered By: Dr. Warner on 05-02-2022 MCV (RBC) [Entitic vol] 92.6 fL 80-94 [facility] Hematocrit Auto (Bld) [Volum e fraction]Ordered By: Dr. Warner on 05-02-2022 Hematocrit (Bld) [Volume fraction] 30.2 % 40-54 [facility] - Chemistry and C hemistry - challengeOrdered By: Dr. Warner on 05-02-2022 CO2 [Moles/Vol] 21.0 mmol/L 21.0-32.0 [facility] Magnesium [Mass/Vol] 2.4 mg/dL 1.6-2.6 [facility] Urea nitrogen/Creatinine [Mass ratio] 22.9 mg/mg 10-20 [facility] - Hematology and Cell countsOrdered By: Dr. Warner on 05-02-2022 Erythrocyte distribution width (RBC) [Entitic vol] 46.5 fL 35.1-43.9 [facility] Erythrocyte distribution width (RBC) [Ratio] 13.6 % 11.6-14.6 [facility] Immature granulocytes/100 WBC (Bld) 0.400 % 0.0-0.9 [facility] Comment on above: IG% - Immature Granu locytes (promyelocytes, myelocytes and metamyelocytes) > 1% indicates that a LEFT SHIFT is Present. MCH (RBC) [Entitic mass] 28.2 pg 27.0-32.0 [facility] Nucleated RBC/100 WBC (Bld) [Ratio] 0.2 % 0-5 [facility] MCHC Auto (RBC) [Mass/Vol]Or dered By: Dr. Warner on 05-02-2022 MCHC (RBC) [Mass/Vol] 30.5 g/dL 32-36 [facility] No Panel InformationOrdered By: Dr. Warner on 05-02-2022 Estimated Creatinine Clearance Calc 46.95 ml/min [facility] Estimated GFR (MDRD) Amer 69 mL/min >60 [facility] Comment on above: GFR Calc Estimated GFR (MDRD) Non-Af Amer 57 mL/min >60 [facility] Comment on above: Non- GFR Calc Platelets bldOrdered By: Dr. Warner on 05-02-2022 Platelets (Bld) [#/Vol] 184 10*3/uL 150-450 [facility] Serum or plasma calcium keena urement (mass/volume)Ordered By: Dr. Warner on 05-02-2022 Calcium [Mass/Vol] 8.0 mg/dL 8.5-10.1 [facility] Serum or plasma creatinine m easurement (mass/volume)Ordered By: Dr. Warner on 05-02-2022 Creatinine [Mass/Vol] 1.31 mg/dL 0.70-1.30 [facility] Comment on above: The validity of the calculated GFR & GFRAA in patients over 70 years has not been determined. Clinical correlation is essential. Serum or plasma urea nitroge n measurement (mass/volume)Ordered By: Dr. Warner on 05-02-2022 Urea nitrogen [Mass/Vol] 30 mg/dL 7-18 [facility] Thin prep Papanicolaou smear with manual screeningOrdered By: Dr. Warner on 05-02-2022 Thin prep Papanicolaou smear with manual screening 9 5-15 [facility] Basophil percentageOrdered B y: Dr. Heredia on 05-01-2022 Bilirubin [Mass/Vol] 1.00 mg/dL 0.20-1.00 [facility] Comment on above: For patients on eltr ombopag therapy, use of Dimension [place] TBIL is not recommended. Protein [Mass/Vol] 6.0 g/dL 6.4-8.2 [facility] Laboratory - Chemistry and C hemistry - challengeOrdered By: Dr. Heredia on 05-01-2022 ALP [Catalytic activity/Vol] 59 U/L 45-117 [facility] ALT [Catalytic activity/Vol] 60 U/L 16-61 [facility] Globulin (S) [Mass/Vol] 3.0 g/dL 2.2-4.2 [facility] Serum or plasma albumin keena urement (mass/volume)Ordered By: Dr. Heredia on 05-01-2022 Albumin [Mass/Vol] 3.0 g/dL 3.2-5.0 [facility] Serum or plasma albumin/glob ulin mass ratioOrdered By: Dr. Heredia on 05-01-2022 Albumin/Globulin [Mass ratio] 1.0 {ratio} 0.9-2.4 [facility] Thin prep Papanicolaou smear with manual screeningOrdered By: Dr. Heredia on 05-01-2022 Thin prep Papanicolaou smear with manual screening 19 U/L 15-37 [facility] Basophil percentageOrdered B y: Dr. Garcia on 04-28-2022 Cholesterol [Mass/Vol] 111 mg/dL <200 [facility] Comment on above: <200 mg/dL Desirable 200-240 mg/dL Borderline >240 mg/dL High Risk Triglyceride [Mass/Vol] 92 mg/dL <199 [facility] Comment on above: The drugs N-Acetylcy steine and Metamizole may falsely depress this assay.Serum Triglycerides Reference Interval Normal <150 mg/dL Borderline high 150 - 199 mg/dL High 200 - 499 mg/dL Very High > or = 500 mg/dL Blood manual differential co mment interpretation (narrative result)Ordered By: Dr. Heredia on 04-28-2022 Manual differential comment Sanjay (Bld) [Interp] SCANNED [facility] Comment on above: LYMPHOPENIA NOTED Serum or plasma cholesterol in HDL measurement (mass/volume)Ordered By: Dr. Garcia on 04-28-2022 Cholesterol in HDL [Mass/Vol] 34 mg/dL >40 [facility] Comment on above: The drugs N-Acetylcy steine and Metamizole may falsely depress this assay. Reference Range HDL <40 mg/dL Low HDL Cholesterol HDL >or= 60 mg/dL High HDL Cholesterol Serum or plasma cholesterol in VLDL measurement (mass/volume)Ordered By: Dr. Garcia on 04-28-2022 Cholesterol in VLDL [Mass/Vol] 18 mg/dL 5-40 [facility] Serum or plasma low density lipoprotein (LDL) cholesterol measurement (mass/volume)Ordered By: Dr. Garcia on 04-28-2022 Cholesterol in LDL [Mass/Vol] 59 mg/dL 0-130 [facility] Assessment of wrist artery p atency prior to arterial punctureOrdered By: Dr. Marquez on 04-27-2022 Arterial patency Wrist artery --pre arterial puncture Positive [facility] Base excessOrdered By: Dr. Tabby rosas on 04-27-2022 Base excess Calc (BldV) [Moles/Vol] -13 mmol/L -2-2 [facility] Basophil percentageOrdered B y: Dr. Marquez on 04-27-2022 Basophil percentage 13.5 mmol/L 22-26 [facility] Basophils/100 WBC (Bld) 97 % 95-99 [facility] CO2 (BldA) [Partial pressure ]Ordered By: Dr. Marquez on 04-27-2022 CO2 (Bld) [Partial pressure] 29.8 mm[Hg] 35-45 [facility] COVID-19 virus antigen assay Ordered By: Dr. Heredia on 04-27-2022 SARS-CoV-2 (COVID-19) Ag IA.rapid Ql (Resp) [facility] Glucose Glucometer (dC) [M ass/Vol]Ordered By: Dr. Heredia on 04-27-2022 Glucose [Mass/Vol] 304 mg/dL 74-106 [facility] Comment on above: MANAGEMENT OF PATIEN T CARE PER NURSING PROTOCOL Laboratory - Microbiology an d Antimicrobial susceptibilityOrdered By: Dr. Heredia on 04-27-2022 Respiratory pathogens DNA and RNA 12b panel DELL+probe (Unsp spec) [facility] No Panel InformationOrdered By: Dr. Marquez on 04-27-2022 Thyroid Stimulating Hormone (TSH) 1.90 uIU/mL 0.358-3.74 [facility] Blood Gas Clinical Comments 16*8 [facility] Blood Gas Oxygen Percent 35 [facility] Blood Gas Sample Site R Radial [facility] Blood Gas Specimen Type ART [facility] Blood Gas Total CO2 15 mmol/L [facility] Oxygen Delivery Device BiPAP [facility] Oxygen (BldA) [Partial press ure]Ordered By: Dr. Marquez on 04-27-2022 Oxygen (Bld) [Partial pressure] 96 mmHG 75-100 [facility] Urine Legionella pneumophila antigen detectionOrdered By: Dr. Heredia on 04-27-2022 L. pneumophila Ag Ql (U) [facility] pH measurementOrdered By: Dr Dimas Marquez on 04-27-2022 pH (Unsp spec) 7.27 [pH] 7.35-7.45 [facility] Absolute lymphocyte countOrd ered By: Dr. Jacobs on 04-26-2022 Lymphocytes Auto (Unsp spec) [#/Vol] 1.26 10*3/uL 0.83-4.51 [facility] Basophil percentageOrdered B y: Dr. Jacobs on 04-26-2022 Basophils/100 WBC (Bld) 0.9 % 0-1 [facility] Bilirubin [Mass/Vol] 0.50 mg/dL 0.20-1.00 [facility] Comment on above: For patients on eltr ombopag therapy, use of Dimension [place] TBIL is not recommended. Chloride [Moles/Vol] 110 mmol/L 98-107 [facility] Eosinophils/100 WBC (Bld) 1.2 % 0-5 [facility] Glucose [Mass/Vol] 139 mg/dL 74-106 [facility] Comment on above: Fasting Glucose resu lt greater than or equal to 126 mg/dL suggests DIABETES MELLITUS per A.D.A. criteria. Neutrophils (Bld) [#/Vol] 3.9 10*3/uL 2.0-7.7 [facility] Neutrophils/100 WBC (Bld) 67.2 % 47-70 [facility] Potassium [Moles/Vol] 4.3 mmol/L 3.5-5.1 [facility] Protein [Mass/Vol] 6.5 g/dL 6.4-8.2 [facility] Sodium [Moles/Vol] 140 mmol/L 136-145 [facility] WBC (Bld) [#/Vol] 5.8 10*3/uL 4.4-11.0 [facility] Blood erythrocytes count (nu mber/volume)Ordered By: Dr. Jacobs on 04-26-2022 RBC (Bld) [#/Vol] 1.97 10*6/uL 4.6-6.2 [facility] Blood hemoglobin measurement (mass/volume)Ordered By: Dr. Jacobs on 04-26-2022 Hemoglobin (Bld) [Mass/Vol] 5.9 g/dL 13.0-16.5 [facility] Comment on above: CRITICAL VALUE VERIF IED. CALLED TO MASTER PLANNER FOR DR FERGUSON04/26/[id number] Onur Burgess.RESULTS READ BACK BY SAME . Blood lymphocytes/100 leukoc ytesOrdered By: Dr. Jacobs on 04-26-2022 Lymphocytes/100 WBC (Bld) 21.8 % 19-41 [facility] Blood monocytes/100 leukocyt esOrdered By: Dr. Jacobs on 04-26-2022 Monocytes/100 WBC (Bld) 8.6 % 0-10 [facility] Blood platelet adequacy dete ction by light microscopyOrdered By: Dr. Jacobs on 04-26-2022 Platelets LM Ql (Bld) ADEQUATE ADEQ [facility] Blood platelet mean volumeOr dered By: Dr. Jacobs on 04-26-2022 Platelet mean volume (Bld) [Entitic vol] 11.4 fL 6.2-12.0 [facility] Blood polychromasia detectio n by light microscopyOrdered By: Dr. Jacobs on 04-26-2022 Polychromasia LM Ql (Bld) RARE [facility] Determination of erythrocyte mean corpuscular volume (MCV)Ordered By: Dr. Jacobs on 04-26-2022 MCV (RBC) [Entitic vol] 98.0 fL 80-94 [facility] Hematocrit Auto (Bld) [Volum e fraction]Ordered By: Dr. Jacobs on 04-26-2022 Hematocrit (Bld) [Volume fraction] 19.3 % 40-54 [facility] Hypochromatic red blood cell detectionOrdered By: Dr. Jacobs on 04-26-2022 Hypochromia Ql (Bld) 1+ [facility] INR in Blood by Coagulation assayOrdered By: Dr. Cavazos on 04-26-2022 INR Coag (Bld) [Relative time] 1.5 {INR} [facility] - Chemistry and C hemistry - challengeOrdered By: Dr. Cavazos on 04-26-2022 Natriuretic peptide B (Bld) [Mass/Vol] 397.0 pg/mL 0-100 [facility] - Chemistry and C hemistry - challengeOrdered By: Dr. Jacobs on 04-26-2022 ALP [Catalytic activity/Vol] 68 U/L 45-117 [facility] ALT [Catalytic activity/Vol] 25 U/L 16-61 [facility] CO2 [Moles/Vol] 23.0 mmol/L 21.0-32.0 [facility] Globulin (S) [Mass/Vol] 2.9 g/dL 2.2-4.2 [facility] Urea nitrogen/Creatinine [Mass ratio] 13.0 mg/mg 10-20 [facility] - CoagulationOrde red By: Dr. Cavazos on 04-26-2022 PT Coag (PPP) [Time] 17.9 s 11.7-14.9 [facility] - Hematology and Cell countsOrdered By: Dr. Jacobs on 04-26-2022 Anisocytosis Ql (Bld) RARE [facility] Erythrocyte distribution width (RBC) [Entitic vol] 49.1 fL 35.1-43.9 [facility] Erythrocyte distribution width (RBC) [Ratio] 13.8 % 11.6-14.6 [facility] Immature granulocytes/100 WBC (Bld) 0.300 % 0.0-0.9 [facility] Comment on above: IG% - Immature Granu locytes (promyelocytes, myelocytes and metamyelocytes) > 1% indicates that a LEFT SHIFT is Present. MCH (RBC) [Entitic mass] 29.9 pg 27.0-32.0 [facility] Nucleated RBC/100 WBC (Bld) [Ratio] 0.3 % 0-5 [facility] MCHC Auto (RBC) [Mass/Vol]Or dered By: Dr. Jacobs on 04-26-2022 MCHC (RBC) [Mass/Vol] 30.6 g/dL 32-36 [facility] Macrocytes detectionOrdered By: Dr. Jacobs on 04-26-2022 Macrocytes Ql (Bld) RARE [facility] No Panel InformationOrdered By: Dr. Cavazos on 04-26-2022 Troponin I High Sensitivity 7 pg/mL 3.0-78.0 [facility] Comment on above: Please Note: New Sulema t Units and Gender Specific Reference Ranges. For more information see Policy Stat Procedure [place] High Sensitivity Troponin (TNIH) and attachments. No Panel InformationOrdered By: Dr. Jacobs on 04-26-2022 Estimated GFR (MDRD) Amer 57 mL/min >60 [facility] Comment on above: GFR Calc Estimated GFR (MDRD) Non-Af Amer 47 mL/min >60 [facility] Comment on above: Non- GFR Calc Platelets bldOrdered By: Dr. Jacobs on 04-26-2022 Platelets (Bld) [#/Vol] 274 10*3/uL 150-450 [facility] RBC morphologyOrdered By: Dr Dimas Jacobs on 04-26-2022 RBC morphology finding Nom (Bld) N CHROM NORMAL NORM C&C [facility] Review by pathologiston Pathologist review Sanjay (Unsp spec) [Interp] Alma boggs [facility] Work Phone: Review by pathologistOrdered By: Dr. Jacobs on 04-26-2022 Pathologist review Sanjay (Unsp spec) [Interp] Reviewed [facility] Comment on above: Previous reported re sult: Alma boggs Edited by: RGOELIZABETH on 04/28/22:0948Macrocytic anemia.Clinical correlation suggested.Paulino Toledo D.O. 04/28/22 AMENDED REPORT 04/28/22 0948 PATH REV previously reported as: Alma boggs Serum or plasma albumin keena urement (mass/volume)Ordered By: Dr. Jacobs on 04-26-2022 Albumin [Mass/Vol] 3.6 g/dL 3.2-5.0 [facility] Serum or plasma albumin/glob ulin mass ratioOrdered By: Dr. Jacobs on 04-26-2022 Albumin/Globulin [Mass ratio] 1.2 {ratio} 0.9-2.4 [facility] Serum or plasma calcium keena urement (mass/volume)Ordered By: Dr. Jacobs on 04-26-2022 Calcium [Mass/Vol] 9.0 mg/dL 8.5-10.1 [facility] Serum or plasma creatinine m easurement (mass/volume)Ordered By: Dr. Jacobs on 04-26-2022 Creatinine [Mass/Vol] 1.54 mg/dL 0.70-1.30 [facility] Comment on above: The validity of the calculated GFR & GFRAA in patients over 70 years has not been determined. Clinical correlation is essential. Serum or plasma urea nitroge n measurement (mass/volume)Ordered By: Dr. Jacobs on 04-26-2022 Urea nitrogen [Mass/Vol] 20 mg/dL 7-18 [facility] Thin prep Papanicolaou smear with manual screeningOrdered By: Dr. Jacobs on 04-26-2022 Thin prep Papanicolaou smear with manual screening 11 U/L 15-37 [facility] Thin prep Papanicolaou smear with manual screening 7 5-15 [facility] CNPNon 12-30-2021 CNPN Telephone (PODCCP) PETER ORR ([id number]) 1950 M Date Time Provider Department 12/30/21 [...] Reason for Visit: Follow Up Phone Call [[phone]] Cmt: Post Discharge F/U - attempt made. 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 Normal [facility] CRP SerPl-mCncon 12-22-2021 CRP [Mass/Vol] 3.3 mg/dL High <0.[address] [facility] Comment on above: Order Comment: Speci men Type: BLOOD SPECIMENOrdering Facility: [facility] Address: [address] [place] [address] Performed By: #### 1 988-5 ####[facility] LABCLIA [id number] [place] [address] [place] CRP [Mass/Vol] 3.9 mg/dL High <0.[address] [facility] Comment on above: Order Comment: Speci men Type: BLOOD SPECIMENOrdering Facility: [facility] Address: [address] [place], [place] [id number] Performed By: #### 1 988-5 ####[facility] LABCLIA [id number] [address] [address] [place] Basic metabolic 2000 panelon 12-21-2021 Anion gap [Moles/Vol] 16 mmol/L Normal 9-18 [facility] Comment on above: Order Comment: Speci men Type: BLOOD SPECIMENOrdering Facility: [facility] Address: [address] [place], [place] [address] Performed By: #### 2 43204-24, 1987-08, , 2776-04 ####[facility] LABCLIA [id number] [place] [id number] [place] Calcium [Mass/Vol] 8.9 mg/dL Normal 8.5-10.2 [facility] Comment on above: Order Comment: Speci men Type: BLOOD SPECIMENOrdering Facility: [facility] Address: [address] [place], [place] [id number] Performed By: #### 2 43204-24, 1987-08, , 2776-04 ####[facility] LABCLIA [id number] [place] [id number] [place] Chloride [Moles/Vol] 104 mmol/L Normal 97-105 [facility] Comment on above: Order Comment: Speci men Type: BLOOD SPECIMENOrdering Facility: [facility] Address: [address] [place] [id number] Performed By: #### 2 43204-24, 1987-08, , 2776-04 ####[facility] LABCLIA [id number] [address] [address] [place] CO2 [Moles/Vol] 19 mmol/L Low 22-30 [facility] [facility] Comment on above: Order Comment: Speci men Type: BLOOD SPECIMENOrdering Facility: [facility] Address: [address] [place] [address] Performed By: #### 2 4320-, 1987-08, , 2776-04 ####[facility] LABCLIA [id number] [place] [address] [place] Creatinine [Mass/Vol] 1.18 mg/dL Normal 0.73-1.22 [facility] Comment on above: Order Comment: Speci men Type: BLOOD SPECIMENOrdering Facility: [facility] Address: [address] [place] [address] Performed By: #### 2 4320-05, 1987-08, , 2776-04 ####[facility] LABCLIA [id number] [address] STATES OF [facility] ESTIMATED GLOMERULAR FILTRATION RATE 65 mL/min/1.73m??? Normal >=[address] [facility] Comment on above: Order Comment: Speci men Type: BLOOD SPECIMENOrdering Facility: [facility] Address: [address] [place] [address] Result Comment: Swati mated Glomerular Filtration Rate [...] reflect actual GFR. Performed By: #### 2 4320-, 1987-08, , 2776-04 ####[facility] LABCLIA [id number] [place] [address] [place] Glucose [Mass/Vol] 151 mg/dL High 74-99 [facility] Comment on above: Order Comment: Speci men Type: BLOOD SPECIMENOrdering Facility: [facility] Address: [address] [place] [address] Result Comment: The [place] Diabetes Association (ADA) provides guidance for cutoff [...] Standards of Medical Care in Diabetes 2016, [place] Diabetes Association. Diabetes Care. 2016.39(Suppl 1). Performed By: #### 2 4320-05, 1987-08, , 2776-04 ####[facility] LABCLIA [id number] [place] [address] [place] Potassium [Moles/Vol] 3.7 mmol/L Normal 3.7-5.1 [facility] Comment on above: Order Comment: Speci men Type: BLOOD SPECIMENOrdering Facility: [facility] Address: [address] [place] [address] Performed By: #### 2 4320-05, 1987-08, , 2776-04 ####[facility] LABCLIA [id number] [place] [id number] [place] Sodium [Moles/Vol] 139 mmol/L Normal 136-144 [facility] Comment on above: Order Comment: Speci men Type: BLOOD SPECIMENOrdering Facility: [facility] Address: [address] [place] [address] Performed By: #### 2 4320-05, 1987-08, , 2776-04 ####[facility] LABCLIA [id number] [place] [id number] [place] Urea nitrogen [Mass/Vol] 11 mg/dL Normal 9-[address] [facility] Comment on above: Order Comment: Speci men Type: BLOOD SPECIMENOrdering Facility: [facility] Address: [address] [place] [address] Performed By: #### 2 4321-2, 1987-5, 72757-0, 2777-1 ####[facility] LABCLIA [id number] [place] [address] [place] CBC W Auto Differential pane l (Bld)on 12-21-2021 Basophils (Bld) [#/Vol] 0.04 10*3/uL Normal <0.[address] [facility] Comment on above: Order Comment: Speci men Type: BLOOD SPECIMENOrdering Facility: [facility] Address: [address] [place] [address] Performed By: #### 5 7021-8 ####[facility] LABCLIA [id number] [place] [address] [place] Basophils/100 WBC (Bld) 0.4 % Normal [facility] Comment on above: Order Comment: Speci men Type: BLOOD SPECIMENOrdering Facility: [facility] Address: [address] [place] [address] Performed By: #### 5 7021-8 ####[facility] LABCLIA [id number] [place] [address] [place] Differential cell count method Nom (Bld) Auto Normal [facility] Comment on above: Order Comment: Speci men Type: BLOOD SPECIMENOrdering Facility: [facility] Address: [address] [place] [address] Performed By: #### 5 7021-8 ####[facility] LABCLIA [id number] [place] [address] [place] Eosinophils (Bld) [#/Vol] 10*3/uL Normal <0.[address] [facility] Comment on above: Order Comment: Speci men Type: BLOOD SPECIMENOrdering Facility: [facility] Address: [address] [place], [place] [address] Performed By: #### 5 7021-8 ####[facility] LABCLIA [id number] [address] [place] Eosinophils/100 WBC (Bld) 0.0 % Normal [facility] Comment on above: Order Comment: Speci men Type: BLOOD SPECIMENOrdering Facility: [facility] Address: [address] [place], [place] [address] Performed By: #### 5 7021-8 ####[facility] LABCLIA [id number] [place] [address] [place] Erythrocyte distribution width (RBC) [Ratio] 11.9 % Normal 11.5-15.[address] [facility] Comment on above: Order Comment: Speci men Type: BLOOD SPECIMENOrdering Facility: [facility] Address: [address] [place], [place] [address] Performed By: #### 5 7021-8 ####[facility] LABCLIA [id number] [place] [address] [place] Hematocrit (Bld) [Volume fraction] 41.1 % Normal 39.0-51.[address] [facility] Comment on above: Order Comment: Speci men Type: BLOOD SPECIMENOrdering Facility: [facility] Address: [address] [place], [place] [address] Performed By: #### 5 7021-8 ####[facility] LABCLIA [id number] [place] [address] [place] Hemoglobin (Bld) [Mass/Vol] 14.3 g/dL Normal 13.0-17.[address] [facility] Comment on above: Order Comment: Speci men Type: BLOOD SPECIMENOrdering Facility: [facility] Address: [address] [place], [place] [address] Performed By: #### 5 7021-8 ####[facility] LABCLIA [id number] [address] [place] IMMATURE GRAN % 0.4 % Normal [facility] Comment on above: Order Comment: Speci men Type: BLOOD SPECIMENOrdering Facility: [facility] Address: [address] [place] [address] Performed By: #### 5 7021-8 ####[facility] LABCLIA [id number] [address] OF [facility] IMMATURE GRAN ABS 0.04 k/uL Normal <0.10 [facility] Comment on above: Order Comment: Speci men Type: BLOOD SPECIMENOrdering Facility: [facility] Address: [address] [place] [address] Performed By: #### 5 7021-8 ####[facility] LABIA [id number] [place] [address] [place] Lymphocytes (Bld) [#/Vol] 1.36 10*3/uL Normal 1.00-4.[address] [facility] Comment on above: Order Comment: Speci men Type: BLOOD SPECIMENOrdering Facility: [facility] Address: [address] [place] [address] Performed By: #### 5 7021-8 ####[facility] LABIA [id number] [address] [place] Lymphocytes/100 WBC (Bld) 13.3 % Normal [facility] Comment on above: Order Comment: Speci men Type: BLOOD SPECIMENOrdering Facility: [facility] Address: [address] [place], [place] [address] Performed By: #### 5 7021-8 ####[facility] LABCLIA [id number] [place] [address] [place] MCH (RBC) [Entitic mass] 32.4 pg Normal 26.0-34.[address] [facility] Comment on above: Order Comment: Speci men Type: BLOOD SPECIMENOrdering Facility: [facility] Address: [address] [place], [place] [address] Performed By: #### 5 7021-8 ####[facility] LABCLIA [id number] [place] [address] [place] MCHC (RBC) [Mass/Vol] 34.8 g/dL Normal 30.5-36.0 [facility] Comment on above: Order Comment: Speci men Type: BLOOD SPECIMENOrdering Facility: [facility] Address: [address] [place], [place] [address] Performed By: #### 5 7021-8 ####[facility] LABIA [id number] [place] [address] [place] MCV (RBC) [Entitic vol] 93.0 fL Normal 80.0-100.0 [facility] Comment on above: Order Comment: Speci men Type: BLOOD SPECIMENOrdering Facility: [facility] Address: [address] [place], [place] [address] Performed By: #### 5 7021-8 ####[facility] LABIA [id number] [address] [place] Monocytes (Bld) [#/Vol] 0.67 10*3/uL Normal <0.[address] [facility] Comment on above: Order Comment: Speci men Type: BLOOD SPECIMENOrdering Facility: [facility] Address: [address] [place] [address] Performed By: #### 5 7021-8 ####[facility] LABCLIA [id number] [address] [place] Monocytes/100 WBC (Bld) 6.6 % Normal [facility] Comment on above: Order Comment: Speci men Type: BLOOD SPECIMENOrdering Facility: [facility] Address: [address] [place], [place] [address] Performed By: #### 5 7021-8 ####[facility] LABCLIA [id number] [place] [address] [place] Neutrophils (Bld) [#/Vol] 8.09 10*3/uL High 1.45-7.[address] [facility] Comment on above: Order Comment: Speci men Type: BLOOD SPECIMENOrdering Facility: [facility] Address: [address] [place], [place] [address] Performed By: #### 5 7021-8 ####[facility] LABCLIA [id number] [place] [address] [place] Neutrophils/100 WBC (Bld) 79.3 % Normal [facility] Comment on above: Order Comment: Speci men Type: BLOOD SPECIMENOrdering Facility: [facility] Address: [address] [place], [place] [address] Performed By: #### 5 7021-8 ####[facility] LABCLIA [id number] [place] [address] [place] Nucleated RBC (Bld) [#/Vol] 10*3/uL Normal <0.[address] [facility] Comment on above: Order Comment: Speci men Type: BLOOD SPECIMENOrdering Facility: [facility] Address: [address] [place] [address] Performed By: #### 5 7021-8 ####[facility] LABCLIA [id number] [place] [address] [place] Nucleated RBC/100 WBC (Bld) [Ratio] 0.0 /100 WBC Normal [facility] Comment on above: Order Comment: Speci men Type: BLOOD SPECIMENOrdering Facility: [facility] Address: [address] [place] [address] Performed By: #### 5 7021-8 ####[facility] LABCLIA [id number] [place] [address] [place] Platelet mean volume (Bld) [Entitic vol] 10.5 fL Normal 9.0-12.[address] [facility] Comment on above: Order Comment: Speci men Type: BLOOD SPECIMENOrdering Facility: [facility] Address: [address] [place], [place] [address] Performed By: #### 5 7021-8 ####[facility] LABCLIA [id number] [place] [address] [place] Platelets (Bld) [#/Vol] 185 10*3/uL Normal 150-[address] [facility] Comment on above: Order Comment: Speci men Type: BLOOD SPECIMENOrdering Facility: [facility] Address: [address] [place], [place] [address] Performed By: #### 5 7021-8 ####[facility] LABCLIA [id number] [place] [address] [place] RBC (Bld) [#/Vol] 4.42 10*6/uL Normal 4.20-6.00 [facility] Comment on above: Order Comment: Speci men Type: BLOOD SPECIMENOrdering Facility: [facility] Address: [address] [place], [place] [address] Performed By: #### 5 7021-8 ####[facility] LABCLIA [id number] [place] [address] [place] WBC (Bld) [#/Vol] 10.20 10*3/uL Normal 3.70-11.00 [facility] Comment on above: Order Comment: Speci men Type: BLOOD SPECIMENOrdering Facility: [facility] Address: [address] [place], [place] [address] Performed By: #### 5 7021-8 ####[facility] LABCLIA [id number] [place] [address] [place] CRP SerPl-mCncon 12-21-2021 CRP [Mass/Vol] 4.2 mg/dL High <0.[address] [facility] Comment on above: Order Comment: Speci men Type: BLOOD SPECIMENOrdering Facility: [facility] Address: [address] [place] [address] Performed By: #### 2 43204-24, 1987-08, , 2776-04 ####[facility] LABCLIA [id number] [place] [id number] [place] Magnesium SerPl-mCncon 12-21 Magnesium [Mass/Vol] 1.9 mg/dL Normal 1.7-2.3 [facility] Comment on above: Order Comment: Speci men Type: BLOOD SPECIMENOrdering Facility: [facility] Address: [address] [place] [address] Performed By: #### 2 43204-24, 1987-08, , 2776-04 ####[facility] LABCLIA [id number] [place] [id number] [place] NURSING PROGon 12-21-2021 NURSING PROG HNO ID: [id number] Author: Heavenly Christiansen RN Service: Nursing Author Type: Registered Nurse Type: Nursing Progress Note Filed: 12/21/2021 12:33 AM Note Text: Other: 0032- Paged colorectal regarding patient requesting BOOK ILLUSTRATOR to be discontinued. Patient not feeling well. Nauseous- Zofran not of relief and feels flushed. Normal [facility] PT EDon 12-21-2021 PT ED HNO ID: [id number] Author: Adelaida Love DTR Service: Nutrition Therapy Author Type: Director Content Marketing Type: Patient Education Filed: 12/21/2021 2:30 PM [...] 21, 2021 TIME: 2:29 PM PAGER: Normal [facility] Phosphate SerPl-mCncon 12-21 Phosphate [Mass/Vol] 1.7 mg/dL Low 2.7-4.8 [facility] Comment on above: Order Comment: Speci men Type: BLOOD SPECIMENOrdering Facility: [facility] Address: [address] [place] [address] Performed By: #### 2 4321-2, 1987-08, , 2776- ####[facility] LABCLIA [id number] [place] [address] [place] Basic metabolic 2000 panelon 12-20-2021 Anion gap [Moles/Vol] 10 mmol/L Normal 9-18 [facility] Comment on above: Order Comment: Speci men Type: BLOOD SPECIMENOrdering Facility: [facility] Address: [address] [place] [address] Performed By: #### 1 988-5, 83886-5, , SRIKANTH, 2776-1 ####[facility] LABCLIA [id number] [place] [address] [place] Calcium [Mass/Vol] 8.8 mg/dL Normal 8.5-10.2 [facility] Comment on above: Order Comment: Speci men Type: BLOOD SPECIMENOrdering Facility: [facility] Address: [address] [place] [address] Performed By: #### 1 988-5, 17866-7, , SRIKANTH, 277-1 ####[facility] LABIA [id number] [address] [address] [place] Chloride [Moles/Vol] 104 mmol/L Normal 97-105 [facility] Comment on above: Order Comment: Speci men Type: BLOOD SPECIMENOrdering Facility: [facility] Address: [address] [place] [address] Performed By: #### 1 988-5, 62731-8, 82136-4, SRIKANTH, 2777-1 ####[facility] LABIA [id number] [place] [address] [place] CO2 [Moles/Vol] 23 mmol/L Normal 22-[address] [facility] Comment on above: Order Comment: Speci men Type: BLOOD SPECIMENOrdering Facility: [facility] Address: [address] [place] [address] Performed By: #### 1 988-5, 43208-4, 09882-1, SRIKANTH, 2777-1 ####[facility] [id number] [place] [address] [place] Creatinine [Mass/Vol] 1.29 mg/dL High 0.73-1.22 [facility] Comment on above: Order Comment: Speci men Type: BLOOD SPECIMENOrdering Facility: [facility] Address: [address] [place], [place] [address] Performed By: #### 1 988-5, 19748-2, 99792-2, SRIKANTH, 2777-1 ####[facility] [id number] [place] [address] [place] ESTIMATED GLOMERULAR FILTRATION RATE 59 mL/min/1.73m??? Low >=[address] [facility] Comment on above: Order Comment: Speci men Type: BLOOD SPECIMENOrdering Facility: [facility] Address: [address] [place], [place] [address] Result Comment: Swati mated Glomerular Filtration Rate [...] actual GFR. Performed By: #### 1 988-5, 60546-9, , SRIKANTH, 2776- ####[facility] LABCLIA [id number] [address] [address] [place] Glucose [Mass/Vol] 121 mg/dL High 74-99 [facility] Comment on above: Order Comment: Carolyne wilhelm Type: BLOOD SPECIMENOrdering Facility: [facility] Address: [address] [place] [phone] Result Comment: The [place] Diabetes Association (ADA) provides guidance for cutoff [...] Standards of Medical Care in Diabetes 2016, [place] Diabetes [employer]. Diabetes Care. 2016.39(Suppl 1). Performed By: #### 1 988-5, 64599-6, , SRIKANTH, 2776- ####[facility] LABCLIA [id number] [address] [address] [place] Potassium [Moles/Vol] 4.2 mmol/L Normal 3.7-5.1 [facility] Comment on above: Order Comment: Carolyne wilhelm Type: BLOOD SPECIMENOrdering Facility: [facility] Address: [address] [place] [address] Performed By: #### 1 988-5, 35316-7, , SRIKANTH, 7- ####[facility] LABCLIA [id number] [place] [address] [place] Sodium [Moles/Vol] 137 mmol/L Normal 136-144 [facility] Comment on above: Order Comment: Speci men Type: BLOOD SPECIMENOrdering Facility: [facility] Address: [address] [place] [address] Performed By: #### 1 988-5, 02648-3, , SRIKANTH, 2777- ####[facility] LABIA [id number] [place] [address] [place] Urea nitrogen [Mass/Vol] 12 mg/dL Normal 9-[address] [facility] Comment on above: Order Comment: Speci men Type: BLOOD SPECIMENOrdering Facility: [facility] Address: [address] [place], [place] [address] Performed By: #### 1 988-5, 84907-0, , SRIKANTH, 2776-1 ####[facility] LABIA [id number] [place] [address] [place] CBC W Auto Differential pane l (Bld)on 12-20-2021 Basophils (Bld) [#/Vol] 10*3/uL Normal <0.11 [facility] Comment on above: Order Comment: Speci men Type: BLOOD SPECIMENOrdering Facility: [facility] Address: [address] [place], [place] [address] Performed By: #### 5 7021-8 ####[facility] LABIA [id number] [place] [address] [place] Basophils/100 WBC (Bld) 0.1 % [facility] Comment on above: Order Comment: Speci men Type: BLOOD SPECIMENOrdering Facility: [facility] Address: [address] [place], [place] [address] Performed By: #### 5 7021-8 ####[facility] LABCLIA [id number] [place] [address] [place] Differential cell count method Nom (Bld) Auto Normal [facility] Comment on above: Order Comment: Speci men Type: BLOOD SPECIMENOrdering Facility: [facility] Address: [address] [place] [address] Performed By: #### 5 7021-8 ####[facility] LABCLIA [id number] [place] [address] [place] Eosinophils (Bld) [#/Vol] 10*3/uL Normal <0.[address] [facility] Comment on above: Order Comment: Speci men Type: BLOOD SPECIMENOrdering Facility: [facility] Address: [address] [place] [address] Performed By: #### 5 7021-8 ####[facility] LABCLIA [id number] [place] [address] [place] Eosinophils/100 WBC (Bld) 0.1 % Normal [facility] Comment on above: Order Comment: Speci men Type: BLOOD SPECIMENOrdering Facility: [facility] Address: [address] [place], [place] [address] Performed By: #### 5 7021-8 ####[facility] LABCLIA [id number] [place] [address] [place] Erythrocyte distribution width (RBC) [Ratio] 12.1 % Normal 11.5-15.[address] [facility] Comment on above: Order Comment: Speci men Type: BLOOD SPECIMENOrdering Facility: [facility] Address: [address] [place], [place] [address] Performed By: #### 5 7021-8 ####[facility] LABCLIA [id number] [place] [address] [place] Hematocrit (Bld) [Volume fraction] 37.7 % Low 39.0-51.[address] [facility] Comment on above: Order Comment: Speci men Type: BLOOD SPECIMENOrdering Facility: [facility] Address: [address] [place], [place] [address] Performed By: #### 5 7021-8 ####[facility] LABCLIA [id number] [place] [address] [place] Hemoglobin (Bld) [Mass/Vol] 13.0 g/dL Normal 13.0-17.[address] [facility] Comment on above: Order Comment: Speci men Type: BLOOD SPECIMENOrdering Facility: [facility] Address: [address] [place] [address] Performed By: #### 5 7021-8 ####[facility] LABIA [id number] [address] [place] IMMATURE GRAN % 0.7 % Normal [facility] Comment on above: Order Comment: Speci men Type: BLOOD SPECIMENOrdering Facility: [facility] Address: [address] [place] [address] Performed By: #### 5 7021-8 ####[facility] LABIA [id number] [place] [address] [place] IMMATURE GRAN ABS 0.06 k/uL Normal <0.10 [facility] Comment on above: Order Comment: Speci men Type: BLOOD SPECIMENOrdering Facility: [facility] Address: [address] [place], [place] [address] Performed By: #### 5 7021-8 ####[facility] LABIA [id number] [place] [address] [place] Lymphocytes (Bld) [#/Vol] 1.57 10*3/uL Normal 1.00-4.[address] [facility] Comment on above: Order Comment: Speci men Type: BLOOD SPECIMENOrdering Facility: [facility] Address: [address] [place], [place] [address] Performed By: #### 5 7021-8 ####[facility] LABIA [id number] [address] STATES [facility] Lymphocytes/100 WBC (Bld) 17.9 % Normal [facility] Comment on above: Order Comment: Speci men Type: BLOOD SPECIMENOrdering Facility: [facility] Address: [address] [place], [place] [id number] Performed By: #### 5 7021-8 ####[facility] LABIA [id number] [place] [address] [place] MCH (RBC) [Entitic mass] 32.7 pg Normal 26.0-34.[address] [facility] Comment on above: Order Comment: Speci men Type: BLOOD SPECIMENOrdering Facility: [facility] Address: [address] [place], [place] [id number] Performed By: #### 5 7021-8 ####[facility] [id number] [address] [place] [facility] MCHC (RBC) [Mass/Vol] 34.5 g/dL Normal 30.5-36.0 [facility] Comment on above: Order Comment: Speci men Type: BLOOD SPECIMENOrdering Facility: [facility] Address: [address] [place], [place] [id number] Performed By: #### 5 7021-8 ####[facility] LABIA [id number] [address] [place] MCV (RBC) [Entitic vol] 95.0 fL Normal 80.0-100.0 [facility] Comment on above: Order Comment: Speci men Type: BLOOD SPECIMENOrdering Facility: [facility] Address: [address] [place] [address] Performed By: #### 5 7021-8 ####[facility] LABIA [id number] [address] [address] [id number], [place] [address] [place] Monocytes (Bld) [#/Vol] 0.68 10*3/uL Normal <0.[address] [facility] Comment on above: Order Comment: Speci men Type: BLOOD SPECIMENOrdering Facility: [facility] Address: [address] [place], [place] [address] Performed By: #### 5 7021-8 ####[facility] LABCLIA [id number] [place] [address] [place] Monocytes/100 WBC (Bld) 7.7 % Normal [facility] Comment on above: Order Comment: Speci men Type: BLOOD SPECIMENOrdering Facility: [facility] Address: [address] [place], [place] [address] Performed By: #### 5 7021-8 ####[facility] LABCLIA [id number] [place] [address] [place] Neutrophils (Bld) [#/Vol] 6.46 10*3/uL Normal 1.45-7.[address] [facility] Comment on above: Order Comment: Speci men Type: BLOOD SPECIMENOrdering Facility: [facility] Address: [address] [place], [place] [address] Performed By: #### 5 7021-8 ####[facility] LABCLIA [id number] [address] [place] Neutrophils/100 WBC (Bld) 73.5 % Normal [facility] Comment on above: Order Comment: Speci men Type: BLOOD SPECIMENOrdering Facility: [facility] Address: [address] [place], [place] [address] Performed By: #### 5 7021-8 ####[facility] LABCLIA [id number] [place] [address] [place] Nucleated RBC (Bld) [#/Vol] 10*3/uL Normal <0.[address] [facility] Comment on above: Order Comment: Speci men Type: BLOOD SPECIMENOrdering Facility: [facility] Address: [address] [place], [place] [address] Performed By: #### 5 7021-8 ####[facility] LABIA [id number] [place] [address] [place] Nucleated RBC/100 WBC (Bld) [Ratio] 0.0 /100 WBC Normal [facility] Comment on above: Order Comment: Speci men Type: BLOOD SPECIMENOrdering Facility: [facility] Address: [address] [place], [place] [address] Performed By: #### 5 7021-8 ####[facility] [id number] [place] [address] [place] Platelet mean volume (Bld) [Entitic vol] 11.0 fL Normal 9.0-12.[address] [facility] Comment on above: Order Comment: Speci men Type: BLOOD SPECIMENOrdering Facility: [facility] Address: [address] [place], [place] [address] Performed By: #### 5 7021-8 ####[facility] LABIA [id number] [place] [address] [place] Platelets (Bld) [#/Vol] 166 10*3/uL Normal 150-[address] [facility] Comment on above: Order Comment: Speci men Type: BLOOD SPECIMENOrdering Facility: [facility] Address: [address] [place] [address] Performed By: #### 5 7021-8 ####[facility] LABIA [id number] [place] [address] [place] RBC (Bld) [#/Vol] 3.97 10*6/uL Low 4.20-6.00 [facility] Comment on above: Order Comment: Speci men Type: BLOOD SPECIMENOrdering Facility: [facility] Address: [address] [place] [address] Performed By: #### 5 7021-8 ####[facility] LABIA [id number] [place] [address] [place] WBC (Bld) [#/Vol] 8.79 10*3/uL Normal 3.70-11.00 [facility] Comment on above: Order Comment: Speci men Type: BLOOD SPECIMENOrdering Facility: [facility] Address: [address] [place] [address] Performed By: #### 5 7021-8 ####[facility] LABIA [id number] [place] [address] [place] [facility] CRP [Mass/Vol] 2.6 mg/dL High <0.[address] [facility] Comment on above: Order Comment: Speci men Type: BLOOD SPECIMENOrdering Facility: [facility] Address: [address] [place] [address] Performed By: #### 1 988-5, 25364-9, 68195-2, SRIKANTH, 2777-1 ####[facility] LABIA [id number] [address] [place] ECG COMPLETEon 12-20-2021 Atrial Rate 62 BPM [facility] Calculated P Iaeger 69 degrees [facility] Calculated R Iaeger -5 degrees [facility] Calculated T Iaeger 55 degrees [facility] P-R Interval 146 ms [facility] QRS Duration 82 ms [facility] QT Interval 412 ms [facility] QTC Calculation (Bazett) 418 ms [facility] Ventricular Rate 62 BPM [facility] Magnesium SerPl-mCncon 12-20 Magnesium [Mass/Vol] 1.9 mg/dL Normal 1.7-2.3 [facility] Comment on above: Order Comment: Speci men Type: BLOOD SPECIMENOrdering Facility: [facility] Address: [address] [place], [place] [address] Performed By: #### 1 988-5, 42064-6, 66674-7, SRIKANTH, 2777-1 ####[facility] LABCLIA [id number] [place] [id number] [place] Phosphate SerPl-mCncon 12-20 Phosphate [Mass/Vol] 2.8 mg/dL Normal 2.7-4.8 [facility] Comment on above: Order Comment: Speci men Type: BLOOD SPECIMENOrdering Facility: [facility] Address: [address] [place] [address] Performed By: #### 1 988-5, 77260-7, 60358-7, SRIKANTH, 2777-1 ####[facility] LABCLIA [id number] [place] [address] [place] TROPONIN Ton 12-20-2021 Troponin T.cardiac [Mass/Vol] ug/L Normal 0.000-0.[address] [facility] Comment on above: Order Comment: Speci men Type: BLOOD SPECIMENOrdering Facility: [facility] Address: [address] [place] [address] Performed By: #### 1 988-5, 25364-1, 76833-5, SRIKANTH, 2777-1 ####[facility] LABIA [id number] [address] [place] ANES POSTPROC EVALon 022 ANES POSTPROC EVAL HNO ID: [id number] Author: Tavo Rankin MD Service: ? Author Type: Anesthesiologist Type: Anesthesia Postprocedure Evaluation Filed: 12/20/2021 11:01 AM Note Text: POST ANESTHESIA EVALUATION NOTE : 1950 Procedure Summary Date: 12/19/21 Room / Location: [address] [facility] Anesthesia Start: 32 Anesthesia Stop: [...] December 20, 2021 TIME: 10:53 AM CSN: [id number] Normal [facility] ANES PRE-OPon 12-19-2021 ANES PRE-OP HNO ID: [id number] Author: Yaneli Dyson MD Service: ? Author Type: Anesthesiologist Type: Anesthesia Preprocedure Evaluation Filed: 12/19/2021 7:38 AM Note Text: ANESTHESIOLOGY DAY OF SURGERY NOTE : 1950 Procedure Information Anesthesia Start Date/Time: 12/19/21 0732 Procedure: LAPAROSCOPIC HEMICOLECTOMY WITH ANASTOMOSIS (Abdomen) Location: [facility] Surgeons: Deep Orozco MD Estimated body mass index is 27.16 kg/m? as calculated from the following: Height as of this encounter: 171.5 cm (5' 7.5). Weight as of this encounter: 79.8 kg [...] and consent discussed: yes. Patient / Responsible Alliance Party agrees to proceed: yes Patient / Surrogate agrees to blood products: Yes Significant changes in the patient condition since the History and Physical, not otherwise documented in primary service progress note: no. Potential Anesthesia issues that may suggest increased risk of complications or contraindication to planned procedure: none. Vitals Value Taken Time BP 159/81 12/19/21648 Pulse 87 12/19/21648 Resp 18 12/19/21648 Temp 36 ?C (96.8 ?F) 12/19/21648 SpO2 98 % 12/19/21648 Facility-Administere d Medications as of 12/19/2021 Medication Dose Route [...] December 19, 2021 TIME: 7:37 AM CSN: [id number] Normal [facility] BRIEF OP NOTon 12-19-2021 BRIEF OP NOT HNO ID: [id number] Author: Panfilo Morris MD Service: Colorectal Author Type: Fellow Type: Brief Op Note Filed: 12/19/2021 11:55 AM Note Text: BRIEF OPERATIVE / PROCEDURE NOTE LOG ID: [id number] Surgery/Procedure Date: 12/19/2021 Incision/Procedure Start Time: 8:25 AM Incision Close/Procedure End Time: 11:48 AM Surgeon(s)/Procedura list(s) and End Finder Forming Department(s): Surgeon(s) and Role: * Deep Orozco MD [...] Enrolled in pain study Npo for today [facility] Outpatient fu for left ing hernia repair SIGNATURE: Panfilo Morris MD PATIENT NAME: Peter Orr DATE: December 19, 2021 TIME: 11:50 AM PAGER/CONTACT #: [phone] [facility] CEA SerPl-mCncon 12-19-2021 Carcinoembryonic Ag [Mass/Vol] 3.8 ng/mL High <=2.[address] [facility] Comment on above: Order Comment: Speci men Type: BLOOD SPECIMENOrdering Facility: [facility] Address: [address] [place] [address] Result Comment: Carc inoembryonic antigen test is used as an aid in monitoring response to treatment or recurrence in patients with established colorectal, breast, lung, prostatic, pancreatic, and ovarian carcinomas. Clinical correlation is required. The Ronald Chaumont DXI 600/800 is used. Results obtained with different assay, methods or kits cannot be used interchangeably Performed By: #### 2 039-6 ####[facility] LABCLIA [id number] [address] [place] CONSULTon 12-19-2021 CONSULT HNO ID: [id number] Author: Sukh Hassan DO Service: Anesthesiology Author [...] surgical wound History of chronic pain: no BOOK ILLUSTRATOR Patient on IV BOOK ILLUSTRATOR?: No Block Candidate for Pre-Op Block?: Yes [...] ?F) Resp 17 Ht 171.5 cm (5' 7.5) Wt 79.8 kg (176 lb) SpO2 94% BMI 27.16 kg/m? Physical Exam Sensory/Motor Exam Intake/Output Summary (Last 24 hours) at 12/19/2021 1309 Last data filed at 12/19/2021 1200 Gross per 24 hour Intake 2200 ml Output 125 ml Net 2075 ml Lab Results: Hemoglobin 16.0 12/16/2021 Hematocrit 46.7 12/16/2021 Platelet Count 238 12/16/2021 Radiology: N/A Lines/Drains/Airways : Lines, Drains, and Airways Line Duration Peripheral [...] before s (more content not included)... Normal [facility] Comprehensive metabolic 2000 panelon 12-19-2021 Albumin [Mass/Vol] 4.3 g/dL Normal 3.9-4.9 [facility] Comment on above: Order Comment: Speci men Type: BLOOD SPECIMENOrdering Facility: [facility] Address: [address] [place] [address] Performed By: #### 2 4323-8 ####[facility] LABCLIA [id number] [place] [address] [place] ALP [Catalytic activity/Vol] 80 U/L Normal 38-[address] [facility] Comment on above: Order Comment: Speci men Type: BLOOD SPECIMENOrdering Facility: [facility] Address: [address] [place] [address] Performed By: #### 2 4323-8 ####[facility] LABCLIA [id number] [address] [place] ALT [Catalytic activity/Vol] 21 U/L Normal 10-[address] [facility] Comment on above: Order Comment: Speci men Type: BLOOD SPECIMENOrdering Facility: [facility] Address: [address] [place] [address] Performed By: #### 2 4323-8 ####[facility] LABCLIA [id number] [address] [place] Anion gap [Moles/Vol] 9 mmol/L Normal 9-18 [facility] Comment on above: Order Comment: Speci men Type: BLOOD SPECIMENOrdering Facility: [facility] Address: [address] [place] [address] Performed By: #### 2 4323-8 ####[facility] LABCLIA [id number] [place] [address] [place] AST [Catalytic activity/Vol] 15 U/L Normal 14-[address] [facility] Comment on above: Order Comment: Speci men Type: BLOOD SPECIMENOrdering Facility: [facility] Address: [address] [place], [place] [address] Performed By: #### 2 4323-8 ####[facility] LABCLIA [id number] [place] [address] [place] Bilirubin [Mass/Vol] 0.6 mg/dL Normal 0.2-1.3 [facility] Comment on above: Order Comment: Speci men Type: BLOOD SPECIMENOrdering Facility: [facility] Address: [address] [place] [address] Performed By: #### 2 4323-8 ####[facility] LABCLIA [id number] [place] [address] [place] Calcium [Mass/Vol] 9.4 mg/dL Normal 8.5-10.2 [facility] Comment on above: Order Comment: Speci men Type: BLOOD SPECIMENOrdering Facility: [facility] Address: [address] [place] [address] Performed By: #### 2 4323-8 ####[facility] LABCLIA [id number] [place] [address] [place] Chloride [Moles/Vol] 106 mmol/L High 97-105 [facility] Comment on above: Order Comment: Speci men Type: BLOOD SPECIMENOrdering Facility: [facility] Address: [address] [place] [address] Performed By: #### 2 4323-8 ####[facility] LABCLIA [id number] [place] [address] [place] CO2 [Moles/Vol] 22 mmol/L Normal 22-[address] [facility] Comment on above: Order Comment: Speci men Type: BLOOD SPECIMENOrdering Facility: [facility] Address: [address] [place] [address] Performed By: #### 2 4323-8 ####[facility] LABCLIA [id number] [place] [address] [place] Creatinine [Mass/Vol] 1.35 mg/dL High 0.73-1.22 [facility] Comment on above: Order Comment: Speci men Type: BLOOD SPECIMENOrdering Facility: [facility] Address: [address] [place] [address] Performed By: #### 2 4323-8 ####[facility] LABIA [id number] [address] ESTIMATED GLOMERULAR FILTRATION RATE 55 mL/min/1.73m??? Low >=[address] [facility] Comment on above: Order Comment: Speci men Type: BLOOD SPECIMENOrdering Facility: [facility] Address: [address] [place] [address] Result Comment: Swati mated Glomerular Filtration Rate [...] actual GFR. Performed By: #### 2 4323-8 ####[facility] LABCLIA [id number] [place] [address] [place] Glucose [Mass/Vol] 143 mg/dL High 74-99 [facility] Comment on above: Order Comment: Speci men Type: BLOOD SPECIMENOrdering Facility: [facility] Address: [address] [place] [address] Result Comment: The [place] Diabetes Association (ADA) provides guidance for cutoff [...] Standards of Medical Care in Diabetes 2016, [place] Diabetes Association. Diabetes Care. 2016.39(Suppl 1). Performed By: #### 2 4323-8 ####[facility] LABCLIA [id number] [place] [address] [place] Potassium [Moles/Vol] 4.3 mmol/L Normal 3.7-5.1 [facility] Comment on above: Order Comment: Speci men Type: BLOOD SPECIMENOrdering Facility: [facility] Address: [address] [place], [place] [address] Performed By: #### 2 4323-8 ####[facility] LABIA [id number] [place] [address] [place] Protein [Mass/Vol] 6.9 g/dL Normal 6.3-8.0 [facility] Comment on above: Order Comment: Speci men Type: BLOOD SPECIMENOrdering Facility: [facility] Address: [address] [place] [address] Performed By: #### 2 4323-8 ####[facility] LABIA [id number] [place] [address] [place] Sodium [Moles/Vol] 137 mmol/L Normal 136-144 [facility] Comment on above: Order Comment: Speci men Type: BLOOD SPECIMENOrdering Facility: [facility] Address: [address] Performed By: #### 2 4323-8 ####[facility] LABCLIA [id number] [address] STATES [facility] Urea nitrogen [Mass/Vol] 13 mg/dL Normal 9-[address] [facility] Comment on above: Order Comment: Speci men Type: BLOOD SPECIMENOrdering Facility: [facility] Address: [address] [place] [address] Performed By: #### 2 4323-8 ####[facility] LABCLIA [id number] [address] [place] OPERATIVE NOon 12-19-2021 OPERATIVE NO HNO ID: [id number] Author: Deep Orozco MD Service: Colorectal Author Type: Physician Type: Operative Report Filed: 12/27/2021 8:52 AM Note Text: [facility] - Operative Report [address] [place] [address] [place] PETER ORR : 1950 AGE: 71. SEX: M PATIENT TYPE: I [facility]P [facility]: [facility] LOCATION: [id number] ATTENDING PHYSICIAN: Deep Orozco M.D. CSN NUMBER: [id number] DATE OF SURGERY/PROCEDURE: 12/19/2021 INCISION/PROCEDURE START TIME: 08:25 a.m. INCISION CLOSE/PROCEDURE END TIME: 11:48 a.m. PREOPERATIVE DIAGNOSIS: Large ascending colon adenoma below hepatic flexure, status post cholecystectomy and obesity. POSTOPERATIVE DIAGNOSIS: Large ascending colon adenoma below hepatic flexure, status post cholecystectomy, obesity, and left inguinal hernia with incarcerated colon. SURGEON: Deep Orozco M.D. LIGHT RAIL TRAIN OPERATOR: Dr. Panfilo Morris. SURGERY/PROCEDURE: Diagnostic laparoscopy, repositioning of incarcerated colon from inguinal hernia, laparoscopic hepatic flexure mobilization, laparoscopic-assiste d right hemicolectomy with high ligation of the [...] and right branch of middle colic vessels. Ujon-yl-hqqd stapled ileocolic anastomosis performed, omentoplasty on top. [...] ending karly (more content not included)... Normal [facility] SURGICAL PATHOLOGYon 022 CASE REPORT Normal [facility] Comment on above: Order Comment: Speci men Type: TISSUE SPECIMENOrdering Facility: [facility] Address: [address] [place], [place] [address] Result Comment: Surg [facility] Pathology Report Case: [id number] Authorizing Provider: Deep Orozco MD Collected: 12/19/2021 10:42 AM Ordering Location: [place] [address] Received: 12/19/2021 01:23 PM Pathologist: Angel Resendez MD Specimen: RIGHT HEMICOLECTOMY, Right sherin colon Performed By: #### S ####[facility] [id number] [address] [place] CLINICAL HISTORY Normal [facility] Comment on above: Order Comment: Speci men Type: TISSUE SPECIMENOrdering Facility: [facility] Address: [address] [place] [address] Result Comment: Pre- op diagnosis: Villous adenoma of colon [D37.4] Performed By: #### S ####[facility] LABIA [id number] [address] [place] DIAGNOSIS COMMENT Multiple additional deeper sections have [...] Harris who agrees with this interpretation. Normal [facility] Comment on above: Order Comment: Speci men Type: TISSUE SPECIMENOrdering Facility: [facility] Address: [address] [place] [address] Performed By: #### S ####[facility] LABCLIA [id number] [address] FINAL DIAGNOSIS Normal [facility] Comment on above: Order Comment: Speci men Type: TISSUE SPECIMENOrdering Facility: [facility] Address: [address] [place] [address] Result Comment: A. T erminal ileum, colon, and appendix, resection: -Two colonic tubular adenomas, measuring 3.3 and 0.3 cm, negative for high-grade dysplasia and carcinoma, see comment. -Background colon, appendix, and terminal ileum with no diagnostic abnormality. -Thirteen lymph nodes with no diagnostic abnormality. -The surgical resection margins are free of dysplasia. Performed By: #### S ####[facility] LABCLIA [id number] [address] FINAL PERFORMING LAB Normal [facility] Comment on above: Order Comment: Speci men Type: TISSUE SPECIMENOrdering Facility: [facility] Address: [address] [place] [address] Result Comment: Diag nostic interpretation performed at [facility], [address] [place] [address] CLIA# [id number] Egg Breaking Machine Operator: Brandon Vega M.D. Performed By: #### S ####[facility] LABCLIA [id number] [facility] [id number] [address] [place] GROSS DESCRIPTION Normal [facility] Comment on above: Order Comment: Speci men Type: TISSUE SPECIMENOrdering Facility: [facility] Address: [address] [place] [address] Result Comment: A. R IGHT HEMICOLECTOMY Received [...] distal margin. No additional polyps are seen. Coiler sections including the entire mass are submitted [...] 12/19/2021 [place] 12/28/2021 Gross examination performed at [facility], [address] [place], [place] [address] CLIA# [id number] Performed By: #### S ####[facility] LABIA [id number] [address] [place] CBC panel Auto (Bld)on 12-16 Erythrocyte distribution width (RBC) [Ratio] 11.9 % Normal 11.5-15.[address] [facility] Comment on above: Order Comment: Speci men Type: BLOOD SPECIMENOrdering Facility: [facility] Address: [address] [place], [place] [address] Performed By: #### 5 8410-2 ####[facility] LABIA [id number] [address] [place] Hematocrit (Bld) [Volume fraction] 46.7 % Normal 39.0-51.[address] [facility] Comment on above: Order Comment: Speci men Type: BLOOD SPECIMENOrdering Facility: [facility] Address: [address] [place], [place] [address] Performed By: #### 5 8410-2 ####[facility] LABIA [id number] [address] [place] Hemoglobin (Bld) [Mass/Vol] 16.0 g/dL Normal 13.0-17.[address] [facility] Comment on above: Order Comment: Speci men Type: BLOOD SPECIMENOrdering Facility: [facility] Address: [address] [place], [place] [address] Performed By: #### 5 8410-2 ####[facility] LABIA [id number] [place] [address] [place] MCH (RBC) [Entitic mass] 33.1 pg Normal 26.0-34.[address] [facility] Comment on above: Order Comment: Speci men Type: BLOOD SPECIMENOrdering Facility: [facility] Address: [address] [place], [place] [address] Performed By: #### 5 8410-2 ####[facility] LABIA [id number] [place] [address] [place] MCHC (RBC) [Mass/Vol] 34.3 g/dL Normal 30.5-36.0 [facility] Comment on above: Order Comment: Speci men Type: BLOOD SPECIMENOrdering Facility: [facility] Address: [address] [place] [address] Performed By: #### 5 8410-2 ####[facility] LABIA [id number] [place] [address] [place] MCV (RBC) [Entitic vol] 96.7 fL Normal 80.0-100.0 [facility] Comment on above: Order Comment: Speci men Type: BLOOD SPECIMENOrdering Facility: [facility] Address: [address] [place] [address] Performed By: #### 5 8410-2 ####[facility] [id number] [address] [place] Nucleated RBC (Bld) [#/Vol] 10*3/uL Normal <0.[address] [facility] Comment on above: Order Comment: Speci men Type: BLOOD SPECIMENOrdering Facility: [facility] Address: [address] [place] [address] Performed By: #### 5 8410-2 ####[facility] [id number] [address] [place] Platelet mean volume (Bld) [Entitic vol] 10.7 fL Normal 9.0-12.[address] [facility] Comment on above: Order Comment: Speci men Type: BLOOD SPECIMENOrdering Facility: [facility] Address: [address] [place], [place] [address] Performed By: #### 5 8410-2 ####[facility] LABIA [id number] [place] [address] [place] Platelets (Bld) [#/Vol] 238 10*3/uL Normal 150-[address] [facility] Comment on above: Order Comment: Speci men Type: BLOOD SPECIMENOrdering Facility: [facility] Address: [address] [place] [address] Performed By: #### 5 8410-2 ####[facility] LABCLIA [id number] [address] [place] RBC (Bld) [#/Vol] 4.83 10*6/uL Normal 4.20-6.00 [facility] Comment on above: Order Comment: Speci men Type: BLOOD SPECIMENOrdering Facility: [facility] Address: [address] [place] [address] Performed By: #### 5 8410-2 ####[facility] LABCLIA [id number] [address] [place] WBC (Bld) [#/Vol] 7.16 10*3/uL Normal 3.70-11.00 [facility] Comment on above: Order Comment: Speci men Type: BLOOD SPECIMENOrdering Facility: [facility] Address: [address] [place] [address] Performed By: #### 5 8410-2 ####[facility] LABCLIA [id number] [place] [address] [place] Erythrocyte distribution width (RBC) [Ratio] 11.9 % 11.5 - 15.0 % [facility] Hematocrit (Bld) [Volume fraction] 46.7 % 39.0 - 51.0 % [facility] Hemoglobin (Bld) [Mass/Vol] 16.0 g/dL 13.0 - 17.0 g/dL [facility] MCH (RBC) [Entitic mass] 33.1 pg 26. 0 - 34.0 pg [facility] MCHC (RBC) [Mass/Vol] 34.3 g/dL 30.5 - 36.0 g/dL [facility] MCV (RBC) [Entitic vol] 96.7 fL 80.0 - 100.0 fL [facility] Nucleated RBC (Bld) [#/Vol] <0.01 k/uL [facility] Platelet mean volume (Bld) [Entitic vol] 10.7 fL 9.0 - 12.7 fL [facility] Platelets (Bld) [#/Vol] 238 10*3/uL 150 - 400 k/uL [facility] RBC (Bld) [#/Vol] 4.83 10*6/uL 4.20 - 6.0 0 m/uL [facility] WBC (Bld) [#/Vol] 7.16 10*3/uL 3.70 - 11. 00 k/uL [facility] CNNURSEon 12-16-2021 CNNURSE Nurse Visit (ISHAN) PETER ORR ([id number]) 1950 M Date Time Provider Department 12/16/21 9:15 AM [facility] CORCAMMYN During your visit today, we recorded the [...] chart review imaging: Get Images tab on Acronis. The purpose of the photo(s) is to optimize the patient's medical care: to allow a visual aid to identify marking sites for ostomy(ostomies), to evaluate and follow the progress of wound(s). Photo was taken of: 12/16/21 Verbal consent was obtained from patient / authorized representation. Time Increment: N/A SUSANNE Meredith RN CWOCN [facility] nursing pager [phone] (M-F 7a-4p, Sat, Sun, Holiday 7a-3p) ET/[facility] NURSING ET OUTCOME: shan and talk for [...] TIME INCREMENT: 1 hour Electronically Signed By KOKI ColemanOCN ET/[facility] Nursing Referring Provider: DEEP OROZCO [[id number]] Allergies As of Date: 12/16/2021 Noted Allergy [...] Encounter Status:Closed by DAPHNIE WESLEY on 12/16/21 [facility] CNOVon 12-16-2021 CNOV Office Visit (ISHAN) PETER ORR ([id number]) 1950 M Date Time Provider Department 12/16/21 [...] >1PPD. Physical Exam: Ht 171.5 cm (5' 7.5) Wt 79.9 kg (176 lb 3.2 oz) [...] with more than 50% of the total qivy-vs-dumk time of the visit in counseling / coordination of care. Deep Orozco MD CORS Risk of morbidity, mortality and/or complications of treatment plan: low Referring Provider: DEEP OROZCO [[id number]] Allergies As of Date: 12/16/2021 Noted Allergy [...] daily as (more content not included)... Normal [facility] CONFIRM BLOOD TYPEon 022 ABO A [facility] Rh Nom (Bld) Positive [facility] ABO A Normal [facility] Comment on above: Order Comment: Speci men Type: BLOOD SPECIMENOrdering Facility: [facility] Address: [address] [place], [place] [address] Performed By: #### C ONABO ####[facility] BLOOD BANKCLIA [id number] [place] [address] [place] [facility] Rh Nom (Bld) Positive Normal [facility] Comment on above: Order Comment: Speci men Type: BLOOD SPECIMENOrdering Facility: [facility] Address: [address] [place], [place] [address] Performed By: #### C ONABO ####[facility] BLOOD BANKCLIA [id number] [address] OF [facility] Comprehensive metabolic 2000 panelon 12-16-2021 Estimated Glomerular Filtration Rate 51 mL/min/1.73m Low >=60 mL/min/1.73m [facility] Albumin [Mass/Vol] 4.7 g/dL 3.9 - 4.9 g/dL [facility] Comment on above: Order Comment: Speci men Type: BLOOD SPECIMENOrdering Facility: [facility] Address: [address] [place] [address] Performed By: #### 2 4323-8 ####[facility] LABCLIA [id number] [place] [address] [place] ALP [Catalytic activity/Vol] 81 U/L 38 - 113 U/L [facility] Comment on above: Order Comment: Speci men Type: BLOOD SPECIMENOrdering Facility: [facility] Address: [address] [place], [place] [address] Performed By: #### 2 4323-8 ####[facility] LABCLIA [id number] [place] [address] [place] ALT [Catalytic activity/Vol] 22 U/L 10 - 54 U/L [facility] Comment on above: Order Comment: Speci men Type: BLOOD SPECIMENOrdering Facility: [facility] Address: [address] [place], [place] [address] Performed By: #### 2 4323-8 ####[facility] LABCLIA [id number] [place] [address] [place] Anion gap [Moles/Vol] 10 mmol/L 9 - 18 mmol/L [facility] Comment on above: Order Comment: Speci men Type: BLOOD SPECIMENOrdering Facility: [facility] Address: [address] [place], [place] [address] Performed By: #### 2 4323-8 ####[facility] LABCLIA [id number] [place] [address] [place] AST [Catalytic activity/Vol] 16 U/L 14 - 40 U/L [facility] Comment on above: Order Comment: Speci men Type: BLOOD SPECIMENOrdering Facility: [facility] Address: [address] [place], [place] [address] Performed By: #### 2 4323-8 ####[facility] LABCLIA [id number] [place] [address] [place] Bilirubin [Mass/Vol] 0.3 mg/dL 0.2 - 1 .3 mg/dL [facility] Comment on above: Order Comment: Speci men Type: BLOOD SPECIMENOrdering Facility: [facility] Address: [address] [place] [address] Performed By: #### 2 4323-8 ####[facility] LABCLIA [id number] [place] [address] [place] Calcium [Mass/Vol] 10.4 mg/dL High 8.5 - 10. 2 mg/dL [facility] Comment on above: Order Comment: Speci men Type: BLOOD SPECIMENOrdering Facility: [facility] Address: [address] [place] [address] Performed By: #### 2 4323-8 ####[facility] LABCLIA [id number] [place] [address] [place] Chloride [Moles/Vol] 103 mmol/L 97 - 10 5 mmol/L [facility] Comment on above: Order Comment: Speci men Type: BLOOD SPECIMENOrdering Facility: [facility] Address: [address] [place] [address] Performed By: #### 2 4323-8 ####[facility] LABCLIA [id number] [place] [address] [place] CO2 [Moles/Vol] 28 mmol/L 22 - 30 mmol/L [facility] Comment on above: Order Comment: Speci men Type: BLOOD SPECIMENOrdering Facility: [facility] Address: [address] [place] [address] Performed By: #### 2 4323-8 ####[facility] LABIA [id number] [place] [address] [place] Creatinine [Mass/Vol] 1.45 mg/dL High 0.73 - 1.22 mg/dL [facility] Comment on above: Order Comment: Speci men Type: BLOOD SPECIMENOrdering Facility: [facility] Address: [address] [place] [address] Performed By: #### 2 4323-8 ####[facility] LABIA [id number] [address] [place] ESTIMATED GLOMERULAR FILTRATION RATE 51 mL/min/1.73m??? Low >=[address] [facility] Comment on above: Order Comment: Speci men Type: BLOOD SPECIMENOrdering Facility: [facility] Address: [address] [place] [address] Result Comment: Swati mated Glomerular Filtration Rate [...] actual GFR. Performed By: #### 2 4323-8 ####[facility] LABCLIA [id number] [address] [address] [place] Glucose [Mass/Vol] 97 mg/dL 74 - 99 mg/dL [facility] Comment on above: Order Comment: Speci men Type: BLOOD SPECIMENOrdering Facility: [facility] Address: [address] [place] [address] Result Comment: The [place] Diabetes Association (ADA) provides guidance for cutoff [...] Standards of Medical Care in Diabetes 2016, [place] [employer] Association. Diabetes Care. 2016.39(Suppl 1). Performed By: #### 2 4323-8 ####[facility] LABCLIA [id number] [address] [address] [place] Potassium [Moles/Vol] 4.7 mmol/L 3.7 - 5.1 mmol/L [facility] Comment on above: Order Comment: Jessicai men Type: BLOOD SPECIMENOrdering Facility: [facility] Address: [address] [place] [address] Performed By: #### 2 4323-8 ####[facility] LABCLIA [id number] [address] [address] [place] Protein [Mass/Vol] 7.5 g/dL 6.3 - 8.0 g/dL [facility] Comment on above: Order Comment: Speci men Type: BLOOD SPECIMENOrdering Facility: [facility] Address: [address] [place] [address] Performed By: #### 2 4323-8 ####[facility] LABIA [id number] [address] [place] Sodium [Moles/Vol] 141 mmol/L 136 - 144 mmol/L [facility] Comment on above: Order Comment: Speci men Type: BLOOD SPECIMENOrdering Facility: [facility] Address: [address] [place] [address] Performed By: #### 2 4323-8 ####[facility] LABCLIA [id number] [place] [address] [place] Urea nitrogen [Mass/Vol] 18 mg/dL 9 - 24 mg/d L [facility] Comment on above: Order Comment: Speci men Type: BLOOD SPECIMENOrdering Facility: [facility] Address: [address] [place] [address] Performed By: #### 2 4323-8 ####[facility] LABIA [id number] [place] [address] [place] ECG COMPLETEon 12-16-2021 ECG COMPLETE Ventricular Rate : 62 BPM Atrial Rate : 62 BPM P-R Interval : 146 ms QRS Duration : 82 ms Q-T Interval : 412 ms QTC Calculation(Bazett) : 418 ms Calculated P Iaeger : 69 degrees Calculated R Iaeger : -5 degrees Calculated T Iaeger : 55 degrees NORMAL SINUS RHYTHM NORMAL ECG Confirmed by TERRA MAHAJAN MD ([id number]) on 12/20/2021 7:45:09 PM NAME : PETER ORR PID : [id number] : 1950 Gender : Male Race : ORD : [id number] Procedure Date : Dec 16 2021 10:41:43 Edit Date : Dec 20 2021 19:45:10 Diagnosis: NORMAL SINUS RHYTHM NORMAL ECG Confirmed by TERRA MAHAJAN MD ([id number]) on 12/20/2021 7:45:09 PM Test Reason : Location : 119 : A17 A-17 Overread By : TERRA MAHAJAN MD Edited By : TERRA MAHAJAN MD Referred By : DEEP OROZCO Acquired by : SHARON MICHELLE [facility] HISTORY PHYSICALon HISTORY PHYSICAL HNO ID: [id number] Author: Bibi Aguilar PA-C Service: ? Author Type: Physician End Finder Forming Department Type: HANDP Filed: 12/16/2021 10:21 AM Note [...] fevers. Neuro: No history of TIA's, stroke, V GROOVE CUTTER tumor, impaired sensorium, hemiplegia, paraplegia or quadraplegia. No neurological symptoms or problems. Respiratory: Negative for Asthma, Bronchitis, COPD, Current cough, Dyspnea, Pneumonia within 6 weeks (date), URI < 2 weeks+smoker Cardiovascular: No history of HTN requiring medication, no history of angina, CHF, MT, cardiac surgery or stents. Denies rest pain, gangrene or revascularization/am putation for PVD. No history of cardiovascular symptoms or problems. GI: No history of GI symptoms or problems. No history of esophageal varices, recent ascites, or ETOH greater than 2 drinks per day. : No history of dysuria, frequency or i (more content not included)... Normal [facility] TYPE AND SCREEN,30 DAYon ABO A [facility] HIstorical Ab Scr Status Negative [facility] Rh Nom (Bld) Positive [facility] ABO A Normal [facility] Comment on above: Order Comment: Speci men Type: BLOOD SPECIMENOrdering Facility: [facility] Address: [address] [place] [address] Performed By: #### T SCR30 ####CC [facility] BLOOD BANKCLIA [id number] [address] HISTORICAL AB SCR STATUS Negative Normal [facility] Comment on above: Order Comment: Speci men Type: BLOOD SPECIMENOrdering Facility: [facility] Address: [address] [place] [address] Performed By: #### T SCR30 ####CC [facility] BLOOD BANKCLIA [id number] [address] Rh Nom (Bld) Positive Normal [facility] Comment on above: Order Comment: Speci men Type: BLOOD SPECIMENOrdering Facility: [facility] Address: [address] [place] [address] Performed By: #### T SCR30 ####CC [facility] BLOOD BANKCLIA [id number] [address] [place] Edenilson 11-30-2021 CNPN [facility] RODNEYPETER ([id number]) 1950 M Date Time Provider Department 11/30/21 POLINA MELÉNDEZ During your visit today, we recorded the following information about you: Polina Meléndez RN 11/30/2021 1:31 PM Signed PRIMARY CARE COORDINATION FOLLOW-UP NOTE Provider Action/FYI Follow up Patient identified by name and date of . YES Spoke to patient Summary: Patient accepts surgery date 12/19 pre op 12/16 Concerns: POC [facility] plan for next outreach: No further follow [...] Encounter Status:Closed by POLINA MELÉNDEZ on 11/30/[address] [facility] Edenilson 11-22-2021 CNPN Telephone (AGUILACAMMYFaye) PETER ORR ([id number]) 1950 M Date Time Provider Department 11/22/21 [...] RN - Fully Assessed Reason for Visit: [facility] - Other [4539] Prescriptions as of 11/22/2021 - peg 3350-Electrolytes [...] Encounter Status:Closed by ALEXANDRA ROBLEDO on 11/22/[address] [facility] ANES POSTPROC EVALon 022 ANES POSTPROC EVAL HNO ID: [id number] Author: Yaneli Dyson MD Service: ? Author [...] 16 10/28/21 1830 SpO2 97 % 10/28/21 183 Post Anesthesia Patient Status Patient Evaluation: PACU. [...] October 28, 2021 TIME: 6:37 PM CSN: [id number] Normal [facility] ANES PRE-OPon 10-28-2021 ANES PRE-OP HNO ID: [id number] Author: Yaneli Dyson MD Service: ? Author [...] as of this encounter: 170.2 cm (5' 7). Weight as of this encounter: 81.6 kg (180 lb). Most recent hematocrit and potassium results: No results found for this basename: HCT,HEMATOCRIT,K,POT ASSIUM Relevant Problems CARDIO (+) Unspecified hemorrhoids without [...] and consent discussed: yes. Patient / Responsible Alliance Party agrees to proceed: yes Patient / [...] needed (Patient not taking: Take one(1) tablet daily.asANDnbsp;ANDn bsp;needed) Facility-Administere d Medications as of 10/28/2021 Medication Dose Route [...] October 28, 2021 TIME: 5:19 PM CSN: [id number] Normal [facility] COLONOSCOPY (THERAPEUTIC)on 10-28-2021 [facility] Colonoscopyon 10-28-2021 Colonoscopy Q3 Patient Name: Peter [...] pathology results. Procedure Code(s): --- Professional --- 90194, Colonoscopy, flexible; with removal of tumor(s), polyp(s), or other lesion(s) by snare technique 88117, Colonoscopy, flexible; with directed submucosal injection(s), any substance Diagnosis Code(s): --- Professional --- K63.5, Polyp of colon Z86.010, Personal history of colonic polyps CPT copyright 2019 [employer]. All rights reserved. Attending Participation: I personally performed the entire procedure. Scope In: 5:38:36 PM Scope Out: 5:53:10 PM MD Jason Foster MD 10/28/2021 6:02:09 PM This report has been signed electronically by Jason Santos MD Number of Addenda: 0 Note Initiated On: 10/28/2021 5:25 PM Normal [facility] NURSING PROGon 10-28-2021 NURSING PROG HNO ID: [id number] Author: Bibi Diaz RN Service: Nursing Author [...] Signed By: Bibi Diaz RN BSN Normal [facility] NURSING PROG HNO ID: [id number] Author: Stephanie Guan RN Service: Nursing Author [...] Stephanie Guan RN In Department: GASTROENTEROLOGY Normal [facility] SURGICAL PATHOLOGYon 022 CASE REPORT Normal [facility] Comment on above: Order Comment: Speci men Type: TISSUE SPECIMENOrdering Facility: [facility] Address: [address] [place] [address] Result Comment: Surg ica Pathology Report Case: [id number] Authorizing Provider: Jason Santos MD Collected: 10/28/2021 05:50 PM Ordering Location: Gastroenterology Received: 10/28/2021 09:37 PM Pathologist: Kyler Navarro MD Specimen: CECUM POLYP, R/O Adenoma Performed By: #### S ####[facility] LABCLIA [id number] [address] FINAL DIAGNOSIS Normal [facility] Comment on above: Order Comment: Speci men Type: TISSUE SPECIMENOrdering Facility: [facility] Address: [address] [place] [address] Result Comment: A. C ecum, polyp, biopsy: Tubular adenoma Performed By: #### S ####[facility] LABCLIA [id number] [address] FINAL PERFORMING LAB Normal [facility] Comment on above: Order Comment: Speci men Type: TISSUE SPECIMENOrdering Facility: [facility] Address: [address] [place] [address] Result Comment: Diag nostic interpretation performed at [facility], [address] [place] [address] CLIA# [id number] Egg Breaking Machine Operator: Brandon Vega M.D. Performed By: #### S ####[facility] LABCLIA [id number] [address] GROSS DESCRIPTION A. CECUM POLYP. Normal [facility] Comment on above: Order Comment: Speci men Type: TISSUE SPECIMENOrdering Facility: [facility] Address: [address] [place] [address] Result Comment: Rece ived in formalin is [...] in cassette A2. Gross examination performed at [facility], [address] [place] [address] JT 10/28/2021 11:22 PM Performed By: #### S ####[facility] LABCLIA [id number] [facility] [id number] [id number] [facility] CNPLacy 10-27-2021 CNPN Telephone (GASTRENÉE) PETER ORR ([id number]) 1950 M Date Time Provider Department 10/27/21 JASON SANTOS [facility] During your visit today, we recorded the following information about you: Jonathaninna Amalia 10/27/2021 9:23 AM Signed Patient's called asking [...] Date Reviewed: 11/12/2012 Reviewed by: Raeann Mccoy Cma - Fully Assessed Reason for Visit: Patient Question [1107] Prescriptions as of 10/27/2021 - peg 3350-Electrolytes [...] Encounter Status:Closed by AUDRA KAN [facility] Telephone (GASTID) PETER ORR ([id number]) 1950 M Date Time Provider Department 10/21/21 CHRISTINA DHALIWAL GASTBANG During your visit today, we recorded the following information about you: Christina Dhaliwal RN 10/21/2021 2:27 PM Signed Attempted to reach the patient at the contact number that they provided [phone] (home) . 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 they must have a responsible adult [...] Number to call with questions or concerns [phone] Number to call to cancel their procedure [phone] Christina Dhaliwal RN Allergies As of Date: 10/21/2021 Noted Allergy Reaction PENICILLINS 02/28/2005 4 - Hives petroleum products [Other] 02/28/2005 2 - Rash soaps [Other] 02/28/2005 2 - Rash Date Reviewed: 11/12/2012 Reviewed by: Raeann Mccoy [facility] - Fully Assessed Reason for Visit: Appointment Confirmation [5881] Prescriptions as of 10/21/2021 - peg 3350-Electrolytes [...] Encounter Status:Closed by CHRISTINA DHALIWAL on 10/21/21 [facility] CNOVon 09-16-2021 CNOV Office Visit (CORSMFaye) PETER ORR ([id number]) 1950 M Date Time Provider Department 09/16/21 [...] be tattooed. He was therefore referred to [facility] for further treatment of his [...] tablet daily.as needed) otc 0 No current facility-administere d medications for this visit. ALLERGIES Allergen Reactions [...] (98 ?F) (more content not included)... Normal [facility] HISTORY PHYSICALon 2 HISTORY PHYSICAL HNO ID: [id number] Author: Deep Orozco MD Service: ? Author [...] be tattooed. He was therefore referred to [facility] for further treatment of his [...] tablet daily.as needed) otc 0 No current facility-administere d medications for this visit. ALLERGIES Allergen Reactions [...] ?F) Resp 17 Ht 170.2 cm (5' 7.01) Wt 79.8 kg (176 lb) SpO2 98% BMI 27.56 kg/m? General Appearance: Well appearing, alert, in no acute distress, well-hydrated, well nourished. Lungs: Lungs clear to auscultation. No wheezing, rhonchi, rales. Unlabored on room air Heart: RRR without murmur, gallop, or (more content not included)... Normal [facility] Basophil percentageon 2021 Creatinine [Mass/Vol] 1.6 mg/dL 0.70-1.30 [facility]: Laboratory - Chemistry and C hemistry - challengeon 07-14-2021 GFR/1.73 sq M.predicted among non-blacks MDRD (S/P/Bld) [Vol rate/Area] 45.0000 mL/min/{1.73_m2} >60 [facility] Work Phone: Basophil percentageon 2021 Chloride [Moles/Vol] 106 mmol/L 98-107 [facility] Work [facility]: Cholesterol [Mass/Vol] 202 mg/dL <200 [facility] Work Phone: Comment on above: <200 mg/dL Desirable 200-240 mg/dL Borderline >240 mg/dL High Risk Glucose [Mass/Vol] 113 mg/dL 74-106 [facility] Work Phone: Comment on above: Fasting Glucose resu lt from 100 to 125 mg/dL suggests IMPAIRED HOMEOSTASIS per A.D.A. criteria. Potassium [Moles/Vol] 4.3 mmol/L 3.5-5.1 [facility] Work Phone: Sodium [Moles/Vol] 139 mmol/L 136-145 [facility] Work Phone: Triglyceride [Mass/Vol] 254 mg/dL [facility] Work Phone: Comment on above: The drugs N-Acetylcy steine and Metamizole may falsely depress this assay.Serum Triglycerides Reference Interval Normal <150 mg/dL Borderline high 150 - 199 mg/dL High 200 - 499 mg/dL Very High > or = 500 mg/dL Laboratory - Chemistry and C hemistry - challengeon 06-14-2021 CO2 [Moles/Vol] 29.0 mmol/L 21.0-32.0 [facility] Work Phone: Urea nitrogen/Creatinine [Mass ratio] 11.2 mg/mg 10-20 [facility] Work Phone: No Panel Informationon 06-14 Estimated GFR (MDRD) Amer 67 mL/min >60 [facility] [facility] Work Phone: Comment on above: GFR Calc Estimated GFR (MDRD) Non-Af Amer 56 mL/min >60 [facility] Work Phone: Comment on above: Non- GFR Calc Prostate Specific Antigen Screen 1.27 ng/mL 0.00-4.00 [facility] Work Phone: Comment on above: This test was perfor med using the TPSA assay method for the[employer] chemistry system. Values obtained with differentassay methods cannot be used interchangably.When changing PSA assays in the course of monitoring apatient, additional sequential testing should be carriedout to confirm baseline values. Serum or plasma calcium keena urement (mass/volume)on 06-14-2021 Calcium [Mass/Vol] 9.6 mg/dL 8.5-10.1 [facility] Work Phone: Serum or plasma cholesterol in HDL measurement (mass/volume)on 06-14-2021 Cholesterol in HDL [Mass/Vol] 35 mg/dL [facility] Work Phone: Comment on above: The drugs N-Acetylcy steine and Metamizole may falsely depress this assay. Reference Range HDL <40 mg/dL Low HDL Cholesterol HDL >or= 60 mg/dL High HDL Cholesterol Serum or plasma cholesterol in VLDL measurement (mass/volume)on 06-14-2021 Cholesterol in VLDL [Mass/Vol] 51 mg/dL 5-40 [facility] Work Phone: Serum or plasma creatinine m easurement (mass/volume)on 06-14-2021 Creatinine [Mass/Vol] 1.34 mg/dL 0.70-1.30 [facility] Work Phone: Comment on above: The validity of the calculated GFR & GFRAA in patients over 70 years has not been determined. Clinical correlation is essential. Serum or plasma low density lipoprotein (LDL) cholesterol measurement (mass/volume)on 06-14-2021 Cholesterol in LDL [Mass/Vol] 116 mg/dL 0-130 [facility] Work Phone: Serum or plasma urea nitroge n measurement (mass/volume)on 06-14-2021 Urea nitrogen [Mass/Vol] 15 mg/dL 7-18 [facility] Work Phone: Thin prep Papanicolaou smear with manual screeningon 06-14-2021 Thin prep Papanicolaou smear with manual screening 4 5-15 [facility] Work Phone: COVID-19 virus antigen assay SARS-CoV-2 (COVID-19) Ag IA.rapid Ql (Resp) [facility] Work Phone: Laboratory - Microbiology an d Antimicrobial susceptibility Respiratory pathogens DNA and RNA 12b panel DELL+probe (Unsp spec) [facility] Work Phone: Urine Legionella pneumophila antigen detection L. pneumophila Ag Ql (U) [facility] Work Phone: Vital Signs Date Time Vital Sign Value Performing Clinician Facility 01-01-2023 13:32-0400 Body height 170.[address] Eliza Jacobs Work Phone: [facility] 01-01-2023 13:32-0400 Body mass index (BMI) [Ratio] 28 kg/m2 Dr. Eliza Jacobs Work Phone: [facility] 01-01-2023 13:32-0400 Body weight 81.[address] Eliza Jacobs Work Phone: [facility] 01-01-2023 13:32-0400 Diastolic blood pressure 70 mm[Hg] Dr. Eliza Jacobs Work Phone: [facility] 01-01-2023 13:32-0400 Heart rate 51 /min Dr. Eliza Jacobs Work Phone: [facility] 01-01-2023 13:32-0400 Respiratory rate 16 /min Dr. Eliza Jacobs Work Phone: [facility] 01-01-2023 13:32-0400 Systolic blood pressure 112 mm[Hg] Dr. Eliza Jacobs Work Phone: [facility] 08-14-2022 13:39-0400 Body temperature 97 [degF] Dr. Eliza Jacobs Work Phone: [facility] 08-14-2022 13:39-0400 Diastolic blood pressure 56 mm[Hg] Dr. Eliza Jacobs Work Phone: [facility] 08-14-2022 13:39-0400 Heart rate 48 /min Dr. Eliza Jacobs Work Phone: [facility] 08-14-2022 13:39-0400 Respiratory rate 16 /min Dr. Eliza Jacobs Work Phone: [facility] 08-14-2022 13:39-0400 SaO2% (BldA) [Mass fraction] 100 % Dr. Eliza Jacobs Work Phone: [facility] 08-14-2022 13:39-0400 Systolic blood pressure 119 mm[Hg] Dr. Eliza Jacobs Work Phone: [facility] 08-14-2022 11:03-0400 Body height 170.[address] Eliza Jacobs Work Phone: [facility] 08-14-2022 11:03-0400 Body mass index (BMI) [Ratio] 27.6 kg/m2 Dr. Eliza Jacobs Work Phone: [facility] 08-14-2022 11:03-0400 Body weight 79.[address] Eliza Jacobs Work Phone: [facility] 07-31-2022 09:07-0400 Body height 170.[address] Eliza Jacobs Work Phone: [facility] 07-31-2022 09:07-0400 Body mass index (BMI) [Ratio] 27.7 kg/m2 Dr. Eliza Jacobs Work Phone: [facility] 07-31-2022 09:07-0400 Body temperature 97.1 [degF] Dr. Eliza Jacobs Work Phone: [facility] 07-31-2022 09:07-0400 Body weight 80.[address] Eliza Jacobs Work Phone: [facility] 07-31-2022 09:07-0400 Diastolic blood pressure 68 mm[Hg] Dr. Eliza Jacobs Work Phone: [facility] 07-31-2022 09:07-0400 Heart rate 59 /min Dr. Eliza Jacobs Work Phone: [facility] 07-31-2022 09:07-0400 Respiratory rate 18 /min Dr. Eliza Jacobs Work Phone: [facility] 07-31-2022 09:07-0400 SaO2% (BldA) [Mass fraction] 99 % Dr. Eliza Jacobs Work Phone: [facility] 07-31-2022 09:07-0400 Systolic blood pressure 112 mm[Hg] Dr. Eliza Jacobs Work Phone: [facility] 07-18-2022 13:03-0400 Body mass index (BMI) [Ratio] 27.6 kg/m2 Dr. Eliza Jacobs Work Phone: [facility] 07-18-2022 13:03-0400 Body weight 79.[address] Eliza Jacobs Work Phone: [facility] 07-18-2022 13:03-0400 Diastolic blood pressure 71 mm[Hg] Dr. Eliza Jacobs Work Phone: [phone] [place] [address] 07-18-2022 13:03-0400 Heart rate 53 /min Dr. Eliza Jacobs Work Phone: [facility] 07-18-2022 13:03-0400 Respiratory rate 18 /min Dr. Eliza Jacobs Work Phone: [facility] 07-18-2022 13:03-0400 SaO2% (BldA) [Mass fraction] 98 % Dr. Eliza Jacobs Work Phone: [facility] 07-18-2022 13:03-0400 Systolic blood pressure 134 mm[Hg] Dr. Eliza Jacobs Work Phone: [facility] 05-30-2022 13:23-0500 Body height 170.[address] Eliza Jacobs Work Phone: [facility] 05-30-2022 13:23-0500 Body mass index (BMI) [Ratio] 25.7 kg/m2 Dr. Eliza Jacobs Work Phone: [facility] 05-30-2022 13:23-0500 Body weight 74.[address] Eliza Jacobs Work Phone: [facility] 05-30-2022 13:23-0500 Diastolic blood pressure 68 mm[Hg] Dr. Eliza Jacobs Work Phone: [facility] 05-30-2022 13:23-0500 Heart rate 49 /min Dr. Eliza Jacobs Work Phone: [facility] 05-30-2022 13:23-0500 Respiratory rate 18 /min Dr. Eliza Jacobs Work Phone: [facility] 05-30-2022 13:23-0500 SaO2% (BldA) [Mass fraction] 96 % Dr. Eliza Jacobs Work Phone: [facility] 05-30-2022 13:23-0500 Systolic blood pressure 134 mm[Hg] Dr. Eliza Jacobs Work Phone: [phone] [place] [address] 05-10-2022 13:26-0500 Body temperature 97.9 [degF] Dr. Eliza Jacobs Work Phone: [facility] 05-10-2022 13:26-0500 Diastolic blood pressure 66 mm[Hg] Dr. Eliza Jacobs Work Phone: [facility] 05-10-2022 13:26-0500 Heart rate 46 /min Dr. Eliza Jacobs Work Phone: [facility] 05-10-2022 13:26-0500 Respiratory rate 16 /min Dr. Eliza Jacobs Work Phone: [facility] 05-10-2022 13:26-0500 Systolic blood pressure 151 mm[Hg] Dr. Eliza Jacobs Work Phone: [facility] 05-10-2022 12:36-0500 SaO2% (BldA) [Mass fraction] 100 % Dr. Eliza Jacobs Work Phone: [facility] 05-10-2022 08:51-0500 Body height 170.[address] Eliza Jacobs Work Phone: [facility] 05-10-2022 08:51-0500 Body mass index (BMI) [Ratio] 26.9 kg/m2 Dr. Eliza Jacobs Work Phone: [facility] 05-10-2022 08:51-0500 Body weight 78.[address] Eliza Jacobs Work Phone: [facility] 05-03-2022 09:31-0500 Heart rate 65 /min Dr. Eliza Jacobs Work Phone: [facility] 05-03-2022 09:00-0500 Body temperature 97.5 [degF] Dr. Eliza Jacobs Work Phone: [facility] 05-03-2022 09:00-0500 Diastolic blood pressure 61 mm[Hg] Dr. Eliza Jacobs Work Phone: [facility] 05-03-2022 09:00-0500 Respiratory rate 16 /min Dr. Eliza Jacobs Work Phone: [facility] 05-03-2022 09:00-0500 SaO2% (BldA) [Mass fraction] 95 % Dr. Eliza Jacobs Work Phone: [facility] 05-03-2022 09:00-0500 Systolic blood pressure 112 mm[Hg] Dr. Eliza Jacobs Work Phone: [facility] 05-02-2022 05:40-0500 Body weight 74.[address] Eliza Jacobs Work Phone: [facility] 05-01-2022 11:06-0500 Body height 171.[address] Eliza Jacobs Work Phone: [facility] Work Phone: 04-28-2022 14:18-0500 Inhaled oxygen flow rate 2 L/min Dr. Eliza Jacobs Work Phone: [facility] 04-28-2022 07:00-0500 Inhaled oxygen concentration 38 % Dr. Eliza Jacobs Work Phone: [facility] 04-27-2022 00:45-0500 Body mass index (BMI) [Ratio] 26.1 kg/m2 Dr. Eliza Jacobs Work Phone: [facility] 04-26-2022 23:59-0500 Body temperature 98.4 [degF] [facility] Work Phone: 04-26-2022 23:59-0500 Diastolic blood pressure 66 mm[Hg] [facility] Work Phone: 04-26-2022 23:59-0500 Heart rate 146 /min [facility] Work Phone: 04-26-2022 23:59-0500 Respiratory rate 27 /min [facility] Work Phone: 04-26-2022 23:59-0500 SaO2% (BldA) [Mass fraction] 99 % [facility] Work Phone: 04-26-2022 23:59-0500 Systolic blood pressure 131 mm[Hg] [facility] Work Phone: 04-26-2022 19:12-0500 Body height 170.18 cm [facility] Work Phone: 04-26-2022 19:12-0500 Body mass index (BMI) [Ratio] 27.1 kg/m2 [facility] Work Phone: 04-26-2022 19:12-0500 Body weight 78.47 kg [facility] Work Phone: 12-16-2021 09:54-0400 Body height 171.5 cm [facility] Work Phone: [facility] 12-16-2021 09:54-0400 Body temperature 96.91 [degF] [facility] Work Phone: [facility] 12-16-2021 09:54-0400 Body weight 80.11 kg [facility] Work Phone: [facility] 12-16-2021 09:54-0400 Diastolic blood pressure 75 mm[Hg] [facility] Work Phone: [facility] 12-16-2021 09:54-0400 Heart rate 74 /min [facility] Work Phone: [facility] 12-16-2021 09:54-0400 SaO2% (BldA) [Mass fraction] 98 % [facility] Work Phone: [facility] 12-16-2021 09:54-0400 Systolic blood pressure 143 mm[Hg] [facility] Work Phone: [facility] 12-16-2021 08:46-0400 Body height 171.5 cm Deep Orozco MD Work Phone: [facility] 12-16-2021 08:46-0400 Body weight 79.92 kg Deep Orozco MD Work Phone: [facility] 10-28-2021 18:30-0400 Diastolic blood pressure 82 mm[Hg] Jason Santos MD Work Phone: [facility] 10-28-2021 18:30-0400 Heart rate 67 /min Jason Santos MD Work Phone: [facility] 10-28-2021 18:30-0400 Respiratory rate 16 /min Jason Santos MD Work Phone: [facility] 10-28-2021 18:30-0400 SaO2% (BldA) [Mass fraction] 97 % Jason Santos MD Work Phone: [facility] 10-28-2021 18:30-0400 Systolic blood pressure 153 mm[Hg] Jason Santos MD Work Phone: [facility] 10-28-2021 18:03-0400 Body temperature 97.5 [degF] Jason Santos MD Work Phone: [facility] 10-28-2021 15:38-0400 Body height 170.2 cm Jason Santos MD Work Phone: [facility] 10-28-2021 15:38-0400 Body weight 81.65 kg Jason Santos MD Work Phone: [facility] Encounters Encounter Date Encounter Type Care Provider Facility Start: 10-16-2024 ambulatory Eliza S Jolliff Facility: [facility] Start: 08-06-2024 End: 08-06-2024 ambulatory Eliza S Jolliff Facility:[facility] Start: 07-07-2024 End: 07-07-[address] Eliza Jacobs MD Work Phone: [facility] Work Phone: Start: 07-07-2024 End: 07-07-[address] Eliza Jacobs MD -Laboratory, [facility] Start: 07-07-2024 End: 07-07-2024 ambulatory Eliza S Jolliff Facility:[facility] Start: 03-14-2024 End: 03-14-2024 ambulatory Trever Steven Facility:[facility] Start: 02-25-2024 ambulatory Eliza S Jolliff Facility: [facility] Start: 02-19-2024 End: 02-19-2024 ambulatory Eliza S Jolliff Facility:[facility] Start: 02-19-2024 End: 02-19-2024 ambulatory Eliza S Jolliff Facility:[facility] Start: 01-28-2024 End: 01-28-2024 ambulatory Eliza S Jolliff Facility:[facility] Start: 10-17-2023 End: 10-17-2023 ambulatory Nisha Cruz Facility:[facility] Start: 10-03-2023 ambulatory Eliza S Jolliff Facility: [facility] Start: 09-13-2023 ambulatory Eliza S Jolliff Facility: [facility] Start: 06-29-2023 End: 06-29-2023 ambulatory [facility] Work Phone: Start: 06-29-2023 End: 06-29-2023 Patient encounter procedure [facility] Work Phone: Start: 05-25-2023 End: 05-25-2023 ambulatory [facility] Work Phone: Start: 05-25-2023 End: 05-25-2023 Patient encounter procedure [facility] Work Phone: Start: 05-22-2023 End: 05-22-2023 ambulatory [facility] Work Phone: Start: 05-22-2023 End: 05-22-2023 [facility] Start: 03-27-2023 End: 03-27-[address] Eliza Jacobs Work Phone: [facility] Work Phone: Start: 03-27-2023 End: 03-27-[address] Eliza Jacobs Work Phone: [facility] Start: 02-13-2023 End: 02-13-2023 ambulatory [facility] Facility:[facility] Start: 01-22-2023 End: 01-22-[address] Eliza Jacobs Work Phone: [facility] Start: 01-08-2023 End: 01-08-[address] Eliza Jacobs Work Phone: [facility] Start: 01-01-2023 End: 01-01-[address] Eliza Jacobs Work Phone: [facility] Work Phone: Start: 01-01-2023 End: 01-01-[address] Eliza Jacobs Work Phone: [facility] Work Phone: Start: 12-23-2022 Non-patient / Non-visit Dr. Geoffrey Jacobs Work Phone: [facility] Start: 12-22-2022 End: 12-22-[address] Eliza Jacobs Work Phone: [facility] Work Phone: Start: 12-22-2022 End: 12-22-[address] Eliza Jacobs Work Phone: [facility]/Neurology Work Phone: Start: 12-14-2022 End: 12-14-[address] Eliza Jacobs Work Phone: [facility] Work Phone: Start: 12-14-2022 End: 12-14-[address] Eliza Jacobs Work Phone: [facility] Work Phone: Start: 09-21-2022 Non-patient / Non-visit Dr. Geoffrey Jacobs Work Phone: [facility] Work Phone: Start: 09-19-2022 Non-patient / Non-visit Dr. Geoffrey Jacobs Work Phone: [facility] Start: 09-19-2022 End: 09-19-[address] Eliza Jacobs Work Phone: [facility] Work Phone: Start: 08-14-2022 Non-patient / Non-visit Dr. Geoffrey Jacobs Work Phone: [facility] Start: 08-14-2022 End: 08-14-2022 Admission to same day surgery center Dr. Eliza Jacobs Work Phone: [facility] Start: 08-14-2022 End: 08-14-[address] Eliza Jacobs Work Phone: [facility] Work Phone: Start: 07-31-2022 End: 07-31-[address] Eliza Jacobs Work Phone: [facility] Start: 07-26-2022 End: 07-26-[address] Eliza Jacobs Work Phone: [facility] Work Phone: Start: 07-26-2022 End: 07-26-[address] Eliza Jacobs Work Phone: [facility] Start: 07-18-2022 End: 07-18-[address] Eliza Jacobs Work Phone: [facility] Start: 06-14-2022 Non-patient / Non-visit Dr. Geoffrey Jacobs Work Phone: [facility] Start: 06-13-2022 Non-patient / Non-visit Dr. Geoffrey Jacobs Work Phone: [facility] Start: 06-13-2022 End: 06-13-[address] Eliza Jacobs Work Phone: [facility] Work Phone: Start: 06-13-2022 End: 06-13-[address] Eliza Jacobs Work Phone: [facility] Start: 05-30-2022 End: 05-30-[address] Eliza Jacobs Work Phone: [facility] Start: 05-23-2022 End: 05-23-[address] Eliza Jacobs Work Phone: [facility] Work Phone: Start: 05-23-2022 End: 05-23-[address] Eliza Jacobs Work Phone: [facility] Start: 05-19-2022 End: 05-19-[address] DONNY VILLAGOMEZ MD. Facility:[facility] Start: 05-16-2022 End: 05-16-[address] Eliza Jacobs Work Phone: [facility] Start: 05-16-2022 End: 05-16-[address] Eliza Jacobs Work Phone: [facility] Work Phone: Start: 05-16-2022 End: 05-16-[address] Eliza Jacobs Work Phone: [facility] Start: 05-10-2022 End: 05-10-[address] Eliza Jacobs Work Phone: [facility] Work Phone: Start: 05-10-2022 End: 05-10-[address] [facility] Start: 05-09-2022 End: 05-09-[address] Eliza Jacobs Work Phone: [facility] Work Phone: Start: 05-09-2022 End: 05-09-[address] Eliza Jacobs Work Phone: [facility] Start: 05-05-2022 End: 05-05-[address] Eliza Jacobs Work Phone: [facility] Work Phone: Start: 05-05-2022 End: 05-05-[address] Eliza Jacobs Work Phone: [facility] Start: 05-03-2022 Non-patient / Non-visit Dr. Geoffrey Jacobs Work Phone: [facility] Start: 05-03-2022 Non-patient / Non-visit Dr. Geoffrey Jacobs Work Phone: [facility] Start: 05-02-2022 Non-patient / Non-visit Dr. Geoffrey Jacobs Work Phone: [facility] Start: 05-02-2022 Non-patient / Non-visit Dr. Geoffrey Jacobs Work Phone: [facility] Start: 05-02-2022 Non-patient / Non-visit Dr. Geoffrey Jacobs Work Phone: [facility] Start: 05-01-2022 Non-patient / Non-visit Dr. Geoffrey Jacobs Work Phone: [facility] Start: 05-01-2022 Non-patient / Non-visit Dr. Geoffrey Jacobs Work Phone: [facility] Start: 04-30-2022 Non-patient / Non-visit Dr. Geoffrey Jacobs Work Phone: [facility] Start: 04-30-2022 Non-patient / Non-visit Dr. Geoffrey Jacobs Work Phone: [facility] Start: 04-29-2022 Non-patient / Non-visit Dr. Geoffrey Jacobs Work Phone: [facility] Start: 04-29-2022 Non-patient / Non-visit Dr. Geoffrey Jacobs Work Phone: [facility] Start: 04-29-2022 Non-patient / Non-visit Dr. Geoffrey Jacobs Work Phone: [facility] Start: 04-28-2022 Non-patient / Non-visit Dr. Geoffrey Jacobs Work Phone: [facility] Start: 04-28-2022 Non-patient / Non-visit Dr. Geoffrey Jacobs Work Phone: [facility] Start: 04-28-2022 Non-patient / Non-visit Dr. Geoffrey Jacobs Work Phone: [facility] Start: 04-28-2022 Non-patient / Non-visit Dr. Geoffrey Jacobs Work Phone: [facility] Start: 04-27-2022 Non-patient / Non-visit Dr. Geoffrey Jacobs Work Phone: [facility] Start: 04-27-2022 Non-patient / Non-visit Dr. Geoffrey Jacobs Work Phone: [facility] Start: 04-27-2022 Non-patient / Non-visit Dr. Geoffrey Jacobs Work Phone: [facility] Start: 04-26-2022 Non-patient / Non-visit Dr. Geoffrey Jacobs Work Phone: [facility] Start: 04-26-2022 End: 05-03-2022 Evaluation and management of inpatient [facility]Progressive Care Unit Start: 04-26-2022 End: 04-26-[address] Eliza Jacobs Work Phone: [facility] Work Phone: Start: 04-26-2022 End: 04-26-2022 Patient encounter procedure [facility] Start: 01-17-2022 End: 01-17-2022 ambulatory Cheryl Wilkins APRN.CNP Work Phone: Colorectal Surgery Comment on above: Postoperative state (Primary Dx) Start: 01-17-2022 End: 01-17-2022 Telemedicine consultation with patient Cheryl Wilkins APRN.CNP Work Phone: [facility] Start: 12-16-2021 End: 12-16-2021 Admission to establishment Pacc Main 4 Work Phone: [facility] Start: 12-16-2021 End: 12-16-2021 Preprocedural examination [...] flexure (Primary Dx) Start: 11-30-2021 Telephone encounter Ploina Meléndez RN Colorectal Surgery Comment on above: Care Coordination Start: 11-25-2021 ambulatory Deep pickard MD Work Phone: Colorectal Surgery Start: 11-22-2021 Telephone encounter Alexandra Mckinney Colorectal Surgery Comment on above: [facility] Start: 11-15-2021 End: 11-15-2021 ambulatory Deep Orozco MD Work Phone: Colorectal Surgery Comment on above: Villous adenoma of r ight colon (Primary Dx) Start: 11-15-2021 End: 11-15-2021 Telemedicine consultation with patient Deep Orozco MD Work Phone: [facility] Start: 10-28-2021 End: 10-28-2021 Subsequent hospital visit by physician Jason Santos MD Work Phone: Gastroenterology Comment on above: Personal history of colonic polyps [Z86.010] Start: 10-27-2021 Telephone encounter Jason kidd MD Work Phone: Gastroenterology Comment on above: Patient Question Start: 10-21-2021 Telephone encounter Christina Dhaliwal RNcut off operator scorer Comment on above: Appointment Confirma tion Start: 09-29-2021 Telephone encounter Jason kidd MD Work Phone: Gastroenterology Comment on above: Orders Start: 07-14-2021 End: 07-14-2021 Patient encounter procedure [facility]Cat Scan, [facility] Start: 06-14-2021 End: 06-14-2021 Patient encounter procedure [facility]-Laboratory, [facility] Procedures Date Procedure Procedure Detail Performing Clinician Start: 05-25-2023 US urinary tract Start: 12-14-2022 Plain chest X-ray Dr. Tabby SigalaDemibooks Work Phone: Start: 08-14-[address] Geoffrey Jacobs Work Phone: Start: 06-13-2022 Cardiovascular stres s test using pharmacologic stress agent Dr. Eliza Jacobs Work Phone: Start: 04-27-2022 Plain chest X-ray Dr. Tabby dobbs Dig[place] Work Phone: Start: 04-27-2022 Plain chest X-ray Dr. Tabby dobbs [place] Work Phone: Start: 04-26-2022 Plain chest X-ray Start: 04-26-2022 Plain chest X-ray Start: 12-16-2021 Antibody screen Deep Orozco MD Work Phone: Start: 12-16-2021 Antibody screen Comment on above: Order Comment: Speci men Type: BLOOD SPECIMENOrdering Facility: [facility] Address: [address] [place] [address] Performed By: #### T [id number] ####CC MAIN BLOOD BANKCLIA [id number] [address] [place] Start: 10-28-2021 Colonoscopy flx dx w /collj spec when pfrmd Deep Orozco MD Work Phone: Start: 10-28-2021 Colonoscopy Jason kidd MD Work Phone: Start: 07-14-2021 Computed tomography of abdomen and pelvis with contrast Start: 11-12-2012 Colonoscopy Jason kidd MD Work Phone: Legionella pneumophi la antigen assay Dr. Eliza Jacobs Work Phone: Legionella pneumophi la antigen assay Dr. Eliza Jacobs Work Phone: Respiratory Panel (PCR) Dr. Eliza Jacobs Work Phone: Respiratory Panel (PCR) Dr. Eliza Jacobs Work Phone: Viral antigen assay Dr. Eliza Jacobs Work Phone: Viral antigen assay Dr. Eliza Jacobs Work Phone: Plan of Treatment Date Care Activity Detail Author Start: 10-28-2026 Colonoscopy COLONOSCOPY [facility] Start: 10-28-2026 COLORECTAL CANCER SCREENING COLORECTAL CANCER SCREENING [facility] Start: 12-20-2024 DIABETES SCREEN DIABETES SCREEN [facility] Start: 12-16-2024 DIABETES SCREEN DIABETES SCREEN [facility] Start: 05-25-2023 US urinary tract Kidney and Bladder [facility] Start: 01-01-2023 Patient referral [facility] Work Phone: Start: 08-14-2022 Patient discharge [facility] Start: 08-14-2022 [facility] Start: 05-10-2022 Administration of bl ood product [facility] Start: 05-10-2022 [facility] Start: 05-04-2022 Blood chemistry [facility] Work Phone: Start: 05-03-2022 Patient discharge [facility] Start: 05-03-2022 Blood chemistry [facility] Work Phone: Start: 05-02-2022 Chart related administrative procedure [facility] Start: 04-30-2022 Care planning and pr oblem solving actions [facility] Start: 04-30-2022 Inhalation therapy procedure [facility] Start: 04-30-2022 [facility] Start: 04-29-2022 Care planning and pr oblem solving actions [facility] Start: 04-29-2022 [facility] Start: 04-28-2022 Referral to occupati onal therapist [facility] Start: 04-28-2022 Referral to service [facility] Start: 04-28-2022 Care planning and pr oblem solving actions [facility] Start: 04-28-2022 Chart related administrative procedure [facility] Start: 04-27-2022 Consultation [facility] Start: 04-27-2022 Referral to clinical field specialist [facility] Start: 04-27-2022 Care planning and pr oblem solving actions [facility] Start: 04-27-2022 Care planning and pr oblem solving actions [facility] Start: 04-27-2022 Application of intermittent pneumatic compression device [facility] Start: 04-27-2022 Assessment of risk o f venous thromboembolism [facility] Start: 04-27-2022 Insertion of cathete r into peripheral vein [facility] Start: 04-27-2022 Measuring intake and output [facility] Start: 04-27-2022 Oxygen therapy [facility] Start: 04-27-2022 Providing care accor ding to standard [facility] Start: 04-27-2022 Provision of activit y privileges [facility] Start: 04-27-2022 Referral to gastroenterology service [facility] Start: 04-27-2022 [facility] Start: 04-27-2022 Following clinical p athway protocol [facility] Start: 04-26-2022 Verification routine [facility] Work Phone: Start: 04-26-2022 Admission procedure [facility] Start: 04-26-2022 Administration of bl ood product [facility] Start: 04-26-2022 Leukocyte reduced re d blood cells [facility] Work Phone: Start: 04-26-2022 [facility] Work Phone: Start: 12-22-2021 Influenza vaccination [facility] Start: 04-23-2021 ADVANCE DIRECTIVE DISCUSSION ADVANCE DIRECTIVE DISCUSSION [facility] Start: 04-23-2021 DEPRESSION ASSESSMENT DEPRESSION ASS ESSMENT [facility] Start: 12-29-2020 COVID-19 VACCINE (3 - Booster for Moderna series) COVID-19 VACCINE (3 - Booster for Moderna series) [facility] Start: 09-23-2020 COVID-19 VACCINE (3 - Booster for Moderna series) COVID-19 VACCINE (3 - Booster for Moderna series) [facility] Start: 11-12-2017 Colonoscopy COLONOSCOPY [facility] Start: 11-12-2017 COLORECTAL CANCER SCREENING COLORECTAL CANCER SCREENING [facility] Start: 11-12-2017 LIPID SCREEN LIPID SCREEN [facility] Start: 09-08-2013 DIABETES SCREEN DIABETES SCREEN [facility] Start: 1998 Influenza vaccination LUNG CANCER [facility] Start: 1998 SHINGRIX VACCINE (1 of 2) MCGEE GRIX VACCINE (1 of 2) [facility] Start: 05-25-1997 Urine microalbumin profile DTAP,TDAP ,TD (1 - Tdap) [facility] Start: 1993 COLOGUARD (FIT-DNA) COLOGUARD (FIT-D NA) [facility] Start: [address] COLONOGRAPHY [facility] Start: 1993 FECAL OCCULT BLOOD FECAL OCCULT BLOO D [facility] Start: 1993 SIGMOIDOSCOPY SIGMOIDOSCOPY [facility] Start: 1966 HEPATITIS C SCREENING HEPATITIS C [facility] Start: 1960 Adult depression scr eening assessment DEPRESSION SCREENING [facility] Start: 1954 PNEUMOCOCCAL: 65+ (1 - PCV) PNEUMOCOCCAL: 65+ (1 - PCV) [facility] Start: 1953 COVID-19 VACCINE (#1) COVID-19 VACCI NE (#1) [facility] Start: 01-13-1949 COVID-19 VACCINE (#1) COVID-19 VACCI NE (#1) [facility] Start: 1948 ABDOMINAL AORTIC ANE URYSM SCREENING ABDOMINAL AORTIC ANEURYSM SCREENING [facility] Anion gap measurement [facility] Work Phone: Blood chemistry [facility] Blood chemistry [facility] BUN/Creatinine ratio [facility] Work Phone: Calcium [Mass/volume ] in Serum or Plasma [facility] Work Phone: Carbon dioxide, tota l [Moles/volume] in Serum or Plasma [facility] Work Phone: Chloride [Moles/volu me] in Serum or Plasma [facility] Work Phone: End: 09-29-2022 Colonoscopy [facility] Work Phone: Comment on above: 1 Occurrences starti ng 09/29/2021 until 09/29/2022 End: 10-28-2021 Colonoscopy COLONOSCOPY (THERAPEUTIC) Endoscopy Routine Personal history of colonic polyps 1 Occurrences starting 10/28/2021 until 10/28/2021 [facility] Work Phone: Comment on above: 1 Occurrences starti ng 10/28/2021 until 10/28/2021 Creatinine [Moles/vo lume] in Serum or Plasma [facility] Work Phone: Glucose [Mass/volume ] in Serum or Plasma [facility] Work Phone: H&P for surgery H&P FOR SURGERY Procedures Routine Villous adenoma of colon Ordered: 11/25/2021 [facility] Work Phone: Comment on above: Ordered: 11/25/2021 Hematocrit [Volume Fraction] of Blood [facility] Work Phone: Hemoglobin [Mass/vol ume] in Blood [facility] Work Phone: Leukocytes [#/volume ] in Blood [facility] Work Phone: Mean corpuscular hemoglobin concentration determination [facility] Work Phone: Mean corpuscular hemoglobin determination [facility] Work Phone: Measurement of renal function [facility] Work Phone: Neutrophil count [facility] Work Phone: Neutrophil percent differential count [facility] Work Phone: NM Heart Views W str ess and W radionuclide IV [facility] Patient referral [facility] Work Phone: Platelets [#/volume] in Blood [facility] Work Phone: Potassium [Moles/vol ume] in Serum or Plasma [facility] Work Phone: Red blood cell count [facility] Work Phone: Red cell distributio n width determination [facility] Work Phone: REFER FOR ADMIT INTERVIEW REFER FOR ADMIT INTERVIEW Procedures Routine Villous adenoma of colon Ordered: 11/25/2021 [facility] Work Phone: Comment on above: Ordered: 11/25/2021 Sodium [Moles/volume ] in Serum or Plasma [facility] Work Phone: SURGICAL PATHOLOGY [facility] Work Phone: Comment on above: Release Upon Orderin g for 1 Occurrences starting 10/28/2021, 1 completed Urea nitrogen [Mass/volume] in Serum or Plasma [facility] Work Phone: Unowhy Heart limited [facility] Immunizations Immunization Date Immunization Notes Care Provider Shalonda turk 07-29-2020 COVID-19 vaccine, fu ll dose (MODERNA) [facility] Work Phone: [facility] 07-01-2020 COVID-19 vaccine, fu ll dose (MODERNA) [facility] Work Phone: [facility] 05-24-1997 tetanus and diphther ia toxoids, adsorbed, preservative free, for adult use (2 Lf of tetanus toxoid and 2 Lf of diphtheria toxoid) Jason Santos MD Work Phone: [facility] Work Phone: Payers Date Payer Category Payer Unknown [id number] 2023 Self-pay [id number] 2022 Private Health Insurance [id number] 2022 Medicare [id number] 2020 Unknown [employer] PPO [id number] 2020-Present [phone] [place] [address] PPO [id number] 2020 Unknown [employer] PPO [id number] 2020-Present [phone] [place] [id number] PPO [id number] 1948 Unknown [id number] Self-pay SELF PAY INSURANCE [id number] Unknown [id number] Unknown [id number] Unknown [id number] Unknown [id number] Unknown [id number] Unknown [id number] Unknown [id number] Unknown [id number] Unknown [id number] Unknown [id number] Unknown [id number] Social History Date Type Detail Facility Start: 12-31-2015 End: 01-01-2023 Tobacco smoking status NHIS Unknown if ever smoked [facility] Start: 1950 Sex Assigned At Male [facility] Start: 09-16-2021 End: 12-16-2021 Tobacco smoking status ILIS Smokes tobacco daily [facility] History of tobacco use Cigarette Smoker [facility] History of tobacco use Snuff User [facility] Start: 09-16-2021 End: 12-16-2021 Alcohol intake Current non-drinker of alcohol (finding) [facility] Start: 1950 Sex Assigned At Not on file [facility] Start: 10-18-2021 End: 12-20-2021 Exposure to SARS-CoV-2 (event) Not sure [facility] Start: 09-16-2021 End: 12-16-2021 Cigarettes smoked current (pack per day) - Reported 1 [facility] Start: 09-16-2021 Tobacco use and exposure User of smokeless tobacco [facility] Start: 11-15-2021 End: 11-25-2021 Exposure to SARS-CoV-2 (event) Unable to assess [facility] Start: 12-16-2021 Tobacco use and exposure Smokeless tobacco non-user [facility] Start: 12-20-2021 History SDOH Financial 5 [facility] Start: 12-20-2021 History SDOH Food Worry 1 [facility] Start: 12-20-2021 History SDOH Transpo rt Med 2 [facility] Start: 07-17-2023 Tobacco smoking stat us ILIS Ex-smoker (finding) [facility] Start: 07-15-2024 Sex Male (finding) [facility] Goals Date Patient Goal Desired Activity /State Functional Status Date Assessment Result Facility 05-03-2022 Functional status Ambulates;Bathroom Priv ilege [facility] Work Phone: Mental Status Date Assessment Result Facility 08-14-2022 Cognitive function Level Of Cons ciousness Awake;Alert;Appropriate;Follow s Commands [facility] Work Phone: 08-14-2022 Cognitive function Voice/Name [facility] Work Phone: 05-10-2022 Cognitive function Voice/Name [facility] Work Phone: 05-03-2022 Cognitive function Voice/Name [facility] Work Phone: 04-26-2022 Cognitive function Level Of Cons ciousness Awake;Alert;Appropriate [facility] Work Phone: Clinical Notes 09-29-2021 to 02-13-2023 Note Date & Type Note Facility 02-13-2023 Note HNO ID: [id number] Author: Amada Gloria MD Service: ? Author Type: Physician Type: Progress Notes Filed: 02/22/2023 7:25 PM Note Text: PRIMARY CARE PHYSICIAN: Eliza Jacobs MD ([facility]) [address] [facility] [address] [place] [phone] REFERRING PHYSICIAN: Gianna Alvarado [address] [facility] [address] [facility] [id number] Patient Care Team: Eliza Jacobs as PCP - General (Family Medicine) Gianna Alvarado MD as Specialty Dough Puncher (Cardiology) Donny Villagomez MD as Specialty Dough Puncher (Gastroenterology) CHIEF COMPLAINT: Evaluation for arrhythmia, atrial fibrillation HISTORY OF PRESENT ILLNESS: Mr. Orr is a 72 year old male who presents today for evaluation of atrial fibrillation, referred by Dr. Alvarado of [facility]. 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 [facility] 12-23-2022 Procedure note [facility] 08-14-2022 History and physi rosmery note Note Date/Time August 14, 2022 11:39am [facility] Medical Records Department [address] [place] [id number] History & Physical Exam 08/14/22 1138 MR#: [id number] Acct: [id number] Name: PETER ORR Rep #:[id number] : 1950 72 From: Hipolito romero MD PCP: Dr. Eliza Jacobs MD Status:[facility] Location: [address] History and Physical Date of Admission: 08/14/22 Intake Vital Signs ? 07/31/2308:07 Height 5 ft 7 in Weight: 177 lb 0.4 oz BMI 27.7 BP 112/68 Blood Pressure Location Lt brachial Position Sitting Respiration 18 Pulse 59 L Pulse Source Monitor Temp 97.1 F L Temp Source Temporal Pulse Oximetry (%) 99 Oxygen Delivery Method room air Intake Visit Reasons:?Hemorrhoids Chief Complaint: hemorrhoids Is patient in pain?: No Allergies Penicillins Allergy (Mild, Verified 07/31/22 09:08) rash Medications melatonin 10 mg tablet 10 mg PO QHS 05/10/22 [History Confirmed 07/31/22] metoprolol tartrate 100 mg tablet 50 mg PO BID #120 tabs 05/16/22 [Rx Confirmed 07/31/22] furosemide 40 mg tablet 40 mg PO QAM #30 tabs 05/22/22 [Rx Confirmed 07/18/22] ferrous sulfate 325 mg (65 mg iron) tablet (Feosol) 325 mg PO DAILY 05/30/22 [History Confirmed 07/31/22] nicotine 21 mg/24 hr daily transdermal patch (Nicoderm CQ) 1 patch transdermal DAILY #28 ea 05/30/22 [Rx Confirmed 07/31/22] amiodarone 200 mg tablet 200 mg PO DAILY 07/18/22 [History Confirmed 07/31/22] lisinopril 20 mg tablet See Rx Instructions PO .COMPLEX 07/31/22 [History] pantoprazole 40 mg tablet,delayed release 40 mg PO DAILY 07/31/22 [History] PFSH Medical History? Arthritis Back pain Bilateral inguinal hernia (BIH) COVID GERD (gastroesophageal reflux disease) Heartburn Hemorrhoid History of stress test History of ulceration Injury of back Loss of hearing Shortness of breath on exertion Smoker Wears dentures Wears glasses Surgical History? History of colonoscopy History of hemorrhoidectomy History of laparoscopic cholecystectomy Family History? Father Heart disease Myocardial infarctionMother Heart disease Myocardial infarction Social History?(Updated 07/31/22 @ 09:10 by Alexander Roman) household members:? spouse number of children:? 5 current occupational status:? retired pets and animals:? No Smoking Status:? Former smoker Tobacco: How many years used:? 60 how long ago did patient quit smoking:? Apr 26 HPI HPI HPI: Patient is here due to rectal bleeding.? He is a 72-year-old male who was recently admitted due to the GI bleeding.? He had a colonoscopy in April and another one in June by Dr. Villagomez and the only finding was a large internal hemorrhoid.? Patient reports he has had on and off bleeding for years.? He has had a hemorrhoidectomy in his 30s.? Patient reports that the bleeding is bright red and painless. ROS General General: No weight change or fatigue HEENT HEENT: No difficulty swallowing Endo Endocrine: No thyroid disease Musc Musculoskeletal: Yes back problems and arthritis Cardio Cardiovascular: Yes heart disease, atrial fibrillation and high blood pressure Psych Psychiatric: No depression or anxiety Resp Respiratory: Yes cough Gastro Gastrointestinal: No abdominal pain, No nausea or vomiting, No constipation, Yes blood in stool, Yes acid reflux, Yes hemorrhoids, Yes ulcers, No gallbladder problem and No black,tarry stools Santi Hematologic: Yes bleeding Neuro Neurologic: Yes as per HPI Assessment and Plan Assessment and Plan (1) Hemorrhoids: ?Qualifiers: ?Hemorrhoid type:?unspecified? Qualified Code(s):?K64.9 - Unspecified hemorrhoids ?Plan: Patient has rectal bleeding of bright red blood with bowel movements.? Patient had colonoscopy this spring which revealed large internal hemorrhoids that may be the cause of the bleeding.? I discussed hemorrhoidectomy in detail with the patient.? I discussed the procedure as well as the risks including but limited to bleeding, infection, injury to sphincter, need for further surgery.? Patient understands the risks and is willing to proceed. Hipolito Murphy MD Pager: [facility] [address] [place] [address], [address] [place] [address] Office: I have examined the patient and the H&P has been reviewed. There are no clinical changes since date of exam. 08/14/22 1139 <Electronically signed by Hipolito Murphy MD> Cosigner Signature (if applicable): CC: Dr. Eliza Jacobs MD; Dr. Hipolito Murphy MD~ Signed [facility] Work Phone: [phone]) 156-867704-24-2023 Procedure [facility] 01-17-2022 History of Present illness Narrative* Cheryl Wilkins APRN.[facility] - 01/17/2022 8:30 AM EDT COLORECTAL SURGERY Post-Op virtual Visit Peter Orr returns for a post-operative visit after undergoing surgery, on 12/19/2021. SURGEON: Deep Orozco M.D. SURGERY/PROCEDURE: Diagnostic laparoscopy, repositioning of incarcerated colon from inguinal hernia, laparoscopic hepatic flexure mobilization, laparoscopic- assisted right hemicolectomy with high ligation of the ileocolic vessels, and omentoplasty. OPERATIVE INDICATIONS: The 71-year-old patient presented in clinics with results of a colonoscopy. The colon polyps had been seen, but not completely removed. The patient had noticed pain in his leftgroin with concern for hernia and underwent a CT scan at an outside hospital that demonstrated inguinal hernias in addition to a possible apple-core lesion in the cecum. Therefore, the colonoscopy was initiated. The apple-core lesion could be ruled out. However, multiple polyps were resected and anunresectable hepatic flexure lesion was excised only piecemeal and the patient was referred for surgical procedure. The patient endorsed gas-like pressure all over the belly every 3-4 days at which ti me he felt like unable to pass gas, [...] and right branch of middle colic vessels. [id number] stapled ileocolic anastomosis performed, omentoplasty on top. [...] tattoo is noted. The 3.3 cm tubular adenomawas entirely submitted for microscopic examination. This polyp [...] clinically indicated F/u CORS PRN Cheryl Wilkins APRN.CNP [facility] NoteHNO ID: [id number] Author: Amy Terrell RN Service: Care Management [...] 22, 2021 TIME: 12:22 PM PAGER/CONTACT #: [phone] NoteHNO ID: [id number] Author: Panfilo Morris MD Service: Colorectal Author [...] (Oral) Resp 16 Ht 171.5 cm (5' 7.5) Wt 80.1 kg (176 lb 9.4 oz) SpO2 98% BMI 27.25 kg/m? Date 12/21/21699 - 12/22/21 0659 12/22/21 07 - 12/23/21 0659 Shift 4177-1472 9802-1653 5392-3457 24 Hour Total 0019-4335 4335-9714 0202-6027 24 Hour Total INTAKE IV 320 280 [...] 80.1 80.1 80.1 80.1 80.1 Recent Labs 12/22/21 0417 12/21/21 2216 12/20/21 2206 12/20/21 0619 WBC -- -- 10.20 8.79 HB -- [...] Alfredo No Tobacco use disorder 01/03/2007 Russell Carmen (Hist) Alfredo No Unspecified hemorrhoids without mention of complication 05/03/2006 Russell Carmen (Hist) Alfredo No Personal history of colonic polyps Russell C (Hist) Alfredo No Overview Addendum 05/03/2006 12:00 AM by Russell Fuentes Colon polyps *A review of daily goals, interventions, and plan of care with the multidisciplinary team and patient has been conducted. The patient?s concerns have been addressed and he/she agrees to proceed with today?s plan of care Panfilo Morris [facility]08-31-2022 History of Past illness Narrative* Problem Noted Date Resolved Date Hypophosphataemia 12/21/2021 12/22/2021 documented as of this encounter (statuses as of 01/15/2022) [facility]-31[facility] History of Past illness Narrative* Problem Noted Date Resolved Date Hypophosphataemia 12/21/2021 12/22/2021 documented as of this encounter (statuses as of 01/17/2022) [facility]08-31-2022 NoteHNO ID: [id number] Author: Panfilo Morris MD Service: Colorectal Author Type: Fellow Type: Progress Notes Filed: 12/21/2021 3:32 PM Note Text: COLORECTAL SURGERY PROGRESS NOTE PATIENT ID: Peter Orr Admit Date: 12/19/2021 Interval events/Subjective: Tolerating clears, but had some nausea and small emesis. Pain controlled w oliceridine BOOK ILLUSTRATOR but thinks this may be contributing to [...] (Oral) Resp 20 Ht 171.5 cm (5' 7.5) Wt 80.1 kg (176 lb 9.4 oz) SpO2 96% BMI 27.25 kg/m? 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 The patient?s concerns have been addressed and he/she agrees to proceed with today?s plan of care Panfilo Morris [facility]08-31-2022 NoteHNO ID: [id number] Author: Sharon Hayward MD Service: General Surgery Author Type: Resident Type: Plan of Care Filed: 12/21/2021 4:55 AM Note Text: GENERAL SURGERY PLAN OF CARE NOTE Peter Orr [id number] Paged for patient requesting BOOK ILLUSTRATOR to be discontinued d/t nausea and subjectively not feeling well. Went to bedside to evaluate the patient. He stated that he feels flushed and he thinks the BOOK ILLUSTRATOR is contributing to nausea, which is only partially relieved by Zofran. Denies vomiting and significant abdominal pain, stating he does not feel he needs the BOOK ILLUSTRATOR to manage his current pain level. Abd soft, nondistended, nontender. Dressings c/d/i. PAYAM SS. -Gave 5mg IV compazine x1 for nausea Sharon Hayward MD General Surgery [id number]-30-2022 NoteHNO ID: [id number] Author: Amy Terrell RN Service: Care Management Author Type: Registered Nurse Type: Care Mgt Initial Assessment Filed: 12/20/2021 12:32 PM Note Text: CARE MANAGEMENT: ASSESSMENT AND DISCHARGE PLAN SERVICE DATE: December 20, 2021 SERVICE TIME: 12:28 PM PRIMARY CARE PHYSICIAN: Russell Fuentes MD Phone: None Primary Contact: Extended Emergency Contact Information Primary Emergency Contact: ELIZA ORR Address: [address] [place] [address] [address] [place] Relation: Spouse ADMISSION STATUS: Inpatient Insurance Provider: [employer] PPO NEEDS PRIOR TO DISCHARGE Needs Prior to Discharge: None POTENTIAL TRANSITION PLANS Home Based on clinical judgement, Care Management will address the following needs: Medical Patient's perception of need for this admission: Admit for Surgery ADVANCE DIRECTIVES Current Advance Directive: None 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-30-2022 Note HNO ID: [id number] Author: Panfilo Morris MD Service: Colorectal Author Type: Fellow Type: Progress Notes Filed: 12/20/2021 7:36 AM Note Text: COLORECTAL SURGERY PROGRESS NOTE PATIENT ID: Peter Orr Admit Date: 12/19/2021 Interval events/Subjective: Feels well No sob or chest pain Hungry No gas yet Pain controlled w oliceridine BOOK ILLUSTRATOR Not oob EXAM: GEN: Resting in bed, no acute distress N: AO4 PULM: no e/o increased WOB ABD: Soft, nondistended, appropriately tender, no peritonitis, incisions CDI. PAYAM SS : vallejo in place EXT: warm and well perfused, no edema DATA: BP 124/62 Pulse 76 Temp 36.3 ?C (97.3 ?F) (Oral) Resp 18 Ht 171.5 cm (5' 7.5) Wt 79.8 kg (176 lb) SpO2 98% BMI 27.16 kg/m? Date 12/19/21699 - 12/20/21 0659 12/20/21 07 - 12/21/21 0659 Shift 9236-6511 1594-9751 4137-3189 24 Hour Total 8477-6923 8756-6231 8982-6612 24 Hour Total INTAKE IV 2360 611 2971 Volume (mL) (ciprofloxacin iv piggyback 400 mg in D5W 200 mL (CIPRO)) 200 200 Volume (mL) (lactated ringers iv infusion) 1200 1200 Volume (mL) (lactated ringers iv infusion) 800 800 Volume (mL) (lactated ringers iv infusion) 160 160 Volume (mL) (lactated ringers iv infusion) 611 611 Shift Total 2360 611 2971 OUTPUT Urine 225 1804 234 7134 OR Urine Output 105 105 Output ( Indwelling Urinary Catheter 12/19/21 0755 Coude 14 Fr) 120 2953 915 9547 Tubes 5 15 20 Drain/Tube Output (Drain/Tube 12/19/21 Assessment Left Lower Quadrant Drain #1) 5 15 20 Blood 20 20 Estimated Blood loss 20 20 Shift Total 250 0303 546 2618 Weight (kg) 79.8 79.8 79.8 79.8 79.8 [...] proceed with today?s plan of care Panfilo Morris, [facility]08-29-2022 NoteHNO ID: [id number] Author: Sukh Hassan DO Service: ? Author Type: Resident Type: Anesthesia Procedure Notes Filed: 12/19/2021 1:15 PM Note Text: Attestation signed by Lima Martínez MD at 12/19/2021 5:09 PM I was present throughout the entire procedure Patient tolerated procedure without any complications. Lima Martínez MD [facility] Staff Pager: [phone] ANESTHESIOLOGY PROCEDURE NOTE Peripheral Nerve Block General [...] December 19, 2021 TIME: 1:13 PM CSN: [id number] Health St[facility]08-29-2022 NoteHNO ID: [id number] Author: KEISHA Evangelista Service: ? Author Type: [...] Pressure: Yes Difficult Mask: Yes (No teeth, Mendes present) Airway Accessory: oral airway Final Airway [...] December 19, 2021 TIME: 8:23 AM CSN: [id number] Health St. [facility]08-29-2022 NoteHNO ID: [id number] Author: KEISHA Evangelista Service: ? Author Type: [...] December 19, 2021 TIME: 8:16 AM CSN: [id number] Health St. [facility]08-26-2022 NoteHNO ID: [id number] Author: Daphnie Katz RN Service: ? Author [...] chart review imaging: Get Images tab on Acronis. The purpose of the photo(s) is to optimize the patient's medical care: to allow a visual aid to identify marking sites for ostomy(ostomies), to evaluate and follow the progress of wound(s). Photo was taken of: 12/16/21 Verbal consent was obtained from patient / authorized representation. Time Increment: N/A SUSANNE Meredith RN CWOCN [facility] nursing pager [phone] (M-F 7a-4p, Sat, Sun, Holiday 7a-3p) ET/WOC NURSING ET OUTCOME: shan and talk for [...] Signed By Daphnie Katz RN CWOCN ET/WOC NursingMercy Health St[facility]08-26-2022 NoteHNO ID: [id number] Author: Deep Orozco MD Service: ? Author [...] >1PPD. Physical Exam: Ht 171.5 cm (5' 7.5) Wt 79.9 kg (176 lb 3.2 oz) [...] with more than 50% of the total ebur-it-xxmp time of the visit in counseling / coordination of care. Deep Orozco MD CORS Risk of morbidity, mortality and/or complications of treatment plan: low [facility]08-26-2022 Instructions* Patient Instructions* Bibi Aguilar PA-C - 12/16/2021 10:10 AM EDT PATIENT PREOPERATIVE INSTRUCTIONS Deep Orozco MD has scheduled you for your procedure at this surgery center: [facility] Scheduling Office: [phone] --[address] [place] [address]. Please read below carefully for your personalized [...] call the Sunday before. Your surgeon s printer maintainer will tell you what time to call the office. - If you have not reached the departmental printer maintainer by 5 P.M., call [phone] after 5 P.M. the day before your surgery. Please be aware that emergency situations arise, which may delay or change your surgical time. If this happens, we will notify you as soon as possible and regret any inconvenience. If you already have an Advance Directive, please fax a copy to [phone] or email to for it to be [...] day. Bibi Aguilar PA-C documented in this encounterMer[facility]08-26-2022 History and physical note * Bibi Aguilar [...] fevers. Neuro: No history of TIA's, stroke, V GROOVE CUTTER tumor, impaired sensorium, hemiplegia, paraplegia or quadraplegia. No neurological symptoms or problems. Respiratory: Negative for Asthma, Bronchitis, COPD, Current cough, Dyspnea, Pneumonia within 6 weeks (date), URI < 2 weeks+smoker Cardiovascular: No history of HTN requiring medication, no history of angina, CHF, MT, cardiac surgery or stents. Denies rest pain, [...] 2021 TIME: 10:19 AM documented in this encounterMercy [facility]08-26-2022 History of Present illness Narrative* Daphnie Katz RN - 12/16/2021 9:43 AM EDT Images from the original note were not included. ET/WOC Nursing Note Topic: STOMA MARKING ET [...] chart review imaging: Get Images tab on Acronis. The purpose of the photo(s) is to optimize the patient's medical care: to allow a visual aid to identify marking sites for ostomy(ostomies), to evaluate and follow the progress of wound(s). Photo was taken of: 12/16/21 Verbal consent was obtained from patient / authorized representation. Time Increment: N/A HÉCTOR MeredithN RN CWOCN [facility] nursing pager [phone] (M-F 7a-4p, Sat, Sun, Holiday 7a-3p) ET/[facility] NURSING ET OUTCOME: shan and talk for [...] RN CWOCN ET/WOC Nursing documented in this encounterMercy [facility] Hospital08-26-2022 History of Present illness Narrative* Deep Orozco [...] >1PPD. Physical Exam: Ht 171.5 cm (5' 7.5) Wt 79.9 kg (176 lb 3.2 oz) [...] with more than 50% of the total bxvg-hy-fmxp time of the visit in counseling / coordination of care. Deep Orozco MD CORS Risk of morbidity, mortality and/or complications of treatment plan: low documented in this encounterMercy [facility] Hospital08-10-2022 Miscellaneous Notes* Telephone Encounter - Polina Meléndez RN - 11/30/2021 12:27 PM EDT PRIMARY CARE COORDINATION FOLLOW-UP NOTE Provider Action/FYI Follow up Patient identified by name and date of . YES Spoke to patient Summary: Patient accepts surgery date 12/19 pre op 12/16 Concerns: POC [facility] plan for next outreach: No further follow up needed at this time Signature Persina Medhat, RN November 30, 2021 documented in this encounterMercy [facility] Hospital08-02-2022 Miscellaneous Notes* Telephone Encounter - Alexandra Robledo [...] RN November 22, 2021 documented in this encounterMercy [facility] Hospital07-26-2022 NoteHNO ID: [id number] Author: Deep Orozco MD Service: ? Author [...] which included preparing to see the patient, [id number]-ym-blmg patient care, completing clinical documentation and obtaining and/or reviewing separately obtained history.[facility]07-26-2022 History of Present illness Narrative* Deep Orozco MD - 11/15/2021 5:15 PM EDT COLORECTAL SURGERY VIRTUAL VISIT FOLLOW UP I had a virtual visit with Mr. Orr today for follow up of surgical discussion. UPDATED HISTORY: Peter Orr is a 71 year old male present follow up Last seen in clinic 09/16/2021, referred to [facility] for an unresectable hepatic flexure polyp After [...] which included preparing to see the patient, seha-uj-ubyb patient care, completing clinical documentation and obtaining and/or reviewing separately obtained history. documented in this encounterMercy [facility] Hospital07-08-2022 Nurse Note* Bibi Diaz RN - 10/28/2021 [...] RN In Department: GASTROENTEROLOGY documented in this encounterMercy Memorial Hospital07-07-2022 Miscellaneous Notes* Telephone Encounter - Audra Kan [...] and ask more questions. documented in this encounterMercy [facility] Hospital07-01-2022 Miscellaneous Notes* Telephone Encounter - Christina Dhaliwal RN - 10/21/2021 2:24 PM EDT Attempted to reach the patient at the contact number that they provided [phone] (home) . 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 Routed Q3 [facility] pool Audra Kan LPN * Telephone Encounter - Stephanie Resendizjericho - 09/29/2021 10:[address] colonoscopy order Pt per HS Treatment plan: referral to GI for repeat colonoscopy to evaluate for cecal lesion, tatooing and possible endoscopic removal of hepatic flexure lesion if any lesion is still visible after more than four weeks Per Deep Orozco MD/HS Thank you Stephanie Ignacio (Christos) Unit Trust Manager II DDSI documented in this encounterMercy Memorial Hospital06-09-2022 Instructions* Patient Instructions* Audra Kan LPN - [...] If you do not have a responsible carry all driver (family member or friend) with you [...] your exam. 2 03/2019 [facility] summary Author Dr. Murphy [facility] August 14, 2022 1:07pm Note Date/Time August 14, 2022 1:0 6pm [facility] Medical Records Department [address] [place] [address] Instructions for Home/Discharge Instructions 08/14/22 1305 MR#: [id number] Acct: [id number] Name: PETER ORR Rep #:[id number] : [id number] 72 From: Hipolito romero MD PCP: Dr. Eliza Jacobs MD Status:REG [facility] Discharge Instructions Procedure Rectal Surgery Diet Discharge Diet: Light diet - advance as tolerated (Pain medication may cause nausea. You should typically eat light foods as you take your pain medication.) Activity Discharge Activity: Return to Normal Activity and May Not Drive (while you are taking narcotic pain medications. Do not drive, work with heavy equipment or sign legal documents for 24 hours after your surgery.) May resume sexual activity in: No Restrictions Additional Activity Instructions:: Be aware that pain medications may cause nausea. You should typically eat light foods as you take your pain medications. Pain medications may also cause constipation, if you have difficulty with this please discuss with your doctor. Dressing / Incision Call your doctor if your incision/area has: Continuous Slow Oozing, Sudden Increased Bleeding, Increased Pain/ Swelling and Increased Redness Call your doctor if you observe: Fever of 101 or Higher, Inability to urinate, Inability to have a bowel movement and Uncontrolled pain Additional Dressing/Incision Instructions:: A local anesthetic plug was placed in the anal area, try not to expel for [address]ucaine ointment on the perianal area twice a day and as needed. Sitz baths twice daily and after bowel movements. Follow Up Care Please Follow Up With: Hipolito Murphy MD When: Please call to schedule 2 week follow up appointment. [phone] Test Results: Test results from this visit will be discussed in further detail at your follow- up appointment, if applicable. Discharge Plan Admission Attending Provider: Hipolito Murphy Primary Care Provider: Eliza Jacobs Discharge Orders/Prescriptions Prescriptions: New oxycodone 5 mg tablet 5 - 10 mg PO Q6H PRN (Reason: pain) 7 Days Qty: 40 0RF No Action ferrous sulfate [Feosol] 325 mg (65 mg iron) tablet 325 mg PO DAILY nicotine [Nicoderm CQ] 21 mg/24 hr patch 24 hour 1 patch transdermal DAILY Qty: 28 12RF amiodarone 200 mg tablet 200 mg PO DAILY lisinopril 20 mg tablet 10 mg PO QHS pantoprazole 40 mg tablet,delayed release (DR/EC) 40 mg PO DAILY melatonin 10 mg Tablet 10 mg PO QHS metoprolol tartrate 100 mg tablet 50 mg PO BID Qty: 120 0RF furosemide 40 mg tablet 40 mg PO QAM Qty: 30 12RF Referrals / Follow Up: Eliza Jacobs MD [Primary Care Provider] - Disposition Disposition (needs filled in before D/C Order can be placed): Home, Self Care 08/14/22 1307<Electronically signed by Hipolito Murphy MD>Hipolito Murphy MD CC: Dr. Eliza Jacobs MD ~ Signed [facility] Work Phone: Evaluation noteNo assessment information available [facility] Work Phone: Evalugrbhv note* Diagnosis Personal history of colonic polyps- Primary documented in this encounter [facility] note* Diagnosis Personal history of colonic polyps documented in this encounter [facility] note* Diagnosis Villous adenoma of right colon- Primary Neoplasm of uncertain behavior of stomach, intestines, and rectum documented in this encounter [facility] note* Diagnosis Attention to ileostomy (HCC)- Primary Attention to ileostomy Villous adenoma of colon Benign neoplasm of colon documented in this encounter [facility] note* Diagnosis Pre-op evaluation- Primary Preoperative examination, unspecified Villous adenoma of colon Benign neoplasm of colon Tobacco use disorder Villous adenoma of colon Benign neoplasm of colon [facility] Diagnosis Adenoma of colon at hepatic flexure- Primary Villous adenoma of colon Benign neoplasm of colon [facility]* Diagnosis Villous adenoma of colon- Primary Benign neoplasm of colon Postoperative state- Primary Other postprocedural status documented in this [facility]* Diagnosis Postoperative state- Primary Other postprocedural status documented in this encounter [facility]* Diagnosis Onset Date Resolution Status ABLA (acute blood loss anemia) acute [facility] Work Phone: Evaluation note* Diagnosis Onset Date Resolution Status ABLA (acute blood loss anemia) acute Acute respiratory failure with hypoxia acute Anemia acute Atrial fibrillation acute Cardiomyopathy acute CHF (congestive heart failure) acute GI bleed acute Tobacco dependence acute COPD with exacerbation chron ic [facility] Work Phone: Evaluation note* Diagnosis Onset Date Resolution Status ABLA (acute blood loss anemia) acute Acute respiratory failure with hypoxia acute Anemia acute Atrial fibrillation acute Cardiomyopathy acute CHF (congestive heart failure) acute Tobacco dependence acute COPD with exacerbation chron ic GI bleed resolved [facility] Work Phone: Evaluation note* Diagnosis Onset Date Resolution Status ABLA (acute blood loss anemia) acute Acute respiratory failure with hypoxia acute Anemia acute Atrial fibrillation acute Cardiomyopathy acute CHF (congestive heart failure) acute Tobacco dependence acute COPD with exacerbation chron ic GI bleed resolved Atrial fibrillation acute Cardiomyopathy acute [facility] Work Phone: Evaluation note* Diagnosis Onset Date Resolution Status ABLA (acute blood loss anemia) acute Acute respiratory failure with hypoxia acute Anemia acute Atrial fibrillation acute Cardiomyopathy acute CHF (congestive heart failure) acute Tobacco dependence acute COPD with exacerbation chron ic GI bleed resolved Atrial fibrillation acute Cardiomyopathy acute Atrial fibrillation acute Cardiomyopathy acute Hemorrhoids noneactive [facility] Work Phone: Evaluation note* Diagnosis Onset Date Resolution Status Atypical chest pain chronic COPD (chronic obstructive pulmonary disease) chronic Hypertension chronic Paroxysmal atrial fibrillation chronic History of cardiomyopathy re solved [facility] Work Phone: Reason for referral (narrative)* Outpatient Procedure (Routine) - Pending Review Specialty Diagnoses / Procedures Referred By Gretel moffett Referred To Contact [facility] Diagnoses Personal history of colonic polyps Procedures COLONOSCOPY (THERAPEUTIC) COLSC FLX W/REMOVAL LESION BY HOT BX FORCEPS Jason Santos MD [address] [place] [address] [facility] [address] [place] [address] Referral ID Status Reason Start Date Expiration Date Visits Requested Visits Authorized [id number] Pending Review Auto-Generat ed Referral 09/29/2021 09/29/[address] [facility] for referral (narrative)* Outpatient Procedure (Routine) - Closed Specialty Diagnoses / Procedures Referred By Contac t Referred To Contact [facility] Diagnoses Personal history of colonic polyps Procedures COLONOSCOPY (THERAPEUTIC) COLSC FLX W/REMOVAL LESION BY HOT BX FORCEPS Jason Santos MD [address] [facility] [place] [address] [address] Referral ID Status Reason Start Date Expiration Date V isits Requested Visits Authorized [id number] Closed Auto-Generate d Referral 09/29/2021 09/29/[address] [facility] for referral (narrative)* Outpatient Procedure (Routine) - Closed Specialty Diagnoses / Procedures Referred By Contac t Referred To [facility] Diagnoses Villous adenoma of colon Procedures ECG COMPLETE ECG ROUTINE ECG W/LEAST 12 LDS W/I&R Deep Orozco MD [address] [place] [address] [facility] [address] [place], [place] [id number] Referral ID Status Reason Start Date Expiration Date V isits Requested Visits Authorized [id number] Closed Auto-Generate d Referral 11/25/2021 11/25/[address] [facility] for referral (narrative)No reason for referral information availableWWright-Pat[facility] Work Phone: Reason for visit Narrative* Outpatient Procedure (Routine) - Closed Specialty Diagnoses / Procedures Referred By Contsharri t Referred To Contact [facility] Diagnoses Personal history of colonic polyps Procedures COLONOSCOPY (THERAPEUTIC) COLSC FLX W/REMOVAL LESION BY HOT BX FORCEPS Jason Santos MD [address] [address] [facility] [address] [place] [address] Referral ID Status Reason Start Date Expiration Date V isits Requested Visits Authorized [id number] Closed Auto-Generate d Referral 09/29/2021 09/29/2022 1 1 [facility] Chief Complaint and Reason for Visit Chief Complaint VENTRAL HERNIA Chief Complaint LAB AND CHEST XRAY ACUTE BLOOD LOSS ANEMIA Reason for Visit ABLA (acute blood lo ss anemia) Chief Complaint LAB AND CHEST XRAY ACUTE BLOOD LOSS ANEMIA ACUTE BLOOD LOSS ANEMIA ACUTE BLOOD LOSS ANEMIA ACUTE BLOOD LOSS ANEMIA ACUTE BLOOD LOSS ANEMIA ACUTE BLOOD LOSS ANEMIA ACUTE BLOOD LOSS ANEMIA ACUTE BLOOD LOSS ANEMIA ACUTE BLOOD LOSS ANEMIA ACUTE BLOOD LOSS ANEMIA ACUTE BLOOD LOSS ANEMIA ACUTE BLOOD LOSS ANEMIA ACUTE BLOOD LOSS ANEMIA ACUTE BLOOD LOSS ANEMIA ACUTE BLOOD LOSS ANEMIA ACUTE BLOOD LOSS ANEMIA ACUTE BLOOD LOSS ANEMIA ACUTE BLOOD LOSS ANEMIA ACUTE BLOOD LOSS ANEMIA Reason for Visit ABLA (acute blood lo ss anemia) Acute respiratory failure with hypoxia Anemia Atrial fibrillation Cardiomyopathy CHF (congestive heart failure) GI bleed Tobacco dependence COPD with exacerbation Chief Complaint LAB AND CHEST XRAY ACUTE BLOOD LOSS ANEMIA ACUTE BLOOD LOSS ANEMIA ACUTE BLOOD LOSS ANEMIA ACUTE BLOOD LOSS ANEMIA ACUTE BLOOD LOSS ANEMIA ACUTE BLOOD LOSS ANEMIA ACUTE BLOOD LOSS ANEMIA ACUTE BLOOD LOSS ANEMIA ACUTE BLOOD LOSS ANEMIA ACUTE BLOOD LOSS ANEMIA ACUTE BLOOD LOSS ANEMIA ACUTE BLOOD LOSS ANEMIA ACUTE BLOOD LOSS ANEMIA ACUTE BLOOD LOSS ANEMIA ACUTE BLOOD LOSS ANEMIA ACUTE BLOOD LOSS ANEMIA ACUTE BLOOD LOSS ANEMIA ACUTE BLOOD LOSS ANEMIA ACUTE BLOOD LOSS ANEMIA 2 UNITS PRBC Reason for Visit ABLA (acute blood lo ss anemia) Acute respiratory failure with hypoxia Anemia Atrial fibrillation Cardiomyopathy CHF (congestive heart failure) Tobacco dependence COPD with exacerbation GI bleed Chief Complaint LAB AND CHEST XRAY ACUTE BLOOD LOSS ANEMIA ACUTE BLOOD LOSS ANEMIA ACUTE BLOOD LOSS ANEMIA ACUTE BLOOD LOSS ANEMIA ACUTE BLOOD LOSS ANEMIA ACUTE BLOOD LOSS ANEMIA ACUTE BLOOD LOSS ANEMIA ACUTE BLOOD LOSS ANEMIA ACUTE BLOOD LOSS ANEMIA ACUTE BLOOD LOSS ANEMIA ACUTE BLOOD LOSS ANEMIA ACUTE BLOOD LOSS ANEMIA ACUTE BLOOD LOSS ANEMIA ACUTE BLOOD LOSS ANEMIA ACUTE BLOOD LOSS ANEMIA ACUTE BLOOD LOSS ANEMIA ACUTE BLOOD LOSS ANEMIA ACUTE BLOOD LOSS ANEMIA ACUTE BLOOD LOSS ANEMIA 2 UNITS PRBC EKG per PFM Reason for Visit ABLA (acute blood lo ss anemia) Acute respiratory failure with hypoxia Anemia Atrial fibrillation Cardiomyopathy CHF (congestive heart failure) Tobacco dependence COPD with exacerbation GI bleed Chief Complaint LAB AND CHEST XRAY ACUTE BLOOD LOSS ANEMIA ACUTE BLOOD LOSS ANEMIA ACUTE BLOOD LOSS ANEMIA ACUTE BLOOD LOSS ANEMIA ACUTE BLOOD LOSS ANEMIA ACUTE BLOOD LOSS ANEMIA ACUTE BLOOD LOSS ANEMIA ACUTE BLOOD LOSS ANEMIA ACUTE BLOOD LOSS ANEMIA ACUTE BLOOD LOSS ANEMIA ACUTE BLOOD LOSS ANEMIA ACUTE BLOOD LOSS ANEMIA ACUTE BLOOD LOSS ANEMIA ACUTE BLOOD LOSS ANEMIA ACUTE BLOOD LOSS ANEMIA ACUTE BLOOD LOSS ANEMIA ACUTE BLOOD LOSS ANEMIA ACUTE BLOOD LOSS ANEMIA ACUTE BLOOD LOSS ANEMIA 2 UNITS PRBC EKG per PFM s/p [facility] fu per PFM/ NEED EKG Reason for Visit ABLA (acute blood lo ss anemia) Acute respiratory failure with hypoxia Anemia Atrial fibrillation Cardiomyopathy CHF (congestive heart failure) Tobacco dependence COPD with exacerbation GI bleed Atrial fibrillation Cardiomyopathy Chief Complaint LAB AND CHEST XRAY ACUTE BLOOD LOSS ANEMIA ACUTE BLOOD LOSS ANEMIA ACUTE BLOOD LOSS ANEMIA ACUTE BLOOD LOSS ANEMIA ACUTE BLOOD LOSS ANEMIA ACUTE BLOOD LOSS ANEMIA ACUTE BLOOD LOSS ANEMIA ACUTE BLOOD LOSS ANEMIA ACUTE BLOOD LOSS ANEMIA ACUTE BLOOD LOSS ANEMIA ACUTE BLOOD LOSS ANEMIA ACUTE BLOOD LOSS ANEMIA ACUTE BLOOD LOSS ANEMIA ACUTE BLOOD LOSS ANEMIA ACUTE BLOOD LOSS ANEMIA ACUTE BLOOD LOSS ANEMIA ACUTE BLOOD LOSS ANEMIA ACUTE BLOOD LOSS ANEMIA ACUTE BLOOD LOSS ANEMIA 2 UNITS PRBC EKG per PFM s/p [facility] fu per PFM/ NEED EKG CAD LEXISCAN/Congestive heart failure/e orders Congestive heart failure Amb Documentation Reason for Visit ABLA (acute blood lo ss anemia) Acute respiratory failure with hypoxia Anemia Atrial fibrillation Cardiomyopathy CHF (congestive heart failure) Tobacco dependence COPD with exacerbation GI bleed Atrial fibrillation Cardiomyopathy Chief Complaint LAB AND CHEST XRAY ACUTE BLOOD LOSS ANEMIA ACUTE BLOOD LOSS ANEMIA ACUTE BLOOD LOSS ANEMIA ACUTE BLOOD LOSS ANEMIA ACUTE BLOOD LOSS ANEMIA ACUTE BLOOD LOSS ANEMIA ACUTE BLOOD LOSS ANEMIA ACUTE BLOOD LOSS ANEMIA ACUTE BLOOD LOSS ANEMIA ACUTE BLOOD LOSS ANEMIA ACUTE BLOOD LOSS ANEMIA ACUTE BLOOD LOSS ANEMIA ACUTE BLOOD LOSS ANEMIA ACUTE BLOOD LOSS ANEMIA ACUTE BLOOD LOSS ANEMIA ACUTE BLOOD LOSS ANEMIA ACUTE BLOOD LOSS ANEMIA ACUTE BLOOD LOSS ANEMIA ACUTE BLOOD LOSS ANEMIA 2 UNITS PRBC EKG per PFM s/p [facility] fu per PFM/ NEED EKG CAD LEXISCAN/Congestive heart failure/e orders Congestive heart failure Amb Documentation 6-8 WK F/U Hemorrhoids Reason for Visit ABLA (acute blood lo ss anemia) Acute respiratory failure with hypoxia Anemia Atrial fibrillation Cardiomyopathy CHF (congestive heart failure) Tobacco dependence COPD with exacerbation GI bleed Atrial fibrillation Cardiomyopathy Atrial fibrillation Cardiomyopathy Hemorrhoids Chief Complaint LAB AND CHEST XRAY ACUTE BLOOD LOSS ANEMIA ACUTE BLOOD LOSS ANEMIA ACUTE BLOOD LOSS ANEMIA ACUTE BLOOD LOSS ANEMIA ACUTE BLOOD LOSS ANEMIA ACUTE BLOOD LOSS ANEMIA ACUTE BLOOD LOSS ANEMIA ACUTE BLOOD LOSS ANEMIA ACUTE BLOOD LOSS ANEMIA ACUTE BLOOD LOSS ANEMIA ACUTE BLOOD LOSS ANEMIA ACUTE BLOOD LOSS ANEMIA ACUTE BLOOD LOSS ANEMIA ACUTE BLOOD LOSS ANEMIA ACUTE BLOOD LOSS ANEMIA ACUTE BLOOD LOSS ANEMIA ACUTE BLOOD LOSS ANEMIA ACUTE BLOOD LOSS ANEMIA ACUTE BLOOD LOSS ANEMIA 2 UNITS [facility]BC EKG per PFM s/p [facility] fu per PFM/ NEED EKG CAD LEXISCAN/Congestive heart failure/e orders Congestive heart failure Amb Documentation 6-8 WK F/U Hemorrhoids HEMORRHOIDECTOMY HEMORRHOIDECTOMY Reason for Visit ABLA (acute blood lo ss anemia) Acute respiratory failure with hypoxia Anemia Atrial fibrillation Cardiomyopathy CHF (congestive heart failure) Tobacco dependence COPD with exacerbation GI bleed Atrial fibrillation Cardiomyopathy Atrial fibrillation Cardiomyopathy Hemorrhoids Chief Complaint CHF Amb Documentation Chief Complaint CHF Amb Documentation SOB Shortness of breath Chief Complaint CHF Amb Documentation SOB Shortness of breath 6 m fu PREV PFM PT E-ORDER Reason for Visit Atypical chest pain COPD (chronic obstructive pulmonary disease) Hypertension Paroxysmal atrial fibrillation History of cardiomyopathy Chief Complaint SOB Shortness of breath 6 m fu PREV PFM PT E-ORDER Reason for Visit Atypical chest pain COPD (chronic obstructive pulmonary disease) Hypertension Paroxysmal atrial fibrillation History of cardiomyopathy Chief Complaint E ORDER CKD, STAGE 4 Advance Directives No Advanced Directives Records FoundDocuments on File Type Date Recorded 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 Coiler Expl anation Advance Directive(s) 10/12/2021 3:37 PM Documents on File Type Date Recorded Patient Coiler Expl anation Advance Directive(s) 10/12/2021 3:37 PM Advance Directive Response Recorded Date/ Time Living Will No April 26 3 10:11pm Power of Consultant Internship No April 26 023 10:11pm Advance Directive Response Recorded Date/ Time Living Will No April 27 3 12:45am Power of Consultant Internship No April 27 023 12:45am Advance Directive Response Recorded Date/ Time Living Will No April 27 3 1:45am Power of Consultant Internship No April 27, 2 023 1:45am Advance Directive Response Recorded Date/ Time Living Will No August 08, 2022 10:19am Power of Consultant Internship No August 08 10:19am Advance Directive Response Recorded Date/ Time Living Will No August 08, 2022 9:19am Power of Consultant Internship No August 08 9:19am Medications Administered Section Inactive Administered Medications - up to 3 most recent administrations Medication Order MAR Action Action Date Dose Rate Site NaCl 0.9% iv infusion 5-30 mL/hr, INTRAVENOUS, CONTINUOUS, Starting on Sun10/28/21 at 1600, Until 10/29/21 at 0412, Preprocedure New Bag/Syringe/Bottle 10/28/2021 4:00 PM EDT 5 mL/hr 5 mL/hr Summary Purpose Family History No Family History Records Found Relationship Condition Age at Onset Recorded Date/T fahad father Cardiac disease Unknown Myocardial infarction Unknown mother Cardiac disease Unknown Additional Source Comments Goals (unrecognized section and content) Goals may be documented in a n alternate sectionGoals may be documented in an alternate sectionGoals may be documented in an alternate sectionGoals may be documented in an alternate sectionGoals may be documented in an alternate sectionGoals may be documented in an alternate sectionGoals may be documented in an alternate sectionGoals may be documented in an alternate sectionGoals may be documented in an alternate sectionGoals may be documented in an alternate sectionGoals may be documented in an alternate sectionGoals may be documented in an alternate sectionGoals may be documented in an alternate sectionGoals may be documented in an alternate sectionGoals may be documented in an alternate sectionGoals may be documented in an alternate sectionGoals may be documented in an alternate sectionGoals may be documented in an alternate sectionGoals may be documented in an alternate section Source Comments (unrecognize d section and content) In the event this informatio n is protected by the Federal Confidentiality of Alcohol and Drug Abuse Patient Records regulations: The Federal rules restrict any use of the information to criminally investigate or prosecute any alcohol or drug abuse patient.[facility] the event this information is protected by the Federal Confidentiality of Alcohol and Drug Abuse Patient Records regulations: The Federal rules restrict any use of the information to criminally investigate or prosecute any alcohol or drug abuse patient.[facility] HospitalIn the event this information is protected by the Federal Confidentiality of Alcohol and Drug Abuse Patient Records regulations: The Federal rules restrict any use of the information to criminally investigate or prosecute any alcohol or drug abuse patient.[facility] the event this information is protected by the Federal Confidentiality of Alcohol and Drug Abuse Patient Records regulations: The Federal rules restrict any use of the information to criminally investigate or prosecute any alcohol or drug abuse patient.[facility] HospitalIn the event this information is protected by the Federal Confidentiality of Alcohol and Drug Abuse Patient Records regulations: The Federal rules restrict any use of the information to criminally investigate or prosecute any alcohol or drug abuse patient.[facility]In the event this information is protected by the Federal Confidentiality of Alcohol and Drug Abuse Patient Records regulations: The Federal rules restrict any use of the information to criminally investigate or prosecute any alcohol or drug abuse patient.[facility]In the event this information is protected by the Federal Confidentiality of Alcohol and Drug Abuse Patient Records regulations: The Federal rules restrict any use of the information to criminally investigate or prosecute any alcohol or drug abuse patient.[facility] HospitalIn the event this information is protected by the Federal Confidentiality of Alcohol and Drug Abuse Patient Records regulations: The Federal rules restrict any use of the information to criminally investigate or prosecute any alcohol or drug abuse patient.[facility] HospitalIn the event this information is protected by the Federal Confidentiality of Alcohol and Drug Abuse Patient Records regulations: The Federal rules restrict any use of the information to criminally investigate or prosecute any alcohol or drug abuse patient.[facility] HospitalIn the event this information is protected by the Federal Confidentiality of Alcohol and Drug Abuse Patient Records regulations: The Federal rules restrict any use of the information to criminally investigate or prosecute any alcohol or drug abuse patient.[facility] HospitalIn the event this information is protected by the Federal Confidentiality of Alcohol and Drug Abuse Patient Records regulations: The Federal rules restrict any use of the information to criminally investigate or prosecute any alcohol or drug abuse patient.[facility] HospitalIn the event this information is protected by the Federal Confidentiality of Alcohol and Drug Abuse Patient Records regulations: The Federal rules restrict any use of the information to criminally investigate or prosecute any alcohol or drug abuse patient.[facility] Reason for Visit (unrecogniz ed section and content) Reason Comments Orders Reason Comments Appointment Confirmation Reason Comments Patient Question Reason Comments Established Patient Reason Comments [facility] - Other Reason Comments Care Coordination Reason Comments Pre-Op Visit Reason Comments Preop Reason Comments Post Op Care Teams (unrecognized sec tion and content) Machine Rug Cleaner Relationship Specialty Start Date End Date Angerman, Russell C (Hist) NO FORWARDING ADDRESS PCP - General 09/04/02 Machine Rug 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 Relationship Specialty Start Date End Date Russell Fuentes C (Hist) NO FORWARDING ADDRESS PCP - General 09/04/02 Machine Rug Cleaner Relationship Specialty Start Date End Date Russell Fuentes C (Hist) NO FORWARDING ADDRESS PCP - General 09/04/02 Machine Rug Cleaner Relationship Specialty Start Date End Date Russell Fuentes C (Hist) NO FORWARDING ADDRESS PCP - General 09/04/02 Machine Rug Cleaner Relationship Specialty Start Date End Date Russell Fuentes C (Hist) NO FORWARDING ADDRESS PCP - General 09/04/02 Machine Rug Cleaner Relationship Specialty Start Date End Date Kendall Fuentese C (Hist) NO FORWARDING ADDRESS PCP - General 09/04/02 Machine Rug Cleaner Relationship Specialty Start Date End Date Russell Fuentes C (Hist) NO FORWARDING ADDRESS PCP - General 09/04/02 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 Russell Fuentes MD Family Provider Active Dr. Eliza Jacobs MD Primary Care Provider Active Team Status: Active Member Role Status Dates Dr. Eliza Jacobs MD Primary Care Provider Active Dr. Denis Cavazos , Emergency Provider Active Dr. Vicente Marquez MD Admit Provider, Attending Provider, Other Provider Active Team Status: Active Member Role Status Dates Dr. Eliza Jacobs MD Primary Care Provider Active Dr. Denis Cavazos , Emergency Provider Active Dr. Vicente Marquez MD Admit Provider, Other Provide r Active Dr. Bismark Garcia MD Other Provider Active Dr. Connie Heredia MD Attending Provider, Other Provider Active Dr. Blair Hernadez , DO Other Provider Active Dr. Hugh Gannon MD Other Provider Active Dr. Nas Saenz , DO Other Provider Active Dr. Anthony Yanes MD Other Provider Active Dr. Edgar Hale MD Other Provider Active Leidy Ravi ELECTRONIC COMMUNICATIONS TECHNICIAN, ELECTRONIC COMMUNICATIONS TECHNICIAN-C Other Provider Active Team Status: Active Member Role Status Dates Dr. Eliza Jacobs MD Primary Care Provider Active Dr. Bismark Garcia MD Attending Provider Active Team Status: Active Member Role Status Dates Dr. Elzia aJcobs MD Primary Care Provider Active Dr. Denis Cavazos , DO Emergency Provider Active Dr. Vicente Marquez MD Admit Provider, Referring Provider, Other Provider Active Dr. Bismark Garcia MD Other Provider Active Dr. Connie Heredia MD Other Provider Active Dr. Blair Hernadez , DO Other Provider Active Dr. Hugh Gannon MD Attending Provider, Other Provid er Active Dr. Nas Saenz , DO Other Provider Active Dr. Anthony Yanes MD Other Provider Active Dr. Edgar Hale MD Other Provider Active Leidy Ravi NP, ELECTRONIC COMMUNICATIONS TECHNICIAN-C Other Provider Active Team Status: Active Member Role Status Dates Dr. Eliza Jacobs MD Primary Care Provider Active Dr. Denis Cavazos , DO Emergency Provider Active Dr. Vicente Marquez MD Admit Provider, Other Provide r Active Dr. Bismark Garcia MD Attending Provider, Other Prov ider Active Dr. Connie Heredia MD Other Provider Active Dr. Blair Hernadez , DO Other Provider Active Dr. Hugh Gannon MD Other Provider Active Dr. Nas Saenz , DO Other Provider Active Dr. Anthony Yanes MD Other Provider Active Dr. Edgar Hale MD Other Provider Active Leidy Ravi NP, ELECTRONIC COMMUNICATIONS TECHNICIAN-C Other Provider Active Team Status: Active Member Role Status Dates Dr. Eliza Jaocbs MD Primary Care Provider Active Dr. Denis Cavazos , DO Emergency Provider Active Dr. Vicente Marquez MD Admit Provider, Other Provide r Active Dr. Connie Heredia MD Other Provider Active Dr. Bismark Garcia MD Other Provider Active Dr. Blair Hernadez , DO Other Provider Active Dr. Hugh Gannon MD Attending Provider, Other Provid er Active Dr. Nas Saenz , DO Other Provider Active Dr. Anthony Yanes MD Other Provider Active Dr. Edgar Hale MD Other Provider Active Leidy Ravi ELECTRONIC COMMUNICATIONS TECHNICIAN, ELECTRONIC COMMUNICATIONS TECHNICIAN-C Other Provider Active Team Status: Active Member Role Status Dates Dr. Eliza Jacobs MD Primary Care Provider Active Dr. Denis Cavazos , DO Emergency Provider Active Dr. Vicente Marquez MD Admit Provider, Other Provide r Active Dr. Connie Heredia MD Other Provider Active Dr. Bismark Garcia MD Other Provider Active Dr. Blair Hernadez , DO Attending Provider, Other Prov ider Active Dr. Hugh Gannon MD Other Provider Active Dr. Nas Saenz , DO Other Provider Active Dr. Anthony Yanes MD Other Provider Active Dr. Edgar Hale MD Other Provider Active Leidy Ravi ELECTRONIC COMMUNICATIONS TECHNICIAN, ELECTRONIC COMMUNICATIONS TECHNICIAN-C Other Provider Active Team Status: Active Member Role Status Dates Dr. Eliza Jacobs MD Primary Care Provider Active Dr. Denis Cavazos , DO Emergency Provider Active Dr. Vicente Marquez MD Admit Provider, Other Provide r Active Dr. Connie Heredia MD Other Provider Active Dr. Bismark Garcia MD Other Provider Active Dr. Blair Hernadez , DO Other Provider Active Dr. Hugh Gannon MD Other Provider Active Dr. Nas Saenz , DO Other Provider Active Dr. Anthony Yanes MD Other Provider Active Dr. Edgar Hale MD Other Provider Active Leidy Ravi NP, ELECTRONIC COMMUNICATIONS TECHNICIAN-C Other Provider Active Dr. Charlene Lorenzo MD Attending Provider Activ e Team Status: Active Member Role Status Dr. Eliza Jacobs MD Primary Care Provider Active Dr. Denis Cavazos , Emergency Provider Active Dr. Vicente Marquez MD Admit Provider, Other Provide r Active Dr. Connie Heredia MD Attending Provider, Other Provider Active Dr. Bismark Garcia MD Other Provider Active Dr. Blair Hernadez , DO Other Provider Active Dr. Hugh Gannon MD Other Provider Active Dr. Nas Saenz , DO Other Provider Active Dr. Anthony Yanes MD Other Provider Active Dr. Edgar Hale MD Other Provider Active Leidy Ravi NP, ELECTRONIC COMMUNICATIONS TECHNICIAN-C Other Provider Active Team Status: Active Member Role Status Dates Dr. Eliza Jacobs MD Primary Care Provider Active Dr. Denis Cavazos , DO Emergency Provider Active Dr. Vicente Marquez MD Admit Provider, Other Provide r Active Dr. Bismark Garcia MD Other Provider Active Dr. Blair Hernadez , DO Other Provider Active Dr. Hugh Gannon MD Other Provider Active Dr. Nas Saenz , DO Other Provider Active Dr. Anthony Yanes MD Other Provider Active Dr. Edgar Hale MD Other Provider Active Leidy Ravi ELECTRONIC COMMUNICATIONS TECHNICIAN, ELECTRONIC COMMUNICATIONS TECHNICIAN-C Other Provider Active Dr. Jaron Warner MD Attending Provider, Other Provid er Active Dr. Connie Heredia MD Other Provider Active Team Status: Active Member Role Status Dates Dr. Eliza Jacobs MD Primary Care Provider Active Dr. Denis Cavazos , Emergency Provider Active Dr. Vicente Marquez MD Admit Provider, Other Provide r Active Dr. Bismark Garcia MD Attending Provider, Other Prov ider Active Dr. Blair Hernadez , DO Other Provider Active Dr. Hugh Gannon MD Other Provider Active Dr. Nas Saenz , DO Other Provider Active Dr. Anthony Yanes MD Other Provider Active Dr. Edgar Hale MD Other Provider Active Leidy Ravi NP, ELECTRONIC COMMUNICATIONS TECHNICIAN-C Other Provider Active Dr. Jaron Warner MD Other Provider Active Dr. Connie Heredia MD Other Provider Active Team Status: Active Member Role Status Dates Dr. Eliza Jacobs MD Primary Care Provider Active Dr. Randy Castro MD Attending Provider Active Team Status: Inactive Member Role Status Dates Dr. Eliza Jacobs MD Primary Care Prov ider, Attending Provider, Referring Provider Active Team Status: Inactive Member Role Status Dates Dr. Eliza Jacobs MD Primary Care Provider Active Dr. Denis Cavazos , Emergency Provider Active Dr. Vicente Marquez MD Admit Provider, Other Provide r Active Dr. Bismark Garcia MD Other Provider Active Dr. Blair Hernadez , DO Other Provider Active Dr. Hugh Gannon MD Other Provider Active Dr. Nas Saenz , DO Other Provider Active Dr. Anthony Yanes MD Other Provider Active Dr. Edgar Hale MD Other Provider Active Leidy Ravi NP, ELECTRONIC COMMUNICATIONS TECHNICIAN-C Other Provider Active Dr. Jaron Warner MD Attending Provider Active Dr. Connie Heredia MD Other Provider Active Team Status: Active Member Role Status Dates Dr. Eliza Jacobs MD Primary Care Prov ider, Attending Provider, Referring Provider Active Team Status: Active Member Role Status Dates Dr. Eliza Jacobs MD Primary Care Provider, Attendin g Provider Active Team Status: Inactive Member Role Status Dates Dr. Eliza Jacobs MD Primary Care Provider, Referrin g Provider Active Dr. Bismark Garcia MD Attending Provider Active Team Status: Inactive Member Role Status Dates Dr. Eliza Jacobs MD Primary Care Provider, Attendin g Provider Active Team Status: Inactive Member Role Status Dates Dr. Eliza Jacobs MD Primary Care Provider, Referrin g Provider Active Trever H Saima ELECTRONIC COMMUNICATIONS TECHNICIAN, ELECTRONIC COMMUNICATIONS TECHNICIAN-C Attending Provider Active Team Status: Active Member Role Status Dates Dr. Eliza Jacobs MD Primary Care Provider Active Dr. Randy Castro MD Attending Provider Active Dr. Jaron Warner MD Referring Provider Active Team Status: Active Member Role Status Dates Dr. Eliza Jacobs MD Primary Care Provider Active Trever H Saima ELECTRONIC COMMUNICATIONS TECHNICIAN, ELECTRONIC COMMUNICATIONS TECHNICIAN-C Other Provider Active Dr. Bismark Garcia MD Attending Provider Active Team Status: Active Member Role Status Dates Dr. Eliza Jacobs MD Primary Care Provider Active Trever H Roof ELECTRONIC COMMUNICATIONS TECHNICIAN, ELECTRONIC COMMUNICATIONS TECHNICIAN-C Attending Provider Active Team Status: Inactive Member Role Status Dates Dr. Eliza Jacobs MD Primary Care Provider Active Trever H Saima ELECTRONIC COMMUNICATIONS TECHNICIAN, ELECTRONIC COMMUNICATIONS TECHNICIAN-C Attending Provider, Referring Pro vider Active Team Status: Active Member Role Status Dates Dr. Eliza Jacobs MD Primary Care Provider Active Trever Landaverde ELECTRONIC COMMUNICATIONS TECHNICIAN, ELECTRONIC COMMUNICATIONS TECHNICIAN-C Other Provider Active Dr. Bismark Garcia MD Attending Provider, Referring Provider Active Team Status: Inactive Member Role Status Dates Dr. Eliza Jacobs MD Primary Care Provider, Referrin g Provider Active Dr. Hipolito Murphy MD Attending Provider Active Team Status: Active Member Role Status Dates Dr. Eliza Jacobs MD Primary Care Provider Active Dr. Hipolito Murphy MD Attending Pr ovider, Referring Provider, Other Provider Active Team Status: Inactive Member Role Status Dates Dr. Eliza Jacobs MD Primary Care Provider Active Dr. Hipolito Murphy MD Attending Provider, Referr ing Provider Active Team Status: Active Member Role Status Dates Dr. Eliza Jacobs MD Primary Care Provider Active Dr. Gianna Alvarado MD Attending Provider Active Trever H Saima ELECTRONIC COMMUNICATIONS TECHNICIAN, ELECTRONIC COMMUNICATIONS TECHNICIAN-C Referring Provider Active Team Status: Inactive Member Role Status Dates Dr. Eliza Jacobs MD Primary Care Provider Active Yasmany Omalley MD Attending Provider, Referring Provide r Active Team Status: Active Member Role Status Dates Dr. Eliza Jacobs MD Primary Care Provider Active Yasmany Omalley MD Referring Provider, Other Provider Ac tive Dr. Nas Saenz DO Attending Provider Active Team Status: Inactive Member Role Status Dates Dr. Eliza Jacobs MD Primary Care Provider, Referrin g Provider Active Dr. Gianna Alvarado MD Attending Provider Active Team Status: Inactive Member Role Status Dates Dr. Eliza Jacobs MD Primary Care Provider Active Dr. Gianna Alvarado MD Attending Provider, Referring Pr ovider Active Team Status: Inactive Member Role Status Dates Dr. Eliza Jacobs MD Primary Care Prov ider, Attending Provider, Referring Provider Active Dr. Nisha Cruz DO Other Provider Active Team Status: Active Member Role Status Dates Dr. Eliza Jacobs MD Primary Care Provider Active Dr. Nisha Cruz DO Attending Provider, Referring P rovider Active Team Status: Inactive Member Role Status Dates Dr. Eliza Jacobs MD Primary Care Provider Active Dr. Nisha Cruz DO Attending Provider, Referring P rovider Active Team Status: Inactive Member Role Status Dates Dr. Eliza Jacobs MD Primary Care Provider Active Start: July 07, 2024 End: July 07, 2024 Dr. Eliza Jacobs MD Attending Provider Active Start: July 07, 2024 End: July 07, 2024 Dr. Eliza Jacobs MD Referring Provider Active Start: July 07, 2024 End: July 07, 2024 (unrecognized sect ion and content) No Status Records FoundNo Status Records FoundNo Status Records FoundNo Status Records Found INFORMATION SOURCE (unrecogn ized section and content) DATE CREATED AUTHOR 12/31/[address] [facility] DATE CREATED AUTHOR AUTHOR'S ORGANIZ ATION 05/23/2022 [facility] ([place] DATE CREATED AUTHOR AUTHOR'S ORGANIZ ATION 02/24/2023 [facility] DATE CREATED AUTHOR AUTHOR'S ORGANIZ ATION 08/30/2024 [facility] FOR RECORDS PERTAINING TO PATIENTS WHO [...] BE BASED ON THE PRIMARY CLINICAL RECORDS. [facility] provides no warranty or guarantee of the accuracy or completeness of information in this document.
--- NOTE | 2024-10-16 13:32 | STRESSREP ---
Stress Test Report Date: 10/16/2024 Procedure: Pharmacologic stress nuclear imaging study Indications: Paroxysmal atrial fibrillation Consent: Per the patient Procedure: The patient underwent pharmacologic (Regadenoson 0.4mg ) evaluation with a peak heart rate of 86 beats per minute (59%predicted maximal heart rate) and a peak blood pressure of 162/78 mmHg. The baseline ECG demonstrated sinus rhythm with nonspecific ST changes. The peak pharmacologic ECG was nondiagnostic secondary to baseline abnormalities. No significant arrhythmias were noted. There was no complaint of chest discomfort during pharmacologic infusion or recovery. The patient was injected with 12.2 millicuries of technetium 99m Cardiolite and subsequently rest SPECT Cardiolite nuclear imaging was obtained in the horizontal long, vertical long, and short axis views. The patient underwent pharmacologic (Regadenoson) evaluation. The patient was injected with 37.1 millicuries of technetium 99m Cardiolite and subsequently stress SPECT Cardiolite nuclear imaging was obtained in the horizontal long, vertical long, and short axis views. A gated Cardiolite study at peak stress was obtained. The examination was stopped secondary to completion of protocol. Rest and stress SPECT Cardiolite nuclear imaging status post realignment, normalization, and attenuation correction demonstrate no fixed or reversible perfusion defects. There is end systolic thickening and brightening. The gated Cardiolite study demonstrates myocardial thickening and inward wall motion. The reported LVEF is 65%. Impression: 1. Pharmacologic (Regadenoson) evaluation 2. Peak pharmacologic ECG with no diagnostic changes. 3. No significant cardiac dysrhythmias noted. 5. Rest and stress SPECT Cardiolite nuclear imaging demonstrate relative uniform tracer uptake and myocardial perfusion appearing within normal limits. 6. The gated Cardiolite study reports an LVEF of 65%. This note was generated with [employer]ation software. It may contain incorrect words, spelling, and punctuation that were not noted in checking the note before signing.
== END | disposition home or self-care (01) ==
LOC: CVS 06:19
PROVIDERS: PCP Family Medicine; Referring Provider Internal Medicine Cardiovascular Disease; Visit Provider Internal Medicine Cardiovascular Disease
DX: R07.89 Other chest pain (principal); I50.9 Heart failure, unspecified; I48.0 Paroxysmal atrial fibrillation; I42.9 Cardiomyopathy, unspecified; Z86.79 Personal history of other diseases of the circulatory system; R06.09 Other forms of dyspnea
CPT/HCPCS: 78452; 93017; 93306; A9500; A4216; J2785